=== PATIENT | female | born 2000 | race Hispanic/Latino ===

== ENCOUNTER 2019-03-29 07:35 | Emergency (ER) | payer OTHER, SELFPAY ==
--- OUTSIDE RECORDS SUMMARY | 2019-03-29 07:37 | XMS REPORT ---
:2000 Author Organization eClinicalWorks Care Team Providers Name Role Phone Brenna Daphnie Provider Role Unavailable Allergies, Adverse Reactions, Alerts Substance Reaction Event Type N.K.D.A. Info Not Available Non Drug Allergy Problems Problem Type Condition Code Onset Dates Condition Status Problem Seasonal allergies J30.2 Active Problem Bilateral low back pain without M54.5 Active sciatica, unspecified chronicity Problem Vaginal discharge N89.8 Active Assessment Encounter for gynecological Z01.419 Active examination Assessment Screening for STD (sexually Z11.3 Active transmitted disease) Assessment Vaginal discharge N89.8 Active Medications No Known Medications Results Name Result Date Reference Range Unit Abnormality Flag SURESWAB(R), CT/NG, T VAGINALIS ----CHLAMYDIA TRACHOMATIS NOT DETECTED 20180826 NOT DETECTED N RNA, TMA, UROGENITAL ----NEISSERIA GONORRHOEAE NOT DETECTED 20180826 NOT DETECTED N RNA, TMA, UROGENITAL ----SURESWAB(R) NOT DETECTED 20180826 NOT DETECTED N TRICHOMONAS VAGINALIS RNA, QL, TMA CULTURE, GENITAL ----CULTURE, GENITAL SEE NOTE [id number] Summary Purpose eClinicalWorks Submission
--- NOTE | 2019-03-29 08:46 | EDPHYS ---
Physician Documentation [facility] Name: Emma Bah Age: 18 yrs Sex: Female : 2000 Arrival Date: 03/29/2019 Time: 07:38 Bed 20 Private MD: ED Physician Jay Patrick HPI: 03/29 07:49 This 18 yrs old Female presents to ER via Ambulatory with complaints of Cough. rn 07:49 The patient or guardian reports cough, that is intermittent, described as mild, with no rn sputum. Onset: The symptoms/episode began/occurred 1 week(s) ago. Severity of symptoms: At their worst the symptoms were mild, in the emergency department the symptoms are unchanged. Modifying factors: The symptoms are alleviated by nothing, the symptoms are aggravated by nothing. The patient has not experienced similar symptoms in the past. The patient has not recently seen a physician. Reports sore throat, congestion, runny nose, cough for 1 week, is , just not going away, no sob. No hx of asthma, non-smoker.. 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 - Social history:: Smoking status: Patient/guardian denies using tobacco. - Ebola Screening: : No symptoms or risks identified at this time. - Family history:: not pertinent. - Hospitalizations: : No recent hospitalization is reported. ROS: 07:49 Constitutional: + chills, no fever Eyes: Negative for injury, pain, redness, and corn popper, ENT: + congestion and sore throat Neck: Negative for injury, and swelling, Cardiovascular: Negative for chest pain, palpitations, and edema, Respiratory: Negative for wheezing, and pleuritic chest pain, Abdomen/GI: Negative for abdominal pain, nausea, vomiting, diarrhea, and constipation, MS/Extremity: Negative for injury and deformity, Skin: Negative for injury, rash, and discoloration, Neuro: Negative for headache, weakness, numbness, tingling, and seizure. Exam: 07:49 Constitutional: This is a well developed, well nourished patient who is awake, alert, rn and in no acute distress. Head/Face: Normocephalic, atraumatic. Eyes: Pupils equal round and reactive to light, extra-ocular motions intact. Lids and lashes normal. Conjunctiva and sclera are non-icteric and not injected. Cornea within normal limits. Periorbital areas with no swelling, redness, or edema. ENT: Mild pharyngeal erythema, no exudate, no stridor Neck: Trachea midline, no thyromegaly or masses palpated, and no cervical lymphadenopathy. Supple, full range of motion without nuchal rigidity, or vertebral point tenderness. No Meningismus. Cardiovascular: Regular rate and rhythm. No pulse deficits. Respiratory: Lungs have equal breath sounds bilaterally, clear to auscultation Skin: Warm, dry Vital Signs: 07:41 BP 123 / 68; Pulse 75; Resp 16 S; Temp 98.4(O); Pulse Ox 100% on R/A; Weight 86.18 kg aa5 (R); Height 5 ft. 4 in. (162.56 cm) (R); Pain 6/10; 08:16 BP 113 / 72; Pulse 72; Resp 15; Pulse Ox 99% on R/A; tr5 07:41 Body Mass Index 32.61 (86.18 kg, 162.56 cm) aa5 MDM: 07:43 Patient medically screened. rn 08:44 Differential Diagnosis: Bronchitis Influenza Upper Respiratory Infection Pharyngitis rn Viral Syndrome. Data reviewed: vital signs, nurses notes, lab test result(s), and as a result, I will discharge patient. Counseling: I had a detailed discussion with the patient and/or guardian regarding: the historical points, exam findings, and any diagnostic results supporting the discharge/admit diagnosis, lab results, the need for outpatient follow up, to return to the emergency department if symptoms worsen or persist or if there are any questions or concerns that arise at home. Response to treatment: There is no appreciated change of the patient's symptoms at this time, and as a result, I will discharge patient. Special discussion: I discussed with the patient/guardian in detail that at this point there is no indication for admission to the hospital. It is understood, however, that if the symptoms persist or worsen the patient needs to return immediately for re-evaluation. 03/29 07:49 Order name: Strep; Complete Time: 08:44 rn 03/29 07:49 Order name: Flu; Complete Time: 08:44 rn 03/29 08:37 Order name: Throat Culture EDMS Administered Medications: No medications were administered Disposition: 03/29/19 08:45 Discharged to Home. Impression: Cough, Acute upper respiratory infection, unspecified. - Condition is Stable. - Discharge Instructions: Upper Respiratory Infection, Adult, Viral Respiratory Infection, Cough, Adult. - Medication Reconciliation Form, Thank You Letter, Antibiotic Education, Prescription Opioid Use form. - Follow up: Private Physician; When: As needed; Reason: Recheck today's complaints, Re-evaluation by your physician. - Problem is new. - Symptoms are unchanged. Signatures: Dispatcher [employer] EDMS Jay Patrick MD MD rn Calderon, Audri, RN RN aa5 Corrections: (The following items were deleted from the chart) 09:38 08:45 03/29/2019 08:45 Discharged to Home. Impression: Cough; Acute upper respiratory aa5 infection, unspecified. Condition is Stable. Forms are Medication Reconciliation Form, Thank You Letter, Antibiotic Education, Prescription Opioid Use. Follow up: Private Physician; When: As needed; Reason: Recheck today's complaints, Re-evaluation by your physician. Problem is new. Symptoms are unchanged. rn
--- NOTE | 2019-03-29 08:46 | ER ---
Nurse's Notes [facility] Name: Emma Bah Age: 18 yrs Sex: Female : 2000 Arrival Date: 03/29/2019 Time: 07:38 Bed 20 Private MD: Diagnosis: Cough;Acute upper respiratory infection, unspecified Presentation: 03/29 07:40 Presenting complaint: Patient states: sore throat, cough, runny nose that began 1 week aa5 ago. Pt also reports positive test on March 11. 07:40 Transition of care: patient was not received from another setting of care. Onset of aa5 symptoms was March 2019. Risk Assessment: Do you want to hurt yourself or someone else? Patient reports no desire to harm self or others. Initial Sepsis Screen: Does the patient meet any 2 criteria? No. Patient's initial sepsis screen is negative. Does the patient have a suspected source of infection? No. Patient's initial sepsis screen is negative. Care prior to arrival: None. 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 - Social history:: Smoking status: Patient/guardian denies using tobacco. - Ebola Screening: : No symptoms or risks identified at this time. - Family history:: not pertinent. - Hospitalizations: : No recent hospitalization is reported. Screenin:10 Abuse screen: Denies threats or abuse. Nutritional screening: No deficits noted. tr5 Tuberculosis screening: No symptoms or risk factors identified. Fall Risk No fall in past 12 months (0 pts). No secondary diagnosis (0 pts). No IV (0 pts). Ambulatory Aid- None/Bed Rest/Nurse Assist (0 pts). Gait- Normal/Bed Rest/Wheelchair (0 pts) Mental Status- Oriented to own ability (0 pts). Total Randolph Fall Scale indicates No Risk (0-24 pts). Assessment: 08:07 General: Appears in no apparent distress. Behavior is calm, cooperative, appropriate tr5 for age. Pain: Complains of pain in right mandible and left mandible Pain does not radiate. Pain currently is 4 out of 10 on a pain scale. Quality of pain is described as aching, Pain began 2-3 days ago. Is continuous. Neuro: Level of Consciousness is awake, alert, obeys commands, Oriented to person, place, time, Delicatessen Clerk are equal bilaterally. Cardiovascular: Heart tones present Bruits absent Capillary refill < 3 seconds Pulses are all present. Edema is absent. Respiratory: Reports cough that is non-productive, Airway is patent Trachea midline Breath sounds are clear bilaterally. GI: No signs and/or symptoms were reported involving the gastrointestinal system. : No signs and/or symptoms were reported regarding the genitourinary system. EENT: No signs and/or symptoms were reported regarding the EENT system. Derm: No signs and/or symptoms reported regarding the dermatologic system. Skin is intact, Skin is dry. Musculoskeletal: Capillary refill < 3 seconds. 09:35 Reassessment: Patient is alert, oriented x 3, equal unlabored respirations, skin aa5 warm/dry/pink. Vital Signs: 07:41 BP 123 / 68; Pulse 75; Resp 16 S; Temp 98.4(O); Pulse Ox 100% on R/A; Weight 86.18 kg aa5 (R); Height 5 ft. 4 in. (162.56 cm) (R); Pain 6/10; 08:16 BP 113 / 72; Pulse 72; Resp 15; Pulse Ox 99% on R/A; tr5 07:41 Body Mass Index 32.61 (86.18 kg, 162.56 cm) aa5 ED Course: 07:38 Patient arrived in ED. as 07:40 Arm band placed on Patient placed in an exam room, on a stretcher. aa5 07:43 Jay Patrick MD is Attending Physician. rn 07:49 Triage completed. aa5 07:55 Christos Barfield, SOFIA is Primary Nurse. tr5 08:11 Patient has correct armband on for positive identification. Bed in low position. Call tr5 light in reach. 09:35 No provider procedures requiring assistance completed. Patient did not have IV access aa5 during this emergency room visit. Administered Medications: No medications were administered Outcome: 08:45 Discharge ordered by . rn 09:35 Discharged to home ambulatory, with friend. aa5 09:35 Condition: stable 09:35 Discharge instructions given to patient, Instructed on discharge instructions, follow up and referral plans. Demonstrated understanding of instructions, follow-up care. 09:38 Patient left the ED. aa5 Signatures: Nichole Adrian Roman, MD MD rn Calderon, Audri RN RN aa5 Christos Barfield RN RN tr5
[2019-03-29 09:44] VITALS: TEMP 98.4
[2019-03-29 09:45] VITALS: BP 113/72; O2SAT 99
== END 2019-03-29 09:38 | disposition home or self-care (01) ==
LOC: ER 07:35
DX: O26.891 Other specified pregnancy related conditions, first trimester (principal); J06.9 Acute upper respiratory infection, unspecified; Z3A.00 Weeks of gestation of pregnancy not specified; Z88.0 Allergy status to penicillin
CPT/HCPCS: 87070; 87081; 87804; 99281

== ENCOUNTER 2019-12-09 05:01 | Emergency (ER) | payer OTHER ==
--- OUTSIDE RECORDS SUMMARY | 2019-12-09 05:03 | XMS REPORT ---
:2000 [facility] Address [address] [place] [address] Dr. Osborne. [address] [place] [id number] Care Team Providers Name Role Phone Unavailable Unavailable Unavailable Problems This patient has no known problems. Allergies, Adverse Reactions, Alerts This patient has no known allergies or adverse reactions. Medications This patient has no known medications.
--- OUTSIDE RECORDS SUMMARY | 2019-12-09 05:05 | XMS REPORT | Summary of Care ---
:2000 Author Organization [facility] Address [address] [place] [id number] Care Team Providers Name Role Phone Aliyah Boss MD Primary Care Provider Reason for Visit Reason Comments ROUTINE VISIT Encounter Details Date Type Department Care Team Description 11/07/2019 Routine [facility] Women's Niurka Govea, High-risk in third trimester (Primary Dx); Visit Healthcare- PA-C 37 weeks gestation of [address] [facility] [address] [place] [id number] [phone] Allergies Active Allergy Reactions Severity Noted Date Comments Penicillins Hives 04/23/2019 documented as of this encounter (statuses as of 11/07/2019) Medications Medication Sig Dispensed Refills Start Date End Date Status Take by mouth. 0 Active vits62/FA/om3/dha/epa ( GUMMY ORAL) documented as of this encounter (statuses as of 11/07/2019) Active Problems Problem Noted Date High-risk in third trimester 09/16/2019 Obesity (BMI 30-39.9) 04/23/2019 Estimated Date of Delivery Comments Yes 11/22/2019 Based on Ultrasound documented as of this encounter (statuses as of 11/07/2019) Resolved Problems Problem Noted Date Resolved Date 36 weeks gestation of 09/16/2019 11/07/2019 documented as of this encounter (statuses as of 11/07/2019) Immunizations Name Administration Dates Next Due DTAP 10/12/2003, 05/22/2001, 03/14/2000, 01/11/2000, 2000 H1n1 Vaccine 10/07/2010 HEPATITIS A 10/01/2012, 12/28/2011 HPV 12/28/2011, 03/30/2011, 10/07/2010 Heamophilus Influenza B 05/22/2001, 03/14/2000, 01/11/2000, 2000 Hep B, Adol or Pedi Dosage 03/14/2000, [birth year] IPV 10/12/2003, 05/22/2001, 01/11/2000, 2000 Influenza Virus Vaccine Quad .5 mL IM 07/17/2019 6+ MO MMR 10/12/2003, 10/08/2000 Meningococcal Polysaccharide (groups 10/07/2010 A, C, Y and W-135) conjugate vaccine (MCV4P) TDAP (ADACEL) VACCINE 09/30/2019 Tdap 10/07/2010 Varicella (varivax)(chicken pox) 12/28/2011, 10/08/2000 documented as of this encounter Social History Tobacco Use Types Packs/Day Years Used Date Never Smoker Smokeless Tobacco: Never Used Alcohol Use Drinks/Week oz/Week Comments Never Alcohol Habits Answer Date Recorded How often do you have a drink containing alcohol? Never 04/23/2019 How many drinks containing alcohol do you have on a typical Not asked day when you are drinking? How often do you have six or more drinks on one occasion? Not asked Estimated Date of Delivery Comments Yes 11/22/2019 Based on Ultrasound Sex Assigned at Date Recorded Not on file Job Start Date Occupation Industry Not on file Not on file Not on file Travel History Travel Start Travel End No recent travel history available. documented as of this encounter Last Filed Vital Signs Vital Sign Reading Time Taken Comments Blood Pressure 110/71 11/07/2019 9:12 AM HAND MODEL Pulse 75 11/07/2019 9:12 AM HAND MODEL Temperature 36.9 C (98.4 F) 11/07/2019 9:12 AM HAND MODEL Respiratory Rate 18 11/07/2019 9:12 AM HAND MODEL Oxygen Saturation - - Inhaled Oxygen Concentration - - Weight 88.9 kg (196 lb) 11/07/2019 9:12 AM HAND MODEL Height 160 cm (5' 3") 11/07/2019 9:12 AM HAND MODEL Body Mass Index 34.72 11/07/2019 9:12 AM HAND MODEL documented in this encounter Progress Notes Niurka Govea PA-C - 11/07/2019 8:45 AM CST Chief complaint: Chief Complaint Patient presents with ROUTINE VISIT HPI Emma Bah is a 19 year old female @ 37w6d coming in for PN visit. Denies contractions, vaginal bleeding, LOF, dysuria, or PIH symptoms. + active FM. Histories OB History Para Term AB Living 1 0 SAB TAB Ectopic Multiple Live Births # Outcome Date GA Lbr Marty/2nd Weight Sex Delivery Anes PTL Lv 1 Current No past medical history on file. Family History Problem Relation Age of Onset Thyroid Mother Hyperthyroidism Mother Arthritis NoFHx Asthma NoFHx defects NoFHx Breast Cancer NoFHx Colon Cancer NoFHx Ovarian Cancer NoFHx Uterine Cancer NoFHx Cancer NoFHx Depression NoFHx Diabetes NoFHx Genetic NoFHx Heart NoFHx High cholesterol NoFHx Hypertension NoFHx Mental retardation NoFHx Neurological NoFHx Osteoporosis NoFHx Psychiatry NoFHx Other - see comments NoFHx Family Status Relation Name Status Mo Alive Fa Alive NoFHx (Not Specified) Past Surgical History: Procedure Laterality Date TONSILLECTOMY @ age 6 Social History Socioeconomic History Marital status: Single Spouse name: Not on file Number of children: Not on file Years of education: Not on file Highest education level: Not on file Occupational History Not on file Social Needs Financial resource strain: Not on file Food insecurity: Worry: Not on file Inability: Not on file Transportation needs: Medical: Not on file Non-medical: Not on file Tobacco Use Smoking status: Never Smoker Smokeless tobacco: Never Used Substance and Sexual Activity Alcohol use: Never Frequency: Never Drug use: Never Sexual activity: Yes Partners: Male control/protection: None Lifestyle Physical activity: Days per week: Not on file Minutes per session: Not on file Stress: Not on file Relationships Social connections: Talks on phone: Not on file Gets together: Not on file Attends orthodox service: Not on file Active member of club or organization: Not on file Attends meetings of clubs or organizations: Not on file Relationship status: Not on file Intimate partner violence: Fear of current or ex partner: Not on file Emotionally abused: Not on file Physically abused: Not on file Forced sexual activity: Not on file Other Topics Concern Not on file Social History Narrative Denies domestic or physical violence within the home Yarsanism Preference; Jainism Cat outside / no litter box Social History Substance and Sexual Activity Sexual Activity Yes Partners: Male control/protection: None Labs none Radiology none Allergies Emma is allergic to pcn [penicillins]. Medications Emma has a current medication list which includes the following prescription(s ): vits62/fa/om3/dha/epa. Review of Systems Constitutional: Negative for appetite change, fatigue and fever. HENT: Negative for rhinorrhea and sore throat. Eyes: Negative for pain and itching. Respiratory: Negative for cough, chest tightness and shortness of breath. Breasts: Negative for discharge, mass and pain. Cardiovascular: Negative for chest pain, palpitations and leg swelling. Gastrointestinal: Negative for abdominal pain, constipation, diarrhea and nausea. Genitourinary: Negative for bladder incontinence, dysuria, vaginal discharge, difficulty urinating, vaginal pain and pelvic pain. Musculoskeletal: Negative for gait problem and myalgias. Skin: Negative for rash. Neurological: Negative for dizziness and headaches. Psychiatric/Behavioral: Negative for suicidal ideas. The patient is not nervous/ anxious. Endocrine: Negative for hair loss. BP 110/71 (BP Location: Left arm, Patient Position: Sitting, BP CUFF SIZE: Adult Medium) | Pulse 75 | Temp 36.9 C (98.4 F) (Oral) | Resp 18 | Ht 5' 3" (1.6 m) | Wt 196 lb (88.9 kg) | LMP (LMP Unknown) | BMI 34.72 kg/m Pregravid BMI: 32.4 Physical Exam Vitals reviewed. Constitutional: She is oriented to person, place, and time. She appears well- developed and well-nourished. Neck: No mass. No thyromegaly palpated. No neck adenopathy. Cardiovascular: Regular rate and rhythm. Pulmonary/Chest: Normal inspiratory effort. Abdominal: Abdomen is soft. No tenderness present. No hernia palpated or inspected. Neuro/Psychiatric: She has a normal mood and affect. She is oriented to person, place, and time. Skin: Skin normal. Lymphadenopathy: No neck adenopathy present. No axillary adenopathy present. No inguinal adenopathy present. Assessment/Plan SEE OB SUMMARY Return to clinic in 1 weeks. Discussed treatment options. Reviewed patient instructions and provided printed copy. Activity restrictions: As tolerated This visit did not involve counseling and coordination that comprised more than 50% of the visit time. Niurka Govea PA-C 11/07/2019 9:21 AM documented in this encounter Plan of Treatment Date Type Specialty Care Team Description 11/07/2019 Skiagrapher Visit Phlebotomy Niurka Govea PA-C [address] [place] [phone] 2, Adc Lab 11/13/2019 Routine Visit Obstetrics & Boss, Aliyah Ocampo MD Gynecology [address] [place] [address] DRDenys [facility] [address] [place] [address] [phone] Health Maintenance Due Date Last Done Comments MENINGOCOCCAL B VACCINES (1 2009 of 2 - Risk Bexsero 2-dose series) WELL CARE VISIT: 12-21 YEARS 2011 (yearly) CHLAMYDIA SCREENING 10/29/2020 10/29/2019, 04/23/2019 DTaP,Tdap,and Td Vaccines (8 09/30/2029 09/30/2019, 10/07/2010, - Td) 10/12/2003, Additional history exists MENINGOCOCCAL VACCINE Aged Out 10/07/2010 No longer eligible based on patient's age to complete this topic HPV VACCINES Completed 12/28/2011, 03/30/2011, 10/07/2010 VARICELLA VACCINES Completed 12/28/2011, 10/08/2000 INFLUENZA VACCINE Completed 07/17/2019 PNEUMOCOCCAL 0-64 YEARS Aged Out No longer eligible COMBINED SERIES based on patient's age to complete this topic documented as of this encounter Procedures Procedure Name Priority Date/Time Associated Diagnosis Comments POCT URINALYSIS W/O Routine 11/07/2019 High-risk in Results for this SPECIFIC GRAVITY third trimester procedure are in the 37 weeks gestation of results section. documented in this encounter Results POCT URINALYSIS W/O SPECIFIC GRAVITY (11/07/2019) POCT PH U N/A 5 - 8 mg/dl POCT U LEUK EST N/A Negative - Negative POCT U NIT N/A Negative - Negative POCT U PROT NEG Negative - Negative POCT U GLU NEG Negative - Negative POCT U KETONE N/A Negative - Negative POCT U BLD N/A Negative - Negative Specimen Urine - URINE, CLEAN CATCH documented in this encounter Visit Diagnoses Diagnosis High-risk in third trimester - Primary 37 weeks gestation of state, incidental documented in this encounter Insurance Payer Benefit Plan / Subscriber ID Effective Dates Phone Address Type Group [facility] xxxxxxxxx 2019-Present Medicaid HEALTH PLAN - HEALTH MANAGED MEDICAID documented as of this encounter
--- OUTSIDE RECORDS SUMMARY | 2019-12-09 05:05 | XMS REPORT | Summary of Care ---
:1999 Author Organization [facility] Address [address] [place] [address] Care Team Providers Name Role Phone Aliyah Boss MD Primary Care Provider Reason for Visit Reason Comments ROUTINE VISIT Encounter Details Date Type Department Care Team Description 10/29/2019 Routine [facility] Women's Aliyah Boss MD High-risk in third trimester (Primary Dx); Visit Healthcare- [address] [place] [address] [facility] [address] [place] [address] [address] [place] [address] [phone] Allergies Active Allergy Reactions Severity Noted Date Comments Penicillins Hives 04/23/2019 documented as of this encounter (statuses as of 10/29/2019) Medications Medication Sig Dispensed Refills Start Date End Date Status Take by mouth. 0 Active vits62/FA/om3/dha/epa ( GUMMY ORAL) documented as of this encounter (statuses as of 10/29/2019) Active Problems Problem Noted Date 36 weeks gestation of 09/16/2019 High-risk in third trimester 09/16/2019 Obesity (BMI 30-39.9) 04/23/2019 Estimated Date of Delivery Comments Yes 11/22/2019 Based on Ultrasound documented as of this encounter (statuses as of 10/29/2019) Immunizations Name Administration Dates Next Due Influenza Virus Vaccine Quad .5 mL IM 6+ MO 07/17/2019 TDAP (ADACEL) VACCINE 09/30/2019 documented as of this encounter Social History [...] Sign Reading Time Taken Comments Blood Pressure 117/72 10/29/2019 10:05 AM SERICULTURE TEACHER Pulse 82 10/29/2019 10:05 AM SERICULTURE TEACHER Temperature 36.7 C (98.1 F) 10/29/2019 10:05 AM SERICULTURE TEACHER Respiratory Rate 18 10/29/2019 10:05 AM SERICULTURE TEACHER Oxygen Saturation - - Inhaled Oxygen Concentration - - Weight 87.1 kg (192 lb) 10/29/2019 10:05 AM SERICULTURE TEACHER Height 160 cm (5' 3") 10/29/2019 10:05 AM SERICULTURE TEACHER Body Mass Index 34.01 10/29/2019 10:05 AM SERICULTURE TEACHER documented in this encounter Progress Notes Aliyah Boss MD - 10/29/2019 9:30 AM CST Chief complaint: Chief Complaint Patient presents with ROUTINE VISIT HPI Denies contractions, vaginal bleeding, LOF, dysuria, or PIH symptoms. + active FM. Histories OB History Para Term AB Living 1 0 SAB TAB Ectopic Multiple Live Births # Outcome Date GA Lbr Marty/2nd Weight Sex Delivery Anes PTL Lv 1 Current History reviewed. No pertinent past medical history. Family History Problem Relation Age of Onset [...] file Gets together: Not on file Attends pentecostalism service: Not on file Active member of [...] domestic or physical violence within the home Baptism Preference; Episcopal Cat outside / no litter box Social History Substance and Sexual Activity Sexual Activity Yes Partners: Male control/protection: None Labs No new labs Radiology No new radiology. Allergies Emma is allergic to pcn [penicillins]. Medications Emma has a current medication list which includes the following prescription(s ): vits62/fa/om3/dha/epa. Review of Systems Constitutional: Negative for chills, fatigue and fever. HENT: Negative for congestion, rhinorrhea, sneezing and sore throat. Eyes: Negative for photophobia and visual disturbance. Respiratory: Negative for cough, chest tightness, shortness of breath and wheezing. Cardiovascular: Negative for chest pain and palpitations. Gastrointestinal: Negative for abdominal distention, abdominal pain, constipation, diarrhea, nausea and vomiting. Genitourinary: Negative for dysuria, urgency, frequency, vaginal bleeding and vaginal discharge. Skin: Negative for rash. Neurological: Negative for syncope and headaches. Hematological: Does not bruise/bleed easily. BP 117/72 (BP Location: Left arm, Patient Position: Sitting, BP CUFF SIZE: Adult Medium) | Pulse 82 | Temp 36.7 C (98.1 F) (Oral) | Resp 18 | Ht 5' 3" (1.6 m) | Wt 192 lb (87.1 kg) | LMP (LMP Unknown) | BMI 34.01 kg/m Pregravid BMI: 32.4 Physical Exam Vitals reviewed. Constitutional: She is oriented to person, place, and time. Her body habitus is obese. Cardiovascular: Regular rate and rhythm. Pulmonary/Chest: Normal inspiratory effort. Abdominal: Abdomen is soft. No tenderness present. No hernia palpated or inspected. Neuro/Psychiatric: She has a normal mood and affect. She is oriented to person, place, and time. Skin: Skin normal. No rash present. Assessment/Plan See OB Summary Return to clinic in 1 weeks. Reviewed patient instructions and provided printed copy. Activity restrictions: As tolerated at 36w4d This visit did not involve counseling and coordination that comprised more than 50% of the visit time. Aliyah Boss MD 10/29/2019 2:48 PM documented in this encounter Plan of Treatment Date Type Specialty Care Team Description 11/07/2019 Routine Obstetrics & Niurka Govea, Visit Gynecology DUNCAN [address] [place] [phone] Name Type Priority Associated Diagnoses Order Schedule GC & CHLAMYDIA AMPLIFIED LAB Routine High-risk in Ordered: 2019 ASSAY third trimester 36 weeks gestation of CBC WITH DIFF LAB Routine High-risk in Expected: 10/29/2019, third trimester Expires: 01/27/2020 36 weeks gestation of GROUP B STREPTOCOCCUS BY LAB Routine High-risk in Ordered: 2019 PCR third trimester 36 weeks gestation of Health Maintenance Due Date Last Done Comments VARICELLA VACCINES (1 of 2 - 2000 2-dose childhood series) MENINGOCOCCAL B VACCINES (1 of 2 - 2009 Risk Bexsero 2-dose series) HPV VACCINES (1 - Female 2-dose 2010 series) WELL CARE VISIT: 12-21 YEARS 2011 (yearly) CHLAMYDIA SCREENING 04/23/2020 04/23/2019 DTaP,Tdap,and Td Vaccines (2 - Td) 09/30/2029 09/30/2019 INFLUENZA VACCINE Completed 07/17/2019 MENINGOCOCCAL VACCINE Aged Out No longer eligible based on patient's age to complete this topic PNEUMOCOCCAL 0-64 YEARS COMBINED Aged Out No longer eligible based on SERIES patient's age to complete this topic documented as of this encounter Procedures Procedure Name Priority Date/Time Associated Diagnosis Comments >14 WEEKS US Routine 10/29/2019 2:46 PM High-risk Results for this LIMITED SERICULTURE TEACHER in third trimester procedure are in 36 weeks gestation the results of section. documented in this encounter Results >14 WEEKS US LIMITED (10/29/2019 2:46 PM SERICULTURE TEACHER) Specimen Narrative Performed At Limited USG for presentation: Cephalic PACS Aliyah Boss MD 10/29/2019 2:46 PM Performing Organization Address City/State/[place] Phone Number PACS documented in this encounter Visit Diagnoses Diagnosis High-risk in third trimester - Primary 36 weeks gestation of state, incidental documented in this encounter Insurance Payer Benefit Plan / Subscriber ID Effective Dates Phone Address Type Group [place] [facility] [place] xxxxxxxxx 2019-Present Medicaid HEALTH PLAN - HEALTH MANAGED MEDICAID documented as of this encounter
--- OUTSIDE RECORDS SUMMARY | 2019-12-09 05:05 | XMS REPORT | Summary of Care ---
:1999 Author Organization [facility] - Health Address [address] [place] [address] Care Team Providers Name Role Phone Aliyah Boss MD Primary Care Provider Encounter Details Date Type Department Care Team Description 10/29/2019 Orders Only [facility] Doctor Unassigned, No [address] [facility] [place] [address] [address] [place] [address] Allergies Active Allergy Reactions Severity Noted Date [...] of this encounter Last Filed Vital Signs Not on filedocumented in this encounter Plan of Treatment Date Type Specialty Care Team Description 11/07/2019 Routine Obstetrics & Niurka Govea, Visit Gynecology DUNCAN Clancy [address] [address] Health Maintenance Due Date Last Done Comments [...] Procedure Name Priority Date/Time Associated Diagnosis Comments DSU PRE-OP Routine 10/29/2019 12:01 AM VISUAL AND STOCK ASSOCIATE documented in this encounter Results Not on filedocumented in this encounter Insurance Payer Benefit Plan / Subscriber ID Effective Dates Phone Address Type Group [place] [facility] [place] CHILDRENS xxxxxxxxx 2019-Present Medicaid HEALTH PLAN - HEALTH MANAGED MEDICAID documented as of this encounter
--- OUTSIDE RECORDS SUMMARY | 2019-12-09 05:05 | XMS REPORT | Summary of Care ---
:1999 Author Organization [facility] Address [address] [place] [address] Care Team Providers Name Role Phone Aliyah Boss MD Primary Care Provider Reason for Visit Reason Comments ROUTINE VISIT Encounter Details Date Type Department Care Team Description 11/07/2019 Routine [facility] Women's Niurka Govea, High-risk in third trimester (Primary Dx); Visit Healthcare- PA-C 37 weeks gestation of [address] [facility] [address] [place] [phone] Allergies Active Allergy Reactions Severity Noted Date [...] Comments Blood Pressure 110/71 11/07/2019 9:12 AM MUSIC AGENT Pulse 75 11/07/2019 9:12 AM MUSIC AGENT Temperature 36.9 C (98.4 F) 11/07/2019 9:12 AM MUSIC AGENT Respiratory Rate 18 11/07/2019 9:12 AM MUSIC AGENT Oxygen Saturation - - Inhaled Oxygen Concentration - - Weight 88.9 kg (196 lb) 11/07/2019 9:12 AM MUSIC AGENT Height 160 cm (5' 3") 11/07/2019 9:12 AM MUSIC AGENT Body Mass Index 34.72 11/07/2019 9:12 AM MUSIC AGENT documented in this encounter Progress Notes Niurka [...] file Gets together: Not on file Attends confucianism service: Not on file Active member of [...] domestic or physical violence within the home Yarsani Preference; Hindu Cat outside / no litter box Social [...] Treatment Date Type Specialty Care Team Description 11/13/2019 Routine Obstetrics & Boss, Aliyah Ocampo MD Visit Gynecology [address] [place] [address] [place] [address] [phone] Health Maintenance Due Date Last Done Comments [...] ID Effective Dates Phone Address Type Group [facility] xxxxxxxxx 2019-Present Medicaid HEALTH PLAN - [facility] MANAGED MEDICAID documented as of this encounter
--- OUTSIDE RECORDS SUMMARY | 2019-12-09 05:05 | XMS REPORT | Summary of Care ---
:1999 Author Organization [facility] Address [address] [place] [address] Care Team Providers Name Role Phone Aliyah Boss MD Primary Care Provider Reason for Visit Reason Comments ROUTINE VISIT Encounter Details Date Type Department Care Team Description 09/30/2019 Routine [facility] Women's Niurka Govea, High-risk in third trimester (Primary Dx); Visit Healthcare- PA-C 32 weeks gestation of [address] [facility] [address] [place] [address] [phone] Allergies Active Allergy Reactions Severity Noted Date Comments Penicillins Hives 04/23/2019 documented as of this encounter (statuses as of 09/30/2019) Medications Medication Sig Dispensed Refills Start Date End Date Status Take by mouth. 0 Active vits62/FA/om3/dha/epa ( GUMMY ORAL) documented as of this encounter (statuses as of 09/30/2019) Active Problems Problem Noted Date 30 weeks gestation of 09/16/2019 High-risk in third trimester 09/16/2019 Obesity (BMI 30-39.9) 04/23/2019 Estimated Date of Delivery Comments Yes 11/22/2019 Based on Ultrasound documented as of this encounter (statuses as of 09/30/2019) Immunizations Name Administration Dates Next Due Influenza Virus Vaccine Quad .5 mL IM 6+ MO 07/17/2019 documented as of this encounter Social History [...] Sign Reading Time Taken Comments Blood Pressure 102/64 09/30/2019 4:51 PM ANGLE FURNACEMAN Pulse 77 09/30/2019 4:51 PM ANGLE FURNACEMAN Temperature 36.6 C (97.8 F) 09/30/2019 4:51 PM ANGLE FURNACEMAN Respiratory Rate 18 09/30/2019 4:51 PM ANGLE FURNACEMAN Oxygen Saturation - - Inhaled Oxygen Concentration - - Weight 86.6 kg (191 lb) 09/30/2019 4:51 PM ANGLE FURNACEMAN Height 162.6 cm (5' 4") 09/30/2019 4:51 PM ANGLE FURNACEMAN Body Mass Index 32.79 09/30/2019 4:51 PM ANGLE FURNACEMAN documented in this encounter Progress Notes Niurka Govea PA-C - 09/30/2019 4:30 PM CST Chief complaint: Chief Complaint Patient presents with ROUTINE VISIT HPI Emma Bah is a 19 year old female @ 32w3d coming in for PN visit. Denies contractions, [...] file Gets together: Not on file Attends jain service: Not on file Active member of [...] domestic or physical violence within the home Mu-Ism Preference; Adventism Cat outside / no litter box Social [...] nervous/ anxious. Endocrine: Negative for hair loss. LMP (LMP Unknown) Pregravid BMI: 31.4 Physical Exam Vitals reviewed. Constitutional: She is [...] SEE OB SUMMARY Return to clinic in 2 weeks. Discussed treatment options. Reviewed patient instructions and provided printed copy. Activity restrictions: As tolerated This visit did not involve counseling and coordination that comprised more than 50% of the visit time. Niurka Govea PA-C 09/30/2019 4:47 PM documented in this encounter Plan of Treatment Name Type Priority Associated Diagnoses Order Schedule ADC / LCC - DRUG SCREEN LAB Routine High-risk in Ordered: 2019 TRIAGE third trimester Health Maintenance Due Date Last Done Comments VARICELLA VACCINES (1 of 2 - 2000 2-dose childhood series) MENINGOCOCCAL B VACCINES (1 of 2 - 2009 Risk Bexsero 2-dose series) DTaP,Tdap,and Td Vaccines (1 - 2010 Tdap) HPV VACCINES (1 - Female 2-dose 2010 series) CHLAMYDIA SCREENING 04/23/2020 04/23/2019 INFLUENZA VACCINE Completed 07/17/2019 MENINGOCOCCAL VACCINE Aged Out No longer eligible based on patient's age to complete this topic PNEUMOCOCCAL 0-64 YEARS COMBINED Aged Out No longer eligible based on SERIES patient's age to complete this topic documented as of this encounter Procedures Procedure Name Priority Date/Time Associated Diagnosis Comments POCT URINALYSIS W/O Routine 09/30/2019 32 weeks gestation of Results for this SPECIFIC GRAVITY procedure are in the results section. documented in this encounter Results POCT URINALYSIS W/O SPECIFIC GRAVITY (09/30/2019) POCT PH U N/A 5 - 8 mg/dl POCT U LEUK EST N/A Negative - Negative POCT U NIT N/A Negative - Negative POCT U PROT Negative Negative - Negative POCT U GLU Negative Negative - Negative POCT U KETONE N/A Negative - Negative POCT U BLD N/A Negative - Negative Specimen Urine - URINE, CLEAN CATCH documented in this encounter Visit Diagnoses Diagnosis High-risk in third trimester - Primary 32 weeks gestation of state, incidental documented in this encounter Insurance Payer Benefit Plan / Subscriber ID Effective Dates Phone Address Type Group [place] [facility] [place] xxxxxxxxx 2019-Present Medicaid HEALTH PLAN - HEALTH MANAGED MEDICAID documented as of this encounter
--- OUTSIDE RECORDS SUMMARY | 2019-12-09 05:05 | XMS REPORT | Summary of Care ---
:1999 Author Organization [facility] Address [address] [place] [address] Care Team Providers Name Role Phone Aliyah Boss MD Primary Care Provider Reason for Visit Reason Comments ROUTINE VISIT Encounter Details Date Type Department Care Team Description 10/14/2019 Routine [facility] Women's Niurka Govea, High-risk in third trimester (Primary Dx); Visit Healthcare- PA-C 34 weeks gestation of [address] [facility] [address] [place] [address] [phone] Allergies Active Allergy Reactions Severity Noted Date Comments Penicillins Hives 04/23/2019 documented as of this encounter (statuses as of 10/14/2019) Medications Medication Sig Dispensed Refills Start Date End Date Status Take by mouth. 0 Active vits62/FA/om3/dha/epa ( GUMMY ORAL) documented as of this encounter (statuses as of 10/14/2019) Active Problems Problem Noted Date 30 weeks gestation of 09/16/2019 High-risk in third trimester 09/16/2019 Obesity (BMI 30-39.9) 04/23/2019 Estimated Date of Delivery Comments Yes 11/22/2019 Based on Ultrasound documented as of this encounter (statuses as of 10/14/2019) Immunizations Name Administration Dates Next Due Influenza [...] Sign Reading Time Taken Comments Blood Pressure 106/72 10/14/2019 3:21 PM SHEET TAKER Pulse 85 10/14/2019 3:21 PM SHEET TAKER Temperature 36.8 C (98.2 F) 10/14/2019 3:21 PM SHEET TAKER Respiratory Rate 18 10/14/2019 3:21 PM SHEET TAKER Oxygen Saturation - - Inhaled Oxygen Concentration - - Weight 86.8 kg (191 lb 6.4 oz) 10/14/2019 3:21 PM SHEET TAKER Height 160 cm (5' 3") 10/14/2019 3:21 PM SHEET TAKER Body Mass Index 33.9 10/14/2019 3:21 PM SHEET TAKER documented in this encounter Progress Notes Niurka Govea PA-C - 10/14/2019 4:30 PM CST Chief complaint: Chief Complaint Patient presents with ROUTINE VISIT HPI Emma Bah is a 19 year old female @ 34w3d coming in for PN visit. Denies contractions, [...] file Gets together: Not on file Attends jew service: Not on file Active member of [...] domestic or physical violence within the home Zoroastrian Preference; Gnosticism Cat outside / no litter box Social [...] of the visit time. Niurka Govea PA-C 10/14/2019 3:06 PM documented in this encounter Plan of Treatment Health Maintenance Due Date Last Done Comments [...] Associated Diagnosis Comments POCT URINALYSIS W/O Routine 10/14/2019 34 weeks gestation of Results for this SPECIFIC GRAVITY procedure are in the results section. documented in this encounter Results POCT URINALYSIS W/O SPECIFIC GRAVITY (10/14/2019) POCT PH U n/a 5 - 8 mg/dl POCT U LEUK EST n/a Negative - Negative POCT U NIT n/a Negative - Negative POCT U PROT negative Negative - Negative POCT U GLU negative Negative - Negative POCT U KETONE n/a Negative - Negative POCT U BLD n/a Negative - Negative Specimen Urine - URINE, CLEAN CATCH documented in this encounter Visit Diagnoses Diagnosis High-risk in third trimester - Primary 34 weeks gestation of state, incidental documented in this encounter Insurance Payer Benefit Plan / Subscriber ID Effective Dates Phone Address Type Group [place] [facility] [place] xxxxxxxxx 2019-Present Medicaid HEALTH PLAN - HEALTH MANAGED MEDICAID documented as of this encounter
--- OUTSIDE RECORDS SUMMARY | 2019-12-09 05:05 | XMS REPORT | Summary of Care ---
:1999 Author Organization [facility] Address [address] [place] [address] Care Team Providers Name Role Phone Aliyah Boss MD Primary Care Provider Reason for Visit Reason Comments ROUTINE VISIT Encounter Details Date Type Department Care Team Description 09/30/2019 Routine [facility] Women's VanNiurka marshall, High-risk in third trimester (Primary Dx); Visit Healthcare- PA-C 32 weeks gestation of ; [address] Need for Tdap vaccination [address] [place] [address], [address] [place] [address] [place] [phone] Allergies Active Allergy Reactions Severity Noted Date [...] Comments Blood Pressure 102/64 09/30/2019 4:51 PM SVP DIGITAL AD SALES Pulse 77 09/30/2019 4:51 PM SVP DIGITAL AD SALES Temperature 36.6 C (97.8 F) 09/30/2019 4:51 PM SVP DIGITAL AD SALES Respiratory Rate 18 09/30/2019 4:51 PM SVP DIGITAL AD SALES Oxygen Saturation - - Inhaled Oxygen Concentration - - Weight 86.6 kg (191 lb) 09/30/2019 4:51 PM SVP DIGITAL AD SALES Height 162.6 cm (5' 4") 09/30/2019 4:51 PM SVP DIGITAL AD SALES Body Mass Index 32.79 09/30/2019 4:51 PM SVP DIGITAL AD SALES documented in this encounter Progress Notes Niurka [...] file Gets together: Not on file Attends advent service: Not on file Active member of [...] domestic or physical violence within the home Spiritism Preference; Mandaeism Cat outside / no litter box Social [...] Treatment Date Type Specialty Care Team Description 10/14/2019 Routine Obstetrics & Niurka Govea, Visit Gynecology DUNCAN [address] [place] [phone] Name Type Priority Associated Diagnoses Order Schedule ADC / LCC - DRUG SCREEN LAB Routine High-risk in Ordered: 2019 TRIAGE third trimester Health Maintenance Due Date Last Done Comments VARICELLA VACCINES (1 of 2 - 2000 2-dose childhood series) MENINGOCOCCAL B VACCINES (1 of - 2009 Risk Bexsero 2-dose series) DTaP,Tdap,and [...] Procedure Name Priority Date/Time Associated Diagnosis Comments TDAP (ADACEL) Routine 09/30/2019 5:20 High-risk IMMUNIZATION PM SVP DIGITAL AD SALES in third trimester Need for Tdap vaccination POCT URINALYSIS W/O Routine 09/30/2019 32 weeks gestation Results for this SPECIFIC GRAVITY of procedure are in the results section. documented [...] Primary 32 weeks gestation of state, incidental Need for Tdap vaccination Need for prophylactic vaccination with combined [id number] ( DTP) vaccine documented in this encounter Insurance Payer Benefit Plan / Subscriber ID Effective Dates Phone Address Type Group [place] [facility] xxxxxxxxx 2019-Present Medicaid HEALTH PLAN - HEALTH MANAGED MEDICAID documented as of this encounter
--- OUTSIDE RECORDS SUMMARY | 2019-12-09 05:05 | XMS REPORT | Summary of Care ---
:1999 Author Organization [facility] Address [address] [place] [address] Care Team Providers Name Role Phone Aliyah Boss MD Primary Care Provider Reason for Visit Reason Comments LAB WORK Auth/Cert Status Reason Specialty Diagnoses / Procedures Referred By Contact Referred To Contact Phlebotomy Diagnoses Supervision of high-risk of young primigravida Adc Pob Lab Draw Procedures GLUCOSE, 1 HOUR Professional Office Building [address] [place] [address] , [address] [place] [address] Encounter Details Date Type Department Care Team Description 10/01/2019 Slitter And Cutter Operator Visit [facility] Niurka Govea PA-C [address] [place] [address] [address] [place] [address] Supervision of high-risk of young primigravida; Professional Office Pob, Adc Lab Main 26 weeks gestation of Building Phlebotomy Lab Professional Office Building [address] [place] [address] , [address] [place] [address] Allergies Active Allergy Reactions Severity Noted Date Comments Penicillins Hives 04/23/2019 documented as of this encounter (statuses as of 10/01/2019) Medications Medication Sig Dispensed Refills Start Date End Date Status Take by mouth. 0 Active vits62/FA/om3/dha/epa ( GUMMY ORAL) documented as of this encounter (statuses as of 10/01/2019) Active Problems Problem Noted Date 30 weeks gestation of 09/16/2019 High-risk in third trimester 09/16/2019 Obesity (BMI 30-39.9) 04/23/2019 Estimated Date of Delivery Comments Yes 11/22/2019 Based on Ultrasound documented as of this encounter (statuses as of 10/01/2019) Immunizations Name Administration Dates Next Due Influenza [...] Obstetrics & Niurka Govea, Visit Gynecology DUNCAN [address] [place] [phone] Name Type Priority Associated Diagnoses Date/Time GLUCOSE 1 HOUR POST LAB Routine Supervision of high-risk 10/01/2019 1:23 PM RN SURGERY PRANDIAL of young primigravida 26 weeks gestation of Health Maintenance Due Date Last Done Comments VARICELLA VACCINES (1 of 2 - 2000 2-dose childhood series) MENINGOCOCCAL B VACCINES (1 of 2 - 2009 Risk Bexsero 2-dose series) HPV VACCINES (1 - Female 2-dose 2010 series) CHLAMYDIA SCREENING 04/23/2020 04/23/2019 DTaP,Tdap,and Td Vaccines (2 - Td) 09/30/2029 09/30/2019 INFLUENZA VACCINE Completed 07/17/2019 MENINGOCOCCAL VACCINE Aged Out No longer eligible based on patient's age to complete this topic PNEUMOCOCCAL 0-64 YEARS COMBINED Aged Out No longer eligible based on SERIES patient's age to complete this topic documented as of this encounter Results Not on filedocumented in this encounter Visit Diagnoses Diagnosis Supervision of high-risk of young primigravida 26 weeks gestation of state, incidental documented in this encounter Insurance Payer Benefit Plan / Subscriber ID Effective Dates Phone Address Type Group [place] [facility]DR[facility] [place] CHILDRENS xxxxxxxxx 2019-Present Medicaid HEALTH PLAN - [facility] MANAGED MEDICAID documented as of this encounter
--- OUTSIDE RECORDS SUMMARY | 2019-12-09 05:06 | XMS REPORT | Summary of Care ---
:1999 Author Organization [facility] Address [address] [place] [address] Care Team Providers Name Role Phone Aliyah Boss MD Primary Care Provider Reason for Visit Reason Comments New Medication Encounter Details Date Type Department Care Team Description 11/07/2019 Case Management [facility] Women's Niurka Govea, New Medication [facility] [address] [facility], [address] [place] [address] [place] [address] [place] [phone] Allergies Active Allergy Reactions Severity Noted Date Comments Penicillins Hives 04/23/2019 documented as of this encounter (statuses as of 11/07/2019) Medications Medication Sig Dispensed Refills Start Date End Date Status Take by mouth. 0 Active vits62/FA/om3/dha/epa ( GUMMY ORAL) ferrous sulfate 325 mg Take 1 tablet by 90 tablet 0 11/07/2019 Active (65 mg iron) mouth daily. tabletIndications: Anemia of mother in , antepartum documented as of this encounter (statuses as [...] Team Description 11/13/2019 Routine Obstetrics & Boss, Aliyha Ocampo MD Visit Gynecology [address] [place] [address] [place] [address] [phone] Health Maintenance Due Date Last Done Comments [...] filedocumented in this encounter Visit Diagnoses Diagnosis Anemia of mother in , antepartum - Primary Anemia, antepartum documented in this encounter Insurance Payer Benefit Plan / Subscriber ID Effective Dates Phone Address Type Group [place] [facility] [place] [facility] xxxxxxxxx 2019-Present Medicaid HEALTH PLAN - [facility] MANAGED MEDICAID documented as of this encounter
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
--- OUTSIDE RECORDS SUMMARY | 2019-12-09 05:06 | XMS REPORT | Summary of Care ---
:1999 Author Organization [facility] Address [address] [place] [address] Care Team Providers Name Role Phone Aliyah Boss MD Primary Care Provider Reason for Visit Reason Comments LAB Encounter Details Date Type Department Care Team Description 11/07/2019 Sql Tech Visit [facility] Niurka Govea PA-C [address] [facility] [address] [place] [address] High-risk in third trimester; Professional Office 2, Adc Lab 36 weeks gestation of Building Phlebotomy Lab Professional Office Building [address] [place] [address] , [address] [place] [address] Allergies Active Allergy Reactions Severity [...] & Boss, Aliyah Ocampo MD Visit Gynecology [address] [place] [address] [place] [address] Name Type Priority Associated Diagnoses Order Schedule CBC WITH DIFFERENTIAL LAB Routine High-risk in third Ordered: trimester 36 weeks gestation of Health Maintenance [...] filedocumented in this encounter Visit Diagnoses Diagnosis High-risk in third trimester 36 weeks gestation of state, incidental documented in this encounter Insurance Payer Benefit Plan / Subscriber ID Effective Dates Phone Address Type Group [facility] CHILDRENS xxxxxxxxx 2019-Present Medicaid HEALTH PLAN - HEALTH MANAGED MEDICAID documented as of this encounter
--- OUTSIDE RECORDS SUMMARY | 2019-12-09 05:06 | XMS REPORT | Summary of Care ---
:1999 Author Organization [facility] - Health Address [address] [place] [address] Care Team Providers Name Role Phone Aliyah Boss MD Primary Care Provider Encounter Details Date Type Department Care Team Description 11/07/2019 Orders Only [facility] Doctor Unassigned, No [address] [facility] [place] [address] [address] [place] [address] Allergies Active Allergy Reactions Severity Noted Date [...] & Boss, Aliyah Ocampo MD Visit Gynecology [address] [place] [address] [place] [address] [phone] Health Maintenance Due Date Last Done Comments [...] Procedure Name Priority Date/Time Associated Diagnosis Comments AGREEMENTS AUTHORIZATIONS Routine 11/07/2019 12:01 AM AND IRREVOCABLE ENGINEER/CONDUCTOR ASSIGNMENTS (FORM 2000) documented in this encounter Results Not on filedocumented in this encounter Insurance Payer Benefit Plan / Subscriber ID Effective Dates Phone Address Type Group [place] [facility] [place] xxxxxxxxx 2019-Present Medicaid HEALTH PLAN - [facility] MANAGED MEDICAID documented as of this encounter
--- OUTSIDE RECORDS SUMMARY | 2019-12-09 05:06 | XMS REPORT | Summary of Care ---
:1999 Author Organization [facility] Address [address] [place] [address] Care Team Providers Name Role Phone Aliyah Boss MD Primary Care Provider Reason for Visit Auth/Cert Status Reason Specialty Diagnoses / Procedures Referred By Contact Referred To Contact Obstetrics Diagnoses Contractions Adc Labor And Delivery [address] [place] [address] [place] [address] Encounter Details Date Type Department Care Team Description 11/17/2019 Hospital Encounter [facility] Labor and Delivery Aliyah Boss MD [address] [place] [address] [facility] [address] [place] [address] Allergies Active Allergy Reactions Severity Noted Date Comments Penicillins Hives 04/23/2019 documented as of this encounter (statuses as of 11/17/2019) Medications Medication Sig Dispensed Refills Start Date End Date Status Take by mouth. 0 Active vits62/FA/om3/dha/epa ( GUMMY ORAL) ferrous sulfate 325 mg Take 1 tablet by 90 tablet 0 11/07/2019 Active (65 mg iron) mouth daily. tabletIndications: Anemia of mother in , antepartum documented as of this encounter (statuses as of 11/17/2019) Active Problems Problem Noted Date High-risk in third trimester 09/16/2019 Obesity (BMI 30-39.9) 04/23/2019 Estimated Date of Delivery Comments Yes 11/22/2019 Based on Ultrasound documented as of this encounter (statuses as of 11/17/2019) Resolved Problems Problem Noted Date Resolved Date 36 weeks gestation of 09/16/2019 11/07/2019 documented as of this encounter (statuses as of 11/17/2019) Immunizations Name Administration Dates Next Due DTAP [...] Sign Reading Time Taken Comments Blood Pressure 120/80 11/17/2019 3:28 AM YARD SUPERVISOR Pulse 76 11/17/2019 4:43 AM YARD SUPERVISOR Temperature 36.8 C (98.2 F) 11/17/2019 3:28 AM YARD SUPERVISOR Respiratory Rate 18 11/17/2019 3:28 AM YARD SUPERVISOR Oxygen Saturation 100% 11/17/2019 4:15 AM YARD SUPERVISOR Inhaled Oxygen Concentration - - Weight 89.7 kg (197 lb 12.8 oz) 11/17/2019 3:28 AM YARD SUPERVISOR Height 162.6 cm (5' 4") 11/17/2019 3:28 AM YARD SUPERVISOR Body Mass Index 33.95 11/17/2019 3:28 AM YARD SUPERVISOR documented in this encounter Discharge Instructions Kika Cardoso RN - 11/17/2019 Term Labor (37+ weeks): Return to Labor and Delivery/ Center if: 1. Your contractions become more regular, at least every 5-6 minutes apart for one hour after walking and drinking a large glass of water. 2. Your bag of water starts leaking or you have a gush of water from your vagina. 3. If you are not sure if your water has broken: 1. Go to the bathroom and empty your bladder. 2. Put on a pad. If it is wet within hour, you may be leaking from your bag of water. You should come to the hospital to be checked right away. 3. Note the color and odor of the fluid. 4. Your babys movements have decreased or if your baby is not moving. 5. You have vaginal bleeding as heavy as a period. Decreased Movement: 1. Your baby should move at least 10 times in 2 hrs. 2. Keep a record of your babys movements on the Kick Count sheet provided 3. If you feel your baby is not moving as much as usual, do the followin. Drink a large glass of water. 2. Make sure you have eaten a meal recently. 3. Lie on your left side and count the babys movements. 4. If you do not have at least 10 movements in 2 hours, you should be seen as soon as possible in Labor and Delivery, or call your clinic, whichever is closer. 5. IF YOUR BABYS MOVEMENTS ARE MUCH SLOWER THAN NORMAL, OR ABSENT, AND YOU ARE WORRIED, DO NOT WAIT AN ENTIRE DAY. IT IS BETTER TO BE REASSURED THAN TO FIND A PROBLEM WITH YOUR BABY THAT COULD HAVE BEEN AVOIDED! Urinary Tract Infections: 1. Drink plenty of fluids, at least 10-12 glasses of water daily. 2. Have your prescription filled today. 3. Take all of the medication prescribed, even if you are feeling better. 4. Empty your bladder often at least every 2 hours. 5. Be sure to wipe from front to back after urinating. 6. Call your clinic if: 1. You have a fever of 100.4 F by mouth after taking your temperature twice, 4 hours apart. 2. You see blood in your urine. 3. You are unable to urinate. 4. You have severe pain when you urinate. 7. Avoid alcohol, soft drinks and drinks with caffeine such as teas and coffee during this treatment. Bleedin. It is normal to have some red, pink, or brown spotting after a vaginal exam. 2. [employer], light red and brownish spotting is not unusual, especially later in the . 3. However, if heavy bleeding is present: a. Note the amount with the number of pads saturated. b. Note the color of the bleeding. c. Note any pain associated with the bleeding. d. Call Labor and Delivery or your clinic immediately. Fever: 1. Call your clinic if you have a fever of 100.4 F by mouth after taking your temperature twice, 4 hours apart. 2. Do not take any [id number] medications for an illness unless you have been instructed to doso by your physician or nurse. You should only take medicines on the list of safe medicines given to you at your clinic. Do not take more than the recommended doses. High Blood Pressure: Return to Labor and Delivery if you have: 1. Swelling in your face, puffiness around your eyes, more than slight swelling of your hands, or excessive or sudden swelling of your feet or ankles. 2. Sudden weight gain (more than 4 pounds in a week). 3. Throbbing headaches that wont go away, even after taking [id number] medicines as instructed by your care provider. 4. Changes in vision, including blurry vision, a sensation of flashing lights or spots, or temporaryloss of vision. 5. Severe pain or tenderness in your upper stomach area. This may include nausea and vomiting. 6. documented in this encounter Plan of Treatment Date Type Specialty Care Team Description 11/18/2019 Hospital Encounter Obstetrics Aliyah Boss MD [address] [place] [address] [place] [address] [phone] 12/11/2019 Routine Obstetrics & Niurka Govea, Visit Gynecology [facility] [address] [place] [phone] Health Maintenance Due Date Last Done [...] Procedure Name Priority Date/Time Associated Diagnosis Comments ASSIGNMENT OF BENEFITS Routine 11/17/2019 3:12 AM YARD SUPERVISOR documented in this encounter Results Not on filedocumented in this encounter Insurance Payer Benefit Plan / Subscriber ID Effective Dates Phone Address Type Group [facility] x[facility] 2019-Present Medicaid HEALTH PLAN - HEALTH MANAGED MEDICAID documented as of this encounter
--- OUTSIDE RECORDS SUMMARY | 2019-12-09 05:07 | XMS REPORT | Summary of Care ---
:2000 Author Organization [facility] - [facility] Address [address] [place] [id number] Care Team Providers Name Role Phone Frederick Stephenson MD Primary Care Provider Reason for Referral (Routine) Status Reason Specialty Diagnoses / Referred By Referred To Procedures Contact Contact New Request Diagnoses Obesity (BMI 30-39.9) 39 weeks gestation of High-risk in third trimester Encounter for elective induction of labor Chorioamnionitis in third trimester, single or unspecified fetus Frederick Stephenson MD Lam, Vien Cam, MD Single liveborn, born in hospital, delivered by vaginal delivery [address] [place] [address] Procedures DISCHARGE FOLLOW-UP: PRIVATE PHYSICIAN DR. RODRIGUEZ D[address] Phone: [phone] Phone: Reason for Visit Auth/Cert Status Reason Specialty Diagnoses / Procedures Referred By Contact Referred To Contact Obstetrics Diagnoses induction Adc Labor And Procedures 38 Weeks Preg Delivery [address] [place] [address] [place] [address] Encounter Details Date Type Department Care Team Description 11/18/2019 - Hospital Encounter ADC Labor and Frederick Stephenson, High-risk 11/21/2019 Delivery Unit MD in third trimester [address] [place] [address] [place] [address] [facility] [address] [place] [address] [phone] Allergies Active Allergy Reactions Severity Noted Date Comments Penicillins Hives 04/23/2019 documented as of this encounter (statuses as of 11/22/2019) Medications Medication Sig Dispensed Refills Start Date End Date Status vitamin w/FA Take 1 100 tablet 3 11/20/2019 Active tabletIndications: tablet by Obesity (BMI 30-39.9), mouth daily. 39 weeks gestation of , High-risk in third trimester, Encounter for elective induction of labor, Chorioamnionitis in third trimester, single or unspecified fetus, Single liveborn, born in hospital, delivered by vaginal delivery docusate calcium 240 Take 1 30 capsule 1 11/20/2019 Active mg capsuleIndications: capsule by Obesity (BMI 30-39.9), mouth once 39 weeks gestation of daily as , High-risk needed for in third Constipation trimester, Encounter . for elective induction of labor, Chorioamnionitis in third trimester, single or unspecified fetus, Single liveborn, born in hospital, delivered by vaginal delivery ferrous sulfate 325 mg Take 1 60 tablet 2 11/20/2019 Active (65 mg iron) tablet by tabletIndications: mouth 2 Obesity (BMI 30-39.9), (two) times 39 weeks gestation of daily. , High-risk in third trimester, Encounter for elective induction of labor, Chorioamnionitis in third trimester, single or unspecified fetus, Single liveborn, born in hospital, delivered by vaginal delivery ibuprofen 600 mg Take 1 30 tablet 1 11/20/2019 Active tabletIndications: tablet by Obesity (BMI 30-39.9), mouth every 39 weeks gestation of 6 (six) , High-risk hours as in third needed for trimester, Encounter Pain (scale for elective induction 1-3) or Pain of labor, (scale 4-6) Chorioamnionitis in (Pain). Take third trimester, with food or single or unspecified milk. fetus, Single liveborn, born in hospital, delivered by vaginal delivery Take by 0 Discontinued vits62/FA/om3/dha/epa mouth. 0 ( GUMMY ORAL) ferrous sulfate 325 mg Take 1 90 tablet 0 11/07/2019 Discontinued (65 mg iron) tablet by 0 tabletIndications: mouth daily. Anemia of mother in , antepartum documented as of this encounter (statuses as of 11/22/2019) Active Problems Problem Noted Date Chorioamnionitis in third trimester 11/19/2019 Single liveborn, born in hospital, delivered by vaginal delivery 11/19/2019 Encounter for elective induction of labor 11/18/2019 39 weeks gestation of 11/18/2019 High-risk in third trimester 09/16/2019 Obesity (BMI 30-39.9) 04/23/2019 Comments Yes documented as of this encounter (statuses as of 11/22/2019) Resolved Problems Problem Noted Date Resolved Date 39 weeks gestation of 09/16/2019 11/07/2019 documented as of this encounter (statuses as of 11/22/2019) Immunizations Name Administration Dates Next Due DTAP [...] more drinks on one occasion? Not asked Comments Yes Sex Assigned at Date Recorded Not on file Job Start Date Occupation Industry Not on file Not on file Not on file Travel History Travel Start Travel End No recent travel history available. documented as of this encounter Last Filed Vital Signs Vital Sign Reading Time Taken Comments Blood Pressure 115/66 11/21/2019 8:15 AM [employer] Pulse 89 11/21/2019 8:15 AM [employer] Temperature 36.8 C (98.3 F) 11/21/2019 8:15 AM [employer] Respiratory Rate 18 11/21/2019 8:15 AM [employer] Oxygen Saturation 100% 11/20/2019 4:30 PM [employer] Inhaled Oxygen Concentration - - Weight 88.6 kg (195 lb 6.4 oz) 11/18/2019 4:24 PM [employer] Height 162.6 cm (5' 4") 11/18/2019 4:24 PM [employer] Body Mass Index 33.54 11/18/2019 4:24 PM [employer] documented in this encounter Discharge Summaries Frederick Stephenson MD - 11/21/2019 5:26 AM CST PP D/C SUMMARY ADMIT DATE: 11/18/2019 DISCHARGE DATE: 11/21/2019 ADMIT ATTENDING: Frederick Stephenson MD ATTENDING MD AT DISCHARGE: Frederick Stephenson MD REASON FOR ADMISSION: Elective induction at 39 wks FINAL DIAGNOSIS: S/P Vaginal Delivery SECONDARY DIAGNOSIS: Active Problems: Obesity (BMI 30-39.9) (04/23/2019) POA: Yes High-risk in third trimester (09/16/2019) POA: Yes Encounter for elective induction of labor (11/18/2019) POA: Yes 39 weeks gestation of (11/18/2019) POA: Yes Chorioamnionitis in third trimester (11/19/2019) POA: No Single liveborn, born in hospital, delivered by vaginal delivery (11/19/2019) POA: No PRINCIPAL PROCEDURE: Cephalic vaginal delivery ADDITIONAL PROCEDURES: None SIGNIFICANT LAB/X-RAYS: WBC (10*3/L) Date Value 11/20/2019 21.49 (H) 11/18/2019 9.17 11/07/2019 8.27 HGB (g/dL) Date Value 11/20/2019 9.4 (L) 11/18/2019 10.1 (L) 11/07/2019 10.2 (L) HCT (%) Date Value 11/20/2019 29.4 (L) 11/18/2019 31.7 (L) 11/07/2019 31.9 (L) PLT (10*3/L) Date Value 11/20/2019 235 11/18/2019 262 11/07/2019 246 HOSPITAL COURSE: Briefly, Emma Bah is a 19 year old G1 who was admitted to [facility] on 2019 for an electiveinduction at 39 wks. She underwent a Cephalic vaginal delivery. During this hospital admission she was also treated for chorioamnionitis with gent/clinda. She was ambulating, tolerating a regular dietwith good pain control on day # 1. The patient is medically stable for discharge home to the care of her family with care instructions reviewed and with home meds prescribed. She is to follow-up in clinic as directed. CONDITION: Good DIET: Regular ACTIVITY: Physical activities as tolerated. Pelvic rest x 6-8 weeks . DISCHARGE MEDICATIONS: Emma Bah Home Medication Instructions NEEL:[id number] Printed on:11/21/19 0526 Medication Information docusate calcium 240 mg capsule Take 1 capsule by mouth once daily as needed for Constipation. ferrous sulfate 325 mg (65 mg iron) tablet Take 1 tablet by mouth 2 (two) times daily. ibuprofen 600 mg tablet Take 1 tablet by mouth every 6 (six) hours as needed for Pain (scale 1-3) or Pain (scale 4-6) (Pain). Take with food or milk. vitamin w/FA tablet Take 1 tablet by mouth daily. WOUND CARE: The patient was instructed to keep delivery lacerations (if any) clean and dry with soap and water in shower, dry gently with clean towel. She was instructed to return to ER if Temp > 101F, foul-smelling vaginal discharge, headache unresolved with pain medications, visual disturbances including double or blurry vision, seeing spots, upper abdominal pain, or vaginal bleeding greater than 1 pad perhour. Pelvic rest 4-6 weeks, and no heavy lifting. DISCHARGE: Home FOLLOW-UP APPOINTMENT: With [facility] in 4 weeks for check. Frederick Stephenson MD 11/21/2019 9:42 AM documented in this encounter Discharge Instructions AttachmentsThe following attachments cannot be sent through Care Everywhere., After Giving: How to Feel Healthy (Tajik), Breast Care After (Tajik)Labor and Childbirth: Preparing to Go Home (Tajik)Sitz Bath, Taking a (Tajik)When to Call the Healthcare Provider, After Delivery (Tajik) documented in this encounter Progress Notes Frederick Stephenson MD - 11/20/2019 5:03 AM CST PROGRESS NOTE Subjective: Patient is a 19 year old, S/P , post day 1. She complains of nothing. Objective: Vital Signs: BP: (78-144)/(36-99) Temp: [36.6 C (97.9 F)-38 C (100.4 F)] Temp source: Oral (11/19 0351) Pulse: [67-184] Resp: [18] SpO2: [99 %-100 %] Height: -- Weight: -- BMI (calculated): -- Physical Exam: General: NAD Lungs: clear to auscultation bilaterally Cardiology: regular rate and rhythm Abdomen: Soft, NTTP, non-distended Extremities: no clubbing, cyanosis, or edema Current Medications: Current Facility-Administered Medications Medication Dose Route Frequency Last Rate Last Dose acetaminophen (TYLENOL) tablet 650 mg 650 mg Oral Q6HPRN 650 mg at 0321 benzocaine-menthol (DERMOPLAST) 20-0.5 % topical spray Topical PRN diphenhydrAMINE (BENADRYL) tablet 25 mg 25 mg Oral Q6HPRN diphenhydrAMINE-0.9 % sod.chlr (BENADRYL) 25 mg/50 mL piggyback 25 mg 25 mg IV Piggyback Q6HPRN docusate calcium (SURFAK) capsule 240 mg 240 mg Oral QDAILYPRN HYDROcodone-acetaminophen (NORCO 5) 5-325 mg tablet 1 tablet 1 tablet Oral Q6HPRN ibuprofen (IBU) tablet 600 mg 600 mg Oral Q6HPRN magnesium hydroxide (MILK OF MAGNESIA) 400 mg/5 mL suspension 30 mL 30 mL Oral QDAILYPRN ondansetron (ZOFRAN (PF)) injection 4 mg 4 mg Slow IV Push Q8HPRN vitamin w/FA (PRENATABS RX) tablet 1 tablet 1 tablet Oral DAILY rho(D) immune globulin (RHOGAM) syringe 300 mcg 300 mcg Intramuscular ONCE simethicone (GAS RELIEF (SIMETHICONE)) chewable tablet 160 mg 160 mg Oral PC+HSPRN Labs: CBC BMP MAGNESIUM WBC (10*3/L) Date Value 11/20/2019 21.49 (H) No results found for: NA No results found for: MG PLT (10*3/L) Date Value 11/20/2019 235 No results found for: K HGB (g/dL) Date Value 11/20/2019 9.4 (L) No results found for: CA HCT (%) Date Value 11/20/2019 29.4 (L) No results found for: CL TYPE & RH No results found for: BUN ABO & RH (no units) Date Value 11/18/2019 O Positive No results found for: CREAT Type & Screen Rubella Varicella ABO & RH (no units) Date Value 11/18/2019 O Positive Rubella screen IgG (no units) Date Value 05/05/2019 Equivocal No results found for: VZVG No results found for: TSABINT Hep B HIV Syphilis No results found for: HBS No results found for: HIV No results found for: SYPG Group B Strep Chlamydia No results found for: CGBS C. trachomatis Nucleic Acid (no units) Date Value 10/29/2019 Negative Assessment/Plan: PPD#1 - Doing well. Continue routine care - Chorioamnionitis: Afebrile. S/p gent/clinda - Dispo: Anticipate discharge tomorrow if remains stable as baby will stay tonight Frederick Stephenson MD 11/20/2019 7:23 AM documented in this encounter Plan of Treatment Date Type Specialty Care Team Description 12/11/2019 Routine Obstetrics & Niurka Govea, Visit Gynecology [facility] [address] [phone] Name Type Priority Associated Diagnoses Order Schedule HIV 1/2 AG-AB WITH LAB Routine ONCE for 1 Occurrences REFLEX starting 11/18/2019 until 11/18/2019 Health Maintenance Due Date Last Done Comments [...] encounter Procedures Procedure Name Priority Date/Time Associated Comments Diagnosis CBC WITH DIFFERENTIAL Routine 11/20/2019 3:46 Results for this AM [employer] procedure are in the results section. CBC WITH DIFFERENTIAL Routine 11/20/2019 3:46 Results for this AM [employer] procedure are in the results section. VENOUS CORD GAS Routine 11/19/2019 7:16 Results for this PM [employer] procedure are in the results section. ARTERIAL CORD GAS Routine 11/19/2019 7:16 Results for this PM [employer] procedure are in the results section. RHO (D) IMMUNE Routine 11/18/2019 4:15 Results for this GLOBULIN PM [employer] procedure are in the results section. HB ABO GROUPING AMANDA 11/18/2019 4:15 Results for this PM [employer] procedure are in the results section. CBC WITH DIFFERENTIAL AMANDA 11/18/2019 4:14 Results for this PM [employer] procedure are in the results section. ADC OR LAURENT ONLY - AMANDA 11/18/2019 4:14 Results for this RPR PM [employer] procedure are in the results section. HEPATITIS B SURFACE AMANDA 11/18/2019 4:14 Results for this ANTIGEN PM [employer] procedure are in the results section. CBC WITH DIFFERENTIAL AMANDA 11/18/2019 4:14 Results for this PM [employer] procedure are in the results section. CONSENT/REFUSAL FOR Routine 11/17/2019 3:11 DIAGNOSIS AND AM [employer] TREATMENT documented in this encounter Results CBC WITH DIFFERENTIAL (11/20/2019 3:46 AM [employer]) WBC 21.49 (H) 4.30 - 11.10 [facility] 10*3/L H[facility]PITAL [facility] RBC 3.41 (L) 3.93 - 5.25 [facility] 10*6/L [facility]ITAL [facility] HGB 9.4 (L) 11.6 - 15.0 [facility] g/dL H[facility]ITAL [facility] HCT 29.4 (L) 35.7 - 45.2 % [facility] MCV 86.2 80.6 - 95.5 fL [facility] MCH 27.6 25.9 - 32.8 pg [facility] MCHC 32.0 31.6 - 35.1 [facility] g/dL [facility] RDW-SD 40.4 39.0 - 49.9 fL [facility] RDW-CV 13.0 12.0 - 15.5 % [facility] PLT 235 166 - 358 [facility] 10*3/L [facility]ITAL [facility] MPV 10.0 9.5 - 12.9 fL [facility] NRBC/100 WBC 0.0 0.0 - 10.0 /100 [facility] WBCs [facility] NRBC x10^3 <0.01 10*3/L [facility] GRAN MAT (NEUT) % 88.4 % [facility] IMM GRAN % 1.00 % [facility] LYMPH % 6.0 % [facility] MONO % 4.3 % [facility] EOS % 0.1 % [facility] BASO % 0.2 % [facility] GRAN MAT x10^3(ANC) 19.02 (H) 1.88 - 7.09 [facility] 10*3/uL HOSPITAL LAB[facility] IMM GRAN x10^3 0.21 (H) 0.00 - 0.06 [facility] 10*3/uL [facility]ITAL [facility] LYMPH x10^3 1.28 (L) 1.32 - 3.29 [facility] 10*3/uL [facility]ITAL [facility] MONO x10^3 0.92 0.33 - 0.92 [facility] 10*3/uL H[facility]PITAL [facility] EOS x10^3 <0.03 (L) 0.03 - 0.39 [facility] 10*3/uL [facility] BASO x10^3 0.04 0.01 - 0.07 [facility] 10*3/uL [facility] Specimen Blood - ARM, RIGHT Performing Organization Address [facility] Phone Number [facility] CLIA: [id number], [address] [place] [address] Venous Cord Gas (11/19/2019 7:16 PM [employer]) VENOUS BASE EXCESS, -4.0 mEq/L [facility] VENOUS PH, CORD 7.40 7.25 - 7.45 [facility] VENOUS PC02, CORD 33 27 - 49 mmHg [facility] VENOUS PO2, CORD 28 17 - 41 mmHg [facility] VENOUS BICARBONATE, 20 12 - 29 mEq/L [facility] Specimen Blood - CORD Performing Organization Address [facility] Phone Number [facility] CLIA: [id number], [address] [place] [phone] Arterial Cord Gas (11/19/2019 7:16 PM [employer]) BASE EXCESS, CORD -4.6 mEq/L [facility] AC PH, CORD (BEAKER) 7.28 7.18 - 7.38 [facility] PC02, CORD 49 32 - 66 mmHg [facility] PO2, CORD 20 10 - 30 mmHg [facility] BICARBONATE, CORD 23 17 - 27 mEq/L [facility] Specimen Blood - CORD Performing Organization Address [facility]conc Phone Number [facility] CLIA: [id number], [address] [place] [phone] RHO (D) IMMUNE GLOBULIN (11/18/2019 4:15 PM [employer]) RHIG CANDIDATE? No- see comment LAB Comment: Patient is not a candidate for RhIg- Patient is Rh Positive. Performed at [facility] Laboratory Services - [facility] Blood Bank [address] [place] [phone] Toll Free: [phone] CLIA No. [id number] Specimen Blood - VENOUS Performing Organization Address City/State/Zipcode Phone Number BLD LAB Type and Screen - ONCE AMANDA (11/18/2019 4:15 PM [employer]) ABO & RH O Positive LAB Comment: Performed at [facility] Laboratory [facility] - [facility] Blood Bank [address] [place] [phone] Toll Free: [phone] CLIA No. [id number] IAT Negative LAB Comment: Performed at [facility] Laboratory [facility] Blood Bank [address] [place] [phone] Toll Free: [phone] CLIA No. [id number] Specimen Blood Performing Organization Address City/[facility]/Zipcode Phone Number BLD LAB CBC WITH DIFFERENTIAL (11/18/2019 4:14 PM [employer]) [facility] WBC 9.17 4.30 - 11.10 [facility] 10*3/L [facility] LABORATORY RBC 3.75 (L) 3.93 - 5.25 [facility] 10*6/L [facility] LABORATORY HGB 10.1 (L) 11.6 - 15.0 [facility] g/dL [facility] LABOR[facility] HCT 31.7 (L) 35.7 - 45.2 % [facility] MCV 84.5 80.6 - 95.5 fL [facility] MCH 26.9 25.9 - 32.8 pg [facility] MCHC 31.9 31.6 - 35.1 [facility] g/dL [facility] RDW-SD 39.1 39.0 - 49.9 fL [facility] RDW-CV 12.9 12.0 - 15.5 % [facility] PLT 262 166 - 358 [facility] 10*3/L [facility] MPV 10.0 9.5 - 12.9 fL [facility] NRBC/100 WBC 0.0 0.0 - 10.0 /100 [facility] WBCs [facility] NRBC x10^3 <0.01 10*3/L [facility] GRAN MAT (NEUT) % 77.2 % [facility] IMM GRAN % 0.40 % [facility] LYMPH % 16.2 % [facility] MONO % 5.8 % [facility] EOS % 0.2 % [facility] BASO % 0.2 % [facility] GRAN MAT x10^3(ANC) 7.07 1.88 - 7.09 [facility] 103/uL [facility] LABORATORY IMM GRAN x10^3 0.04 0.00 - 0.06 [facility] 103/uL [facility] LABORATORY LYMPH x10^3 1.49 1.32 - 3.[address]uL [facility] LABORATORY MONO x10^3 0.53 0.33 - 0.[address] LABORATORY EOS x10^3 <0.03 (L) 0.03 - 0.[address] [facility] LABORATORY BASO x10^3 <0.03 0.01 - 0.[address] LABORATORY Specimen Blood - ARM, RIGHT Performing Organization Address City/[facility]/Zipcode Phone Number [facility] CLIA: [id number], [address] [place] [address] ADC OR LAURENT ONLY - RPR (11/18/2019 4:14 PM [employer]) RPR (Qualitative) Nonreactive Nonreactive [facility] Specimen Blood - ARM, RIGHT Performing Organization Address [facility]/Zipcode Phone Number [facility] CLIA: [id number], [address] [place] [address] Hepatitis B Surface Antigen (11/18/2019 4:14 PM [employer]) HBsAg Negative Negative [facility] LABORATORY SERVICES HBsAg 0.05 [facility] LABORATORY Semi-Quantitative SERVICES Specimen Blood - ARM, RIGHT Performing Organization Address City/[facility]/Zipcode Phone Number [facility] LABORATORY SERVICES CLIA: [id number], [address] [place] [address] [phone] documented in this encounter Visit Diagnoses Diagnosis Single liveborn, born in hospital, delivered by vaginal delivery - Primary Obesity (BMI 30-39.9) Obesity, unspecified 39 weeks gestation of state, incidental High-risk in third trimester Encounter for elective induction of labor Chorioamnionitis in third trimester, single or unspecified fetus documented in this encounter Administered Medications Medication Order MAR Action Action Date Dose Rate Site acetaminophen (TYLENOL) tablet Given 11/20/2019 3:21 AM [employer] 650 mg 650 mg 650 mg, Oral, Q6HPRN, Starting Sun11/19/19 at 1931, Until Discontinued, Routine, Temp > 38.5 C, Pain (scale 1-3) Given 11/19/2019 7:34 PM [employer] 650 mg ibuprofen (IBU) tablet 600 mg Given 11/21/2019 8:43 PM [employer] 600 mg 600 mg, Oral, Q6HPRN, Starting Sun11/19/19 at 1936, Until Discontinued, Routine, Pain (scale 4-6) Given 11/21/2019 8:16 AM [employer] 600 mg Given 11/20/2019 9:02 AM [employer] 600 mg magnesium hydroxide (MILK OF MAGNESIA) 400 Given 11/20/2019 9:38 PM [employer] 30 mL mg/5 mL suspension 30 mL 30 mL, Oral, QDAILYPRN, Starting Sun11/19/19 at 1936, Until Discontinued, Routine, Constipation vitamin w/FA (PRENATABS RX) Given 11/21/2019 8:14 AM [employer] 1 tablet tablet 1 tablet 1 tablet, Oral, DAILY, First dose on Sun11/20/19 at 0900, Until Discontinued, Routine Given 11/20/2019 9:02 AM [employer] 1 tablet Medication Order MAR Action Action Date Dose Rate Site clindamycin in 5 % dextrose Given 11/19/2019 6:16 PM [employer] 900 mg (CLEOCIN) 900 mg/50 mL IV piggyback RTU 900 mg 900 mg, IV Piggyback, Q8H ABX, First dose on Sun11/19/19 at 1915, Until Discontinued, 50 mL, Reason for Anti-Infective: Documented Infection, Documented Infection Site: Other, Other site: chorio, Duration of Therapy: Other (see Comments), Restricted use approved by: [employer]CH[employer]ICIAN [employer], mathematics faculty member approving Restricted medication: FREDERICK STEPHENSON [id number] IV infusion 1,000 mL New Bag 11/19/2019 3:01 PM [employer] 1,000 mL 125 mL/hr at 125 mL/hr, IV Infusion, CONTINUOUS, Starting Sun11/18/19 at 1530, Until Sun11/19/19 at 1936, Routine New Bag 11/18/2019 11:29 PM [employer] 1,000 mL 125 mL/hr New Bag 11/18/2019 4:15 PM [employer] 1,000 mL 125 mL/hr FENTanyl PF (SUBLIMAZE (PF)) injection 100 Given 11/19/2019 4:28 AM [employer] 100 mcg mcg 100 mcg, Slow IV Push, Q1HPRN, Starting Sun11/18/19 at 1527, Until Sun11/19/19 at 1936, Routine, contraction pain without an epidural and SVE < 8 cm and Cat I strip Given 11/18/2019 11:30 PM [employer] 100 mcg gentamicin 40 mg/mL 280 mg in NaCl 0.9% (NS) Given 11/19/2019 7:15 PM [employer] 280 mg 250 mL IV infusion 280 mg (rounded from 273.5 mg=5 mg/kg 54.7 kg [place] weight), IV Infusion, Q24H ABX, First dose on Sun11/19/19 at 1915, Until Discontinued, 250 mL, Reason for Anti-Infective: Documented Infection, Documented Infection Site: Other, Other site: chorioamnionitis, Duration of Therapy: 7 days lactated ringers IV infusion 500 New Bag 11/19/2019 3:01 PM [employer] 1,000 mL 999 mL/hr mL at 999 mL/hr, 500 mL, IV Infusion, PRN - SEE INSTRUCTIONS, Starting Sun11/18/19 at 1527, Until Sun11/19/19 at 193, Routine LR 1000 mL + oxytocin 20 Rate Change 11/19/2019 7:00 PM 16 anthony-units/min 48 mL/hr units IV Solution [employer] 4 anthony-units/min (12 mL/hr), at 12 mL/hr, IV Infusion, CONTINUOUS, Starting Sun11/18/19 at 1530, Until Sun11/19/19 at 1936, AMANDA Rate Change 11/19/2019 3:15 PM [employer] 14 anthony-units/min 42 mL/hr Rate Change 11/19/2019 2:30 PM [employer] 12 anthony-units/min 36 mL/hr LR 1000 mL + oxytocin 20 units IV Given 11/19/2019 7:34 PM [employer] 999 mL/hr Solution at 999 mL/hr, IV Infusion, ONCE, 1 dose, Sun11/19/19 at 2029, Routine LR 1000 mL + oxytocin 20 units IV Given 11/19/2019 8:23 PM [employer] 125 mL/hr Solution at 125 mL/hr, IV Infusion, ONCE, 1 dose, Sun11/19/19 at 2029, Routine proMETHazine (PHENERGAN) 25 mg in NaCl 0.9% Given 11/18/2019 11:30 PM SUPERVISOR PROP MAKING 25 mg (NS) 50 mL piggyback 25 mg, IV Piggyback, Q6HPRN, Starting Sun11/18/19 at 1527, Until Sun11/19/19 at 1936, 50 mL documented in this encounter Insurance Payer Benefit Plan / Subscriber ID Effective Dates Phone Address Type Group [facility] xxxxxxxxx 2019-Present Medicaid HEALTH PLAN - HEALTH MANAGED MEDICAID documented as of this encounter
--- OUTSIDE RECORDS SUMMARY | 2019-12-09 05:07 | XMS REPORT | Summary of Care ---
:[address] [facility] Address [address] [place] [id number] Care Team Providers Name Role Phone Aliyah Boss MD Primary Care Provider Encounter Details Date Type Department Care Team Description 11/18/[address] [facility] Doctor Unassigned, No 301 [facility] Name [place] [phone] Allergies Active Allergy Reactions Severity Noted Date Comments Penicillins Hives 04/23/2019 documented as of this encounter (statuses as of 11/24/2019) Medications Medication Sig Dispensed Refills Start Date End Date Status vitamin w/FA Take 1 tablet 100 tablet 3 11/20/2019 Active tabletIndications: by mouth daily. Obesity (BMI 30-39.9), 39 weeks gestation of , High-risk in third trimester, Encounter for elective induction of labor, Chorioamnionitis in third trimester, single or unspecified fetus, Single liveborn, born in hospital, delivered by vaginal delivery docusate calcium 240 mg Take 1 capsule 30 capsule 1 11/20/2019 Active capsuleIndications: by mouth once Obesity (BMI 30-39.9), daily as needed 39 weeks gestation of for , High-risk Constipation. in third trimester, Encounter for elective induction of labor, Chorioamnionitis in third trimester, single or unspecified fetus, Single liveborn, born in hospital, delivered by vaginal delivery ferrous sulfate 325 mg Take 1 tablet 60 tablet 2 11/20/2019 Active (65 mg iron) by mouth 2 tabletIndications: (two) times Obesity (BMI 30-39.9), daily. 39 weeks gestation of , High-risk in third trimester, Encounter for elective induction of labor, Chorioamnionitis in third trimester, single or unspecified fetus, Single liveborn, born in hospital, delivered by vaginal delivery ibuprofen 600 mg Take 1 tablet 30 tablet 1 11/20/2019 Active tabletIndications: by mouth every Obesity (BMI 30-39.9), 6 (six) hours 39 weeks gestation of as needed for , High-risk Pain (scale in third 1-3) or Pain trimester, Encounter for (scale 4-6) elective induction of (Pain). Take labor, Chorioamnionitis with food or in third trimester, milk. single or unspecified fetus, Single liveborn, born in hospital, delivered by vaginal delivery documented as of this encounter (statuses as of 11/24/2019) Active Problems Problem Noted Date Chorioamnionitis in third trimester 11/19/2019 Single liveborn, born in hospital, delivered by vaginal delivery 11/19/2019 Encounter for elective induction of labor 11/18/2019 39 weeks gestation of 11/18/2019 High-risk in third trimester 09/16/2019 Obesity (BMI 30-39.9) 04/23/2019 Comments Yes documented as of this encounter (statuses as of 11/24/2019) Resolved Problems Problem Noted Date Resolved Date 39 weeks gestation of 09/16/2019 11/07/2019 documented as of this encounter (statuses as of 11/24/2019) Immunizations Name Administration Dates Next Due DTAP [...] Obstetrics & Niurka Govea, Visit Gynecology DUNC[facility] [address] [place] [id number] Health Maintenance Due Date Last Done [...] Procedure Name Priority Date/Time Associated Diagnosis Comments HOSPITAL ADMISSION Routine 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
[2019-12-09] MEDS ORDERED: MORPHINE 4 MG/ML SYR ONE (05:28)
[2019-12-09] MEDS ORDERED: ONDANSETRON 4 MG/2 ML VIAL ONE (05:29)
[2019-12-09 06:00] LABS: Absolute Lymphocytes (CBC) 1.7 K/uL (0.7-4.9); Basophils % 0.8 % (0-1.3); Hematocrit 29.8 % (36.0-45.0); Lymphocytes % 24.7 % (15.3-44.8); MPV 7.9 fL (7.6-11.3); RBC Red Blood Cell Count 3.66 M/uL (3.86-4.86)
[2019-12-09 06:02] LABS: Urine Blood TRACE (NEG); Urine Glucose NEGATIVE (NEG); Urine Protein NEGATIVE (NEG); Urine Specific Gravity >1.030 (1.005-1.030)
[2019-12-09] MEDS ORDERED: NA CHLORIDE 0.9% 1,000 ML ONE (06:04)
[2019-12-09 06:50] LABS: ALT/SGPT 26 U/L (12-78); AST/SGOT 40 U/L (15-37); Albumin 3.2 g/dL (3.4-5.0); Alkaline Phosphatase 139 U/L (45-117); BUN Blood Urea Nitrogen 14 mg/dL (7-18); Bicarbonate 27 mmol/L (21-32); Bilirubin Direct 0.2 mg/dL (0-0.2); Bilirubin Total 0.4 mg/dL (0.2-1.0); Glucose Level 89 mg/dL (74-106); Lipase 105 U/L (73-393); Potassium 3.3 mmol/L (3.5-5.1); Protein, Total 6.9 g/dL (6.4-8.2); Sodium Level 144 mmol/L (136-145)
--- NOTE | 2019-12-09 08:40 | EDPHYS ---
Physician Documentation [facility] Name: Emma Bah Age: 19 yrs Sex: Female : 2000 Arrival Date: 12/09/2019 Time: 05:02 Bed 19 Private MD: ED Physician Juan Boss HPI: 12/08 06:28 This 19 yrs old Female presents to ER via Ambulatory with complaints of snw Abdominal Pain, Vomiting, Back Pain. 06:28 The patient presents with abdominal pain in the epigastric area. Onset: The snw symptoms/episode began/occurred suddenly, last night. The symptoms do not radiate. Associated signs and symptoms: Pertinent positives: nausea and vomiting. The symptoms are described as crampy, shooting. Severity of pain: At its worst the pain was moderate severe in the emergency department the pain resolved post morphine. The patient has not experienced similar symptoms in the past. Pt post (3 weeks), no active bleeding. Hx of anemia at end of . 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 - Social history:: Smoking status: Patient denies any tobacco usage or history of. Patient/guardian denies using alcohol, IV drugs. ROS: 06:27 Constitutional: Negative for fever, chills, and weight loss, Eyes: Negative for injury, snw pain, redness, and discharge, ENT: Negative for injury, pain, and discharge, Neck: Negative for injury, pain, and swelling, Cardiovascular: Negative for chest pain, palpitations, and edema, Respiratory: Negative for shortness of breath, cough, wheezing, and pleuritic chest pain, Back: Negative for injury and pain, : Negative for injury, bleeding, discharge, and swelling, MS/Extremity: Negative for injury and deformity, Skin: Negative for injury, rash, and discoloration, Neuro: Negative for headache, weakness, numbness, tingling, and seizure, Psych: Negative for depression, anxiety, suicide ideation, homicidal ideation, and hallucinations. 06:27 Abdomen/GI: Positive for abdominal pain, nausea and vomiting, Negative for diarrhea. Exam: 06:27 Head/Face: Normocephalic, atraumatic. Eyes: Pupils equal round and reactive to light, snw extra-ocular motions intact. Lids and lashes normal. Conjunctiva and sclera are non-icteric and not injected. Cornea within normal limits. Periorbital areas with no swelling, redness, or edema. ENT: Nares patent. No nasal discharge, no septal abnormalities noted. Tympanic membranes are normal and external auditory canals are clear. Oropharynx with no redness, swelling, or masses, exudates, or evidence of obstruction, uvula midline. Mucous membranes moist. Neck: Trachea midline, no thyromegaly or masses palpated, and no cervical lymphadenopathy. Supple, full range of motion without nuchal rigidity, or vertebral point tenderness. No Meningismus. Chest/axilla: Normal chest wall appearance and motion. Nontender with no deformity. No lesions are appreciated. Cardiovascular: Regular rate and rhythm with a normal S1 and S2. No gallops, murmurs, or rubs. Normal PMI, no JVD. No pulse deficits. Respiratory: Lungs have equal breath sounds bilaterally, clear to auscultation and percussion. No rales, rhonchi or wheezes noted. No increased work of breathing, no retractions or nasal flaring. Back: No spinal tenderness. No costovertebral tenderness. Full range of motion. Skin: Warm, dry with normal turgor. Normal color with no rashes, no lesions, and no evidence of cellulitis. MS/ Extremity: Pulses equal, no cyanosis. Neurovascular intact. Full, normal range of motion. Neuro: Awake and alert, GCS 15, oriented to person, place, time, and situation. Cranial nerves II-XII grossly intact. Motor strength 5/5 in all extremities. Sensory grossly intact. Cerebellar exam normal. Normal gait. Psych: Awake, alert, with orientation to person, place and time. Behavior, mood, and affect are within normal limits. 06:27 Constitutional: The patient appears alert, awake, pale. 06:27 Abdomen/GI: Inspection: abdomen appears normal, Bowel sounds: normal, Palpation: mild abdominal tenderness, in the epigastric area, improved dramatically post morphine, moderate abdominal tenderness. Vital Signs: 05:12 BP 125 / 71; Pulse 87; Resp 20; Temp 97.3; Pulse Ox 99% ; Weight 78.47 kg; Height 5 ft. ah 4 in. (162.56 cm); Pain 10/10; 05:15 BP 121 / 75; Pulse 81; Resp 18; Pulse Ox 100% ; ah 06:18 BP 104 / 61; Pulse 72; Resp 15; Pulse Ox 99% ; ah 06:56 BP 104 / 63; Pulse 59; Pulse Ox 100% ; ah 07:33 BP 108 / 69; Pulse 58; Resp 17; Pulse Ox 99% on R/A; tw2 08:30 BP 101 / 66; Pulse 52; Resp 17; Pulse Ox 100% on R/A; tw2 05:12 Body Mass Index 29.70 (78.47 kg, 162.56 cm) MDM: 05:55 Patient medically screened. snw 08:41 Data reviewed: vital signs, nurses notes. Data interpreted: Pulse oximetry: on room air snw is 99 %. Interpretation: normal. Counseling: I had a detailed discussion with the patient and/or guardian regarding: the historical points, exam findings, and any diagnostic results supporting the discharge/admit diagnosis, lab results, radiology results, the need for outpatient follow up, to return to the emergency department if symptoms worsen or persist or if there are any questions or concerns that arise at home. Response to treatment: the patient's symptoms have markedly improved after treatment. Special discussion: Based on the patient's Hx, exam, and Dx evaluation, there is no indication for emergent surgery or inpatient Tx. It is understood by the patient/guardian that if the Sx's persist or worsen they need to return immediately for re-evaluation. Based on the history and exam findings, there is no indication for further emergent testing or inpatient evaluation. I discussed with the patient/guardian the need to see the primary care provider for further evaluation of the symptoms. 12/08 05:20 Order name: Basic Metabolic Panel; Complete Time: 07:12/08 05:20 Order name: CBC with Diff; Complete Time: 06:24 12/08 05:20 Order name: Creatinine for Radiology; Complete Time: 06:12/08 05:20 Order name: Hepatic Function; Complete Time: 07:12/08 05:20 Order name: Lipase; Complete Time: 07:00 24 05:51 Order name: Urine Dipstick--Ancillary (enter results); Complete Time: 06:24 ar5 12/08 05:20 Order name: IV Saline Lock; Complete Time: 05:20 ea 12/08 05:20 Order name: Labs collected and sent; Complete Time: 05:31 ea 12/08 05:20 Order name: Urine Dipstick-Ancillary (obtain specimen); Complete Time: 05:31 ea 12/08 05:51 Order name: Urine --Ancillary (enter results); Complete Time: 06:24 ar5 Administered Medications: 05:30 Drug: Zofran (Ondansetron) 4 mg Route: IVP; Site: right antecubital; ea 06:04 Follow up: Response: No adverse reaction; Nausea is decreased 05:31 Drug: morphine 4 mg {Note: RASS 1.} Route: IVP; Site: right antecubital; ea 06:04 Follow up: Response: No adverse reaction; RASS: Drowsy (-1) 06:03 Drug: NS 0.9% 1000 ml Route: IV; Rate: 1 bolus; Site: right antecubital; 07:05 Follow up: Response: No adverse reaction; IV Status: Completed infusion; IV Intake: tw2 1000ml Disposition: 12/09/19 08:39 Discharged to Home. Impression: Upper abdominal pain, unspecified, Dehydration. - Condition is Stable. - Discharge Instructions: Abdominal Pain, Adult, Iron Deficiency Anemia, Adult, Dehydration, Adult, Rehydration, Adult. - Prescriptions for promethazine 25 mg Oral Tablet - take 1 tablet by ORAL route every 6 hours As needed; 20 tablet. - Medication Reconciliation Form, Thank You Letter, Antibiotic Education, Prescription Opioid Use, Work release form form. - Follow up: Emergency Department; When: As needed; Reason: Worsening of condition. Follow up: Private Physician; When: 2 - 3 days; Reason: Recheck today's complaints, Continuance of care, Re-evaluation by your physician. Addendum: 12/28/2019 19:02 Co-signature as Attending Physician, Juan barfield Signatures: Dispatcher [employer] EDPA Juan Boss MD MD pkl Karine Alves, ELECTRONIC NEWS GATHERING EDITOR-C ELECTRONIC NEWS GATHERING EDITOR-Csnw [place] Portillo RN RN tw2 Tessa Brunson, RN Radha Avelar ea RN SOFIA Corrections: (The following items were deleted from the chart) 12/08 08:54 08:39 12/09/2019 08:39 Discharged to Home. Impression: Upper abdominal pain, tw2 unspecified; Dehydration. Condition is Stable. Forms are Medication Reconciliation Form, Thank You Letter, Antibiotic Education, Prescription Opioid Use. Follow up: Emergency Department; When: As needed; Reason: Worsening of condition. Follow up: Private Physician; When: 2 - 3 days; Reason: Recheck today's complaints, Continuance of care, Re-evaluation by your physician. snw
--- NOTE | 2019-12-09 08:40 | ER ---
Nurse's Notes [facility] Name: Emma Bah Age: 19 yrs Sex: Female : 2000 Arrival Date: 12/09/2019 Time: 05:02 Bed 19 Private MD: Diagnosis: Upper abdominal pain, unspecified;Dehydration Presentation: 12/08 05:12 Chief complaint: Patient states: she started having epigastric pain and vomiting about midnight. she has vomited 3x. Denies fever. Coronavirus screen: Patient denies fever greater than 100.4F, cough, shortness of breath, or difficulty breathing. Proceed with normal triage process. Ebola Screen: No symptoms or risks identified at this time. Initial Sepsis Screen: Does the patient meet any 2 criteria? No. Patient's initial sepsis screen is negative. Does the patient have a suspected source of infection? No. Patient's initial sepsis screen is negative. Risk Assessment: Do you want to hurt yourself or someone else? Patient reports no desire to harm self or others. 05:12 Method Of Arrival: Ambulatory 05:12 Acuity: CHRISTOPHER 3 Triage Assessment: 05:16 General: Appears uncomfortable, Behavior is cooperative, appropriate for age. Pain: Complains of pain in epigastric area and the middle of the back Pain radiates to thoracic area Pain currently is 10 out of 10 on a pain scale. Quality of pain is described as crampy, sharp, shooting, throbbing, Pain began midnight Is continuous. EENT: No signs and/or symptoms were reported regarding the EENT system. Neuro: Level of Consciousness is awake, alert, Oriented to person, place, time, situation. Cardiovascular: Heart tones S1 S2 present Capillary refill < 3 seconds Patient's skin is warm and dry. Respiratory: Airway is patent Respiratory effort is even, unlabored, Respiratory pattern is regular, symmetrical, Breath sounds are clear bilaterally. GI: Stools are reported to be "harder than usual". Last BM was December 08, 2019. Reports upper abdominal pain, vomiting. : No signs and/or symptoms were reported regarding the genitourinary system. Derm: No signs and/or symptoms reported regarding the dermatologic system. Skin is intact, is healthy with good turgor. Musculoskeletal: No signs and/or symptoms reported regarding the musculoskeletal system. 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 - Social history:: Smoking status: Patient denies any tobacco usage or history of. Patient/guardian denies using alcohol, IV drugs. Screenin:33 Abuse screen: Denies threats or abuse. Nutritional screening: No deficits noted. ea Tuberculosis screening: No symptoms or risk factors identified. Fall Risk IV access (20 points). Assessment: 05:21 General: Denies fever, see triage note. 05:33 General: Pt states that she had a vaginal on 11/19/2019. 05:35 GI: Bowel sounds present X 4 quads. Abdomen is tender to palpation in epigastric area. 05:48 Reassessment: Pt states that the pain medication has helped tremendously. 10/27 Patient ah states feeling better. 06:56 Reassessment: Patient appears in no apparent distress at this time. Patient and/or ah family updated on plan of care and expected duration. Pain level reassessed. Patient is alert, oriented x 3, equal unlabored respirations, skin warm/dry/pink. Patient states feeling better. 07:35 Reassessment: Patient appears in no apparent distress at this time. Patient and/or tw2 family updated on plan of care and expected duration. Pain level reassessed. Patient is alert, oriented x 3, equal unlabored respirations, skin warm/dry/pink. 08:30 Reassessment: Patient appears in no apparent distress at this time. Patient and/or tw2 family updated on plan of care and expected duration. Pain level reassessed. Patient is alert, oriented x 3, equal unlabored respirations, skin warm/dry/pink. Patient states feeling better. Patient states symptoms have improved. 08:53 Reassessment: Patient appears in no apparent distress at this time. Patient and/or tw2 family updated on plan of care and expected duration. Pain level reassessed. Patient is alert, oriented x 3, equal unlabored respirations, skin warm/dry/pink. Vital Signs: 05:12 BP 125 / 71; Pulse 87; Resp 20; Temp 97.3; Pulse Ox 99% ; Weight 78.47 kg; Height 5 ft. 4 in. (162.56 cm); Pain 10/10; 05:15 BP 121 / 75; Pulse 81; Resp 18; Pulse Ox 100% ; ah 06:18 BP 104 / 61; Pulse 72; Resp 15; Pulse Ox 99% ; 06:56 BP 104 / 63; Pulse 59; Pulse Ox 100% ; 07:33 BP 108 / 69; Pulse 58; Resp 17; Pulse Ox 99% on R/A; tw2 08:30 BP 101 / 66; Pulse 52; Resp 17; Pulse Ox 100% on R/A; tw2 05:12 Body Mass Index 29.70 (78.47 kg, 162.56 cm) ED Course: 05:02 Patient arrived in ED. cl3 05:11 Radha Venegas, RN is Primary Nurse. 05:15 Triage completed. 05:20 Inserted saline lock: 20 gauge in right antecubital area, using aseptic technique. ea 05:34 Patient has correct armband on for positive identification. Placed in gown. Bed in low ea position. 05:34 Arm band placed on right wrist. Patient placed in an exam room, on a stretcher, on ea pulse oximetry. 05:54 Karine Alves FNP-C is [facility]. snw 05:54 Juan Boss MD is Attending Physician. snw 08:53 No provider procedures requiring assistance completed. IV discontinued, intact, tw2 bleeding controlled, No redness/swelling at site. Pressure dressing applied. Administered Medications: 05:30 Drug: Zofran (Ondansetron) 4 mg Route: IVP; Site: right antecubital; ea 06:04 Follow up: Response: No adverse reaction; Nausea is decreased 05:31 Drug: morphine 4 mg {Note: RASS 1.} Route: IVP; Site: right antecubital; ea 06:04 Follow up: Response: No adverse reaction; RASS: Drowsy (-1) 06:03 Drug: NS 0.9% 1000 ml Route: IV; Rate: 1 bolus; Site: right antecubital; 07:05 Follow up: Response: No adverse reaction; IV Status: Completed infusion; IV Intake: tw2 1000ml Intake: 07:05 IV: 1000ml; Total: 1000ml. Outcome: 08:39 Discharge ordered by MD. deshpande 08:53 Discharged to home ambulatory. 08:53 Condition: stable 08:53 Discharge instructions given to patient, Instructed on discharge instructions, follow up and referral plans. no drinking with medication, no driving heavy equipment, medication usage, Demonstrated understanding of instructions, follow-up care, medications, Prescriptions given X 1. 08:54 Patient left the ED. Signatures: Karine Alves, RADIO PROGRAM DIRECTOR-C RADIO PROGRAM DIRECTOR-Csnw Venice Portillo RN RN 2 Tessa Brunson RN RN ea Lewis, Charde cl3 Radha Venegas RN RN ah Corrections: (The following items were deleted from the chart) 06:04 06:04 Response: No adverse reaction [facility]
[2019-12-09 09:19] VITALS: TEMP 97.3
[2019-12-09 09:27] VITALS: BP 101/66; O2SAT 100
== END 2019-12-09 08:54 | disposition home or self-care (01) ==
LOC: ER 05:01
DX: E86.0 Dehydration (principal); R11.2 Nausea with vomiting, unspecified; Z88.0 Allergy status to penicillin
CPT/HCPCS: 96361; 85025; 80048; 36415; 81025; 80076; 81003; 83690; 96375; 96374; 99284; J7030; J2405

== ENCOUNTER 2021-02-19 13:49 | Emergency (ER) | payer OTHER ==
--- OUTSIDE RECORDS SUMMARY | 2021-02-19 13:51 | XMS REPORT | Continuity of Care Document ---
:2000 Author Organization [facility] t Address [address] [place] [address] Care Team Providers Name Role Phone Jeferson SONG Attending Clinician Problems Condition Condition Condition Status Onset Resolution Last Treating Co mments Source Name Details Category Date Date Treatment Clinician Date Seasonal Seasonal Problem [facility] Bilateral Bilateral Problem Active [facility] back [facility] pain pain [facility] without without l sciatica, sciatica, Outp ati unspecifie unspecifie en t d d Clinics chronicity chronicity Vaginal Vaginal Diagnosis [facility] Encounter Encounter Diagnosis Active [facility] - gynecologi gynecologi Me moria andrea andrea l examinatio examinatio Ou tpati n n ent Clinics Screening Screening Diagnosis Active [facility] STD for STD [facility] - (sexually (sexually Dex yannick transmitte transmitte l d disease) d disease) Ou tpati ent Clinics Allergies, Adverse Reactions, Alerts This patient has no known allergies or adverse reactions. Medications This patient has no known medications. Procedures This patient has no known procedures. Encounters Start End Encounter Admission Attending Care Care Encounter Source Date/Time Date/Time Type Type Clinicians Facility Department ID 2019-12-11 2019-12-11 VLADIMIR Yancey [id number] 08:15:31 10:52:35 ne Visit Niurka Silvestre [id number] [place] [id number] Vincent [id number] [address] 2018-08-26 2018-08-26 Outpatient Jerry Pitts [id number] [facility] [address] 10:30:00 10:30:00 [facility] Family Medicine Medicine Outpati ent Clinics Results This patient has no known results.
[2021-02-19 15:34] LABS: Urine Blood Trace-intact (Negative); Urine Glucose Negative (Negative); Urine Protein Negative (Negative); Urine Specific Gravity 1.025 (1.005-1.030); Urine pH 6.5 (5.0-7.0)
[2021-02-19] MEDS ORDERED: MORPHINE 2 MG/ML SYR ONE (15:39)
[2021-02-19] MEDS ORDERED: DIAZEPAM 10 MG/2 ML INJ SYRINGE ONE (15:40)
[2021-02-19] MEDS ORDERED: ONDANSETRON 4 MG/2 ML VIAL ONE (15:40)
[2021-02-19 15:56] LABS: Urine Specific Gravity/Preg 1.025 (1.005-1.030)
--- NOTE | 2021-02-19 16:15 | RAD REPORT ---
EXAM DESCRIPTION: CT - Chest For Pe Angio - 02/19/2021 4:03 pm CLINICAL HISTORY: Chest pain. upper back pain, left subscapular COMPARISON: <Comparisons> TECHNIQUE: CT angiogram of the pulmonary arteries was performed with MIP. All CT scans are performed using dose optimization technique as appropriate and may include automated exposure control or mA/KV adjustment according to patient size. FINDINGS: No evidence of pulmonary thromboembolism. No acute aortic finding demonstrated. The lungs are clear. No significant pericardial or pleural fluid. No concerning bony finding. IMPRESSION: No evidence of pulmonary thromboembolism. No acute lung findings.
--- NOTE | 2021-02-19 16:24 | ER ---
Nurse's Notes [facility] Name: Emma Bah Age: 20 yrs Sex: Female : 2000 Arrival Date: 02/19/2021 Time: 13:57 Bed 14 Private MD: Diagnosis: Strain of muscle and tendon of back wall of thorax;Urinary tract infection, site not specified Presentation: 02/19 14:10 Chief complaint: Patient states: "I always have back pain but today I had my boyfriend aa5 step on my back and it's hurting worse". pt c/o upper back pain. Coronavirus screen: At this time, the client does not indicate any symptoms associated with coronavirus-19. Ebola Screen: Patient negative for fever greater than or equal to 101.5 degrees Fahrenheit, and additional compatible Ebola Virus Disease symptoms. Initial Sepsis Screen: Does the patient meet any 2 criteria? No. Patient's initial sepsis screen is negative. Does the patient have a suspected source of infection? No. Patient's initial sepsis screen is negative. Risk Assessment: Do you want to hurt yourself or someone else? Patient reports no desire to harm self or others. Onset of symptoms was February 2021. 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 - Social history:: Smoking status: Patient denies any tobacco usage or history of. Screenin:14 Abuse screen: Denies threats or abuse. Nutritional screening: No deficits noted. vg1 Tuberculosis screening: No symptoms or risk factors identified. Fall Risk No fall in past 12 months (0 pts). No secondary diagnosis (0 pts). IV access (20 points). Ambulatory Aid- None/Bed Rest/Nurse Assist (0 pts). Gait- Normal/Bed Rest/Wheelchair (0 pts) Mental Status- Oriented to own ability (0 pts). Total Randolph Fall Scale indicates No Risk (0-24 pts). Assessment: 15:12 General: Appears in no apparent distress. uncomfortable, Behavior is calm, cooperative. vg1 Pain: Complains of pain in left subscapular area Pain currently is 8 out of 10 on a pain scale. Pain began 2 hours ago. Neuro: Level of Consciousness is awake, alert, obeys commands, Oriented to person, place, time, situation. Cardiovascular: Patient's skin is warm and dry. Respiratory: Airway is patent Respiratory effort is even, unlabored. GI: No signs and/or symptoms were reported involving the gastrointestinal system. : No signs and/or symptoms were reported regarding the genitourinary system. EENT: No signs and/or symptoms were reported regarding the EENT system. Derm: Skin is intact, is healthy with good turgor. Musculoskeletal: Circulation, motion, and sensation intact. 16:11 Reassessment: Patient appears in no apparent distress at this time. No changes from vg1 previously documented assessment. Patient and/or family updated on plan of care and expected duration. Pain level reassessed. Patient is alert, oriented x 3, equal unlabored respirations, skin warm/dry/pink. 16:38 Reassessment: Patient appears in no apparent distress at this time. Patient and/or vg1 family updated on plan of care and expected duration. Pain level reassessed. Patient is alert, oriented x 3, equal unlabored respirations, skin warm/dry/pink. Vital Signs: 14:10 BP 122 / 79; Pulse 80; Resp 18 S; Temp 97.0(TE); Pulse Ox 99% on R/A; Weight 99.79 kg aa5 (R); Height 5 ft. 4 in. (162.56 cm) (R); Pain 8/10; 15:14 BP 116 / 86; Pulse 68; Resp 16; Pulse Ox 100% on R/A; vg1 16:12 BP 112 / 72; Pulse 64; Resp 16; Pulse Ox 100% on R/A; vg1 14:10 Body Mass Index 37.76 (99.79 kg, 162.56 cm) aa5 ED Course: 13:57 Patient arrived in ED. mr 14:10 Arm band placed on. 5 14:13 Triage completed. [facility] 14:59 Farooq Souza PA is PHCP. [facility] 14:59 Romain Nunez MD is Attending Physician. [facility] 15:00 Gina Lindsey, RN is Primary Nurse. vg1 15:14 Patient has correct armband on for positive identification. Bed in low position. Call vg1 light in reach. Side rails up X 1. 15:20 Inserted saline lock: 20 gauge in right antecubital area, using aseptic technique. tx Blood collected. 16:03 CT Chest For PE Angio In Process Unspecified. EDMS 16:39 No provider procedures requiring assistance completed. IV discontinued, intact, vg1 bleeding controlled, No redness/swelling at site. Pressure dressing applied. Administered Medications: 15:25 Drug: Zofran (Ondansetron) 4 mg Route: IVP; Site: right antecubital; vg1 16:41 Follow up: Response: No adverse reaction vg1 15:27 Drug: Valium (diazepam) 2 mg Route: IVP; Site: right antecubital; vg1 16:41 Follow up: Response: No adverse reaction vg1 15:29 Drug: morphine 2 mg Route: IVP; Site: right antecubital; vg1 16:41 Follow up: Response: Adverse reaction, Physician notified; Pain is decreased vg1 Outcome: 16:23 Discharge ordered by . [facility] 16:39 Discharged to home ambulatory. vg1 16:39 Condition: stable 16:39 Discharge instructions given to patient, Instructed on discharge instructions, follow up and referral plans. medication usage, Demonstrated understanding of instructions, follow-up care, medications, Prescriptions given X 3. 16:40 Patient left the ED. vg1 Signatures: Dispatcher [employer] EDMS Farooq Souza PA PA jmm Rivera, Mary Marilyn Koehler RN RN Moira Waddell tx Gina Lindsey, SOFIA RN vg1 Corrections: (The following items were deleted from the chart) 14:13 14:10 BP 122 / 79; Pulse 80bpm; Resp 18bpm; Spontaneous; Pulse Ox 99% RA; Temp 97.0F aa5 Temporal; 99.79 kg Reported; Height 5 ft. 4 in. Reported; BMI: 37.7; aa5
--- NOTE | 2021-02-19 16:25 | EDPHYS ---
Physician Documentation [facility] Name: Emma Bah Age: 20 yrs Sex: Female : 2000 Arrival Date: 02/19/2021 Time: 13:57 Bed 14 Private MD: ED Physician Romain Nunez HPI: 02/19 15:11 This 20 yrs old Female presents to ER via Ambulatory with complaints of Back jmm Pain. 15:11 The patient presents with pain that is chronic. Onset: The symptoms/episode jmm began/occurred today. The pain radiates to the left subscapular area. Associated signs and symptoms: Pertinent negatives: chest pain. Modifying factors: The patient symptoms are alleviated by nothing, the patient symptoms are aggravated by any movement. This is a 20 year old female with no chronic medical conditions that presents to the ED with left subscapular pain. Pain worsened with movement. States her stepped on her back this morning which worsened symptoms. . 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 - Social history:: Smoking status: Patient denies any tobacco usage or history of. ROS: 15:11 Constitutional: Negative for fever, chills, and weight loss, Cardiovascular: Negative jmm for chest pain, palpitations, and edema, Respiratory: Negative for shortness of breath, cough, wheezing, and pleuritic chest pain. 15:11 Back: Positive for pain with movement. 15:11 All other systems are negative. Exam: 15:11 Constitutional: This is a well developed, well nourished patient who is awake, alert, jmm and in no acute distress. Head/Face: atraumatic. Eyes: EOMI, no conjunctival erythema appreciated ENT: Moist Mucus Membranes Neck: Trachea midline, Supple Chest/axilla: Normal chest wall appearance and motion. Cardiovascular: Regular rate and rhythm. No edema appreciated Respiratory: Normal respirations, no respiratory distress appreciated 15:11 Skin: General appearance color normal MS/ Extremity: Moves all extremities, no obvious deformities appreciated, no edema noted to the lower extremities Neuro: Awake and alert, normal gait Psych: Behavior is normal, Mood is normal, Patient is cooperative and pleasant 15:11 Back: left subscapular pain on palpation. Vital Signs: 14:10 BP 122 / 79; Pulse 80; Resp 18 S; Temp 97.0(TE); Pulse Ox 99% on R/A; Weight 99.79 kg aa5 (R); Height 5 ft. 4 in. (162.56 cm) (R); Pain 8/10; 15:14 BP 116 / 86; Pulse 68; Resp 16; Pulse Ox 100% on R/A; vg1 16:12 BP 112 / 72; Pulse 64; Resp 16; Pulse Ox 100% on R/A; vg1 14:10 Body Mass Index 37.76 (99.79 kg, 162.56 cm) aa5 MDM: 15:10 Patient medically screened. [facility] 16:21 Data reviewed: vital signs, nurses notes. Counseling: I had a detailed discussion with [facility] the patient and/or guardian regarding: the historical points, exam findings, and any diagnostic results supporting the discharge/admit diagnosis, lab results, radiology results, the need for outpatient follow up, to return to the emergency department if symptoms worsen or persist or if there are any questions or concerns that arise at home. ED course: Patient is alert and non toxic in appearance in the ED. CT is negative. Patient is advised to follow up with pcp and otherwise given strict return precautions. Patient understood and agrees with the plan of care. . 02/19 15:33 Order name: Urine Dipstick-Ancillary; Complete Time: 16:07 [facility] 02/19 15:36 Order name: Urine --Ancillary (enter results); Complete Time: 16:07 02/19 15:11 Order name: CT Chest For PE Angio; Complete Time: 16:21 [facility] 02/19 15:11 Order name: Saline Lock; Complete Time: 15:20 [facility] Administered Medications: 15:25 Drug: Zofran (Ondansetron) 4 mg Route: IVP; Site: right antecubital; vg1 16:41 Follow up: Response: No adverse reaction vg1 15:27 Drug: Valium (diazepam) 2 mg Route: IVP; Site: right antecubital; vg1 16:41 Follow up: Response: No adverse reaction vg1 15:29 Drug: morphine 2 mg Route: IVP; Site: right antecubital; vg1 16:41 Follow up: Response: Adverse reaction, Physician notified; Pain is decreased vg1 Disposition: 02/19/21 16:23 Discharged to Home. Impression: Strain of muscle and tendon of back wall of thorax, Urinary tract infection, site not specified. - Condition is Stable. - Discharge Instructions: Thoracic Strain. - Prescriptions for Ibuprofen 800 mg Oral Tablet - take 1 tablet by ORAL route every 8 hours As needed take with food; 30 tablet. Bactrim DS 800- 160 mg Oral Tablet - take 1 tablet by ORAL route every 12 hours for 7 days; 14 tablet. orphenadrine citrate 100 mg Oral Tablet Sustained Release - take 1 tablet by ORAL route 2 times per day As needed; 20 tablet. - Medication Reconciliation Form, Thank You Letter, Antibiotic Education, Prescription Opioid Use form. - Follow up: Private Physician; When: 2 - 3 days; Reason: Recheck today's complaints, Continuance of care, Re-evaluation by your physician. Addendum: 02/22/2021 07:42 Co-signature as Attending Physician, Romain Nunez MD I agree with the assessment and c gregory plan of care. Signatures: Dispatcher [employer] Romain Valenzuela MD MD cha Mickail, Joel, PA PA jmm Calderon, Audri, RN RN aa5 Gina Lindsey RN RN vg1 Corrections: (The following items were deleted from the chart) 02/19 16:24 16:23 02/19/2021 16:23 Discharged to Home. Impression: Strain of muscle and tendon of jmm back wall of thorax. Condition is Stable. Forms are Medication Reconciliation Form, Thank You Letter, Antibiotic Education, Prescription Opioid Use. Follow up: Private Physician; When: 2 - 3 days; Reason: Recheck today's complaints, Continuance of care, Re-evaluation by your physician. [facility] 16:40 16:24 02/19/2021 16:23 Discharged to Home. Impression: Strain of muscle and tendon of vg1 back wall of thorax; Urinary tract infection, site not specified. Condition is Stable. Discharge Instructions: Thoracic Strain. Prescriptions for Ibuprofen 800 mg Oral Tablet - take 1 tablet by ORAL route every 8 hours As needed take with food; 30 tablet, Bactrim DS 800-160 mg Oral Tablet - take 1 tablet by ORAL route every 12 hours for 7 days; 14 tablet, orphenadrine citrate 100 mg Oral Tablet Sustained Release - take 1 tablet by ORAL route 2 times per day As needed; 20 tablet. and Forms are Medication Reconciliation Form, Thank You Letter, Antibiotic Education, Prescription Opioid Use. Follow up: Private Physician; When: 2 - 3 days; Reason: Recheck today's complaints, Continuance of care, Re-evaluation by your physician. mari
[2021-02-19 16:47] VITALS: TEMP 97
[2021-02-19 16:48] VITALS: O2SAT 100
[2021-02-19 16:50] VITALS: BP 112/72
== END 2021-02-19 16:40 | disposition home or self-care (01) ==
LOC: ER 13:49
DX: S29.012A Strain of muscle and tendon of back wall of thorax, initial encounter (principal); Z88.0 Allergy status to penicillin
CPT/HCPCS: 81025; 81003; 71275; 96375; 96374; 99284; Q9967; J3360; J2270; J2405

== ENCOUNTER 2021-11-16 05:20 | Emergency (ER) | payer OTHER ==
--- OUTSIDE RECORDS SUMMARY | 2021-11-16 05:23 | XMS REPORT | Continuity of Care Document ---
:2000 Author Organization [facility] t Address [address] [place] [address] Care Team Providers Name Role Phone JEFERSON Attending Clinician Unavailable Jeferson SONG Attending Clinician STEPHENSON, NAVEED Attending Clinician Unavailable STEPHENSON, CAM Admitting Clinician Unavailable Payers Payer Name Policy Type Policy Number Effective Date Expiration Date S mandy [facility] [id number] 2019 HEALTH 00:00:00 Problems Condition Condition Condition Status Onset Resolution [...] tpati ent Clinics Allergies, Adverse Reactions, Alerts Allergy Allergy Status Severity Reaction(s) Onset Inactive Treating Comm ents Source Name Type Date Date Clinician PENICILL Drug Active Hives [facility] INS Class 8-07 ity of 00:00: [address] Medications This patient has no known medications. Procedures This patient has no known procedures. Encounters Start End Encounter Admission Attending Care Care Encounter Source Date/Time Date/Time Type Type Clinicians Facility Department ID 2021-07-14 Outpatient [facility] [[email or web address] CHANDAN [id number] [email or web address] CHANDAN [id number] [facility]14 Outpatient P [email or web address] CHANDAN [id number] Univers 11:25:45 [facility] 2020-06-14 2020-06-14 Outpatient R JEFERSON [facility] [id number] Univers 09:00:00 09:00:00 NIURKA [id number] [facility] 2020-06-14 2020-06-14 Outpatient R JEFERSON [facility] [id number] Univers 09:00:00 09:00:00 NIURKA [facility] 2019-12-11 2019-12-11 Outpatient R JEFERSON [facility] [id number] Univers 11:30:00 11:30:00 NIURKA [id number] [facility] 2019-12-11 2019-12-11 Outpatient R JEFERSON [facility] [id number] Univers 11:30:00 11:30:00 NIURKA [facility] 2019-12-11 2019-12-11 [facility] [id number] 08:15:31 10:52:35 ne Visit Niurka Silvestre [id number] [place] [id number] Professio [id number] [address] 2019-11-13 2019-11-13 Outpatient R FREDERICK STEPHENSON [facility] [id number] Univers 09:45:00 09:45:00 [facility] 2018-08-26 2018-08-26 [facility] [id number] 10:30:00 10:30:00 [facility] Medicine Outpati ent Clinics Results This patient has no known results.
[2021-11-16 05:53] LABS: Urine Blood Negative (Negative); Urine Glucose Negative (Negative); Urine Protein Negative (Negative)
[2021-11-16] MEDS ORDERED: ONDANSETRON 4 MG/2 ML VIAL ONE (05:55)
[2021-11-16] MEDS ORDERED: NA CHLORIDE 0.9% 1,000 ML ONE (05:56)
[2021-11-16 06:09] LABS: Urine Bacteria <20 /HPF (<20); Urine RBC <5 /HPF (NONE SEEN)
[2021-11-16 06:12] LABS: Absolute Lymphocytes (CBC) 1.3 K/uL (0.7-4.9); Hematocrit 37.9 % (36.0-45.0); MPV 7.5 fL (7.6-11.3)
[2021-11-16 06:29] LABS: ALT/SGPT 22 U/L (12-78); AST/SGOT 14 U/L (15-37); Albumin 3.7 g/dL (3.4-5.0); Alkaline Phosphatase 88 U/L (45-117); BUN Blood Urea Nitrogen 12 mg/dL (7-18); Bicarbonate 25 mmol/L (21-32); Bilirubin Direct 0.2 mg/dL (0-0.2); Bilirubin Total 0.8 mg/dL (0.2-1.0); Glucose Level 98 mg/dL (74-106); Lipase 99 U/L (73-393); Potassium 3.7 mmol/L (3.5-5.1); Protein, Total 7.5 g/dL (6.4-8.2); Sodium Level 136 mmol/L (136-145)
[2021-11-16 07:09] LABS: SARS-COV-2 RT PCR NEGATIVE (NEGATIVE)
--- NOTE | 2021-11-16 07:35 | ER ---
Nurse's Notes [facility] Name: Emma Bah Age: 21 yrs Sex: Female : 2000 Arrival Date: 11/16/2021 Time: 05:25 Bed 13 Private MD: Diagnosis: Vomiting, unspecified;Viral infection, unspecified Presentation: 11/16 05:44 Chief complaint: Patient states: Last night I vomited about 7 times. I woke up around 4 vc1 to go to work and I'm still vomiting, nauseous, having stomach pain and I have a horrible headache. Coronavirus screen: Vaccine status: Patient reports being unvaccinated. fever, headache, nausea, vomiting. Client presents with at least one sign or symptom that may indicate coronavirus-19. Standard/surgical mask placed on the client. Provider contacted for isolation considerations. Ebola Screen: No symptoms or risks identified at this time. Initial Sepsis Screen: Does the patient meet any 2 criteria? HR > 90 bpm. No. Patient's initial sepsis screen is negative. Does the patient have a suspected source of infection? No. Patient's initial sepsis screen is negative. Risk Assessment: Do you want to hurt yourself or someone else? Patient reports no desire to harm self or others. Onset of symptoms was November 15, 2021. 05:44 Method Of Arrival: Ambulatory vc1 05:44 Acuity: CHRISTOPHER 3 vc1 Triage Assessment: 05:44 General: Appears in no apparent distress. uncomfortable, ill, Behavior is calm, vc1 cooperative, appropriate for age. Pain: Complains of pain in Head Pain does not radiate. Pain currently is 10 out of 10 on a pain scale. Pain: Complains of pain in epigastric area Pain does not radiate. Pain currently is 0 out of 10 on a pain scale. at worst was 8 out of 10 on a pain scale. GI: Abdomen is non-distended, Reports epigastric pain, intolerance of food, nausea, vomiting. 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 - Social history:: Smoking status: Patient denies any tobacco usage or history of. - Family history:: not pertinent. - Hospitalizations: : No recent hospitalization is reported. Screenin:41 Abuse screen: Denies threats or abuse. Denies injuries from another. Nutritional tk1 screening: No deficits noted. Tuberculosis screening: No symptoms or risk factors identified. Fall Risk None identified. Assessment: 05:42 Pain: Complains of pain in abdomen Pain does not radiate. Pain at worst was 8 out of 10 tk1 on a pain scale. Quality of pain is described as sharp, Pain began 1 day ago. Is intermittent. 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 Gait is steady, Speech is normal, Facial symmetry appears normal. Cardiovascular: Capillary refill < 3 seconds is brisk in bilateral fingers Clubbing of nail beds is absent. Respiratory: Airway is patent Trachea midline Respiratory effort is even, unlabored, Respiratory pattern is regular, symmetrical. GI: Abdomen is flat, non-distended, Bowel sounds present X 4 quads. Abd is soft and non tender X 4 quads. 05:48 : Urine is clear. EENT: No deficits noted. No signs and/or symptoms were reported tk1 regarding the EENT system. Derm: No deficits noted. No signs and/or symptoms reported regarding the dermatologic system. Musculoskeletal: No deficits noted. No signs and/or symptoms reported regarding the musculoskeletal system. 07:59 General: Appears in no apparent distress. comfortable, Behavior is calm, cooperative. ww Neuro: Level of Consciousness is awake, alert, obeys commands, Oriented to person, place, time, situation, Moves all extremities. Gait is steady, Speech is normal. Cardiovascular: Capillary refill < 3 seconds Patient's skin is warm and dry. Respiratory: Airway is patent Respiratory effort is even, unlabored, Respiratory pattern is regular, symmetrical. Derm: No signs and/or symptoms reported regarding the dermatologic system. Skin is intact, is healthy with good turgor. Vital Signs: 05:44 BP 123 / 89; Pulse 104; Resp 18; Temp 98.9(O); Pulse Ox 99% on R/A; Weight 90.72 kg; vc1 Height 5 ft. 4 in. (162.56 cm); Pain 10/10; 07:09 BP 148 / 64; Pulse 91; Resp 16; ww 05:44 Body Mass Index 34.33 (90.72 kg, 162.56 cm) vc1 ED Course: 05:25 Patient arrived in ED. wm 05:34 Jay Patrick MD is Attending Physician. rn 05:40 Jessica Bui is Primary Nurse. tk1 05:40 COVID-19/FLU A+B (Document "Date of Onset" if Symptomatic) Sent. tk1 05:40 Strep Sent. tk1 05:41 No provider procedures requiring assistance completed. COVID swab sent to lab. Flu tk1 and/or RSV swab sent to lab. 05:41 Patient has correct armband on for positive identification. Bed in low position. Call tk1 light in reach. Side rails up X 1. Pulse ox on. NIBP on. Warm blanket given. 05:48 Triage completed. vc1 05:49 Arm band placed on right wrist. vc1 05:59 Urine --Ancillary (enter results) Sent. tk1 05:59 Urine --Ancillary Sent. tk1 05:59 Inserted saline lock: 20 gauge in right antecubital area, using aseptic technique. sf1 Blood collected. 05:59 Urine Microscopic Only Sent. tk1 05:59 Strep Sent. tk1 06:00 COVID-19/FLU A+B (Document "Date of Onset" if Symptomatic) Sent. tk1 06:01 LFT's Sent. sf1 06:02 Lipase Sent. sf1 06:02 Procalcitonin Sent. sf1 06:02 Basic Metabolic Panel Sent. sf1 06:02 CBC with Diff Sent. sf1 06:50 Saúl Ramirez NP is PHCP. pm1 07:59 intact, bleeding controlled, No redness/swelling at site. Pressure dressing applied. ww Administered Medications: 05:59 Drug: Zofran (Ondansetron) 4 mg Route: IVP; Site: right antecubital; sf1 06:00 Drug: NS 0.9% 1000 ml Route: IV; Rate: 1000 ml; Site: right antecubital; sf1 07:40 Drug: Tylenol 650 mg Route: PO; ww Outcome: 07:34 Discharge ordered by . pm1 07:59 Discharged to home ambulatory. ww 07:59 Condition: stable 07:59 Discharge instructions given to patient, Instructed on discharge instructions, follow up and referral plans. medication usage, safety practices, Demonstrated understanding of instructions, follow-up care, medications, Prescriptions given X 1. 08:00 Patient left the ED. ww Signatures: Jay Patrick MD MD rn Marinas, Patrick, JANUSZ E BUSINESS MANAGER pm1 Lisbeth Mcwilliams Whitney, RN RN ww Kirby, Tammie tk1 Isela Graham RN RN vc1 Kiah Grant RN RN sf1
--- NOTE | 2021-11-16 07:35 | EDPHYS ---
Physician Documentation [facility] Name: Emma Bah Age: 21 yrs Sex: Female : 2000 Arrival Date: 11/16/2021 Time: 05:25 Bed 13 Private MD: ED Physician Jay Patrick HPI: 11/16 05:40 This 21 yrs old Female presents to ER via Unassigned with complaints of rn Vomiting, Fever, Headache. 05:40 The patient presents to the emergency department with nausea, vomiting. Onset: The rn symptoms/episode began/occurred yesterday. Possible causes: unknown. The symptoms are aggravated by nothing. The symptoms are alleviated by nothing. Associated signs and symptoms: Pertinent positives: fever, nausea, vomiting, Pertinent negatives: diarrhea, GI bleeding. Severity of symptoms: At their worst the symptoms were mild in the emergency department the symptoms are unchanged. The patient has not experienced similar symptoms in the past. The patient has not recently seen a physician. Pt reports fever, chills, nausea/vomiting, headache, malaise. Sent home from work and told to get checked. Reports intermittent left sided abd/flank cramping. Denies neck pain. . 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 - Social history:: Smoking status: Patient denies any tobacco usage or history of. - Family history:: not pertinent. - Hospitalizations: : No recent hospitalization is reported. ROS: 05:40 Constitutional: + fever and chills Eyes: Negative for injury, pain, redness, and automatic pattern edger, ENT: Negative for injury, pain, and discharge, Neck: Negative for injury, pain, and swelling, Cardiovascular: Negative for chest pain, palpitations, and edema, Respiratory: Negative for shortness of breath, cough, wheezing, and pleuritic chest pain, Abdomen/GI: + nausea/vomiting Back: Negative for injury and pain, : Negative for injury, bleeding, discharge, and swelling, MS/Extremity: Negative for injury and deformity, Skin: Negative for injury, rash, and discoloration, Neuro: + headache Exam: 05:40 Constitutional: This is a well developed, well nourished patient who is awake, alert, rn and in no acute distress. Head/Face: Normocephalic, atraumatic. Eyes: Pupils equal round and reactive to light, extra-ocular motions intact. Periorbital areas with no swelling, redness, or edema. Neck: Trachea midline, no thyromegaly or masses palpated, and no cervical lymphadenopathy. Supple, full range of motion without nuchal rigidity, or vertebral point tenderness. No Meningismus. Cardiovascular: Tachycardic, regular. No pulse deficits. Respiratory: No increased work of breathing, no retractions or nasal flaring. Abdomen/GI: Soft, non-tender Skin: Warm, dry MS/ Extremity: Pulses equal, no cyanosis. Neuro: Awake and alert, GCS 15, oriented to person, place, time, and situation. Cranial nerves II-XII grossly intact. Motor strength 5/5 in all extremities. Sensory grossly intact. Cerebellar exam normal. Normal gait. Vital Signs: 05:44 BP 123 / 89; Pulse 104; Resp 18; Temp 98.9(O); Pulse Ox 99% on R/A; Weight 90.72 kg; vc1 Height 5 ft. 4 in. (162.56 cm); Pain 10/10; 07:09 BP 148 / 64; Pulse 91; Resp 16; ww 05:44 Body Mass Index 34.33 (90.72 kg, 162.56 cm) vc1 MDM: 05:34 Patient medically screened. rn 07:22 Data reviewed: vital signs. Data interpreted: Pulse oximetry: on room air is 99 %. pm1 Interpretation: normal. 07:22 Counseling: I had a detailed discussion with the patient and/or guardian regarding: the pm1 historical points, exam findings, and any diagnostic results supporting the discharge/admit diagnosis, lab results, the need for outpatient follow up, to return to the emergency department if symptoms worsen or persist or if there are any questions or concerns that arise at home. 11/16 05:39 Order name: COVID-19/FLU A+B (Document "Date of Onset" if Symptomatic); Complete Time: rn 07:13 11/16 05:39 Order name: Strep; Complete Time: 07:13 rn 11/16 05:39 Order name: Urine Microscopic Only; Complete Time: 06:16 rn 11/16 05:49 Order name: CBC with Diff; Complete Time: 06:16 rn 11/16 05:49 Order name: Basic Metabolic Panel; Complete Time: 06:34 rn 11/16 05:49 Order name: Procalcitonin; Complete Time: 06:51 rn 11/16 05:49 Order name: LFT's; Complete Time: 06:34 rn 11/16 05:49 Order name: Lipase; Complete Time: 06:34 rn 11/16 05:52 Order name: Urine Dipstick-Ancillary; Complete Time: 06:16 EDMS 11/16 05:55 Order name: Urine --Ancillary (enter results) mw2 11/16 05:56 Order name: Urine --Ancillary; Complete Time: 06:16 EDMS 11/16 07:08 Order name: Throat Culture EDMS 11/16 05:39 Order name: Urine Dipstick-Ancillary (obtain specimen); Complete Time: 05:59 rn 11/16 05:39 Order name: Urine Test (obtain specimen); Complete Time: 05:59 rn 11/16 05:49 Order name: IV Start; Complete Time: 06:02 rn Administered Medications: 05:59 Drug: Zofran (Ondansetron) 4 mg Route: IVP; Site: right antecubital; sf1 06:00 Drug: NS 0.9% 1000 ml Route: IV; Rate: 1000 ml; Site: right antecubital; sf1 07:40 Drug: Tylenol 650 mg Route: PO; ww Disposition: 11/17 00:37 Co-signature as Attending Physician, Jay Patrick MD I agree with the assessment and rn plan of care. Attestation: The patient's history, exam findings, diagnostics, and a summary of any interventions or procedures was reviewed in detail with Saúl Ramirez NP. Disposition Summary: 11/16/21 07:34 Discharge Ordered Location: Home pm1 Problem: new pm1 Symptoms: have improved pm1 Condition: Stable pm1 Diagnosis - Vomiting, unspecified pm1 - Viral infection, unspecified pm1 Followup: pm1 - With: Emergency Department - When: As needed - Reason: Worsening of condition Followup: pm1 - With: Private Physician - When: 2 - 3 days - Reason: Recheck today's complaints, Continuance of care, Re-evaluation by your physician Discharge Instructions: - Discharge Summary Sheet pm1 - Nausea and Vomiting, Adult pm1 - Viral Illness, Adult pm1 Forms: - Medication Reconciliation Form pm1 - Work release form pm1 - Thank You Letter pm1 - Antibiotic Education pm1 - Prescription Opioid Use pm1 Prescriptions: - ondansetron 4 mg Oral tablet,disintegrating - place 1 tablet by TRANSLINGUAL route every 8 hours As needed; 12 tablet; pm1 Refills: 0, Product Selection Permitted Signatures: Dispatcher [employer] EDMS Jay Patrick MD MD rn Marinas, Patrick, SURGICAL TERRITORY MANAGER SURGICAL TERRITORY MANAGER pm1 Chiqui Roldan RN RN ww Kirby, Tammie tk1 Kiah Grant RN RN sf1
[2021-11-16] MEDS ORDERED: ACETAMINOPHEN 325 MG TABLET ONE (07:54)
[2021-11-16 08:10] VITALS: TEMP 98.9; O2SAT 99
[2021-11-16 08:11] VITALS: BP 148/64
== END 2021-11-16 08:00 | disposition home or self-care (01) ==
LOC: ER 05:20
DX: B34.9 Viral infection, unspecified (principal); Z88.0 Allergy status to penicillin
CPT/HCPCS: 87070; 85025; 80048; 36415; 81025; 80076; 87081; 83690; 84145; 0240U; 96374; 99284; J7030; J2405; 81003; 81015

== ENCOUNTER 2022-10-17 15:00 | Emergency (ER) | payer OTHER ==
--- OUTSIDE RECORDS SUMMARY | 2022-10-17 15:03 | XMS REPORT | Continuity of Care Document ---
:2000 Author Organization [facility] t Address [address] [place] [address] Care Team Providers Name Role Phone NIURKA GOVEA Attending Clinician Unavailable Niurka Govea PA-C Attending Clinician FREDERICK STEPHENSON Attending Clinician Unavailable FREDERICK STEPHENSON Admitting Clinician Unavailable Payers Payer Name Policy Type Policy Number Effective Date Expiration Date Adrian [employer]ENS [id number] 2019 HEALTH 00:00:00 Problems Condition Condition Condition Status Onset Resolution Last Treating Co mments Source Name Details Category Date Date Treatment Clinician Date Seasonal Seasonal Problem Active Commo n allergies allergies [facility] Bilateral Bilateral Problem Active Com mon low back low back [facility] pain pain - [facility] without without St sciatica, sciatica, Luke s unspecifie unspecifie Me [facility]ical d d Center chronicity chronicity Vaginal Vaginal Diagnosis Active Commo n discharge discharge [facility] Encounter Encounter Diagnosis Active C ommon for for [facility] gynecologi gynecologi - [facility] examinatio examinatio [facility] Screening Screening Diagnosis Active C ommon for STD for STD [facility] (sexually (sexually - [facility] I transmitte transmitte St d disease) d disease) [facility] Allergies, Adverse Reactions, Alerts Allergy Allergy Status Severity Reaction(s) Onset Inactive Treating Comm ents Source Name Type Date Date Clinician PENICILL Drug Active Hives [facility] INS Class 8-07 ity of 00:00: [address] Medications This patient has no known medications. Procedures This patient has no known procedures. Encounters Start End Encounter Admission Attending Care Care Encounter Source Date/Time Date/Time Type Type Clinicians Facility Department ID 2021-07-14 Outpatient [facility] [id number] [facility] [id number] Univers 11:26:27 [facility] 2021-07-14 Outpatient P [facility] [id number] Univers 11:25:45 [facility] 2020-06-14 2020-06-14 Outpatient R JUAN [facility] [id number] Univers 09:00:00 09:00:00 [facility] 2019-12-11 2019-12-11 Outpatient R JUAN [facility] [id number] Univers 11:30:00 11:30:00 [facility] 2019-12-11 2019-12-11 [facility] [id number] 08:15:31 10:52:35 ne Visit Niurka Silvestre [id number] [place] [id number] Professio [id number] [address] 2019-11-13 2019-11-13 Outpatient R FREDERICK STEPHENSON [facility] [id number] Univers 09:45:00 09:45:00 [facility] 2018-08-26 2018-08-26 [id number] Common 10:30:00 10:30:00 [facility] Results Test Description Test Time Test Comments Results Result Comments Source CT/NG, NAAT, URINE 2021-12-30 09:12:04 Test Item Value Reference Range Interpretation Comme nts GONORRHEA, NAAT NEGATIVE NEGATIVE IMPORTA NT NOTICE: SEE ANNOUNCEMENT AT (test code = [email or web address] Note: 12939) Assay methodolo gy is nucleic acid amplification by transcriptio n mediated amplification (TMA) utilizing the A ptima Combo 2 Assay. CHLAMYDIA, NAAT NEGATIVE NEGATIVE IMPORTA NT NOTICE: SEE ANNOUNCEMENT AT (test code = [email or web address].com/RocheCobasUrineKit Note: 16895) Assay methodolo gy is nucleic acid amplification by transcriptio n mediated amplification (TMA) utilizing the A ptima Combo 2 Assay. [id number] 06:13:09 Test Item Value Reference Range Interpretation Comments RPR RESULT (test NON-REACTIVE NON-REACTIVE code = 3501) RPR TITER (test NOT INDIC. NOT INDIC. UNLESS OTHE RWISE code = 3500) TITER INDICATED, ALL TESTING PERFORMED [facility] [employer] [address] [place] [address] 4 LABORATORY DIRE CTOR: SANJUANITA JAY M.D. CLIA NUMBER [id number] [place] [id number] HIV 1/2 4TH GEN, RFLX [id number] 05:33:05 Test Item Value Reference Range Interpretation Comments HIV 1/2 4TH GEN, RFLX CONF (test NON-REACTIVE NON-REACTIVE code = 3514) HEPATITIS PANEL, [id number] 05:33:05 Test Item Value Reference Range Interpretation Comments HEPATITIS A IgM (test NON-REACTIVE NON-REACTIVE code = 02345) HEPATITIS B CORE IgM NON-REACTIVE NON-REACTIVE (test code = 4644) HEPATITIS B SURF AG NON-REACTIVE NON-REACTIVE (test code = 2739) HEPATITIS C ANTIBODY NON-REACTIVE NON-REACTIVE (test code = 4675) INTERPRETATION (NOTE) Hepatitis A HEPATITIS A: (test code sero logy shows no = 2552) evidence of acu te hepatitis A. INTERPRETATION (NOTE) Hepatitis B HEPATITIS B: (test code sero logy shows no = 65081) evidence of acu te hepatitis B and no indication of exposure to hepatitis B vir us in the previous idalia eight months. INTERPRETATION (NOTE) Hepatitis C HEPATITIS C: (test code sero logy shows no = 17383) evidence of exposure to hepatitisC viru s at this time. I t can take up to 12 months after exposure tothe hepatitis C vir us for antibodies to become detectab le in the blood in certain patient s.
[2022-10-17] MEDS ORDERED: NA CHLORIDE 0.9% 1,000 ML ONE ×2 (16:03→16:48)
[2022-10-17] MEDS ORDERED: DICYCLOMINE HCL 10 MG CAP ONE (16:03)
[2022-10-17] MEDS ORDERED: ACETAMINOPHEN 500 MG TAB ONE (16:03)
[2022-10-17 16:09] LABS: Urine Blood Negative (Negative); Urine Glucose Negative (Negative); Urine Protein Negative (Negative); Urine Specific Gravity >=1.030 (1.005-1.030)
[2022-10-17 16:16] LABS: Absolute Lymphocytes (CBC) 2.3 K/uL (0.7-4.9); Hematocrit 39.4 % (36.0-45.0); Lymphocytes % 24.3 % (15.3-44.8); MCV 86.7 fL (80-100); MPV 7.5 fL (7.6-11.3); RBC Red Blood Cell Count 4.54 M/uL (3.86-4.86)
[2022-10-17 16:23] LABS: Urine Bacteria <20 /HPF (<20); Urine Mucus Slight /HPF (None Seen); Urine RBC <5 /HPF (None Seen)
--- NOTE | 2022-10-17 16:34 | RAD REPORT ---
EXAM DESCRIPTION: US - Matter Eval Tm 1 - 10/17/2022 4:16 pm CLINICAL HISTORY: Abd cramping, pregnan Early . COMPARISON: No comparisons FINDINGS: A single gestational sac is seen within the uterus. The shape of the sac is within normal limits for gestational age. Within the sac is a single pole with crown-rump length of 7.5 cm, c orrelating to estimated gestational age of 13 weeks 4 days. Estimated date of delivery is 04/21/2023. Heart rate is 165 BPM. The placenta is not yet developed / visualized due to early gestational age. The maternal adnexa and left ovary are within normal limits. Normal Doppler blood flow was demonstrat ed to left ovary. Right ovary obscured by bowel gas. IMPRESSION: Single live early intrauterine gestation with estimated gestational age of 13 weeks 4 da ys, ERIKA 04/21/2023. Nonvisualized right ovary.
[2022-10-17 16:40] LABS: Potassium 3.3 mmol/L (3.5-5.1)
[2022-10-17] MEDS ORDERED: ONDANSETRON 4 MG/2 ML VIAL ONE (16:48)
[2022-10-17] MEDS ORDERED: MORPHINE 4 MG/ML SYR ONE (16:48)
[2022-10-17 16:57] LABS: Urine Specific Gravity/Preg >1.030 (1.005-1.030)
--- NOTE | 2022-10-17 17:48 | ER ---
Nurse's Notes [facility] Name: Emma Bah Age: 22 yrs Sex: Female : 2000 Arrival Date: 10/17/2022 Time: 15:01 Bed 15 Private MD: Diagnosis: Other specified related conditions, first trimester;Lower abdominal pain, unspecified Presentation: 10/17 15:24 Chief complaint: Patient states: abd cramping since yesterday,reports being 14 weeks aa5 , denies vaginal bleeding. 15:24 Coronavirus screen: At this time, the client does not indicate any symptoms associated aa5 with coronavirus-19. Ebola Screen: Patient denies travel to an Ebola-affected area in the 21 days before illness onset. Initial Sepsis Screen: Does the patient meet any 2 criteria? No. Patient's initial sepsis screen is negative. Does the patient have a suspected source of infection? No. Patient's initial sepsis screen is negative. Risk Assessment: Do you want to hurt yourself or someone else? Patient reports no desire to harm self or others. Onset of symptoms was September 2022. 15:24 Acuity: CHRISTOPHER 3 aa5 15:24 Method Of Arrival: Ambulatory aa5 Triage Assessment: 15:30 General: Appears in no apparent distress. uncomfortable, Behavior is calm, cooperative, bp appropriate for age. Pain: Complains of pain in abdomen. EENT: No deficits noted. Neuro: No deficits noted. Cardiovascular: No deficits noted. Respiratory: No deficits noted. GI: Reports cramping. : No signs and/or symptoms were reported regarding the genitourinary system. Derm: No deficits noted. Musculoskeletal: No deficits noted. ANALYSIS ENGINEER: 15:31 3, Full Term 1, Premature 0, 1, Living 1, LMP 07/12/2022 aa5 15:36 3, Full Term 1, 1, Living 1, LMP 07/13/2022, Verified, EDC cp 04/19/2023, Gestational age from LMP: 13 weeks 5 days Historical: - Allergies: 15:30 PENICILLINS; aa5 - PMHx: 15:30 None; aa5 - PSHx: 15:30 Tonsillectomy; aa5 - Immunization history:: Adult Immunizations unknown. - Social history:: Smoking status: Patient denies any tobacco usage or history of. Screenin:30 [facility] ED Fall Risk Assessment (Adult) History of falling in the last 3 months, bp including since admission No falls in past 3 months (0 pts). Abuse screen: Denies threats or abuse. Denies injuries from another. Nutritional screening: No deficits noted. Tuberculosis screening: No symptoms or risk factors identified. Assessment: 15:30 General: SEE TRIAGE NOTE. bp 17:52 Reassessment: DC ON HOLD FOR IVF COMPLETION. bp 19:01 Reassessment: PT DC HOME. bp Vital Signs: 15:24 BP 104 / 71; Pulse 83; Resp 18 S; Temp 97.8(TE); Pulse Ox 100% on R/A; Weight 95.25 kg aa5 (R); Height 5 ft. 3 in. (160.02 cm) (R); 17:49 BP 99 / 53; Pulse 60; Resp 16; Pulse Ox 100% ; bp 19:01 BP 103 / 63; Pulse 81; Resp 16; Pulse Ox 100% ; bp 15:24 Body Mass Index 37.20 (95.25 kg, 160.02 cm) aa5 ED Course: 15:01 Patient arrived in ED. am2 15:06 Romain Ruvalcaba PA is PHCP. cp 15:06 Jay Patrick MD is Attending Physician. cp 15:24 Arm band placed on. aa5 15:28 Salomón Frey, SOFIA is Primary Nurse. bp 15:30 Triage completed. aa5 15:30 Patient has correct armband on for positive identification. Bed in low position. Call bp light in reach. Side rails up X2. Adult w/ patient. 15:30 Inserted saline lock: 20 gauge in right forearm, using aseptic technique. bp 16:17 Matter Eval Tm 1 In Process Unspecified. EDMS 19:02 No provider procedures requiring assistance completed. IV discontinued, intact, bp bleeding controlled, No redness/swelling at site. Pressure dressing applied. Administered Medications: 16:05 Drug: Dicyclomine 20 mg Route: IM; Site: right deltoid; bp 16:38 Follow up: Response: No adverse reaction bp 16:05 Drug: Tylenol 1000 mg Route: PO; bp 16:38 Follow up: Response: No adverse reaction bp 16:05 Drug: NS 0.9% 500 ml Route: IV; Rate: bolus; Site: right antecubital; bp 19:02 Follow up: IV Status: Completed infusion; IV Intake: 500ml bp 16:05 Drug: NS 0.9% 500 ml Route: IV; Rate: 125 ml/hr; Site: right antecubital; bp 19:03 Follow up: IV Status: Completed infusion; IV Intake: 500ml bp 17:45 Drug: Potassium Effervescent Tablet 50 mEq Route: PO; bp 17:51 Follow up: Response: No adverse reaction bp Intake: 19:02 IV: 500ml; Total: 500ml. bp 19:03 IV: 500ml; Total: 1000ml. bp Outcome: 17:48 Discharge ordered by MD. cp 19:02 Discharged to home ambulatory. bp 19:02 Condition: stable 19:02 Discharge instructions given to patient, Instructed on discharge instructions, follow up and referral plans. medication usage, Demonstrated understanding of instructions, follow-up care, medications, Prescriptions given X 2. 19:03 Patient left the ED. bp Signatures: Dispatcher [employer] EDGA Marilyn Koehler, RN RN aa5 Romain Ruvalcaba PA PA Eli Aguilera am2 Salomón Frey RN RN bp
--- NOTE | 2022-10-17 17:48 | EDPHYS ---
Physician Documentation [facility] Name: Emma Bah Age: 22 yrs Sex: Female : 2000 Arrival Date: 10/17/2022 Time: 15:01 Bed 15 Private MD: ED Physician Jay Patrick HPI: 10/17 15:36 This 22 yrs old Female presents to ER via Ambulatory with complaints of cp Abdominal Cramping - 14 wks preg. 15:36 The patient presents to the emergency department with abdominal pain, of the right cp lower quadrant and left lower quadrant, that started 2 day(s) ago, described as crampy. The estimated gestational age is 14 weeks. 15:36 course: care: at a clinic, Leakage of Fluid: none appreciated, cp Ultrasound: the patient has not had an ultrasound. Associated signs and symptoms: Pertinent negatives: diarrhea, fever, vomiting. 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 - Social history:: Smoking status: Patient denies any tobacco usage or history of. ROS: 15:40 Constitutional: Negative for body aches, chills, fever, poor PO intake. cp 15:40 Eyes: Negative for injury, pain, redness, and discharge. cp 15:40 ENT: Negative for drainage from ear(s), ear pain, sore throat, difficulty swallowing, difficulty handling secretions. 15:40 Cardiovascular: Negative for chest pain, palpitations. 15:40 Respiratory: Negative for cough, shortness of breath, wheezing. 15:40 Abdomen/GI: Positive for vomiting, diarrhea, constipation, abdominal cramps, anorexia. 15:40 Back: Negative for pain at rest, pain with movement. 15:40 Neuro: Negative for dizziness, headache, weakness. 15:40 All other systems are negative. Exam: 15:45 Constitutional: The patient appears in no acute distress, alert, awake. cp 15:45 Head/Face: Normocephalic, atraumatic. cp 15:45 Eyes: Periorbital structures: appear normal, Conjunctiva: normal, no exudate, no injection, Sclera: no appreciated abnormality, Lids and lashes: appear normal, bilaterally. 15:45 ENT: External ear(s): are unremarkable, Nose: is normal, Mouth: Lips: moist, Oral mucosa: pink and intact, moist, Posterior pharynx: Airway: no evidence of obstruction, patent. 15:45 Chest/axilla: Inspection: normal. 15:45 Cardiovascular: Rate: normal, Rhythm: regular. 15:45 Respiratory: the patient does not display signs of respiratory distress, Respirations: normal, no use of accessory muscles, no retractions, labored breathing, is not present, Breath sounds: are clear throughout, no decreased breath sounds, no stridor, no wheezing. 15:45 Abdomen/GI: Inspection: abdomen appears normal, Bowel sounds: active, all quadrants, Palpation: soft, in all quadrants, mild abdominal tenderness, in the right lower quadrant and left lower quadrant, rebound tenderness, is not appreciated, involuntary guarding, is not appreciated. 15:45 Back: CVA tenderness, is absent. Vital Signs: 15:24 BP 104 / 71; Pulse 83; Resp 18 S; Temp 97.8(TE); Pulse Ox 100% on R/A; Weight 95.25 kg aa5 (R); Height 5 ft. 3 in. (160.02 cm) (R); 17:49 BP 99 / 53; Pulse 60; Resp 16; Pulse Ox 100% ; bp 19:01 BP 103 / 63; Pulse 81; Resp 16; Pulse Ox 100% ; bp 15:24 Body Mass Index 37.20 (95.25 kg, 160.02 cm) aa5 MDM: 10/16 16:00 Differential diagnosis: STD, ectopic , electrolyte abnormality, dehydration. cp 10/17 15:30 Patient medically screened. cp 17:42 Data reviewed: vital signs, nurses notes, lab test result(s), radiologic studies, cp ultrasound. Consideration of Admission/Observation Escalation of care including admission/observation considered. I considered the following discharge prescriptions or medication management in the emergency department Medications were administered in the Emergency Department. See MAR. Test considered but Not performed: CT: abdomen. Counseling: I had a detailed discussion with the patient and/or guardian regarding: the historical points, exam findings, and any diagnostic results supporting the discharge/admit diagnosis, lab results, radiology results, the need for outpatient follow up, an OB/Gyne specialist. Response to treatment: the patient's symptoms have markedly improved after treatment, and as a result, I will discharge patient. Special discussion: Based on the patient's Hx, exam, and Dx evaluation, there is no indication for emergent surgery or inpatient Tx. It is understood by the patient/guardian that if the Sx's persist or worsen they need to return immediately for re-evaluation. 10/17 15:33 Order name: Abo/rh Typing; Complete Time: 17:38 10/17 17:38 Interpretation: Reviewed. 10/17 15:33 Order name: Basic Metabolic Panel; Complete Time: 16:50 10/17 16:50 Interpretation: Normal except: K 3.3; GLUC 123; BUN 5; CRE 0.49. 10/17 15:33 Order name: CBC with Diff; Complete Time: 16:37 10/17 16:37 Interpretation: Normal except: MPV 7.5. 10/17 15:33 Order name: Quantitative Hcg; Complete Time: 16:50 10/17 16:50 Interpretation: Reviewed. 10/17 15:34 Order name: Urine Microscopic Only; Complete Time: 16:37 10/17 16:09 Order name: Urine Dipstick-Ancillary; Complete Time: 16:37 EDVA 10/17 16:50 Interpretation: Normal except: UKET 1+; UESTR Trace. 10/17 16:17 Order name: Matter Eval Tm 1; Complete Time: 16:37 EDVA 10/17 17:04 Interpretation: Report reviewed. 10/17 16:32 Order name: Urine --Ancillary (enter results); Complete Time: 17:03 bd 10/17 17:03 Interpretation: Reviewed. 10/17 15:33 Order name: IV Saline Lock; Complete Time: 16:04 10/17 15:33 Order name: Labs collected and sent; Complete Time: 16:04 10/17 15:33 Order name: NPO; Complete Time: 15:41 10/17 15:33 Order name: Urine Dipstick-Ancillary (obtain specimen); Complete Time: 16:38 cp 10/17 15:33 Order name: Urine Test (obtain specimen); Complete Time: 16:38 cp Administered Medications: 16:05 Drug: Dicyclomine 20 mg Route: IM; Site: right deltoid; bp 16:38 Follow up: Response: No adverse reaction bp 16:05 Drug: Tylenol 1000 mg Route: PO; bp 16:38 Follow up: Response: No adverse reaction bp 16:05 Drug: NS 0.9% 500 ml Route: IV; Rate: bolus; Site: right antecubital; bp 19:02 Follow up: IV Status: Completed infusion; IV Intake: 500ml bp 16:05 Drug: NS 0.9% 500 ml Route: IV; Rate: 125 ml/hr; Site: right antecubital; bp 19:03 Follow up: IV Status: Completed infusion; IV Intake: 500ml bp 17:45 Drug: Potassium Effervescent Tablet 50 mEq Route: PO; bp 17:51 Follow up: Response: No adverse reaction bp Disposition Summary: 10/17/22 17:48 Discharge Ordered Location: Home cp Problem: new cp Symptoms: have improved cp Condition: Stable cp Diagnosis - Other specified related conditions, first trimester cp - Lower abdominal pain, unspecified cp Followup: cp - With: Private Physician - When: 1 - 2 days - Reason: Worsening of condition Discharge Instructions: - Discharge Summary Sheet cp - Abdominal Pain During cp - First Trimester of cp - Form - Return To Work cp Forms: - Medication Reconciliation Form cp - Thank You Letter cp - Antibiotic Education cp - Prescription Opioid Use cp - Work release form bd Prescriptions: - Zofran 4 mg Oral Tablet - take 1 tablet by ORAL route every 12 hours As needed; 20 tablet; Refills: 0, cp Product Selection Permitted - dicyclomine 20 mg Oral Tablet - take 1 tablet by ORAL route 4 times per day; 30 tablet; Refills: 0, Product cp Selection Permitted Signatures: Dispatcher [employer] Marilyn Leach RN RN aa5 Romain Ruvalcaba PA PA cp Salomón Frey RN RN bp Corrections: (The following items were deleted from the chart) 16:17 15:52 OB Limited+[id number] ordered. EDMS EDMS
[2022-10-17] MEDS ORDERED: POTASSIUM 25 MEQ EFFERV TAB ONE (17:50)
[2022-10-17 19:08] VITALS: TEMP 97.8; O2SAT 100
[2022-10-17 19:24] VITALS: BP 103/63
== END 2022-10-17 19:03 | disposition home or self-care (01) ==
LOC: ER 15:00
DX: O26.891 Other specified pregnancy related conditions, first trimester (principal); Z3A.14 14 weeks gestation of pregnancy; Z88.0 Allergy status to penicillin
CPT/HCPCS: 85025; 80048; 36415; 86900; 81025; 86901; 84702; 76801; J7030 ×2; J2405; 81003; 81015

== ENCOUNTER 2024-09-08 14:36 | Emergency (ER) | payer OTHER, SELFPAY ==
--- OUTSIDE RECORDS SUMMARY | 2024-09-08 14:45 | XMS REPORT | Continuity of Care Document ---
Author Name Unknown Address [address] [facility] [address] [place] [address] [facility] thconnect Address [address] [facility] [place] [address] Care Team Providers Care Post Closing Specialist Name Role Phone PCP, PATIENT DOES NOT HAVE A Primary Care Physic trip Unavailable FREDERICK STEPHENSON Attending Clinician Unavailable Frederick Stephenson MD Attending Clinician [phone] Doctor Unassigned, [place] Attending Clinician U Timothy Rodriguez MD Attending Clinician [phone] Estela Mixon Attending Clinician [phone] COLTEN SAINI Attending Clinician Unavailable ESTELA SANTIAGO Attending Clinician Unavailable Colten Saini DO Attending Clinician [phone] MILLICENT MAYORGA Attending Clinician Unavailable Chitra Pride NP Attending Clinician [phone] Millicent Mayorga MD Attending Clinician [phone] Tushar Mullen MD Attending Clinician Mey Prater RN Attending Clinician Unavailable 2, [facility] Attending Clinician Unavailable MARILYN ARANA Attending Clinician UnavailMARILYN Blackmon Attending Clinician Unavaila NIURKA Goldsmith Attending Clinician Unavailable Niurka Martinez PA-C Attending Clinician [phone] Pob, [facility] Main Attending Clinician Unavailabl e Ultrasound, [facility] Attending Clinician Unavaila ble Deborah Campos MD Attending Clinician + DEBORAH CAMPOS Attending Clinician Unav ailable MILLICENT MAYORGA Admitting Clinician Unavailable FREDERICK STEPHENSON Admitting Clinician Unavailable Frederick Stephenson MD Admitting Clinician JAVIER FERNANDEZ Admitting Clinician Unavailable Millicent Mayorga MD Admitting Clinician [phone] Payers Payer Name Policy Type Policy Number Effective Date Expirati on Date Source [place] [employer] [place] [id number] 2022 00:00:00 MED[place] OF [place] [id number] 2023 00:00:00 [employer] GENERIC [id number] 2022 00:00:00 Problems Condition Name Condition Details Condition Category Status Onset Date Resolution Date Last Treatment Date Treating Clinician Comments Source Status post bilateral salpingect alejandra Status post bilateral salpingect alejandra Disease Active 9-05 00:00: 00 [facility] depression depression Disease Active 8 00:00: 00 [facility] Encounter for tubal ligation Encounter for tubal ligation Disease Active 8 00:00: 00 [facility] Liveborn , of ryan , born in hospital by vaginal delivery Liveborn , of ryan , born in hospital by vaginal delivery Disease Active 04-08 00:00: 00 [facility] 38 weeks gestation of 38 weeks gestation of Disease Active 04-08 00:00: 00 [facility] Anemia during in third trimester Anemia during in third trimester Disease Active 04-08 00:00: 00 [facility] Full-term premature rupture of membranes Full-term premature rupture of membranes Disease Active 7 00:00: 00 [facility] High-risk in third trimester High-risk in third trimester Disease Active 2018-09 2-31 00:00: 00 [facility] Obesity (BMI 30-39.9) Obesity (BMI 30-39.9) Disease Active 04-23 00:00: 00 [facility] Screening for STD (sexually transmitte d disease) Screening for STD (sexually transmitte d disease) Diagnosis Active [facility] Seasonal allergies Seasonal allergies Problem Active [facility] Bilateral low back pain without sciatica, unspecifie d chronicity Bilateral low back pain without sciatica, unspecifie d chronicity Problem Active [facility] Vaginal discharge Vaginal discharge Diagnosis Active [facility] Encounter for gynecologi andrea examinatio n Encounter for gynecologi andrea examinatio n Diagnosis Active [facility] Allergies, Adverse Reactions, Alerts Allergy Name Allergy Type Status Severity Reaction(s) Onset Date Inactive Date Treating Clinician Comments Source PENICILL INS Drug Class Active Hives 04-23 00:00: 00 [facility] Penicill ins Propensi ty to adverse reaction s Active Hives 04-23 00:00: 00 Per pt, allergy from childhood . Has since been given Zosyn w/o allergic rxns [facility] Social History Social Habit Start Date Stop Date Quantity Comments Source ASSERTION 2022-07-26 00:00:00 [facility] History SDOH [facility] Alcohol Binge [facility] Gender identity [facility] Alcohol intake 2023-05-22 00:00:00 2023-05-22 00:00:00 Ex-drinker (finding) [facility] History of Social function 2023-05-22 00:00:00 2023-05-22 00:00:00 [facility] Exposure to SARS-CoV-2 (event) 2023-02-24 00:00:00 2023-03-06 04:44:00 Not sure [facility] Tobacco use and exposure 2022-10-25 00:00:00 2022-10-25 00:00:00 Smokeless tobacco non-user [facility] History SDOH Alcohol Frequency 2019-04-23 00:00:2019-04-23 00:00:00 1 [facility] Sex Assigned At 2000 00:00:00 2000 00:00:00 [facility] Smoking Status Start Date Stop Date Source Never smoked tobacco [facility] Medications Ordered Medication Name Filled Medication Name Start Date Stop Date Current Medication? Ordering Clinician Indication Dosage Frequency Signature (SIG) Comments Components Source water for irrigation irrigation solution 05-22 15:32: 00 05-22 16:03 :18 No PRN, Starting on Sun05/22/23 at 1032, Until Sun05/22/23 at 1103, Routine, Intra-op [facility] bupivacaine (preserv free) (SENSORCAIN E MPF) 0.25 % (2.5 mg/mL) injection 05-22 15:32: 00 05-22 16:03 :18 No PRN, Starting on Sun05/22/23 at 1032, Until Sun05/22/23 at 1103, Routine, Intra-op [facility] ibuprofen 600 mg tablet 05-22 00:00: 00 06-05 00:00 :00 No [id number] 600mg Take 1 tablet by mouth every 6 (six) hours as needed for Pain (scale 1-3) or Pain (scale 4-6). [facility] simethicone 80 mg chewable tablet 05-22 00:00: 00 06-05 00:00 :00 No [id number] 80mg Take 1 tablet by mouth after meals and at bedtime. [facility] HYDROcodone -acetaminop hen 5-325 mg tablet 05-22 00:00: 00 05-24 04:59 :00 No [id number] 1{tbl} Take 1 tablet by mouth every 6 (six) hours as needed for Pain (scale 7-10) for up to 1 day. Indication s: acute pain [facility] SERTraline (ZOLOFT) 50 mg tablet 8-22 00:00: 00 Yes [id number] 50mg Take 1 tablet by mouth in the morning. [facility] ibuprofen (IBU) tablet 600 mg 04-18 23:45: 00 04-18 23:15 :00 No 600mg 600 mg, Oral, ONCE, 1 dose, On Sun04/18/23 at 1845, [facility] gentamicin 360 mg in NaCl 0.9% (NS) 250 mL IV infusion 04-18 21:45: 00 04-18 23:16 :00 No 5mg/kg 360 mg (rounded from 353 mg = 5 mg/kg ?70.6 kg Adjusted weight), IV Infusion, ONCE, 1 dose, On Sun04/18/23 at 1645, Administer over 60 Minutes, 250 mL
Reas on for Anti-Infec tive: Empiric Therapy for Suspected Infection< br>Empiric Therapy Site: Pelvic
Duration of therapy: 72 hours [facility] acetaminoph en (TYLENOL) tablet 650 mg 04-18 21:00: 00 04-18 20:42 :00 No 650mg 650 mg, Oral, ONCE, 1 dose, On Sun04/18/23 at 1600, [facility] gadoteridol (PROHANCE-2 0 mL) injection 19.6 mL 04-18 15:45: 00 04-18 15:45 :00 No [id number] .2mL/kg 19.6 mL (0.2 mL/kg ?98 kg), Intravenou s, ONCE, 1 dose, On Sun04/18/23 at 1045, Routine [facility] acetaminoph en (TYLENOL) tablet 1,000 mg 04-18 15:00: 00 04-18 14:52 :00 No 1000mg 1,000 mg, Oral, ONCE, 1 dose, On Sun04/18/23 at 1000, [facility] piperacilli n-tazobacta m (ZOSYN) 3.375 g in NaCl 0.9% (NS) 100 mL MINI-BAG 04-18 14:30: 00 04-18 16:13 :00 No 3.375g 3.375 g, IV Piggyback, ONCE, 1 dose, On Sun04/18/23 at 0930, Administer over 30 Minutes, 100 mL
Reas on for Anti-Infec tive: Empiric Therapy for Suspected Infection< br>Empiric Therapy Site: ADULT NURSE PRACTITIONER
Dur ation of therapy: 72 hours [facility] iopamidol (ISOVUE 370-500 mL) injection 70 mL 04-18 12:58: 00 04-18 13:00 :00 No 70mL 70 mL, Intravenou s, ONCE, 1 dose, On Sun04/18/23 at 0815, Routine [facility] clindamycin 300 mg capsule 04-18 00:00: 00 04-29 04:59 :00 No [id number] 300mg Take 1 capsule by mouth 4 (four) times daily for 10 days. [facility] ferrous sulfate 325 mg (65 mg iron) tablet 04-09 00:00: 00 06-05 00:00 :00 No [id number] 102 325mg Take 1 tablet by mouth in the morning and 1 tablet in the evening. [facility] vitamin w/FA tablet 04-09 00:00: 00 05-08 00:00 :00 No [id number] 102 1{tbl} Take 1 tablet by mouth in the morning. [facility] docusate 100 mg capsule 04-09 00:00: 00 05-08 00:00 :00 No [id number] 102 200mg Take 2 capsules by mouth once daily as needed for Constipati on. [facility] ibuprofen 600 mg tablet 04-09 00:00: 00 05-08 00:00 :00 No [id number] 102 600mg Take 1 tablet by mouth every 6 (six) hours as needed (Pain). Take with food or milk. [facility] rho(D) immune globulin (RHOGAM) syringe 300 mcg 04-08 16:23: 30 Yes 300ug 300 mcg, Intramuscu lar, ONCE, For 1 dose, Conditiona l, Routine [facility] HYDROcodone -acetaminop hen (NORCO 5) 5-325 mg tablet 1 tablet 04-08 16:21: 55 Yes 1{tbl} 1 tablet, Oral, Q6HPRN, Starting on Sun04/08/23 at 1121, Until Discontinu ed, Routine, Pain (scale 7-10) [facility] ibuprofen (IBU) tablet 600 mg 04-08 16:21: 55 Yes 600mg 600 mg, Oral, Q6HPRN, Starting on Sun04/08/23 at 1121, Until Discontinu ed, Routine, Pain (scale 4-6) [facility] acetaminoph en (TYLENOL) tablet 650 mg 04-08 16:21: 55 Yes 650mg 650 mg, Oral, Q6HPRN, Starting on Sun04/08/23 at 1121, Until Discontinu ed, Routine, Pain (scale 1-3) [facility] diphenhydrA MINE (BENADRYL) tablet 25 mg 04-08 16:21: 55 Yes 25mg 25 mg, Oral, Q6HPRN, Starting on Sun04/08/23 at 1121, Until Discontinu ed, Routine, Sleep, Itching [facility] ondansetron (ZOFRAN (PF)) injection 4 mg 04-08 16:21: 55 Yes 4mg 4 mg, Slow IV Push, Q8HPRN, Starting on Sun04/08/23 at 1121, Until Discontinu ed, Routine, Nausea and Vomiting (N/V) [facility] simethicone (GAS RELIEF (SIMETHICON E)) chewable tablet 160 mg 04-08 16:21: 55 Yes 160mg 160 mg, Oral, PC+HSPRN, Starting on Sun04/08/23 at 1121, Until Discontinu ed, Routine, Gas [facility] docusate (COLACE) capsule 200 mg 04-08 16:21: 55 Yes 200mg 200 mg, Oral, QDAILYPRN, Starting on Sun04/08/23 at 1121, Until Discontinu ed, Routine, Constipati on [facility] magnesium hydroxide (MILK OF MAGNESIA) 400 mg/5 mL suspension 30 mL 04-08 16:21: 55 Yes 30mL 30 mL, Oral, QDAILYPRN, Starting on Sun04/08/23 at 1121, Until Discontinu ed, Routine, Constipati on [facility] benzocaine- menthol (DERMOPLAST ) 20-0.5 % topical spray 04-08 16:21: 55 Yes Topical, PRN, Starting on Sun04/08/23 at 1121, Until Discontinu ed, Routine, Perineum discomfort [facility] oxytocin (PITOCIN) 30 units in NS 500 mL IV infusion 04-08 14:50: 12 04-08 16:23 :29 No 2mU/min at 2-40 mL/hr, IV Infusion, TITRATE, Starting on Sun04/08/23 at 0950, Until Sun04/08/23 at 1123, AMANDA [facility] PIB FENTanyl 2 mcg/mL + bupivacaine 0.1% in NS 250 mL epidural bag 04-08 11:20: 00 04-08 17:44 :39 No Intra-op [facility] fentaNYL-ro pivacaine 2 mcg/mL-0.1 % (PF) in NS 200 mL epidural infusion RTU 04-08 11:20: 00 04-08 17:44 :39 No Epidural, CONTINUOUS PRN, Starting on Sun04/08/23 at 0620, Until Discontinu ed, Routine, Intra-op [facility] lidocaine-e pinephrine (XYLOCAINE W/EPINEPHRI NE) 1.5 %-1:200,000 injection 04-08 11:12: 00 04-08 17:44 :39 No Epidural, ONCE INTRA PROCEDURE, Starting on Sun04/08/23 at 0612, Until Discontinu ed, Routine, Intra-op [facility] proMETHazin e (PHENERGAN) injection 12.5 mg 04-08 09:48: 48 04-08 16:23 :29 No 12.5mg 12.5 mg, Intramuscu lar, Q4HPRN, Starting on Sun04/08/23 at 0448, Until Sun04/08/23 at 1123, Routine, Nausea and Vomiting (N/V) [facility] terbutaline (BRETHINE) injection 0.25 mg 04-08 07:51: 30 04-08 16:23 :29 No .25mg 0.25 mg, Subcutaneo us, Q15MIN PRN, 3 doses, Starting on Sun04/08/23 at 0251, Until Sun04/08/23 at 1123, Routine, distress, tacghy systole [facility] FENTanyl PF (SUBLIMAZE (PF)) injection 100 mcg 04-08 07:46: 19 04-08 16:23 :29 No 100ug 100 mcg, Slow IV Push, Q1HPRN, Starting on Sun04/08/23 at 0246, Until Sun04/08/23 at 1123, Routine, Pain (scale 7-10), Pain (scale 4-6) [facility] miSOPROStoL (CYTOTEC) tablet 50 mcg 04-08 05:00: 00 04-08 13:44 :24 No 50ug 50 mcg, Oral, Q4H, First dose on Sun04/08/23 at 0000, Until Discontinu ed, Routine [facility] miSOPROStoL (CYTOTEC) tablet 50 mcg 04-08 03:15: 00 04-08 02:58 :00 No 50ug 50 mcg, Oral, ONCE, 1 dose, On 04/07/23 at 2215, Routine [facility] lactated ringers IV infusion 500 mL 04-08 02:08: 14 04-08 16:23 :29 No 500mL at 999 mL/hr, 500 mL, IV Infusion, PRN - SEE INSTRUCTIO NS, Starting on [facility] 04/07/23 at 2108, Until Sun04/08/23 at 1123, Routine [facility] D5W-LR IV infusion 1,000 mL 04-08 02:08: 14 04-08 16:23 :29 No 1000mL at 1-125 mL/hr, IV Infusion, TITRATE, Starting on 04/07/23 at 2108, Until 04/08/23 at 1123, Routine [facility] ondansetron (ZOFRAN (PF)) injection 4 mg 02-16 20:30: 00 02-16 20:10 :00 No 4mg 4 mg, Slow IV Push, ONCE, On Sun02/16/23 at 1530, For 1 dose
Do ses of ondansetro n 16 mg and above need to be administer ed via IV piggyback. For Dose >=24mg ECG monitoring is advisable.
[facility] NaCl 0.9% (NS) IV infusion 1,000 mL 02-16 20:15: 00 02-16 21:00 :00 No 1000mL at 999 mL/hr, IV Infusion, ONCE, 1 dose, On Sun02/16/23 at 1515, Routine [facility] ferrous sulfate (IRON, FERROUS SULFATE,) 325 mg (65 mg iron) tablet 01-18 00:00: 00 04-09 00:00 :00 No [id number] 325mg Take 1 tablet by mouth in the morning and 1 tablet in the evening. [facility] Nitrofurant oin&Nit. Macrocryst (MACROBID) 100 mg capsule 08 00:00: 00 11-02 05:59 :00 No [id number] 100mg Take 1 capsule by mouth in the morning and 1 capsule in the evening. Do all this for 7 days. [facility] norethindro ne 0.35 mg tablet 12-10 00:00: 00 12-20 00:00 :00 No [id number] .35mg Take 1 tablet by mouth daily. [facility] vitamin w/FA tablet 11-19 00:00: 00 Yes [id number] 102 1{tbl} Take 1 tablet by mouth daily. [facility] vitamin w/FA tablet 11-19 00:00: 00 04-09 00:00 :00 No [id number] 102 1{tbl} Take 1 tablet by mouth daily. [facility] docusate calcium 240 mg capsule 11-19 00:00: 12-20 00:00 :00 No [id number] 102 240mg Take 1 capsule by mouth once daily as needed for Constipati on. [facility] ferrous sulfate 325 mg (65 mg iron) tablet 11-19 00:00: 12-20 00:00 :00 No [id number] 102 325mg Take 1 tablet by mouth 2 (two) times daily. [facility] ibuprofen 600 mg tablet 11-19 00:00: 12-20 00:00 :00 No [id number] 102 600mg Take 1 tablet by mouth every 6 (six) hours as needed for Pain (scale 1-3) or Pain (scale 4-6) (Pain). Take with food or milk. [facility] Immunizations Ordered Immunization Name Filled Immunization Name Date Status Comments Source TDAP 2023-02-09 00:00:00 Completed [facility] TDAP 2023-02-09 00:00:00 Completed [facility] TDAP 2023-02-09 00:00:00 Completed [facility] TDAP 2023-02-09 00:00:00 Completed [facility] TDAP 2023-02-09 00:00:00 Completed [facility] TDAP 2023-02-09 00:00:00 Completed [facility] TDAP 2023-02-09 00:00:00 Completed [facility] TDAP 2023-02-09 00:00:00 Completed [facility] TDAP 2023-02-09 00:00:00 Completed [facility] TDAP 2023-02-09 00:00:00 Completed [facility] TDAP 2023-02-09 00:00:00 Completed [facility] TDAP 2023-02-09 00:00:00 Completed [facility] TDAP 2023-02-09 00:00:00 Completed [facility] TDAP 2023-02-09 00:00:00 Completed [facility] TDAP 2023-02-09 00:00:00 Completed [facility] TDAP 2023-02-09 00:00:00 Completed [facility] TDAP 2023-02-09 00:00:00 Completed [facility] TDAP 2023-02-09 00:00:00 Completed [facility] TDAP 2023-02-09 00:00:00 Completed [facility] TDAP 2023-02-09 00:00:00 Completed [facility] TDAP 2023-02-09 00:00:00 Completed [facility] TDAP 2023-02-09 00:00:00 Completed [facility] TDAP 2023-02-09 00:00:00 Completed [facility] TDAP 2023-02-09 00:00:00 Completed [facility] TDAP 2023-02-09 00:00:00 Completed [facility] TDAP 2023-02-09 00:00:00 Completed [facility] TDAP 2023-02-09 00:00:00 Completed [facility] TDAP 2023-02-09 00:00:00 Completed [facility] TDAP 2023-02-09 00:00:00 Completed [facility] TDAP 2023-02-09 00:00:00 Completed [facility] TDAP (ADACEL) VACCINE 2019-09-30 00:00:00 Completed [facility] TDAP (ADACEL) VACCINE 2019-09-30 00:00:00 Completed [facility] TDAP (ADACEL) VACCINE 2019-09-30 00:00:00 Completed [facility] TDAP (ADACEL) VACCINE 2019-09-30 00:00:00 Completed [facility] TDAP (ADACEL) VACCINE 2019-09-30 00:00:00 Completed [facility] TDAP (ADACEL) VACCINE 2019-09-30 00:00:00 Completed [facility] TDAP (ADACEL) VACCINE 2019-09-30 00:00:00 Completed [facility] TDAP (ADACEL) VACCINE 2019-09-30 00:00:00 Completed [facility] TDAP (ADACEL) VACCINE 2019-09-30 00:00:00 Completed [facility] TDAP (ADACEL) VACCINE 2019-09-30 00:00:00 Completed [facility] TDAP (ADACEL) VACCINE 2019-09-30 00:00:00 Completed [facility] TDAP (ADACEL) VACCINE 2019-09-30 00:00:00 Completed [facility] TDAP (ADACEL) VACCINE 2019-09-30 00:00:00 Completed [facility] TDAP (ADACEL) VACCINE 2019-09-30 00:00:00 Completed [facility] TDAP (ADACEL) VACCINE 2019-09-30 00:00:00 Completed [facility] TDAP (ADACEL) VACCINE 2019-09-30 00:00:00 Completed [facility] TDAP (ADACEL) VACCINE 2019-09-30 00:00:00 Completed [facility] TDAP (ADACEL) VACCINE 2019-09-30 00:00:00 Completed [facility] TDAP (ADACEL) VACCINE 2019-09-30 00:00:00 Completed [facility] TDAP (ADACEL) VACCINE 2019-09-30 00:00:00 Completed [facility] TDAP (ADACEL) VACCINE 2019-09-30 00:00:00 Completed [facility] TDAP (ADACEL) VACCINE 2019-09-30 00:00:00 Completed [facility] TDAP (ADACEL) VACCINE 2019-09-30 00:00:00 Completed [facility] TDAP (ADACEL) VACCINE 2019-09-30 00:00:00 Completed [facility] TDAP (ADACEL) VACCINE 2019-09-30 00:00:00 Completed [facility] TDAP (ADACEL) VACCINE 2019-09-30 00:00:00 Completed [facility] TDAP (ADACEL) VACCINE 2019-09-30 00:00:00 Completed [facility] TDAP (ADACEL) VACCINE 2019-09-30 00:00:00 Completed [facility] TDAP (ADACEL) VACCINE 2019-09-30 00:00:00 Completed [facility] TDAP (ADACEL) VACCINE 2019-09-30 00:00:00 Completed [facility] TDAP (ADACEL) VACCINE 2019-09-30 00:00:00 Completed [facility] TDAP (ADACEL) VACCINE 2019-09-30 00:00:00 Completed [facility] TDAP (ADACEL) VACCINE 2019-09-30 00:00:00 Completed [facility] TDAP (ADACEL) VACCINE 2019-09-30 00:00:00 Completed [facility] TDAP (ADACEL) VACCINE 2019-09-30 00:00:00 Completed [facility] TDAP (ADACEL) VACCINE 2019-09-30 00:00:00 Completed [facility] TDAP (ADACEL) VACCINE 2019-09-30 00:00:00 Completed [facility] TDAP (ADACEL) VACCINE 2019-09-30 00:00:00 Completed [facility] TDAP (ADACEL) VACCINE 2019-09-30 00:00:00 Completed [facility] TDAP (ADACEL) VACCINE 2019-09-30 00:00:00 Completed [facility] TDAP (ADACEL) VACCINE 2019-09-30 00:00:00 Completed [facility] Influenza Virus Vaccine Quad .5 mL IM 6+ MO 2019-07-17 00:00:00 Completed [facility] Influenza Virus Vaccine Quad .5 mL IM 6+ MO 2019-07-17 00:00:00 Completed [facility] Influenza Virus Vaccine Quad .5 mL IM 6+ MO 2019-07-17 00:00:00 Completed [facility] Influenza Virus Vaccine Quad .5 mL IM 6+ MO 2019-07-17 00:00:00 Completed [facility] Influenza Virus Vaccine Quad .5 mL IM 6+ MO 2019-07-17 00:00:00 Completed [facility] Influenza Virus Vaccine Quad .5 mL IM 6+ MO 2019-07-17 00:00:00 Completed [facility] Influenza Virus Vaccine Quad .5 mL IM 6+ MO 2019-07-17 00:00:00 Completed [facility] Influenza Virus Vaccine Quad .5 mL IM 6+ MO 2019-07-17 00:00:00 Completed [facility] Influenza Virus Vaccine Quad .5 mL IM 6+ MO 2019-07-17 00:00:00 Completed [facility] Influenza Virus Vaccine Quad .5 mL IM 6+ MO 2019-07-17 00:00:00 Completed [facility] Influenza Virus Vaccine Quad .5 mL IM 6+ MO 2019-07-17 00:00:00 Completed [facility] Influenza Virus Vaccine Quad .5 mL IM 6+ MO 2019-07-17 00:00:00 Completed [facility] Influenza Virus Vaccine Quad .5 mL IM 6+ MO 2019-07-17 00:00:00 Completed [facility] Influenza Virus Vaccine Quad .5 mL IM 6+ MO 2019-07-17 00:00:00 Completed [facility] Influenza Virus Vaccine Quad .5 mL IM 6+ MO 2019-07-17 00:00:00 Completed [facility] Influenza Virus Vaccine Quad .5 mL IM 6+ MO 2019-07-17 00:00:00 Completed [facility] Influenza Virus Vaccine Quad .5 mL IM 6+ MO 2019-07-17 00:00:00 Completed [facility] Influenza Virus Vaccine Quad .5 mL IM 6+ MO 2019-07-17 00:00:00 Completed [facility] Influenza Virus Vaccine Quad .5 mL IM 6+ MO 2019-07-17 00:00:00 Completed [facility] Influenza Virus Vaccine Quad .5 mL IM 6+ MO 2019-07-17 00:00:00 Completed [facility] Influenza Virus Vaccine Quad .5 mL IM 6+ MO 2019-07-17 00:00:00 Completed [facility] Influenza Virus Vaccine Quad .5 mL IM 6+ MO 2019-07-17 00:00:00 Completed [facility] Influenza Virus Vaccine Quad .5 mL IM 6+ MO 2019-07-17 00:00:00 Completed [facility] Influenza Virus Vaccine Quad .5 mL IM 6+ MO 2019-07-17 00:00:00 Completed [facility] Influenza Virus Vaccine Quad .5 mL IM 6+ MO 2019-07-17 00:00:00 Completed [facility] Influenza Virus Vaccine Quad .5 mL IM 6+ MO 2019-07-17 00:00:00 Completed [facility] Influenza Virus Vaccine Quad .5 mL IM 6+ MO 2019-07-17 00:00:00 Completed [facility] [facility] Quad .5 mL IM 6+ MO 2019-07-17 00:00:00 Completed [facility] Influenza Virus Vaccine Quad .5 mL IM 6+ MO (FLUZONE/FLULAVAL/FL UARIX) 2019-07-17 00:00:00 Completed [facility] Influenza Virus Vaccine Quad .5 mL IM 6+ MO (FLUZONE/FLULAVAL/FL UARIX) 2019-07-17 00:00:00 Completed [facility] Influenza Virus Vaccine Quad .5 mL IM 6+ MO (FLUZONE/FLULAVAL/FL UARIX) 2019-07-17 00:00:00 Completed [facility] Influenza Virus Vaccine Quad .5 mL IM 6+ MO (FLUZONE/FLULAVAL/FL UARIX) 2019-07-17 00:00:00 Completed [facility] Influenza Virus Vaccine Quad .5 mL IM 6+ MO (FLUZONE/FLULAVAL/FL UARIX) 2019-07-17 00:00:00 Completed [facility] Influenza Virus Vaccine Quad .5 mL IM 6+ MO (FLUZONE/FLULAVAL/FL UARIX) 2019-07-17 00:00:00 Completed [facility] Influenza Virus Vaccine Quad .5 mL IM 6+ MO (FLUZONE/FLULAVAL/FL UARIX) 2019-07-17 00:00:00 Completed [facility] Influenza Virus Vaccine Quad .5 mL IM 6+ MO (FLUZONE/FLULAVAL/FL UARIX) 2019-07-17 00:00:00 Completed [facility] Influenza Virus Vaccine Quad .5 mL IM 6+ MO 2019-07-17 00:00:00 Completed [facility] Influenza Virus Vaccine Quad .5 mL IM 6+ MO (FLUZONE/FLULAVAL/FL UARIX) 2019-07-17 00:00:00 Completed [facility] Influenza Virus Vaccine Quad .5 mL IM 6+ MO (FLUZONE/FLULAVAL/FL UARIX) 2019-07-17 00:00:00 Completed [facility] Influenza Virus Vaccine Quad .5 mL IM 6+ MO 2019-07-17 00:00:00 Completed [facility] Influenza Virus Vaccine Quad .5 mL IM 6+ MO 2019-07-17 00:00:00 Completed [facility] HEPATITIS A 2012-10-01 00:00:00 Completed [facility] HEPATITIS A 2012-10-01 00:00:00 Completed [facility] HEPATITIS A 2012-10-01 00:00:00 Completed [facility] HEPATITIS A 2012-10-01 00:00:00 Completed [facility] HEPATITIS A 2012-10-01 00:00:00 Completed [facility] HEPATITIS A 2012-10-01 00:00:00 Completed [facility] HEPATITIS A 2012-10-01 00:00:00 Completed [facility] HEPATITIS A 2012-10-01 00:00:00 Completed [facility] HEPATITIS A 2012-10-01 00:00:00 Completed [facility] HEPATITIS A 2012-10-01 00:00:00 Completed [facility] HEPATITIS A 2012-10-01 00:00:00 Completed [facility] HEPATITIS A 2012-10-01 00:00:00 Completed [facility] HEPATITIS A 2012-10-01 00:00:00 Completed [facility] HEPATITIS A 2012-10-01 00:00:00 Completed [facility] HEPATITIS A 2012-10-01 00:00:00 Completed [facility] HEPATITIS A 2012-10-01 00:00:00 Completed [facility] HEPATITIS A 2012-10-01 00:00:00 Completed [facility] HEPATITIS A 2012-10-01 00:00:00 Completed [facility] HEPATITIS A 2012-10-01 00:00:00 Completed [facility] HEPATITIS A 2012-10-01 00:00:00 Completed [facility] HEPATITIS A 2012-10-01 00:00:00 Completed [facility] HEPATITIS A 2012-10-01 00:00:00 Completed [facility] HEPATITIS A 2012-10-01 00:00:00 Completed [facility] HEPATITIS A 2012-10-01 00:00:00 Completed [facility] HEPATITIS A 2012-10-01 00:00:00 Completed [facility] HEPATITIS A 2012-10-01 00:00:00 Completed [facility] HEPATITIS A 2012-10-01 00:00:00 Completed [facility] HEPATITIS A 2012-10-01 00:00:00 Completed [facility] HEPATITIS A 2012-10-01 00:00:00 Completed [facility] HEPATITIS A 2012-10-01 00:00:00 Completed [facility] HEPATITIS A 2012-10-01 00:00:00 Completed [facility] HEPATITIS A 2012-10-01 00:00:00 Completed [facility] HEPATITIS A 2012-10-01 00:00:00 Completed [facility] HEPATITIS A 2012-10-01 00:00:00 Completed [facility] HEPATITIS A 2012-10-01 00:00:00 Completed [facility] HEPATITIS A 2012-10-01 00:00:00 Completed [facility] HEPATITIS A 2012-10-01 00:00:00 Completed [facility] HEPATITIS A 2012-10-01 00:00:00 Completed [facility] HEPATITIS A 2012-10-01 00:00:00 Completed [facility] HEPATITIS A 2012-10-01 00:00:00 Completed [facility] HEPATITIS A 2012-10-01 00:00:00 Completed [facility] HPV 2011-12-28 00:00:00 Completed [facility] Varicella (varivax)(chicken pox) 2011-12-28 00:00:00 Completed [facility] HEPATITIS A 2011-12-28 00:00:00 Completed [facility] HPV 2011-12-28 00:00:00 Completed [facility] Varicella (varivax)(chicken pox) 2011-12-28 00:00:00 Completed [facility] HEPATITIS A 2011-12-28 00:00:00 Completed [facility] HPV 2011-12-28 00:00:00 Completed [facility] Varicella (varivax)(chicken pox) 2011-12-28 00:00:00 Completed [facility] HEPATITIS A 2011-12-28 00:00:00 Completed [facility] HPV 2011-12-28 00:00:00 Completed [facility] Varicella (varivax)(chicken pox) 2011-12-28 00:00:00 Completed [facility] HEPATITIS A 2011-12-28 00:00:00 Completed [facility] HPV 2011-12-28 00:00:00 Completed [facility] Varicella (varivax)(chicken pox) 2011-12-28 00:00:00 Completed [facility] HEPATITIS A 2011-12-28 00:00:00 Completed [facility] HPV 2011-12-28 00:00:00 Completed [facility] Varicella (varivax)(chicken pox) 2011-12-28 00:00:00 Completed [facility] HEPATITIS A 2011-12-28 00:00:00 Completed [facility] HPV 2011-12-28 00:00:00 Completed [facility] Varicella (varivax)(chicken pox) 2011-12-28 00:00:00 Completed [facility] HEPATITIS A 2011-12-28 00:00:00 Completed [facility] HPV 2011-12-28 00:00:00 Completed [facility] Varicella (varivax)(chicken pox) 2011-12-28 00:00:00 Completed [facility] HEPATITIS A 2011-12-28 00:00:00 Completed [facility] HPV 2011-12-28 00:00:00 Completed [facility] Varicella (varivax)(chicken pox) 2011-12-28 00:00:00 Completed [facility] HEPATITIS A 2011-12-28 00:00:00 Completed [facility] HPV 2011-12-28 00:00:00 Completed [facility] HPV 2011-12-28 00:00:00 Completed [facility] Varicella (varivax)(chicken pox) 2011-12-28 00:00:00 Completed [facility] HEPATITIS A 2011-12-28 00:00:00 Completed [facility] Varicella (varivax)(chicken pox) 2011-12-28 00:00:00 Completed [facility] HEPATITIS A 2011-12-28 00:00:00 Completed [facility] HPV 2011-12-28 00:00:00 Completed [facility] Varicella (varivax)(chicken pox) 2011-12-28 00:00:00 Completed [facility] HEPATITIS A 2011-12-28 00:00:00 Completed [facility] HPV 2011-12-28 00:00:00 Completed [facility] Varicella (varivax)(chicken pox) 2011-12-28 00:00:00 Completed [facility] HEPATITIS A 2011-12-28 00:00:00 Completed [facility] HPV 2011-12-28 00:00:00 Completed [facility] Varicella (varivax)(chicken pox) 2011-12-28 00:00:00 Completed [facility] HEPATITIS A 2011-12-28 00:00:00 Completed [facility] HPV 2011-12-28 00:00:00 Completed [facility] Varicella (varivax)(chicken pox) 2011-12-28 00:00:00 Completed [facility] HEPATITIS A 2011-12-28 00:00:00 Completed [facility] HPV 2011-12-28 00:00:00 Completed [facility] Varicella (varivax)(chicken pox) 2011-12-28 00:00:00 Completed [facility] HEPATITIS A 2011-12-28 00:00:00 Completed [facility] HPV 2011-12-28 00:00:00 Completed [facility] Varicella (varivax)(chicken pox) 2011-12-28 00:00:00 Completed [facility] HEPATITIS A 2011-12-28 00:00:00 Completed [facility] HPV 2011-12-28 00:00:00 Completed [facility] HPV 2011-12-28 00:00:00 Completed [facility] Varicella (varivax)(chicken pox) 2011-12-28 00:00:00 Completed [facility] HEPATITIS A 2011-12-28 00:00:00 Completed [facility] HPV 2011-12-28 00:00:00 Completed [facility] Varicella (varivax)(chicken pox) 2011-12-28 00:00:00 Completed [facility] HEPATITIS A 2011-12-28 00:00:00 Completed [facility] Varicella (varivax)(chicken pox) 2011-12-28 00:00:00 Completed [facility] HEPATITIS A 2011-12-28 00:00:00 Completed [facility] HPV 2011-12-28 00:00:00 Completed [facility] Varicella (varivax)(chicken pox) 2011-12-28 00:00:00 Completed [facility] HEPATITIS A 2011-12-28 00:00:00 Completed [facility] HPV 2011-12-28 00:00:00 Completed [facility] Varicella (varivax)(chicken pox) 2011-12-28 00:00:00 Completed [facility] HEPATITIS A 2011-12-28 00:00:00 Completed [facility] HPV 2011-12-28 00:00:00 Completed [facility] Varicella (varivax)(chicken pox) 2011-12-28 00:00:00 Completed [facility] HEPATITIS A 2011-12-28 00:00:00 Completed [facility] HPV 2011-12-28 00:00:00 Completed [facility] Varicella (varivax)(chicken pox) 2011-12-28 00:00:00 Completed [facility] HEPATITIS A 2011-12-28 00:00:00 Completed [facility] HPV 2011-12-28 00:00:00 Completed [facility] Varicella (varivax)(chicken pox) 2011-12-28 00:00:00 Completed [facility] HEPATITIS A 2011-12-28 00:00:00 Completed [facility] HPV 2011-12-28 00:00:00 Completed [facility] HPV 2011-12-28 00:00:00 Completed [facility] Varicella (varivax)(chicken pox) 2011-12-28 00:00:00 Completed [facility] HEPATITIS A 2011-12-28 00:00:00 Completed [facility] Varicella (varivax)(chicken pox) 2011-12-28 00:00:00 Completed [facility] HEPATITIS A 2011-12-28 00:00:00 Completed [facility] HPV 2011-12-28 00:00:00 Completed [facility] Varicella (varivax)(chicken pox) 2011-12-28 00:00:00 Completed [facility] HEPATITIS A 2011-12-28 00:00:00 Completed [facility] HPV 2011-12-28 00:00:00 Completed [facility] Varicella (varivax)(chicken pox) 2011-12-28 00:00:00 Completed [facility] HEPATITIS A 2011-12-28 00:00:00 Completed [facility] HPV 2011-12-28 00:00:00 Completed [facility] Varicella (varivax)(chicken pox) 2011-12-28 00:00:00 Completed [facility] HEPATITIS A 2011-12-28 00:00:00 Completed [facility] HPV 2011-12-28 00:00:00 Completed [facility] Varicella (varivax)(chicken pox) 2011-12-28 00:00:00 Completed [facility] HEPATITIS A 2011-12-28 00:00:00 Completed [facility] HPV 2011-12-28 00:00:00 Completed [facility] Varicella (varivax)(chicken pox) 2011-12-28 00:00:00 Completed [facility] HEPATITIS A 2011-12-28 00:00:00 Completed [facility] HPV 2011-12-28 00:00:00 Completed [facility] Varicella (varivax)(chicken pox) 2011-12-28 00:00:00 Completed [facility] HEPATITIS A 2011-12-28 00:00:00 Completed [facility] HPV 2011-12-28 00:00:00 Completed [facility] Varicella (varivax)(chicken pox) 2011-12-28 00:00:00 Completed [facility] HEPATITIS A 2011-12-28 00:00:00 Completed [facility] HPV 2011-12-28 00:00:00 Completed [facility] Varicella (varivax)(chicken pox) 2011-12-28 00:00:00 Completed [facility] HEPATITIS A 2011-12-28 00:00:00 Completed [facility] HPV 2011-12-28 00:00:00 Completed [facility] Varicella (varivax)(chicken pox) 2011-12-28 00:00:00 Completed [facility] HEPATITIS A 2011-12-28 00:00:00 Completed [facility] HPV 2011-12-28 00:00:00 Completed [facility] Varicella (varivax)(chicken pox) 2011-12-28 00:00:00 Completed [facility] HEPATITIS A 2011-12-28 00:00:00 Completed [facility] HPV 2011-12-28 00:00:00 Completed [facility] HPV 2011-12-28 00:00:00 Completed [facility] Varicella (varivax)(chicken pox) 2011-12-28 00:00:00 Completed [facility] HEPATITIS A 2011-12-28 00:00:00 Completed [facility] HPV 2011-12-28 00:00:00 Completed [facility] Varicella (varivax)(chicken pox) 2011-12-28 00:00:00 Completed [facility] HEPATITIS A 2011-12-28 00:00:00 Completed [facility] Varicella (varivax)(chicken pox) 2011-12-28 00:00:00 Completed [facility] HEPATITIS A 2011-12-28 00:00:00 Completed [facility] HPV 2011-12-28 00:00:00 Completed [facility] Varicella (varivax)(chicken pox) 2011-12-28 00:00:00 Completed [facility] HEPATITIS A 2011-12-28 00:00:00 Completed [facility] HPV 2011-03-30 00:00:00 Completed [facility] HPV 2011-03-30 00:00:00 Completed [facility] HPV 2011-03-30 00:00:00 Completed [facility] HPV 2011-03-30 00:00:00 Completed [facility] HPV 2011-03-30 00:00:00 Completed [facility] HPV 2011-03-30 00:00:00 Completed [facility] HPV 2011-03-30 00:00:00 Completed [facility] HPV 2011-03-30 00:00:00 Completed [facility] HPV 2011-03-30 00:00:00 Completed [facility] HPV 2011-03-30 00:00:00 Completed [facility] HPV 2011-03-30 00:00:00 Completed [facility] HPV 2011-03-30 00:00:00 Completed [facility] HPV 2011-03-30 00:00:00 Completed [facility] HPV 2011-03-30 00:00:00 Completed [facility] HPV 2011-03-30 00:00:00 Completed [facility] HPV 2011-03-30 00:00:00 Completed [facility] HPV 2011-03-30 00:00:00 Completed [facility] HPV 2011-03-30 00:00:00 Completed [facility] HPV 2011-03-30 00:00:00 Completed [facility] HPV 2011-03-30 00:00:00 Completed [facility] HPV 2011-03-30 00:00:00 Completed [facility] HPV 2011-03-30 00:00:00 Completed [facility] HPV 2011-03-30 00:00:00 Completed [facility] HPV 2011-03-30 00:00:00 Completed [facility] HPV 2011-03-30 00:00:00 Completed [facility] HPV 2011-03-30 00:00:00 Completed [facility] HPV 2011-03-30 00:00:00 Completed [facility] HPV 2011-03-30 00:00:00 Completed [facility] HPV 2011-03-30 00:00:00 Completed [facility] HPV 2011-03-30 00:00:00 Completed [facility] HPV 2011-03-30 00:00:00 Completed [facility] HPV 2011-03-30 00:00:00 Completed [facility] HPV 2011-03-30 00:00:00 Completed [facility] HPV 2011-03-30 00:00:00 Completed [facility] HPV 2011-03-30 00:00:00 Completed [facility] HPV 2011-03-30 00:00:00 Completed [facility] HPV 2011-03-30 00:00:00 Completed [facility] HPV 2011-03-30 00:00:00 Completed [facility] HPV 2011-03-30 00:00:00 Completed [facility] HPV 2011-03-30 00:00:00 Completed [facility] HPV 2011-03-30 00:00:00 Completed [facility] HPV 2010-10-07 00:00:00 Completed [facility] H1n1 Vaccine 2010-10-07 00:00:00 Completed [facility] Meningococcal Polysaccharide (groups A, C, Y and W-135) conjugate vaccine (MCV4P) 2010-10-07 00:00:00 Completed [facility] TDAP 2010-10-07 00:00:00 Completed [facility] HPV 2010-10-07 00:00:00 Completed [facility] H1n1 Vaccine 2010-10-07 00:00:00 Completed [facility] Meningococcal Polysaccharide (groups A, C, Y and W-135) conjugate vaccine (MCV4P) 2010-10-07 00:00:00 Completed [facility] TDAP 2010-10-07 00:00:00 Completed [facility] HPV 2010-10-07 00:00:00 Completed [facility] H1n1 Vaccine 2010-10-07 00:00:00 Completed [facility] Meningococcal Polysaccharide (groups A, C, Y and W-135) conjugate vaccine (MCV4P) 2010-10-07 00:00:00 Completed [facility] TDAP 2010-10-07 00:00:00 Completed [facility] HPV 2010-10-07 00:00:00 Completed [facility] H1n1 Vaccine 2010-10-07 00:00:00 Completed [facility] Meningococcal Polysaccharide (groups A, C, Y and W-135) conjugate vaccine (MCV4P) 2010-10-07 00:00:00 Completed [facility] TDAP 2010-10-07 00:00:00 Completed [facility] HPV 2010-10-07 00:00:00 Completed [facility] H1n1 Vaccine 2010-10-07 00:00:00 Completed [facility] Meningococcal Polysaccharide (groups A, C, Y and W-135) conjugate vaccine (MCV4P) 2010-10-07 00:00:00 Completed [facility] TDAP 2010-10-07 00:00:00 Completed [facility] HPV 2010-10-07 00:00:00 Completed [facility] H1n1 Vaccine 2010-10-07 00:00:00 Completed [facility] Meningococcal Polysaccharide (groups A, C, Y and W-135) conjugate vaccine (MCV4P) 2010-10-07 00:00:00 Completed [facility] TDAP 2010-10-07 00:00:00 Completed [facility] HPV 2010-10-07 00:00:00 Completed [facility] H1n1 Vaccine 2010-10-07 00:00:00 Completed [facility] Meningococcal Polysaccharide (groups A, C, Y and W-135) conjugate vaccine (MCV4P) 2010-10-07 00:00:00 Completed [facility] TDAP 2010-10-07 00:00:00 Completed [facility] HPV 2010-10-07 00:00:00 Completed [facility] H1n1 Vaccine 2010-10-07 00:00:00 Completed [facility] Meningococcal Polysaccharide (groups A, C, Y and W-135) conjugate vaccine (MCV4P) 2010-10-07 00:00:00 Completed [facility] TDAP 2010-10-07 00:00:00 Completed [facility] HPV 2010-10-07 00:00:00 Completed [facility] H1n1 Vaccine 2010-10-07 00:00:00 Completed [facility] Meningococcal Polysaccharide (groups A, C, Y and W-135) conjugate vaccine (MCV4P) 2010-10-07 00:00:00 Completed [facility] TDAP 2010-10-07 00:00:00 Completed [facility] HPV 2010-10-07 00:00:00 Completed [facility] H1n1 Vaccine 2010-10-07 00:00:00 Completed [facility] HPV 2010-10-07 00:00:00 Completed [facility] H1n1 Vaccine 2010-10-07 00:00:00 Completed [facility] Meningococcal Polysaccharide (groups A, C, Y and W-135) conjugate vaccine (MCV4P) 2010-10-07 00:00:00 Completed [facility] TDAP 2010-10-07 00:00:00 Completed [facility] Meningococcal Polysaccharide (groups A, C, Y and W-135) conjugate vaccine (MCV4P) 2010-10-07 00:00:00 Completed [facility] TDAP 2010-10-07 00:00:00 Completed [facility] HPV 2010-10-07 00:00:00 Completed [facility] H1n1 Vaccine 2010-10-07 00:00:00 Completed [facility] Meningococcal Polysaccharide (groups A, C, Y and W-135) conjugate vaccine (MCV4P) 2010-10-07 00:00:00 Completed [facility] TDAP 2010-10-07 00:00:00 Completed [facility] HPV 2010-10-07 00:00:00 Completed [facility] H1n1 Vaccine 2010-10-07 00:00:00 Completed [facility] Meningococcal Polysaccharide (groups A, C, Y and W-135) conjugate vaccine (MCV4P) 2010-10-07 00:00:00 Completed [facility] TDAP 2010-10-07 00:00:00 Completed [facility] HPV 2010-10-07 00:00:00 Completed [facility] H1n1 Vaccine 2010-10-07 00:00:00 Completed [facility] Meningococcal Polysaccharide (groups A, C, Y and W-135) conjugate vaccine (MCV4P) 2010-10-07 00:00:00 Completed [facility] TDAP 2010-10-07 00:00:00 Completed [facility] HPV 2010-10-07 00:00:00 Completed [facility] H1n1 Vaccine 2010-10-07 00:00:00 Completed [facility] Meningococcal Polysaccharide (groups A, C, Y and W-135) conjugate vaccine (MCV4P) 2010-10-07 00:00:00 Completed [facility] TDAP 2010-10-07 00:00:00 Completed [facility] HPV 2010-10-07 00:00:00 Completed [facility] H1n1 Vaccine 2010-10-07 00:00:00 Completed [facility] Meningococcal Polysaccharide (groups A, C, Y and W-135) conjugate vaccine (MCV4P) 2010-10-07 00:00:00 Completed [facility] TDAP 2010-10-07 00:00:00 Completed [facility] HPV 2010-10-07 00:00:00 Completed [facility] H1n1 Vaccine 2010-10-07 00:00:00 Completed [facility] Meningococcal Polysaccharide (groups A, C, Y and W-135) conjugate vaccine (MCV4P) 2010-10-07 00:00:00 Completed [facility] TDAP 2010-10-07 00:00:00 Completed [facility] HPV 2010-10-07 00:00:00 Completed [facility] H1n1 Vaccine 2010-10-07 00:00:00 Completed [facility] HPV 2010-10-07 00:00:00 Completed [facility] H1n1 Vaccine 2010-10-07 00:00:00 Completed [facility] Meningococcal Polysaccharide (groups A, C, Y and W-135) conjugate vaccine (MCV4P) 2010-10-07 00:00:00 Completed [facility] TDAP 2010-10-07 00:00:00 Completed [facility] Meningococcal Polysaccharide (groups A, C, Y and W-135) conjugate vaccine (MCV4P) 2010-10-07 00:00:00 Completed [facility] TDAP 2010-10-07 00:00:00 Completed [facility] HPV 2010-10-07 00:00:00 Completed [facility] H1n1 Vaccine 2010-10-07 00:00:00 Completed [facility] Meningococcal Polysaccharide (groups A, C, Y and W-135) conjugate vaccine (MCV4P) 2010-10-07 00:00:00 Completed [facility] TDAP 2010-10-07 00:00:00 Completed [facility] HPV 2010-10-07 00:00:00 Completed [facility] H1n1 Vaccine 2010-10-07 00:00:00 Completed [facility] Meningococcal Polysaccharide (groups A, C, Y and W-135) conjugate vaccine (MCV4P) 2010-10-07 00:00:00 Completed [facility] TDAP 2010-10-07 00:00:00 Completed [facility] HPV 2010-10-07 00:00:00 Completed [facility] H1n1 Vaccine 2010-10-07 00:00:00 Completed [facility] Meningococcal Polysaccharide (groups A, C, Y and W-135) conjugate vaccine (MCV4P) 2010-10-07 00:00:00 Completed [facility] TDAP 2010-10-07 00:00:00 Completed [facility] HPV 2010-10-07 00:00:00 Completed [facility] H1n1 Vaccine 2010-10-07 00:00:00 Completed [facility] Meningococcal Polysaccharide (groups A, C, Y and W-135) conjugate vaccine (MCV4P) 2010-10-07 00:00:00 Completed [facility] TDAP 2010-10-07 00:00:00 Completed [facility] [facility]:00 Completed [facility] H1n1 Vaccine 2010-10-07 00:00:00 Completed [facility] Meningococcal Polysaccharide (groups A, C, Y and W-135) conjugate vaccine (MCV4P) 2010-10-07 00:00:00 Completed [facility] TDAP 2010-10-07 00:00:00 Completed [facility] HPV 2010-10-07 00:00:00 Completed [facility] H1n1 Vaccine 2010-10-07 00:00:00 Completed [facility] Meningococcal Polysaccharide (groups A, C, Y and W-135) conjugate vaccine (MCV4P) 2010-10-07 00:00:00 Completed [facility] TDAP 2010-10-07 00:00:00 Completed [facility] HPV 2010-10-07 00:00:00 Completed [facility] H1n1 Vaccine 2010-10-07 00:00:00 Completed [facility] HPV 2010-10-07 00:00:00 Completed [facility] H1n1 Vaccine 2010-10-07 00:00:00 Completed [facility] Meningococcal Polysaccharide (groups A, C, Y and W-135) conjugate vaccine (MCV4P) 2010-10-07 00:00:00 Completed [facility] TDAP 2010-10-07 00:00:00 Completed [facility] Meningococcal Polysaccharide (groups A, C, Y and W-135) conjugate vaccine (MCV4P) 2010-10-07 00:00:00 Completed [facility] TDAP 2010-10-07 00:00:00 Completed [facility] HPV 2010-10-07 00:00:00 Completed [facility] H1n1 Vaccine 2010-10-07 00:00:00 Completed [facility] Meningococcal Polysaccharide (groups A, C, Y and W-135) conjugate vaccine (MCV4P) 2010-10-07 00:00:00 Completed [facility] TDAP 2010-10-07 00:00:00 Completed [facility] HPV 2010-10-07 00:00:00 Completed [facility] H1n1 Vaccine 2010-10-07 00:00:00 Completed [facility] Meningococcal Polysaccharide (groups A, C, Y and W-135) conjugate vaccine (MCV4P) 2010-10-07 00:00:00 Completed [facility] TDAP 2010-10-07 00:00:00 Completed [facility] HPV 2010-10-07 00:00:00 Completed [facility] H1n1 Vaccine 2010-10-07 00:00:00 Completed [facility] Meningococcal Polysaccharide (groups A, C, Y and W-135) conjugate vaccine (MCV4P) 2010-10-07 00:00:00 Completed [facility] TDAP 2010-10-07 00:00:00 Completed [facility] HPV 2010-10-07 00:00:00 Completed [facility] H1n1 Vaccine 2010-10-07 00:00:00 Completed [facility] Meningococcal Polysaccharide (groups A, C, Y and W-135) conjugate vaccine (MCV4P) 2010-10-07 00:00:00 Completed [facility] TDAP 2010-10-07 00:00:00 Completed [facility] HPV 2010-10-07 00:00:00 Completed [facility] H1n1 Vaccine 2010-10-07 00:00:00 Completed [facility] Meningococcal Polysaccharide (groups A, C, Y and W-135) conjugate vaccine (MCV4P) 2010-10-07 00:00:00 Completed [facility] TDAP 2010-10-07 00:00:00 Completed [facility] HPV 2010-10-07 00:00:00 Completed [facility] H1n1 Vaccine 2010-10-07 00:00:00 Completed [facility] Meningococcal Polysaccharide (groups A, C, Y and W-135) conjugate vaccine (MCV4P) 2010-10-07 00:00:00 Completed [facility] TDAP 2010-10-07 00:00:00 Completed [facility] HPV 2010-10-07 00:00:00 Completed [facility] H1n1 Vaccine 2010-10-07 00:00:00 Completed [facility] Meningococcal Polysaccharide (groups A, C, Y and W-135) conjugate vaccine (MCV4P) 2010-10-07 00:00:00 Completed [facility] TDAP 2010-10-07 00:00:00 Completed [facility] HPV 2010-10-07 00:00:00 Completed [facility] H1n1 Vaccine 2010-10-07 00:00:00 Completed [facility] Meningococcal Polysaccharide (groups A, C, Y and W-135) conjugate vaccine (MCV4P) 2010-10-07 00:00:00 Completed [facility] TDAP 2010-10-07 00:00:00 Completed [facility] HPV 2010-10-07 00:00:00 Completed [facility] H1n1 Vaccine 2010-10-07 00:00:00 Completed [facility] Meningococcal Polysaccharide (groups A, C, Y and W-135) conjugate vaccine (MCV4P) 2010-10-07 00:00:00 Completed [facility] TDAP 2010-10-07 00:00:00 Completed [facility] HPV 2010-10-07 00:00:00 Completed [facility] H1n1 Vaccine 2010-10-07 00:00:00 Completed [facility] Meningococcal Polysaccharide (groups A, C, Y and W-135) conjugate vaccine (MCV4P) 2010-10-07 00:00:00 Completed [facility] HPV 2010-10-07 00:00:00 Completed [facility] TDAP 2010-10-07 00:00:00 Completed [facility] H1n1 Vaccine 2010-10-07 00:00:00 Completed [facility] HPV 2010-10-07 00:00:00 Completed [facility] H1n1 Vaccine 2010-10-07 00:00:00 Completed [facility] Meningococcal Polysaccharide (groups A, C, Y and W-135) conjugate vaccine (MCV4P) 2010-10-07 00:00:00 Completed [facility] TDAP 2010-10-07 00:00:00 Completed [facility] Meningococcal Polysaccharide (groups A, C, Y and W-135) conjugate vaccine (MCV4P) 2010-10-07 00:00:00 Completed [facility] HPV 2010-10-07 00:00:00 Completed [facility] H1n1 Vaccine 2010-10-07 00:00:00 Completed [facility] TDAP 2010-10-07 00:00:00 Completed [facility] Meningococcal Polysaccharide (groups A, C, Y and W-135) conjugate vaccine (MCV4P) 2010-10-07 00:00:00 Completed [facility] TDAP 2010-10-07 00:00:00 Completed [facility] HPV 2010-10-07 00:00:00 Completed [facility] H1n1 Vaccine 2010-10-07 00:00:00 Completed [facility] Meningococcal Polysaccharide (groups A, C, Y and W-135) conjugate vaccine (MCV4P) 2010-10-07 00:00:00 Completed [facility] TDAP 2010-10-07 00:00:00 Completed [facility] IPV 2003-10-12 00:00:00 Completed [facility] MMR 2003-10-12 00:00:00 Completed [facility] DTAP 2003-10-12 00:00:00 Completed [facility] IPV 2003-10-12 00:00:00 Completed [facility] MMR 2003-10-12 00:00:00 Completed [facility] DTAP 2003-10-12 00:00:00 Completed [facility] IPV 2003-10-12 00:00:00 Completed [facility] MMR 2003-10-12 00:00:00 Completed [facility] DTAP 2003-10-12 00:00:00 Completed [facility] IPV 2003-10-12 00:00:00 Completed [facility] MMR 2003-10-12 00:00:00 Completed [facility] DTAP 2003-10-12 00:00:00 Completed [facility] IPV 2003-10-12 00:00:00 Completed [facility] MMR 2003-10-12 00:00:00 Completed [facility] DTAP 2003-10-12 00:00:00 Completed [facility] IPV 2003-10-12 00:00:00 Completed [facility] MMR 2003-10-12 00:00:00 Completed [facility] DTAP 2003-10-12 00:00:00 Completed [facility] IPV 2003-10-12 00:00:00 Completed [facility] MMR 2003-10-12 00:00:00 Completed [facility] DTAP 2003-10-12 00:00:00 Completed [facility] IPV 2003-10-12 00:00:00 Completed [facility] DTAP 2003-10-12 00:00:00 Completed [facility] MMR 2003-10-12 00:00:00 Completed [facility] DTAP 2003-10-12 00:00:00 Completed [facility] IPV 2003-10-12 00:00:00 Completed [facility] MMR 2003-10-12 00:00:00 Completed [facility] DTAP 2003-10-12 00:00:00 Completed [facility] IPV 2003-10-12 00:00:00 Completed [facility] IPV 2003-10-12 00:00:00 Completed [facility] MMR 2003-10-12 00:00:00 Completed [facility] MMR 2003-10-12 00:00:00 Completed [facility] DTAP 2003-10-12 00:00:00 Completed [facility] IPV 2003-10-12 00:00:00 Completed [facility] MMR 2003-10-12 00:00:00 Completed [facility] DTAP 2003-10-12 00:00:00 Completed [facility] IPV 2003-10-12 00:00:00 Completed [facility] MMR 2003-10-12 00:00:00 Completed [facility] DTAP 2003-10-12 00:00:00 Completed [facility] IPV 2003-10-12 00:00:00 Completed [facility] MMR 2003-10-12 00:00:00 Completed [facility] DTAP 2003-10-12 00:00:00 Completed [facility] IPV 2003-10-12 00:00:00 Completed [facility] MMR 2003-10-12 00:00:00 Completed [facility] DTAP 2003-10-12 00:00:00 Completed [facility] IPV 2003-10-12 00:00:00 Completed [facility] MMR 2003-10-12 00:00:00 Completed [facility] DTAP 2003-10-12 00:00:00 Completed [facility] DTAP 2003-10-12 00:00:00 Completed [facility] IPV 2003-10-12 00:00:00 Completed [facility] MMR 2003-10-12 00:00:00 Completed [facility] DTAP 2003-10-12 00:00:00 Completed [facility] IPV 2003-10-12 00:00:00 Completed [facility] MMR 2003-10-12 00:00:00 Completed [facility] IPV 2003-10-12 00:00:00 Completed [facility] MMR 2003-10-12 00:00:00 Completed [facility] DTAP 2003-10-12 00:00:00 Completed [facility] IPV 2003-10-12 00:00:00 Completed [facility] MMR 2003-10-12 00:00:00 Completed [facility] DTAP 2003-10-12 00:00:00 Completed [facility] IPV 2003-10-12 00:00:00 Completed [facility] MMR 2003-10-12 00:00:00 Completed [facility] DTAP 2003-10-12 00:00:00 Completed [facility] IPV 2003-10-12 00:00:00 Completed [facility] MMR 2003-10-12 00:00:00 Completed [facility] DTAP 2003-10-12 00:00:00 Completed [facility] IPV 2003-10-12 00:00:00 Completed [facility] MMR 2003-10-12 00:00:00 Completed [facility] DTAP 2003-10-12 00:00:00 Completed [facility] IPV 2003-10-12 00:00:00 Completed [facility] MMR 2003-10-12 00:00:00 Completed [facility] DTAP 2003-10-12 00:00:00 Completed [facility] IPV 2003-10-12 00:00:00 Completed [facility] MMR 2003-10-12 00:00:00 Completed [facility] DTAP 2003-10-12 00:00:00 Completed [facility] DTAP 2003-10-12 00:00:00 Completed [facility] IPV 2003-10-12 00:00:00 Completed [facility] MMR 2003-10-12 00:00:00 Completed [facility] IPV 2003-10-12 00:00:00 Completed [facility] MMR 2003-10-12 00:00:00 Completed [facility] DTAP 2003-10-12 00:00:00 Completed [facility] IPV 2003-10-12 00:00:00 Completed [facility] MMR 2003-10-12 00:00:00 Completed [facility] DTAP 2003-10-12 00:00:00 Completed [facility] IPV 2003-10-12 00:00:00 Completed [facility] MMR 2003-10-12 00:00:00 Completed [facility] DTAP 2003-10-12 00:00:00 Completed [facility] IPV 2003-10-12 00:00:00 Completed [facility] MMR 2003-10-12 00:00:00 Completed [facility] DTAP 2003-10-12 00:00:00 Completed [facility] IPV 2003-10-12 00:00:00 Completed [facility] MMR 2003-10-12 00:00:00 Completed [facility] DTAP 2003-10-12 00:00:00 Completed [facility] IPV 2003-10-12 00:00:00 Completed [facility] MMR 2003-10-12 00:00:00 Completed [facility] DTAP 2003-10-12 00:00:00 Completed [facility] IPV 2003-10-12 00:00:00 Completed [facility] MMR 2003-10-12 00:00:00 Completed [facility] DTAP 2003-10-12 00:00:00 Completed [facility] IPV 2003-10-12 00:00:00 Completed [facility] MMR 2003-10-12 00:00:00 Completed [facility] DTAP 2003-10-12 00:00:00 Completed [facility] IPV 2003-10-12 00:00:00 Completed [facility] MMR 2003-10-12 00:00:00 Completed [facility] DTAP 2003-10-12 00:00:00 Completed [facility] DTAP 2003-10-12 00:00:00 Completed [facility] IPV 2003-10-12 00:00:00 Completed [facility] MMR 2003-10-12 00:00:00 Completed [facility] DTAP 2003-10-12 00:00:00 Completed [facility] IPV 2003-10-12 00:00:00 Completed [facility] MMR 2003-10-12 00:00:00 Completed [facility] DTAP 2003-10-12 00:00:00 Completed [facility] IPV 2003-10-12 00:00:00 Completed [facility] MMR 2003-10-12 00:00:00 Completed [facility] IPV 2003-10-12 00:00:00 Completed [facility] MMR 2003-10-12 00:00:00 Completed [facility] DTAP 2003-10-12 00:00:00 Completed [facility] IPV 2003-10-12 00:00:00 Completed [facility] MMR 2003-10-12 00:00:00 Completed [facility] DTAP 2003-10-12 00:00:00 Completed [facility] IPV 2003-10-12 00:00:00 Completed [facility] MMR 2003-10-12 00:00:00 Completed [facility] DTAP 2003-10-12 00:00:00 Completed [facility] IPV 2001-05-22 00:00:00 Completed [facility] Heamophilus Influenza B 2001-05-22 00:00:00 Completed [facility] DTAP 2001-05-22 00:00:00 Completed [facility] IPV 2001-05-22 00:00:00 Completed [facility] Heamophilus Influenza B 2001-05-22 00:00:00 Completed [facility] DTAP 2001-05-22 00:00:00 Completed [facility] IPV 2001-05-22 00:00:00 Completed [facility] Heamophilus Influenza B 2001-05-22 00:00:00 Completed [facility] DTAP 2001-05-22 00:00:00 Completed [facility] IPV 2001-05-22 00:00:00 Completed [facility] Heamophilus Influenza B 2001-05-22 00:00:00 Completed [facility] DTAP 2001-05-22 00:00:00 Completed [facility] IPV 2001-05-22 00:00:00 Completed [facility] Heamophilus Influenza B 2001-05-22 00:00:00 Completed [facility] DTAP 2001-05-22 00:00:00 Completed [facility] IPV 2001-05-22 00:00:00 Completed [facility] Heamophilus Influenza B 2001-05-22 00:00:00 Completed [facility] DTAP 2001-05-22 00:00:00 Completed [facility] IPV 2001-05-22 00:00:00 Completed [facility] Heamophilus Influenza B 2001-05-22 00:00:00 Completed [facility] DTAP 2001-05-22 00:00:00 Completed [facility] DTAP 2001-05-22 00:00:00 Completed [facility] IPV 2001-05-22 00:00:00 Completed [facility] Heamophilus Influenza B 2001-05-22 00:00:00 Completed [facility] DTAP 2001-05-22 00:00:00 Completed [facility] IPV 2001-05-22 00:00:00 Completed [facility] Heamophilus Influenza B 2001-05-22 00:00:00 Completed [facility] DTAP 2001-05-22 00:00:00 Completed [facility] IPV 2001-05-22 00:00:00 Completed [facility] IPV 2001-05-22 00:00:00 Completed [facility] Heamophilus Influenza B 2001-05-22 00:00:00 Completed [facility] DTAP 2001-05-22 00:00:00 Completed [facility] IPV 2001-05-22 00:00:00 Completed [facility] Heamophilus Influenza B 2001-05-22 00:00:00 Completed [facility] Heamophilus Influenza B 2001-05-22 00:00:00 Completed [facility] DTAP 2001-05-22 00:00:00 Completed [facility] IPV 2001-05-22 00:00:00 Completed [facility] Heamophilus Influenza B 2001-05-22 00:00:00 Completed [facility] DTAP 2001-05-22 00:00:00 Completed [facility] IPV 2001-05-22 00:00:00 Completed [facility] Heamophilus Influenza B 2001-05-22 00:00:00 Completed [facility] DTAP 2001-05-22 00:00:00 Completed [facility] IPV 2001-05-22 00:00:00 Completed [facility] Heamophilus Influenza B 2001-05-22 00:00:00 Completed [facility] DTAP 2001-05-22 00:00:00 Completed [facility] IPV 2001-05-22 00:00:00 Completed [facility] Heamophilus Influenza B 2001-05-22 00:00:00 Completed [facility] DTAP 2001-05-22 00:00:00 Completed [facility] DTAP 2001-05-22 00:00:00 Completed [facility] IPV 2001-05-22 00:00:00 Completed [facility] Heamophilus Influenza B 2001-05-22 00:00:00 Completed [facility] DTAP 2001-05-22 00:00:00 Completed [facility] IPV 2001-05-22 00:00:00 Completed [facility] IPV 2001-05-22 00:00:00 Completed [facility] Heamophilus Influenza B 2001-05-22 00:00:00 Completed [facility] DTAP 2001-05-22 00:00:00 Completed [facility] IPV 2001-05-22 00:00:00 Completed [facility] Heamophilus Influenza B 2001-05-22 00:00:00 Completed [facility] DTAP 2001-05-22 00:00:00 Completed [facility] IPV 2001-05-22 00:00:00 Completed [facility] Heamophilus Influenza B 2001-05-22 00:00:00 Completed [facility] Heamophilus Influenza B 2001-05-22 00:00:00 Completed [facility] DTAP 2001-05-22 00:00:00 Completed [facility] IPV 2001-05-22 00:00:00 Completed [facility] Heamophilus Influenza B 2001-05-22 00:00:00 Completed [facility] DTAP 2001-05-22 00:00:00 Completed [facility] IPV 2001-05-22 00:00:00 Completed [facility] Heamophilus Influenza B 2001-05-22 00:00:00 Completed [facility] DTAP 2001-05-22 00:00:00 Completed [facility] IPV 2001-05-22 00:00:00 Completed [facility] Heamophilus Influenza B 2001-05-22 00:00:00 Completed [facility] DTAP 2001-05-22 00:00:00 Completed [facility] DTAP 2001-05-22 00:00:00 Completed [facility] IPV 2001-05-22 00:00:00 Completed [facility] Heamophilus Influenza B 2001-05-22 00:00:00 Completed [facility] DTAP 2001-05-22 00:00:00 Completed [facility] IPV 2001-05-22 00:00:00 Completed [facility] Heamophilus Influenza B 2001-05-22 00:00:00 Completed [facility] IPV 2001-05-22 00:00:00 Completed [facility] Heamophilus Influenza B 2001-05-22 00:00:00 Completed [facility] DTAP 2001-05-22 00:00:00 Completed [facility] IPV 2001-05-22 00:00:00 Completed [facility] Heamophilus Influenza B 2001-05-22 00:00:00 Completed [facility] DTAP 2001-05-22 00:00:00 Completed [facility] IPV 2001-05-22 00:00:00 Completed [facility] Heamophilus Influenza B 2001-05-22 00:00:00 Completed [facility] DTAP 2001-05-22 00:00:00 Completed [facility] IPV 2001-05-22 00:00:00 Completed [facility] Heamophilus Influenza B 2001-05-22 00:00:00 Completed [facility] DTAP 2001-05-22 00:00:00 Completed [facility] IPV 2001-05-22 00:00:00 Completed [facility] Heamophilus Influenza B 2001-05-22 00:00:00 Completed [facility] DTAP 2001-05-22 00:00:00 Completed [facility] IPV 2001-05-22 00:00:00 Completed [facility] Heamophilus Influenza B 2001-05-22 00:00:00 Completed [facility] DTAP 2001-05-22 00:00:00 Completed [facility] IPV 2001-05-22 00:00:00 Completed [facility] Heamophilus Influenza B 2001-05-22 00:00:00 Completed [facility] DTAP 2001-05-22 00:00:00 Completed [facility] IPV 2001-05-22 00:00:00 Completed [facility] Heamophilus Influenza B 2001-05-22 00:00:00 Completed [facility] DTAP 2001-05-22 00:00:00 Completed [facility] IPV 2001-05-22 00:00:00 Completed [facility] Heamophilus Influenza B 2001-05-22 00:00:00 Completed [facility] DTAP 2001-05-22 00:00:00 Completed [facility] DTAP 2001-05-22 00:00:00 Completed [facility] IPV 2001-05-22 00:00:00 Completed [facility] Heamophilus Influenza B 2001-05-22 00:00:00 Completed [facility] DTAP 2001-05-22 00:00:00 Completed [facility] IPV 2001-05-22 00:00:00 Completed [facility] Heamophilus Influenza B 2001-05-22 00:00:00 Completed [facility] DTAP 2001-05-22 00:00:00 Completed [facility] IPV 2001-05-22 00:00:00 Completed [facility] IPV 2001-05-22 00:00:00 Completed [facility] Heamophilus Influenza B 2001-05-22 00:00:00 Completed [facility] DTAP 2001-05-22 00:00:00 Completed [facility] IPV 2001-05-22 00:00:00 Completed [facility] Heamophilus Influenza B 2001-05-22 00:00:00 Completed [facility] DTAP 2001-05-22 00:00:00 Completed [facility] IPV 2001-05-22 00:00:00 Completed [facility] Heamophilus Influenza B 2001-05-22 00:00:00 Completed [facility] Heamophilus Influenza B 2001-05-22 00:00:00 Completed [facility] DTAP 2001-05-22 00:00:00 Completed [facility] MMR 2000-10-08 00:00:00 Completed [facility] Varicella (varivax)(chicken pox) 2000-10-08 00:00:00 Completed [facility] MMR 2000-10-08 00:00:00 Completed [facility] Varicella (varivax)(chicken pox) 2000-10-08 00:00:00 Completed [facility] MMR 2000-10-08 00:00:00 Completed [facility] Varicella (varivax)(chicken pox) 2000-10-08 00:00:00 Completed [facility] 2000-10-08 00:00:00 Completed [facility] Varicella (varivax)(chicken pox) 2000-10-08 00:00:00 Completed [facility] 2000-10-08 00:00:00 Completed [facility] Varicella (varivax)(chicken pox) 2000-10-08 00:00:00 Completed [facility] 2000-10-08 00:00:00 Completed [facility] Varicella (varivax)(chicken pox) 2000-10-08 00:00:00 Completed [facility] MMR 2000-10-08 00:00:00 Completed [facility] Varicella (varivax)(chicken pox) 2000-10-08 00:00:00 Completed [facility] 2000-10-08 00:00:00 Completed [facility] Varicella (varivax)(chicken pox) 2000-10-08 00:00:00 Completed [facility] 2000-10-08 00:00:00 Completed [facility] Varicella (varivax)(chicken pox) 2000-10-08 00:00:00 Completed [facility] 2000-10-08 00:00:00 Completed [facility] Varicella (varivax)(chicken pox) 2000-10-08 00:00:00 Completed [facility] 2000-10-08 00:00:00 Completed [facility] Varicella (varivax)(chicken pox) 2000-10-08 00:00:00 Completed [facility] 2000-10-08 00:00:00 Completed [facility] Varicella (varivax)(chicken pox) 2000-10-08 00:00:00 Completed [facility] 2000-10-08 00:00:00 Completed [facility] Varicella (varivax)(chicken pox) 2000-10-08 00:00:00 Completed [facility] 2000-10-08 00:00:00 Completed [facility] Varicella (varivax)(chicken pox) 2000-10-08 00:00:00 Completed [facility] 2000-10-08 00:00:00 Completed [facility] Varicella (varivax)(chicken pox) 2000-10-08 00:00:00 Completed [facility] 2000-10-08 00:00:00 Completed [facility] Varicella (varivax)(chicken pox) 2000-10-08 00:00:00 Completed [facility] 2000-10-08 00:00:00 Completed [facility] Varicella (varivax)(chicken pox) 2000-10-08 00:00:00 Completed [facility] 2000-10-08 00:00:00 Completed [facility] Varicella (varivax)(chicken pox) 2000-10-08 00:00:00 Completed [facility] 2000-10-08 00:00:00 Completed [facility] Varicella (varivax)(chicken pox) 2000-10-08 00:00:00 Completed [facility] 2000-10-08 00:00:00 Completed [facility] Varicella (varivax)(chicken pox) 2000-10-08 00:00:00 Completed [facility] 2000-10-08 00:00:00 Completed [facility] Varicella (varivax)(chicken pox) 2000-10-08 00:00:00 Completed [facility] 2000-10-08 00:00:00 Completed [facility] Varicella (varivax)(chicken pox) 2000-10-08 00:00:00 Completed [facility] 2000-10-08 00:00:00 Completed [facility] Varicella (varivax)(chicken pox) 2000-10-08 00:00:00 Completed [facility] 2000-10-08 00:00:00 Completed [facility] Varicella (varivax)(chicken pox) 2000-10-08 00:00:00 Completed [facility] 2000-10-08 00:00:00 Completed [facility] Varicella (varivax)(chicken pox) 2000-10-08 00:00:00 Completed [facility] 2000-10-08 00:00:00 Completed [facility] Varicella (varivax)(chicken pox) 2000-10-08 00:00:00 Completed [facility] 2000-10-08 00:00:00 Completed [facility] Varicella (varivax)(chicken pox) 2000-10-08 00:00:00 Completed [facility] 2000-10-08 00:00:00 Completed [facility] Varicella (varivax)(chicken pox) 2000-10-08 00:00:00 Completed [facility] 2000-10-08 00:00:00 Completed [facility] Varicella (varivax)(chicken pox) 2000-10-08 00:00:00 Completed [facility] 2000-10-08 00:00:00 Completed [facility] Varicella (varivax)(chicken pox) 2000-10-08 00:00:00 Completed [facility] 2000-10-08 00:00:00 Completed [facility] Varicella (varivax)(chicken pox) 2000-10-08 00:00:00 Completed [facility] 2000-10-08 00:00:00 Completed [facility] Varicella (varivax)(chicken pox) 2000-10-08 00:00:00 Completed [facility] 2000-10-08 00:00:00 Completed [facility] Varicella (varivax)(chicken pox) 2000-10-08 00:00:00 Completed [facility] 2000-10-08 00:00:00 Completed [facility] Varicella (varivax)(chicken pox) 2000-10-08 00:00:00 Completed [facility] MMR 2000-10-08 00:00:00 Completed [facility] Varicella (varivax)(chicken pox) 2000-10-08 00:00:00 Completed [facility] MMR 2000-10-08 00:00:00 Completed [facility] Varicella (varivax)(chicken pox) 2000-10-08 00:00:00 Completed [facility] MMR 2000-10-08 00:00:00 Completed [facility] Varicella (varivax)(chicken pox) 2000-10-08 00:00:00 Completed [facility] MMR 2000-10-08 00:00:00 Completed [facility] Varicella (varivax)(chicken pox) 2000-10-08 00:00:00 Completed [facility] MMR 2000-10-08 00:00:00 Completed [facility] MMR 2000-10-08 00:00:00 Completed [facility] Varicella (varivax)(chicken pox) 2000-10-08 00:00:00 Completed [facility] Varicella (varivax)(chicken pox) 2000-10-08 00:00:00 Completed [facility] MMR 2000-10-08 00:00:00 Completed [facility] Varicella (varivax)(chicken pox) 2000-10-08 00:00:00 Completed [facility] Heamophilus Influenza B 2000-03-14 00:00:00 Completed [facility] DTAP 2000-03-14 00:00:00 Completed [facility] Hep B, Adol or Pedi Dosage 2000-03-14 00:00:00 Completed [facility] Heamophilus Influenza B 2000-03-14 00:00:00 Completed [facility] DTAP 2000-03-14 00:00:00 Completed [facility] Hep B, Adol or Pedi Dosage 2000-03-14 00:00:00 Completed [facility] Heamophilus Influenza B 2000-03-14 00:00:00 Completed [facility] DTAP 2000-03-14 00:00:00 Completed [facility] Hep B, Adol or Pedi Dosage 2000-03-14 00:00:00 Completed [facility] Heamophilus Influenza B 2000-03-14 00:00:00 Completed [facility] DTAP 2000-03-14 00:00:00 Completed [facility] Hep B, Adol or Pedi Dosage 2000-03-14 00:00:00 Completed [facility] Heamophilus Influenza B 2000-03-14 00:00:00 Completed [facility] DTAP 2000-03-14 00:00:00 Completed [facility] Hep B, Adol or Pedi Dosage 2000-03-14 00:00:00 Completed [facility] Heamophilus Influenza B 2000-03-14 00:00:00 Completed [facility] DTAP 2000-03-14 00:00:00 Completed [facility] Hep B, Adol or Pedi Dosage 2000-03-14 00:00:00 Completed [facility] Heamophilus Influenza B 2000-03-14 00:00:00 Completed [facility] DTAP 2000-03-14 00:00:00 Completed [facility] DTAP 2000-03-14 00:00:00 Completed [facility] Hep B, Adol or Pedi Dosage 2000-03-14 00:00:00 Completed [facility] Heamophilus Influenza B 2000-03-14 00:00:00 Completed [facility] DTAP 2000-03-14 00:00:00 Completed [facility] Hep B, Adol or Pedi Dosage 2000-03-14 00:00:00 Completed [facility] Hep B, Adol or Pedi Dosage 2000-03-14 00:00:00 Completed [facility] Heamophilus Influenza B 2000-03-14 00:00:00 Completed [facility] DTAP 2000-03-14 00:00:00 Completed [facility] Hep B, Adol or Pedi Dosage 2000-03-14 00:00:00 Completed [facility] Heamophilus Influenza B 2000-03-14 00:00:00 Completed [facility] DTAP 2000-03-14 00:00:00 Completed [facility] Hep B, Adol or Pedi Dosage 2000-03-14 00:00:00 Completed [facility] Heamophilus Influenza B 2000-03-14 00:00:00 Completed [facility] Heamophilus Influenza B 2000-03-14 00:00:00 Completed [facility] DTAP 2000-03-14 00:00:00 Completed [facility] Hep B, Adol or Pedi Dosage 2000-03-14 00:00:00 Completed [facility] Heamophilus Influenza B 2000-03-14 00:00:00 Completed [facility] DTAP 2000-03-14 00:00:00 Completed [facility] Hep B, Adol or Pedi Dosage 2000-03-14 00:00:00 Completed [facility] Heamophilus Influenza B 2000-03-14 00:00:00 Completed [facility] DTAP 2000-03-14 00:00:00 Completed [facility] Hep B, Adol or Pedi Dosage 2000-03-14 00:00:00 Completed [facility] Heamophilus Influenza B 2000-03-14 00:00:00 Completed [facility] DTAP 2000-03-14 00:00:00 Completed [facility] Hep B, Adol or Pedi Dosage 2000-03-14 00:00:00 Completed [facility] DTAP 2000-03-14 00:00:00 Completed [facility] Heamophilus Influenza B 2000-03-14 00:00:00 Completed [facility] DTAP 2000-03-14 00:00:00 Completed [facility] Hep B, Adol or Pedi Dosage 2000-03-14 00:00:00 Completed [facility] Heamophilus Influenza B 2000-03-14 00:00:00 Completed [facility] Hep B, Adol or Pedi Dosage 2000-03-14 00:00:00 Completed [facility] DTAP 2000-03-14 00:00:00 Completed [facility] Hep B, Adol or Pedi Dosage 2000-03-14 00:00:00 Completed [facility] Heamophilus Influenza B 2000-03-14 00:00:00 Completed [facility] DTAP 2000-03-14 00:00:00 Completed [facility] Hep B, Adol or Pedi Dosage 2000-03-14 00:00:00 Completed [facility] Heamophilus Influenza B 2000-03-14 00:00:00 Completed [facility] DTAP 2000-03-14 00:00:00 Completed [facility] Hep B, Adol or Pedi Dosage 2000-03-14 00:00:00 Completed [facility] Heamophilus Influenza B 2000-03-14 00:00:00 Completed [facility] Heamophilus Influenza B 2000-03-14 00:00:00 Completed [facility] DTAP 2000-03-14 00:00:00 Completed [facility] Hep B, Adol or Pedi Dosage 2000-03-14 00:00:00 Completed [facility] Heamophilus Influenza B 2000-03-14 00:00:00 Completed [facility] DTAP 2000-03-14 00:00:00 Completed [facility] Hep B, Adol or Pedi Dosage 2000-03-14 00:00:00 Completed [facility] Heamophilus Influenza B 2000-03-14 00:00:00 Completed [facility] DTAP 2000-03-14 00:00:00 Completed [facility] Hep B, Adol or Pedi Dosage 2000-03-14 00:00:00 Completed [facility] Heamophilus Influenza B 2000-03-14 00:00:00 Completed [facility] DTAP 2000-03-14 00:00:00 Completed [facility] DTAP 2000-03-14 00:00:00 Completed [facility] Hep B, Adol or Pedi Dosage 2000-03-14 00:00:00 Completed [facility] Heamophilus Influenza B 2000-03-14 00:00:00 Completed [facility] Hep B, Adol or Pedi Dosage 2000-03-14 00:00:00 Completed [facility] DTAP 2000-03-14 00:00:00 Completed [facility] Hep B, Adol or Pedi Dosage 2000-03-14 00:00:00 Completed [facility] Heamophilus Influenza B 2000-03-14 00:00:00 Completed [facility] Heamophilus Influenza B 2000-03-14 00:00:00 Completed [facility] DTAP 2000-03-14 00:00:00 Completed [facility] Hep B, Adol or Pedi Dosage 2000-03-14 00:00:00 Completed [facility] Heamophilus Influenza B 2000-03-14 00:00:00 Completed [facility] DTAP 2000-03-14 00:00:00 Completed [facility] Hep B, Adol or Pedi Dosage 2000-03-14 00:00:00 Completed [facility] Heamophilus Influenza B 2000-03-14 00:00:00 Completed [facility] DTAP 2000-03-14 00:00:00 Completed [facility] Hep B, Adol or Pedi Dosage 2000-03-14 00:00:00 Completed [facility] Heamophilus Influenza B 2000-03-14 00:00:00 Completed [facility] DTAP 2000-03-14 00:00:00 Completed [facility] Hep B, Adol or Pedi Dosage 2000-03-14 00:00:00 Completed [facility] Heamophilus Influenza B 2000-03-14 00:00:00 Completed [facility] DTAP 2000-03-14 00:00:00 Completed [facility] Hep B, Adol or Pedi Dosage 2000-03-14 00:00:00 Completed [facility] Heamophilus Influenza B 2000-03-14 00:00:00 Completed [facility] DTAP 2000-03-14 00:00:00 Completed [facility] Hep B, Adol or Pedi Dosage 2000-03-14 00:00:00 Completed [facility] Heamophilus Influenza B 2000-03-14 00:00:00 Completed [facility] DTAP 2000-03-14 00:00:00 Completed [facility] Hep B, Adol or Pedi Dosage 2000-03-14 00:00:00 Completed [facility] Heamophilus Influenza B 2000-03-14 00:00:00 Completed [facility] DTAP 2000-03-14 00:00:00 Completed [facility] Hep B, Adol or Pedi Dosage 2000-03-14 00:00:00 Completed [facility] Heamophilus Influenza B 2000-03-14 00:00:00 Completed [facility] DTAP 2000-03-14 00:00:00 Completed [facility] DTAP 2000-03-14 00:00:00 Completed [facility] Hep B, Adol or Pedi Dosage 2000-03-14 00:00:00 Completed [facility] Heamophilus Influenza B 2000-03-14 00:00:00 Completed [facility] Hep B, Adol or Pedi Dosage 2000-03-14 00:00:00 Completed [facility] DTAP 2000-03-14 00:00:00 Completed [facility] Hep B, Adol or Pedi Dosage 2000-03-14 00:00:00 Completed [facility] Heamophilus Influenza B 2000-03-14 00:00:00 Completed [facility] DTAP 2000-03-14 00:00:00 Completed [facility] Hep B, Adol or Pedi Dosage 2000-03-14 00:00:00 Completed [facility] Heamophilus Influenza B 2000-03-14 00:00:00 Completed [facility] DTAP 2000-03-14 00:00:00 Completed [facility] Hep B, Adol or Pedi Dosage 2000-03-14 00:00:00 Completed [facility] Heamophilus Influenza B 2000-03-14 00:00:00 Completed [facility] DTAP 2000-03-14 00:00:00 Completed [facility] Hep B, Adol or Pedi Dosage 2000-03-14 00:00:00 Completed [facility] Heamophilus Influenza B 2000-03-14 00:00:00 Completed [facility] Heamophilus Influenza B 2000-03-14 00:00:00 Completed [facility] DTAP 2000-03-14 00:00:00 Completed [facility] Hep B, Adol or Pedi Dosage 2000-03-14 00:00:00 Completed [facility] IPV 2000-01-11 00:00:00 Completed [facility] Heamophilus Influenza B 2000-01-11 00:00:00 Completed [facility] DTAP 2000-01-11 00:00:00 Completed [facility] IPV 2000-01-11 00:00:00 Completed [facility] Heamophilus Influenza B 2000-01-11 00:00:00 Completed [facility] DTAP 2000-01-11 00:00:00 Completed [facility] IPV 2000-01-11 00:00:00 Completed [facility] Heamophilus Influenza B 2000-01-11 00:00:00 Completed [facility] DTAP 2000-01-11 00:00:00 Completed [facility] IPV 2000-01-11 00:00:00 Completed [facility] Heamophilus Influenza B 2000-01-11 00:00:00 Completed [facility] DTAP 2000-01-11 00:00:00 Completed [facility] IPV 2000-01-11 00:00:00 Completed [facility] Heamophilus Influenza B 2000-01-11 00:00:00 Completed [facility] DTAP 2000-01-11 00:00:00 Completed [facility] IPV 2000-01-11 00:00:00 Completed [facility] Heamophilus Influenza B 2000-01-11 00:00:00 Completed [facility] DTAP 2000-01-11 00:00:00 Completed [facility] IPV 2000-01-11 00:00:00 Completed [facility] Heamophilus Influenza B 2000-01-11 00:00:00 Completed [facility] DTAP 2000-01-11 00:00:00 Completed [facility] DTAP 2000-01-11 00:00:00 Completed [facility] IPV 2000-01-11 00:00:00 Completed [facility] Heamophilus Influenza B 2000-01-11 00:00:00 Completed [facility] DTAP 2000-01-11 00:00:00 Completed [facility] IPV 2000-01-11 00:00:00 Completed [facility] Heamophilus Influenza B 2000-01-11 00:00:00 Completed [facility] IPV 2000-01-11 00:00:00 Completed [facility] DTAP 2000-01-11 00:00:00 Completed [facility] IPV 2000-01-11 00:00:00 Completed [facility] Heamophilus Influenza B 2000-01-11 00:00:00 Completed [facility] DTAP 2000-01-11 00:00:00 Completed [facility] Heamophilus Influenza B 2000-01-11 00:00:00 Completed [facility] IPV 2000-01-11 00:00:00 Completed [facility] Heamophilus Influenza B 2000-01-11 00:00:00 Completed [facility] DTAP 2000-01-11 00:00:00 Completed [facility] IPV 2000-01-11 00:00:00 Completed [facility] Heamophilus Influenza B 2000-01-11 00:00:00 Completed [facility] DTAP 2000-01-11 00:00:00 Completed [facility] IPV 2000-01-11 00:00:00 Completed [facility] Heamophilus Influenza B 2000-01-11 00:00:00 Completed [facility] DTAP 2000-01-11 00:00:00 Completed [facility] IPV 2000-01-11 00:00:00 Completed [facility] Heamophilus Influenza B 2000-01-11 00:00:00 Completed [facility] DTAP 2000-01-11 00:00:00 Completed [facility] IPV 2000-01-11 00:00:00 Completed [facility] DTAP 2000-01-11 00:00:00 Completed [facility] Heamophilus Influenza B 2000-01-11 00:00:00 Completed [facility] DTAP 2000-01-11 00:00:00 Completed [facility] IPV 2000-01-11 00:00:00 Completed [facility] Heamophilus Influenza B 2000-01-11 00:00:00 Completed [facility] DTAP 2000-01-11 00:00:00 Completed [facility] IPV 2000-01-11 00:00:00 Completed [facility] IPV 2000-01-11 00:00:00 Completed [facility] Heamophilus Influenza B 2000-01-11 00:00:00 Completed [facility] DTAP 2000-01-11 00:00:00 Completed [facility] IPV 2000-01-11 00:00:00 Completed [facility] Heamophilus Influenza B 2000-01-11 00:00:00 Completed [facility] DTAP 2000-01-11 00:00:00 Completed [facility] IPV 2000-01-11 00:00:00 Completed [facility] Heamophilus Influenza B 2000-01-11 00:00:00 Completed [facility] Heamophilus Influenza B 2000-01-11 00:00:00 Completed [facility] DTAP 2000-01-11 00:00:00 Completed [facility] IPV 2000-01-11 00:00:00 Completed [facility] Heamophilus Influenza B 2000-01-11 00:00:00 Completed [facility] DTAP 2000-01-11 00:00:00 Completed [facility] IPV 2000-01-11 00:00:00 Completed [facility] Heamophilus Influenza B 2000-01-11 00:00:00 Completed [facility] DTAP 2000-01-11 00:00:00 Completed [facility] IPV 2000-01-11 00:00:00 Completed [facility] Heamophilus Influenza B 2000-01-11 00:00:00 Completed [facility] DTAP 2000-01-11 00:00:00 Completed [facility] DTAP 2000-01-11 00:00:00 Completed [facility] IPV 2000-01-11 00:00:00 Completed [facility] Heamophilus Influenza B 2000-01-11 00:00:00 Completed [facility] DTAP 2000-01-11 00:00:00 Completed [facility] IPV 2000-01-11 00:00:00 Completed [facility] Heamophilus Influenza B 2000-01-11 00:00:00 Completed [facility] IPV 2000-01-11 00:00:00 Completed [facility] Heamophilus Influenza B 2000-01-11 00:00:00 Completed [facility] DTAP 2000-01-11 00:00:00 Completed [facility] IPV 2000-01-11 00:00:00 Completed [facility] Heamophilus Influenza B 2000-01-11 00:00:00 Completed [facility] DTAP 2000-01-11 00:00:00 Completed [facility] IPV 2000-01-11 00:00:00 Completed [facility] Heamophilus Influenza B 2000-01-11 00:00:00 Completed [facility] DTAP 2000-01-11 00:00:00 Completed [facility] IPV 2000-01-11 00:00:00 Completed [facility] Heamophilus Influenza B 2000-01-11 00:00:00 Completed [facility] DTAP 2000-01-11 00:00:00 Completed [facility] IPV 2000-01-11 00:00:00 Completed [facility] Heamophilus Influenza B 2000-01-11 00:00:00 Completed [facility] DTAP 2000-01-11 00:00:00 Completed [facility] IPV 2000-01-11 00:00:00 Completed [facility] Heamophilus Influenza B 2000-01-11 00:00:00 Completed [facility] DTAP 2000-01-11 00:00:00 Completed [facility] IPV 2000-01-11 00:00:00 Completed [facility] Heamophilus Influenza B 2000-01-11 00:00:00 Completed [facility] DTAP 2000-01-11 00:00:00 Completed [facility] IPV 2000-01-11 00:00:00 Completed [facility] Heamophilus Influenza B 2000-01-11 00:00:00 Completed [facility] DTAP 2000-01-11 00:00:00 Completed [facility] IPV 2000-01-11 00:00:00 Completed [facility] Heamophilus Influenza B 2000-01-11 00:00:00 Completed [facility] DTAP 2000-01-11 00:00:00 Completed [facility] DTAP 2000-01-11 00:00:00 Completed [facility] IPV 2000-01-11 00:00:00 Completed [facility] Heamophilus Influenza B 2000-01-11 00:00:00 Completed [facility] DTAP 2000-01-11 00:00:00 Completed [facility] IPV 2000-01-11 00:00:00 Completed [facility] Heamophilus Influenza B 2000-01-11 00:00:00 Completed [facility] DTAP 2000-01-11 00:00:00 Completed [facility] IPV 2000-01-11 00:00:00 Completed [facility] IPV 2000-01-11 00:00:00 Completed [facility] Heamophilus Influenza B 2000-01-11 00:00:00 Completed [facility] DTAP 2000-01-11 00:00:00 Completed [facility] IPV 2000-01-11 00:00:00 Completed [facility] Heamophilus Influenza B 2000-01-11 00:00:00 Completed [facility] DTAP 2000-01-11 00:00:00 Completed [facility] IPV 2000-01-11 00:00:00 Completed [facility] Heamophilus Influenza B 2000-01-11 00:00:00 Completed [facility] Heamophilus Influenza B 2000-01-11 00:00:00 Completed [facility] DTAP 2000-01-11 00:00:00 Completed [facility] IPV 1999 00:00:00 Completed [facility] Heamophilus Influenza B 1999 00:00:00 Completed [facility] DTAP 1999 00:00:00 Completed [facility] Hep B, Adol or Pedi Dosage 1999 00:00:00 Completed [facility] IPV 1999 00:00:00 Completed [facility] Heamophilus Influenza B 1999 00:00:00 Completed [facility] DTAP 1999 00:00:00 Completed [facility] Hep B, Adol or Pedi Dosage 1999 00:00:00 Completed [facility] IPV 1999 00:00:00 Completed [facility] Heamophilus Influenza B 1999 00:00:00 Completed [facility] DTAP 1999 00:00:00 Completed [facility] Hep B, Adol or Pedi Dosage 1999 00:00:00 Completed [facility] IPV 1999 00:00:00 Completed [facility] Heamophilus Influenza B 1999 00:00:00 Completed [facility] DTAP 1999 00:00:00 Completed [facility] Hep B, Adol or Pedi Dosage 1999 00:00:00 Completed [facility] IPV 1999 00:00:00 Completed [facility] Heamophilus Influenza B 1999 00:00:00 Completed [facility] DTAP 1999 00:00:00 Completed [facility] Hep B, Adol or Pedi Dosage 1999 00:00:00 Completed [facility] IPV 1999 00:00:00 Completed [facility] Heamophilus Influenza B 1999 00:00:00 Completed [facility] DTAP 1999 00:00:00 Completed [facility] Hep B, Adol or Pedi Dosage 1999 00:00:00 Completed [facility] IPV 1999 00:00:00 Completed [facility] DTAP 1999 00:00:00 Completed [facility] Heamophilus Influenza B 1999 00:00:00 Completed [facility] DTAP 1999 00:00:00 Completed [facility] Hep B, Adol or Pedi Dosage 1999 00:00:00 Completed [facility] IPV 1999 00:00:00 Completed [facility] Heamophilus Influenza B 1999 00:00:00 Completed [facility] Hep B, Adol or Pedi Dosage 1999 00:00:00 Completed [facility] DTAP 1999 00:00:00 Completed [facility] Hep B, Adol or Pedi Dosage 1999 00:00:00 Completed [facility] IPV 1999 00:00:00 Completed [facility] Heamophilus Influenza B 1999 00:00:00 Completed [facility] IPV 1999 00:00:00 Completed [facility] DTAP 1999 00:00:00 Completed [facility] Hep B, Adol or Pedi Dosage 1999 00:00:00 Completed [facility] IPV 1999 00:00:00 Completed [facility] Heamophilus Influenza B 1999 00:00:00 Completed [facility] DTAP 1999 00:00:00 Completed [facility] Heamophilus Influenza B 1999 00:00:00 Completed [facility] Hep B, Adol or Pedi Dosage 1999 00:00:00 Completed [facility] IPV 1999 00:00:00 Completed [facility] Heamophilus Influenza B 1999 00:00:00 Completed [facility] DTAP 1999 00:00:00 Completed [facility] Hep B, Adol or Pedi Dosage 1999 00:00:00 Completed [facility] IPV 1999 00:00:00 Completed [facility] Heamophilus Influenza B 1999 00:00:00 Completed [facility] DTAP 1999 00:00:00 Completed [facility] Hep B, Adol or Pedi Dosage 1999 00:00:00 Completed [facility] IPV 1999 00:00:00 Completed [facility] Heamophilus Influenza B 1999 00:00:00 Completed [facility] DTAP 1999 00:00:00 Completed [facility] Hep B, Adol or Pedi Dosage 1999 00:00:00 Completed [facility] IPV 1999 00:00:00 Completed [facility] Heamophilus Influenza B 1999 00:00:00 Completed [facility] DTAP 1999 00:00:00 Completed [facility] DTAP 1999 00:00:00 Completed [facility] Hep B, Adol or Pedi Dosage 1999 00:00:00 Completed [facility] IPV 1999 00:00:00 Completed [facility] Heamophilus Influenza B 1999 00:00:00 Completed [facility] DTAP 1999 00:00:00 Completed [facility] Hep B, Adol or Pedi Dosage 1999 00:00:00 Completed [facility] IPV 1999 00:00:00 Completed [facility] Heamophilus Influenza B 1999 00:00:00 Completed [facility] Hep B, Adol or Pedi Dosage 1999 00:00:00 Completed [facility] IPV 1999 00:00:00 Completed [facility] DTAP 1999 00:00:00 Completed [facility] Hep B, Adol or Pedi Dosage 1999 00:00:00 Completed [facility] IPV 1999 00:00:00 Completed [facility] Heamophilus Influenza B 1999 00:00:00 Completed [facility] DTAP 1999 00:00:00 Completed [facility] Hep B, Adol or Pedi Dosage 1999 00:00:00 Completed [facility] IPV 1999 00:00:00 Completed [facility] Heamophilus Influenza B 1999 00:00:00 Completed [facility] DTAP 1999 00:00:00 Completed [facility] Hep B, Adol or Pedi Dosage 1999 00:00:00 Completed [facility] IPV 1999 00:00:00 Completed [facility] Heamophilus Influenza B 1999 00:00:00 Completed [facility] Heamophilus Influenza B 1999 00:00:00 Completed [facility] DTAP 1999 00:00:00 Completed [facility] Hep B, Adol or Pedi Dosage 1999 00:00:00 Completed [facility] IPV 1999 00:00:00 Completed [facility] Heamophilus Influenza B 1999 00:00:00 Completed [facility] DTAP 1999 00:00:00 Completed [facility] Hep B, Adol or Pedi Dosage 1999 00:00:00 Completed [facility] IPV 1999 00:00:00 Completed [facility] Heamophilus Influenza B 1999 00:00:00 Completed [facility] DTAP 1999 00:00:00 Completed [facility] Hep B, Adol or Pedi Dosage 1999 00:00:00 Completed [facility] IPV 1999 00:00:00 Completed [facility] DTAP 1999 00:00:00 Completed [facility] Heamophilus Influenza B 1999 00:00:00 Completed [facility] DTAP 1999 00:00:00 Completed [facility] Hep B, Adol or Pedi Dosage 1999 00:00:00 Completed [facility] IPV 1999 00:00:00 Completed [facility] Heamophilus Influenza B 1999 00:00:00 Completed [facility] Hep B, Adol or Pedi Dosage 1999 00:00:00 Completed [facility] DTAP 1999 00:00:00 Completed [facility] Hep B, Adol or Pedi Dosage 1999 00:00:00 Completed [facility] IPV 1999 00:00:00 Completed [facility] IPV 1999 00:00:00 Completed [facility] Heamophilus Influenza B 1999 00:00:00 Completed [facility] Heamophilus Influenza B 1999 00:00:00 Completed [facility] DTAP 1999 00:00:00 Completed [facility] Hep B, Adol or Pedi Dosage 1999 00:00:00 Completed [facility] IPV 1999 00:00:00 Completed [facility] Heamophilus Influenza B 1999 00:00:00 Completed [facility] DTAP 1999 00:00:00 Completed [facility] Hep B, Adol or Pedi Dosage 1999 00:00:00 Completed [facility] IPV 1999 00:00:00 Completed [facility] Heamophilus Influenza B 1999 00:00:00 Completed [facility] DTAP 1999 00:00:00 Completed [facility] Hep B, Adol or Pedi Dosage 1999 00:00:00 Completed [facility] IPV 1999 00:00:00 Completed [facility] Heamophilus Influenza B 1999 00:00:00 Completed [facility] DTAP 1999 00:00:00 Completed [facility] Hep B, Adol or Pedi Dosage 1999 00:00:00 Completed [facility] IPV 1999 00:00:00 Completed [facility] Heamophilus Influenza B 1999 00:00:00 Completed [facility] DTAP 1999 00:00:00 Completed [facility] Hep B, Adol or Pedi Dosage 1999 00:00:00 Completed [facility] IPV 1999 00:00:00 Completed [facility] Heamophilus Influenza B 1999 00:00:00 Completed [facility] DTAP 1999 00:00:00 Completed [facility] Hep B, Adol or Pedi Dosage 1999 00:00:00 Completed [facility] IPV 1999 00:00:00 Completed [facility] Heamophilus Influenza B 1999 00:00:00 Completed [facility] DTAP 1999 00:00:00 Completed [facility] Hep B, Adol or Pedi Dosage 1999 00:00:00 Completed [facility] IPV 1999 00:00:00 Completed [facility] Heamophilus Influenza B 1999 00:00:00 Completed [facility] DTAP 1999 00:00:00 Completed [facility] Hep B, Adol or Pedi Dosage 1999 00:00:00 Completed [facility] IPV 1999 00:00:00 Completed [facility] Heamophilus Influenza B 1999 00:00:00 Completed [facility] DTAP 1999 00:00:00 Completed [facility] DTAP 1999 00:00:00 Completed [facility] Hep B, Adol or Pedi Dosage 1999 00:00:00 Completed [facility] IPV 1999 00:00:00 Completed [facility] Heamophilus Influenza B 1999 00:00:00 Completed [facility] Hep B, Adol or Pedi Dosage 1999 00:00:00 Completed [facility] DTAP 1999 00:00:00 Completed [facility] Hep B, Adol or Pedi Dosage 1999 00:00:00 Completed [facility] IPV 1999 00:00:00 Completed [facility] Heamophilus Influenza B 1999 00:00:00 Completed [facility] DTAP 1999 00:00:00 Completed [facility] IPV 1999 00:00:00 Completed [facility] Hep B, Adol or Pedi Dosage 1999 00:00:00 Completed [facility] IPV 1999 00:00:00 Completed [facility] Heamophilus Influenza B 1999 00:00:00 Completed [facility] DTAP 1999 00:00:00 Completed [facility] Hep B, Adol or Pedi Dosage 1999 00:00:00 Completed [facility] IPV 1999 00:00:00 Completed [facility] Heamophilus Influenza B 1999 00:00:00 Completed [facility] DTAP 1999 00:00:00 Completed [facility] Hep B, Adol or Pedi Dosage 1999 00:00:00 Completed [facility] IPV 1999 00:00:00 Completed [facility] Heamophilus Influenza B 1999 00:00:00 Completed [facility] Heamophilus Influenza B 1999 00:00:00 Completed [facility] DTAP 1999 00:00:00 Completed [facility] Hep B, Adol or Pedi Dosage 1999 00:00:00 Completed [facility] Hep B, Adol or Pedi Dosage 1999 00:00:00 Completed [facility] Hep B, Adol or Pedi Dosage 1999 00:00:00 Completed [facility] Hep B, Adol or Pedi Dosage 1999 00:00:00 Completed [facility] Hep B, Adol or Pedi Dosage 1999 00:00:00 Completed [facility] Hep B, Adol or Pedi Dosage 1999 00:00:00 Completed [facility] Hep B, Adol or Pedi Dosage 1999 00:00:00 Completed [facility] Hep B, Adol or Pedi Dosage 1999 00:00:00 Completed [facility] Hep B, Adol or Pedi Dosage 1999 00:00:00 Completed [facility] Hep B, Adol or Pedi Dosage 1999 00:00:00 Completed [facility] Hep B, Adol or Pedi Dosage 1999 00:00:00 Completed [facility] Hep B, Adol or Pedi Dosage 1999 00:00:00 Completed [facility] Hep B, Adol or Pedi Dosage 1999 00:00:00 Completed [facility] Hep B, Adol or Pedi Dosage 1999 00:00:00 Completed [facility] Hep B, Adol or Pedi Dosage 1999 00:00:00 Completed [facility] Hep B, Adol or Pedi Dosage 1999 00:00:00 Completed [facility] Hep B, Adol or Pedi Dosage 1999 00:00:00 Completed [facility] Hep B, Adol or Pedi Dosage 1999 00:00:00 Completed [facility] Hep B, Adol or Pedi Dosage 1999 00:00:00 Completed [facility] Hep B, Adol or Pedi Dosage 1999 00:00:00 Completed [facility] Hep B, Adol or Pedi Dosage 1999 00:00:00 Completed [facility] Hep B, Adol or Pedi Dosage 1999 00:00:00 Completed [facility] Hep B, Adol or Pedi Dosage 1999 00:00:00 Completed [facility] Hep B, Adol or Pedi Dosage 1999 00:00:00 Completed [facility] Hep B, Adol or Pedi Dosage 1999 00:00:00 Completed [facility] Hep B, Adol or Pedi Dosage 1999 00:00:00 Completed [facility] Hep B, Adol or Pedi Dosage 1999 00:00:00 Completed [facility] Hep B, Adol or Pedi Dosage 1999 00:00:00 Completed [facility] Hep B, Adol or Pedi Dosage 1999 00:00:00 Completed [facility] Hep B, Adol or Pedi Dosage 1999 00:00:00 Completed [facility] Hep B, Adol or Pedi Dosage 1999 00:00:00 Completed [facility] Hep B, Adol or Pedi Dosage 1999 00:00:00 Completed [facility] Hep B, Adol or Pedi Dosage 1999 00:00:00 Completed [facility] Hep B, Adol or Pedi Dosage 1999 00:00:00 Completed [facility] Hep B, Adol or Pedi Dosage 1999 00:00:00 Completed [facility] Hep B, Adol or Pedi Dosage 1999 00:00:00 Completed [facility] Hep B, Adol or Pedi Dosage 1999 00:00:00 Completed [facility] Hep B, Adol or Pedi Dosage 1999 00:00:00 Completed [facility] Hep B, Adol or Pedi Dosage 1999 00:00:00 Completed [facility] Hep B, Adol or Pedi Dosage 1999 00:00:00 Completed [facility] Hep B, Adol or Pedi Dosage 1999 00:00:00 Completed [facility] Hep B, Adol or Pedi Dosage 1999 00:00:00 Completed [facility] Influenza Virus Vaccine Quad .5 mL IM 6+ MO (FLUZONE/FLULAVAL/FL UARIX) Unknown Completed [facility] TDAP (ADACEL) VACCINE Unknown Completed [facility] DTAP Unknown Completed [facility] Hep B, Adol or Pedi Dosage Unknown Completed [facility] HPV Unknown Completed [facility] H1n1 Vaccine Unknown Completed [facility] IPV Unknown Completed [facility] Meningococcal Polysaccharide (groups A, C, Y and W-135) conjugate vaccine (MCV4P) Unknown Completed [facility] MMR Unknown Completed [facility] Varicella (varivax)(chicken pox) Unknown Completed [facility] HEPATITIS A Unknown Completed [facility] Heamophilus Influenza B Unknown Completed [facility] Influenza Virus Vaccine Quad .5 mL IM 6+ MO (FLUZONE/FLULAVAL/FL UARIX) Unknown Completed [facility] TDAP (ADACEL) VACCINE Unknown Completed [facility] DTAP Unknown Completed [facility] Hep B, Adol or Pedi Dosage Unknown Completed [facility] HPV Unknown Completed [facility] H1n1 Vaccine Unknown Completed [facility] IPV Unknown Completed [facility] Meningococcal Polysaccharide (groups A, C, Y and W-135) conjugate vaccine (MCV4P) Unknown Completed [facility] MMR Unknown Completed [facility] Varicella (varivax)(chicken pox) Unknown Completed [facility] HEPATITIS A Unknown Completed [facility] Heamophilus Influenza B Unknown Completed [facility] Influenza Virus Vaccine Quad .5 mL IM 6+ MO (FLUZONE/FLULAVAL/FL UARIX) Unknown Completed [facility] TDAP (ADACEL) VACCINE Unknown Completed [facility] DTAP Unknown Completed [facility] Hep B, Adol or Pedi Dosage Unknown Completed [facility] HPV Unknown Completed [facility] H1n1 Vaccine Unknown Completed [facility] IPV Unknown Completed [facility] Meningococcal Polysaccharide (groups A, C, Y and W-135) conjugate vaccine (MCV4P) Unknown Completed [facility] MMR Unknown Completed [facility] Varicella (varivax)(chicken pox) Unknown Completed [facility] HEPATITIS A Unknown Completed [facility] Heamophilus Influenza B Unknown Completed [facility] Vital Signs Vital Name Observation Time Observation Value Comments S ource Systolic blood pressure 2023-06-05 20:41:00 108 mm[Hg] [facility] Diastolic blood pressure 2023-06-05 20:41:00 75 mm[Hg] [facility] Heart rate 2023-06-05 20:41:00 84 /min [facility] Body temperature 2023-06-05 20:41:00 36.83 Charito [facility] Body weight 2023-06-05 20:41:00 96.798 kg [facility] BMI 2023-06-05 20:41:00 37.80 kg/m2 [facility] Systolic blood pressure 2023-05-22 19:45:00 118 mm[Hg] [facility] Diastolic blood pressure 2023-05-22 19:45:00 82 mm[Hg] [facility] Heart rate 2023-05-22 19:45:00 73 /min [facility] Respiratory rate 2023-05-22 19:45:00 18 /min [facility] Body height 2023-05-22 19:45:00 160 cm [facility] Body weight 2023-05-22 19:45:00 93.441 kg [facility] BMI 2023-05-22 19:45:00 36.49 kg/m2 [facility] Systolic blood pressure 2023-05-22 16:48:00 117 mm[Hg] [facility] Diastolic blood pressure 2023-05-22 16:48:00 69 mm[Hg] [facility] Respiratory rate 2023-05-22 16:48:00 15 /min [facility] Oxygen saturation in Arterial blood by Pulse oximetry 2023-05-22 16:48:00 100 /min [facility] Heart rate 2023-05-22 16:01:00 86 /min [facility] Body temperature 2023-05-22 16:01:00 36.33 Charito [facility] Systolic blood pressure 2023-05-22 16:48:00 117 mm[Hg] [facility] Diastolic blood pressure 2023-05-22 16:48:00 69 mm[Hg] [facility] Respiratory rate 2023-05-22 16:48:00 15 /min [facility] Oxygen saturation in Arterial blood by Pulse oximetry 2023-05-22 16:48:00 100 /min [facility] Heart rate 2023-05-22 16:01:00 86 /min [facility] Body temperature 2023-05-22 16:01:00 36.33 Charito [facility] Systolic blood pressure 2023-05-17 19:37:00 109 mm[Hg] [facility] Diastolic blood pressure 2023-05-17 19:37:00 76 mm[Hg] [facility] Heart rate 2023-05-17 19:37:00 85 /min [facility] Body temperature 2023-05-17 19:37:00 36.72 Charito [facility] Body height 2023-05-17 19:37:00 160 cm [facility] Body weight 2023-05-17 19:37:00 93.713 kg [facility] BMI 2023-05-17 19:37:00 36.60 kg/m2 [facility] Systolic blood pressure 2023-05-08 21:12:00 108 mm[Hg] [facility] Diastolic blood pressure 2023-05-08 21:12:00 76 mm[Hg] [facility] Heart rate 2023-05-08 21:12:00 76 /min [facility] Body temperature 2023-05-08 21:12:00 36.83 Charito [facility] Body height 2023-05-08 21:12:00 160 cm [facility] Body weight 2023-05-08 21:12:00 91.173 kg [facility] BMI 2023-05-08 21:12:00 35.61 kg/m2 [facility] Systolic blood pressure 2023-04-18 22:00:00 118 mm[Hg] [facility] Diastolic blood pressure 2023-04-18 22:00:00 71 mm[Hg] [facility] Heart rate 2023-04-18 22:00:00 91 /min [facility] Respiratory rate 2023-04-18 22:00:00 18 /min [facility] Oxygen saturation in Arterial blood by Pulse oximetry 2023-04-18 22:00:00 96 /min [facility] Body temperature 2023-04-18 20:00:00 37.78 Charito [facility] Body height 2023-04-18 19:18:00 160 cm [facility] Body weight 2023-04-18 19:18:00 97.977 kg [facility] BMI 2023-04-18 19:18:00 38.26 kg/m2 [facility] Body temperature 2023-04-18 17:22:21 37.39 Charito [facility] Systolic blood pressure 2023-04-18 17:00:00 114 mm[Hg] [facility] Diastolic blood pressure 2023-04-18 17:00:00 75 mm[Hg] [facility] Heart rate 2023-04-18 17:00:00 77 /min [facility] Respiratory rate 2023-04-18 17:00:00 16 /min [facility] Oxygen saturation in Arterial blood by Pulse oximetry 2023-04-18 17:00:00 95 /min [facility] Body weight 2023-04-18 12:15:00 97.977 kg [facility] BMI 2023-04-18 12:15:00 38.26 kg/m2 [facility] Systolic blood pressure 2023-04-09 17:45:00 111 mm[Hg] [facility] Diastolic blood pressure 2023-04-09 17:45:00 76 mm[Hg] [facility] Heart rate 2023-04-09 17:45:00 65 /min [facility] Body temperature 2023-04-09 17:45:00 36.5 Charito [facility] Respiratory rate 2023-04-09 17:45:00 18 /min [facility] Oxygen saturation in Arterial blood by Pulse oximetry 2023-04-09 17:45:00 100 /min [facility] Body height 2023-04-08 03:51:00 160 cm [facility] Body weight 2023-04-08 03:51:00 99.791 kg [facility] BMI 2023-04-08 03:51:00 38.97 kg/m2 [facility] Systolic blood pressure 2023-04-04 21:03:00 114 mm[Hg] [facility] Diastolic blood pressure 2023-04-04 21:03:00 74 mm[Hg] [facility] Heart rate 2023-04-04 21:03:00 86 /min [facility] Body temperature 2023-04-04 21:03:00 36.67 Charito [facility] Body height 2023-04-04 21:03:00 162.6 cm [facility] Body weight 2023-04-04 21:03:00 100.154 kg [facility] BMI 2023-04-04 21:03:00 37.90 kg/m2 [facility] Systolic blood pressure 2023-03-26 15:13:00 111 mm[Hg] [facility] Diastolic blood pressure 2023-03-26 15:13:00 79 mm[Hg] [facility] Heart rate 2023-03-26 15:13:00 76 /min [facility] Body temperature 2023-03-26 15:13:00 36.67 Charito [facility] Respiratory rate 2023-03-26 15:13:00 18 /min [facility] Body height 2023-03-26 15:13:00 162.6 cm [facility] Body weight 2023-03-26 15:13:00 100.064 kg [facility] BMI 2023-03-26 15:13:00 37.87 kg/m2 [facility] Oxygen saturation in Arterial blood by Pulse oximetry 2023-03-26 15:13:00 98 /min [facility] Systolic blood pressure 2023-03-08 15:23:00 98 mm[Hg] [facility] Diastolic blood pressure 2023-03-08 15:23:00 68 mm[Hg] [facility] Heart rate 2023-03-08 15:23:00 78 /min [facility] Body temperature 2023-03-08 15:23:00 36.72 Charito [facility] Respiratory rate 2023-03-08 15:23:00 18 /min [facility] Body height 2023-03-08 15:23:00 162.6 cm [facility] Body weight 2023-03-08 15:23:00 99.882 kg [facility] BMI 2023-03-08 15:23:00 37.80 kg/m2 [facility] Oxygen saturation in Arterial blood by Pulse oximetry 2023-03-08 15:23:00 99 /min [facility] Systolic blood pressure 2023-02-22 16:13:00 106 mm[Hg] [facility] Diastolic blood pressure 2023-02-22 16:13:00 72 mm[Hg] [facility] Heart rate 2023-02-22 16:13:00 85 /min [facility] Respiratory rate 2023-02-22 16:13:00 18 /min [facility] Body height 2023-02-22 16:13:00 162.6 cm [facility] Body weight 2023-02-22 16:13:00 100.699 kg [facility] BMI 2023-02-22 16:13:00 38.11 kg/m2 [facility] Heart rate 2023-02-16 21:30:00 79 /min [facility] Oxygen saturation in Arterial blood by Pulse oximetry 2023-02-16 21:30:00 100 /min [facility] Systolic blood pressure 2023-02-16 19:00:00 95 mm[Hg] lying left lateral [facility] Diastolic blood pressure 2023-02-16 19:00:00 53 mm[Hg] lying left lateral [facility] Body temperature 2023-02-16 19:00:00 36.72 Charito [facility] Respiratory rate 2023-02-16 19:00:00 18 /min [facility] Body height 2023-02-16 19:00:00 162.6 cm [facility] Body weight 2023-02-16 18:13:00 98.93 kg [facility] BMI 2023-02-16 18:13:00 37.44 kg/m2 [facility] Systolic blood pressure 2023-02-09 16:32:00 103 mm[Hg] [facility] Diastolic blood pressure 2023-02-09 16:32:00 67 mm[Hg] [facility] Heart rate 2023-02-09 16:32:00 87 /min [facility] Body temperature 2023-02-09 16:32:00 36.72 Charito [facility] Respiratory rate 2023-02-09 16:32:00 18 /min [facility] Body height 2023-02-09 16:32:00 162.6 cm [facility] Body weight 2023-02-09 16:32:00 99.066 kg [facility] BMI 2023-02-09 16:32:00 37.49 kg/m2 [facility] Oxygen saturation in Arterial blood by Pulse oximetry 2023-02-09 16:32:00 99 /min [facility] Systolic blood pressure 2023-01-18 19:52:00 106 mm[Hg] [facility] Diastolic blood pressure 2023-01-18 19:52:00 70 mm[Hg] [facility] Heart rate 2023-01-18 19:52:00 84 /min [facility] Body temperature 2023-01-18 19:52:00 37.06 Charito [facility] Body height 2023-01-18 19:52:00 160 cm [facility] Body weight 2023-01-18 19:52:00 99.066 kg [facility] BMI 2023-01-18 19:52:00 38.69 kg/m2 [facility] Systolic blood pressure 2022-12-20 21:11:00 108 mm[Hg] [facility] Diastolic blood pressure 2022-12-20 21:11:00 72 mm[Hg] [facility] Heart rate 2022-12-20 21:11:00 80 /min [facility] Body temperature 2022-12-20 21:11:00 37 Charito [facility] Body height 2022-12-20 21:11:00 160 cm [facility] Body weight 2022-12-20 21:11:00 98.158 kg [facility] BMI 2022-12-20 21:11:00 38.33 kg/m2 [facility] Systolic blood pressure 2022-11-22 22:20:00 112 mm[Hg] [facility] Diastolic blood pressure 2022-11-22 22:20:00 72 mm[Hg] [facility] Heart rate 2022-11-22 22:20:00 88 /min [facility] Body temperature 2022-11-22 22:20:00 36.67 Charito [facility] Respiratory rate 2022-11-22 22:20:00 18 /min [facility] Body height 2022-11-22 22:20:00 160 cm [facility] Body weight 2022-11-22 22:20:00 94.983 kg [facility] BMI 2022-11-22 22:20:00 37.09 kg/m2 [facility] Systolic blood pressure 2022-10-25 20:22:00 106 mm[Hg] [facility] Diastolic blood pressure 2022-10-25 20:22:00 74 mm[Hg] [facility] Heart rate 2022-10-25 20:22:00 114 /min [facility] Body temperature 2022-10-25 20:22:00 36.94 Charito [facility] Body height 2022-10-25 20:22:00 160 cm [facility] Body weight 2022-10-25 20:22:00 93.804 kg [facility] BMI 2022-10-25 20:22:00 36.63 kg/m2 [facility] Procedures Procedure Date / Time Performed Performing Clinician Source MEDICAL RELEASE/CLEARANCE FORMS 2023-06-05 05:01:00 Doctor Unassigned, [place] [facility] MEDICAL RELEASE/CLEARANCE FORMS 2023-05-25 05:01:00 Doctor Unassigned, [place] [facility] LAPAROSCOPIC SALPINGECTOMY 2023-05-22 14:57:00 Frederick Stephenson [facility] POCT TEST 2023-05-22 14:42:[address] [facility] POCT TEST 2023-05-22 14:42:[address] [facility] BASIC METABOLIC PANEL (NA, K, CL, CO2, GLUCOSE, BUN, CREATININE, CA) 2023-05-22 14:28:00 Stephenson [facility] TOTAL BETA HCG ASSAY 2023-05-22 14:28:00 Stephenson [facility] CBC WITH DIFF 2023-05-22 14:28:00 [facility] GLYCOSYLATED HEMOGLOBIN (A1C) 2023-05-22 14:28:00 Stephenson [facility] HB ABO GROUPING 2023-05-22 14:28:00 [facility] BASIC METABOLIC PANEL (NA, K, CL, CO2, GLUCOSE, BUN, CREATININE, CA) 2023-05-22 14:28:00 [facility] TOTAL BETA HCG ASSAY 2023-05-22 14:28:00 Stephenson [facility] CBC WITH DIFF 2023-05-22 14:28:00 [facility] GLYCOSYLATED HEMOGLOBIN (A1C) 2023-05-22 14:28:00 [facility] HB ABO GROUPING 2023-05-22 14:28:00 [facility] STERILIZATION CONSENT FORM 2023-05-22 05:01:00 Doctor Unassigned, [place] [facility] DSU PRE-OP 2023-05-17 05:01:00 Doctor Unass igned, [place] [facility] XR CHEST 1 VW 2023-04-18 22:14:58 Estela Santiago [facility] C-REACTIVE PROTEIN 2023-04-18 20:54:00 Carolina Santiago [facility] SEDIMENTATION RATE 2023-04-18 20:54:00 Carolina Santiago [facility] RAPID STREP SCREEN FOR GROUP A 2023-04-18 20:54:00 Estela Santiago [facility] RAPID INFLUENZA A/B 2023-04-18 20:54:00 Mina Santiago [facility] MR LUMBAR SPINE W WO CONTRAST 2023-04-18 15:53:25 [facility] COMPLETE WITH TRANSVAGINAL 2023-04-18 14:21:26 Singer [facility] COVID-19 (ID NOW RAPID TESTING) 2023-04-18 13:24:00 Singer [facility] BLOOD CULTURE SCREEN 2023-04-18 13:11:[address] [facility] [address] ABDOMEN PELVIS W CONTRAST 2023-04-18 13:09:00 Singer [facility] LIPASE 2023-04-18 12:52:00 [facility] COMP. METABOLIC PANEL (17447) 2023-04-18 12:52:00 Singer [facility] CBC WITH DIFF 2023-04-18 12:52:00 Singer [facility] URINALYSIS 2023-04-18 12:52:00 Singer [facility] CONSENT/REFUSAL FOR DIAGNOSIS AND TREATMENT 2023-04-18 12:00:00 Doctor Unassigned, [place] [facility] CBC WITH DIFF 2023-04-09 09:19:00 Adum, Millicent Oh [facility] CENTRAL NEURAXIAL BLOCK 2023-04-08 11:05:00 Tushar Mullen [facility] CBC WITH DIFF 2023-04-08 02:35:00 Adum, Millicent Oh [facility] HEPATITIS B SURFACE ANTIGEN 2023-04-08 02:35:00 Adum, Millicent Bush [facility] HB ABO GROUPING 2023-04-08 02:35:00 Adum, Millicent Hoover [facility] RHO (D) IMMUNE GLOBULIN 2023-04-08 02:35:00 Adum, Camryn Bush [facility] ADC OR LAURENT ONLY - RPR 2023-04-08 02:35:00 Adum, Millicent Bush [facility] HIV 1/2 AG-AB WITH REFLEX 2023-04-08 02:35:00 Adum, Millicent Bush [facility] ADC ONLY - FERN TEST 2023-04-08 00:28:00 Adum, Millicent Bush [facility] ASSIGNMENT OF BENEFITS 2023-04-07 23:11:49 Docto r Unassigned, [place] [facility] CONSENT/REFUSAL FOR DIAGNOSIS AND TREATMENT 2023-04-07 23:11:22 Doctor Unassigned, [place] [facility] DISABILITY/FMLA 2023-04-06 05:01:00 Doctor Unass igned, [place] [facility] POCT URINALYSIS W/O SPECIFIC GRAVITY 2023-04-04 00:00:00 Frederick Stephenson [facility] >14 WEEKS US LIMITED 2023-03-26 16:24:58 Frederick Stephenson [facility] DSU PRE-OP 2023-03-26 05:01:00 Doctor Unass igned, [place] [facility] POCT URINALYSIS W/O SPECIFIC GRAVITY 2023-03-26 00:00:00 Frederick Stephenson [facility] POCT URINALYSIS W/O SPECIFIC GRAVITY 2023-03-08 00:00:00 Frederick Stephenson [facility] POCT URINALYSIS W/O SPECIFIC GRAVITY 2023-02-22 00:00:00 Marilyn Arana [facility] AMYLASE 2023-02-16 20:03:00 Adum, Millicent Bush [facility] LIPASE 2023-02-16 20:03:00 Adum, Millicent Bush [facility] COMP. METABOLIC PANEL (71154) 2023-02-16 20:03:00 Adum, Millicent Bush [facility] CBC WITH DIFF 2023-02-16 20:03:00 Adum, [facility] CONSENT/REFUSAL FOR DIAGNOSIS AND TREATMENT 2023-02-16 18:08:35 Doctor Unassigned, [place] [facility] TDAP VACCINE, >11 YRS, IM 2023-02-09 16:39:30 Niurka Martinez [facility] STERILIZATION CONSENT FORM 2023-02-09 05:01:00 Doctor Unassigned, [place] [facility] POCT URINALYSIS W/O SPECIFIC GRAVITY 2023-02-09 00:00:00 Niurka Martinez [facility] CBC WITH DIFF 2023-01-18 19:31:[address] [facility] POCT URINALYSIS W/O SPECIFIC GRAVITY 2023-01-18 00:00:00 Frederick Stephenson [facility] POCT URINALYSIS W/O SPECIFIC GRAVITY 2022-12-20 00:00:00 Frederick Stephenson [facility] PATIENT FINANCIAL POLICY 2022-11-22 22:13:04 Doctor Unassigned, [place] [facility] POCT URINALYSIS W/O SPECIFIC GRAVITY 2022-11-22 00:00:00 Niurka Martinez [facility] ASSIGNMENT OF BENEFITS 2022-11-03 17:24:49 Docto r Unassigned, [place] [facility] ASSIGNMENT OF BENEFITS 2022-10-25 20:03:41 Docto r Unassigned, [place] [facility] POCT TEST 2022-10-25 00:00:00 Frederick Stephenson [facility] POCT URINALYSIS W/O SPECIFIC GRAVITY 2022-10-25 00:00:00 Frederick Stephenson [facility] Encounters Start Date/Time End Date/Time Encounter Type Admission Type Attending [facility] Care Department Encounter ID Source 2023-04-18 12:44:15 Emergency X [facility] SNS [id number] [facility] 2023-02-16 18:20:20 Outpatient P [facility] CHANDAN [id number] [facility] 2021-07-14 11:52:51 Outpatient [facility] CH[facility]AN [id number] [facility] 2021-07-14 11:26:27 Outpatient [facility] CH[facility]AN [id number] [facility] 2021-07-14 11:25:45 Outpatient P [facility] CH[facility]AN [id number] [facility] 2023-12-06 08:00:00 2023-12-06 08:00:00 Outpatient R FREDERICK STEPHENSON [facility] [id number] [facility] 2023-07-04 09:30:00 2023-07-04 09:30:00 Outpatient R FREDERICK STEPHENSON [facility] [id number] [facility] 2023-06-05 15:30:00 2023-06-05 16:11:30 Outpatient R FREDERICK STEPHENSON [facility] [id number] [facility] 2023-06-05 15:30:00 2023-06-05 16:11:30 Office Visit Frederick Stephenson [facility] 1.2.840.114 350.1.13.10 4.2.7.2.686 [id number] 134 [id number] [facility] 2023-06-05 00:00:00 2023-06-05 00:00:00 Orders Only Doctor Unassigned, [place] [facility] 1.2840.114 350.1.13.10 4.2.7.2.686 [id number] [facility] 2023-05-28 00:00:00 2023-05-28 00:00:00 Telephone Frederick Stephenson [facility] 1.2.840.114 350.1.13.10 4.2.7.2.686 [id number] 134 [id number] [facility] 2023-05-25 00:00:00 2023-05-25 00:00:00 Telephone Frederick Stephenson [facility] 1.2840.114 350.1.13.10 4.2.7.2.686 [id number] 134 [id number] [facility] 2023-05-25 00:00:00 2023-05-25 00:00:00 Patient Secure Msg Frederick Stephenson [facility] BUILDING 1.2.840.114 350.1.13.10 4.2.7.2.686 [id number] 134 [id number] [facility] 2023-05-25 00:00:00 2023-05-25 00:00:00 Orders Only Doctor Unassigned, [place] [facility] 1.2.840.114 350.1.13.10 4.2.7.2.686 [id number] [id number] [facility] 2023-05-22 14:30:00 2023-05-22 14:54:08 Outpatient R FREDERICK STEPHENSON [facility] [id number] [facility] 2023-05-22 14:30:00 2023-05-22 14:54:08 [facility] 1.2.840.114 350.1.13.10 4.2.7.2.686 [id number] 134 [id number] [facility] 2023-05-22 11:15:00 2023-05-22 13:46:00 Surgery Sachin Frederick [facility]GICAL [facility] 1.2.840.114 350.1.13.10 4.2.7.2.686 [id number] [facility] 2023-05-22 09:26:00 2023-05-22 11:58:00 Outpatient R FREDERICK STEPHENSON [facility] TRANSITIONS RN CARE COORDINATOR [id number] [facility] 2023-05-22 09:26:00 2023-05-22 11:58:00 [facility] 1.2.840.114 350.1.13.10 4.2.7.2.686 [id number] [facility] 2023-05-22 00:00:00 2023-05-22 00:00:00 Telephone Frederick Stephenson [facility] BUILDING 1.2.840.114 350.1.13.10 4.2.7.2.686 [id number] 134 [id number] [facility] 2023-05-22 00:00:00 2023-05-22 00:00:00 Orders Only Doctor Unassigned, [place] [facility] 1.2840.114 350.1.13.10 4.2.7.2.686 [id number] [id number] [facility] 2023-05-17 15:45:00 2023-05-17 15:45:00 Outpatient R SACHIN [facility] [id number] [facility] 2023-05-17 14:30:00 2023-05-17 14:47:35 Office Visit Sachin [facility] 1..840.114 350.1.13.10 4.2.7.2.686 [id number] 134 [id number] [facility] 2023-05-17 00:00:00 2023-05-17 00:00:00 Orders Only Doctor Unassigned, [place] [facility] 1.2840.114 350.1.13.10 4.2.7.2.686 [id number] [facility] 2023-05-08 16:00:00 2023-05-08 16:40:51 Outpatient R FREDERICK STEPHENSON [facility] [id number] [facility] 2023-05-08 16:00:00 2023-05-08 16:40:51 Routine Visit Sachin [facility] 1..840.114 350.1.13.10 4.2.7.2.686 [id number] 134 [id number] [facility] 2023-05-08 00:00:00 2023-05-08 00:00:00 Prep For Surgery Frederick Stephenson [facility] 1.2.840.114 350.1.13.10 4.2.7.2.686 [id number] 134 [id number] [facility] 2023-04-18 14:33:00 2023-04-18 17:27:00 Emergency Timothy Jimenez Melanie [facility] 1.2840.114 350.1.13.10 4.2.7.2.686 [id number] [facility] 2023-04-18 07:17:00 2023-04-18 13:17:00 Emergency X COLTEN SAINI [facility] ERT [id number] [facility] 2023-04-18 07:17:00 2023-04-18 13:17:00 Emergency X ESTELA SANTIAGO ESTELA [facility] ERT [id number] [facility] 2023-04-18 07:17:00 2023-04-18 13:17:00 Emergency Colten Saini [facility] 1.2840.114 350.1.13.10 4.2.7.2.686 [id number] [facility] 2023-04-11 13:15:00 2023-04-11 13:15:00 Outpatient R MILLICENT MAYORGA [facility] [id number] [facility] 2023-04-07 18:23:00 2023-04-09 16:15:00 Inpatient X MILLICENT MAYORGA [facility] CHANDAN [id number] [facility] 2023-04-07 18:23:00 2023-04-09 16:15:00 Hospital Encounter Chitra Pride Vivian L Lam, Vien Cam [facility] 1.2840.114 350.1.13.10 4.2.7.2.686 [id number] [facility] 2023-04-08 06:05:00 2023-04-08 12:37:00 Anesthesia Event Tushar Mullen S [facility] 1.2.840.114 350.1.13.10 4.2.7.2.686 [id number] [id number] [facility] 2023-04-07 22:25:09 2023-04-07 22:25:09 Anesthesia Event Tushar Mullen [facility] 1.2.840.114 350.1.13.10 4.2.7.2.686 [id number] [facility] 2023-04-07 00:00:00 2023-04-07 00:00:00 Nurse Triage Mey Prater [facility] 1.2.840.114 350.1.13.10 4.2.7.2.686 [id number] [facility] 2023-04-06 00:00:00 2023-04-06 00:00:00 Orders Only Doctor Unassigned, [place] [facility] 1.2.840.114 350.1.13.10 4.2.7.2.686 [id number] [facility] 2023-04-04 15:45:00 2023-04-04 16:38:53 Outpatient [facility] [id number] [facility] 2023-04-04 15:45:00 2023-04-04 16:00:00 Routine Visit Frederick Stephenson [facility] 1.2.840.114 350.1.13.10 4.2.7.2.686 [id number] 134 [id number] [facility] 2023-04-04 00:00:00 2023-04-04 00:00:00 Telephone Frederick Stephenson [facility] 1.2.840.114 350.1.13.10 4.2.7.2.686 [id number] 134 [id number] [facility] 2023-03-30 09:45:00 2023-03-30 11:24:45 Outpatient R FREDERICK STEPHENSON [facility] [id number] [facility] 2023-03-30 09:45:00 2023-03-30 10:00:00 Program Schedule Clerk Visit 2, Adc Lab Frederick Stephenson [facility] 1.2.840.114 350.1.13.10 4.2.7.2.686 [id number] [facility] 2023-03-27 10:00:00 2023-03-27 10:00:00 Outpatient R [facility] [id number] [facility] 2023-03-26 09:45:00 2023-03-26 11:09:31 Outpatient R FREDERICK STEPHENSON [facility] [id number] [facility] 2023-03-26 09:45:00 2023-03-26 11:09:31 Routine Visit Frederick Stephenson [facility] 1.2.840.114 350.1.13.10 4.2.7.2.686 [id number] 134 [id number] [facility] 2023-03-26 00:00:00 2023-03-26 00:00:00 Orders Only Doctor Unassigned, [place] [facility] 1.2.840.114 350.1.13.10 4.2.7.2.686 [id number] [facility] 2023-03-08 10:30:00 2023-03-08 10:43:35 Outpatient R FREDERICK STEPHENSON [facility] [id number] [facility] 2023-03-08 10:30:00 2023-03-08 10:43:35 Routine Visit Frederick Stephenson [facility] BUILDING 1.2.840.114 350.1.13.10 4.2.7.2.686 [id number] 134 [id number] [facility] 2023-02-22 11:15:00 2023-02-22 11:27:45 Outpatient R MARILYN ARANA CHERYAL [facility] [id number] [facility] 2023-02-22 11:15:00 2023-02-22 11:27:45 Routine Visit Melanizoey Marilyn [facility] 1.2840.114 350.1.13.10 4.2.7.2.686 [id number] 134 [id number] [facility] 2023-02-16 13:19:00 2023-02-16 17:47:00 Outpatient P MILLICENT MAYORGA [facility] CH[facility]AN [id number] [facility] 2023-02-16 13:19:00 2023-02-16 17:47:00 Hospital Encounter Millicent Mayorga [facility] 1.2840.114 350.1.13.10 4.2.7.2.686 [id number] [facility] 2023-02-16 00:00:00 2023-02-16 00:00:00 Telephone Frederick Stephenson [facility] 1.2840.114 350.1.13.10 4.2.7.2.686 [id number] 134 [id number] [facility] 2023-02-09 11:30:00 2023-02-09 11:48:24 Outpatient R NIURKA MARTINEZ [facility] [id number] [facility] 2023-02-09 11:30:00 2023-02-09 11:48:24 Routine Visit Niurka Martinez [facility] 1.2840.114 350.1.13.10 4.2.7.2.686 [id number] 134 [id number] [facility] 2023-02-09 00:00:00 2023-02-09 00:00:00 Orders Only Doctor Unassigned, [place] [facility] 1.2840.114 350.1.13.10 4.2.7.2.686 [id number] [id number] [facility] 2023-01-18 15:15:00 2023-01-18 15:15:00 Routine Visit Frederick Stephenson [facility] 1.2.840.114 350.1.13.10 4.2.7.2.686 [id number] 134 [id number] [facility] 2023-01-18 15:15:00 2023-01-18 15:07:06 Outpatient R FREDERICK STEPHENSON [facility] [id number] [facility] 2023-01-18 14:00:00 2023-01-18 14:15:00 Program Schedule Clerk Visit Pob, [facility] 1.2.840.114 350.1.13.10 4.2.7.2.686 [id number] 353 [id number] [facility] 2023-01-18 00:00:00 2023-01-18 00:00:00 Case [facility] 1.2.840.114 350.1.13.10 4.2.7.2.686 [id number] 134 [id number] [facility] 2022-12-20 16:00:00 2022-12-20 16:22:08 [facility] [id number] [facility] 2022-12-20 16:00:00 2022-12-20 16:22:08 Routine Visit Frederick Stephenson [facility] BU[facility]ING 1.2.840.114 350.1.13.10 4.2.7.2.686 [id number] 134 [id number] [facility] 2022-12-12 09:00:00 2022-12-12 10:00:00 Program Schedule Clerk Visit Ultrasound, Adc Deborah Pop [facility] 1.2.840.114 350.1.13.10 4.2.7.2.686 [id number] 134 [id number] [facility] 2022-12-12 09:00:00 2022-12-12 09:00:00 Outpatient P DEBORAH CAMPOS [facility] [id number] [facility] 2022-11-22 16:30:00 2022-11-22 16:34:26 Outpatient R NIURKA MARTINEZ [facility] [id number] [facility] 2022-11-22 16:30:00 2022-11-22 16:34:26 Routine Visit Jeferson Niurka [facility] 1.840.114 350.1.13.10 4.2.7.2.686 [id number] 134 [id number] [facility] 2022-11-22 00:00:00 2022-11-22 00:00:00 Orders Only Doctor Unassigned, [place] [facility] 1.2840.114 350.1.13.10 4.2.7.2.686 [id number] [facility] 2022-11-06 14:00:00 2022-11-06 14:00:00 Outpatient R SACHIN FREDERICK [facility] [id number] [facility] 2022-11-03 10:00:00 2022-11-03 13:12:26 Outpatient R FREDERICK STEPHENSON [facility] [id number] [facility] 2022-11-03 10:00:00 2022-11-03 10:15:00 Program Schedule Clerk Visit 2, Adc Lab Frederick Stephenson [facility] BUILDING 1.840.114 350.1.13.10 4.2.7.2.686 [id number] [facility] 2022-11-03 00:00:00 2022-11-03 00:00:00 Orders Only Doctor Unassigned, [place] [facility] 1.2840.114 350.1.13.10 4.2.7.2.686 [id number] [facility] 2022-10-25 14:00:00 2022-10-25 15:52:28 Initial Visit Sachin Frederick Ocampo [facility] 1.2.840.114 350.1.13.10 4.2.7.2.686 [id number] 134 [id number] [facility] 2022-10-25 14:00:00 2022-10-25 15:52:28 Outpatient Uma FREDERICK STEPHENSON [facility] [id number] [facility] 2022-10-25 00:00:00 2022-10-25 00:00:00 Orders Only Doctor Unassigned, [place] [facility] 1.2.840.114 350.1.13.10 [id number] [facility] 2020-06-14 09:00:00 2020-06-14 09:00:00 [facility] [id number] [facility] 2019-12-11 11:30:00 2019-12-11 11:30:00 [facility] [id number] [facility] 2019-12-11 08:15:31 2019-12-11 10:52:35 Telemedici ne Visit Jeferson Niur[facility] [id number] 2019-11-13 09:45:00 2019-11-13 09:45:00 [facility] [id number] [facility] 2018-08-26 10:30:00 2018-08-26 10:30:00 [facility] [place] [facility] [id number] [facility] Results Test Description Test Time Test Comments Results Resul t Comments Source TOTAL BETA HCG ASSAY 2023-05-22 16:24:57 BETA HCG<2.39Non-preg nant female and male patients: <5 mIU/mL05/22/2023 11:24 AM [facility] Gestational Age ?Range (mIU/mL) 1-10 ?Weeks ?[phone] Weeks ?12579-01381566- 22 Weeks ?1207-99012378-7 0 Weeks ?[phone] Biotin has been reported to cause a negative bias, interpret results relative to patient's use of biotin. [facility] TOTAL BETA HCG ASSAY 2023-05-22 16:24:57 BETA HCG<2.39Non-preg nant female and male patients: <5 mIU/mL05/22/2023 11:24 AM [facility] Gestational Age ?Range (mIU/mL) 1-10 ?Weeks ?[phone] Weeks ?53131-96188530- 22 Weeks ?9454-84362937-8 0 Weeks ?1531-589387 Biotin has been reported to cause a negative bias, interpret results relative to patient's use of biotin. [facility] (NA, K, CL, CO2, GLUCOSE, BUN, CREATININE, CA)2023-05-22 16:06:31* Test Item Value Reference Range Interpretation Comme nts NA (test code = 3482623677) 140 mmol/L 135-145 K (test code = 0133382012) 4.0 mmol/L 3.5-5.0 CL (test code = 3515480374) 103 mmol/L 98-108 CO2 TOTAL (test code = 6753347875) 29 mmol/L 23-31 AGAP (test code = 2088958829) 8 2-16 BUN (test code = 7037436462) 16 mg/dL 7-23 GLUCOSE (test code = 7384064730) 83 mg/dL 70-110 CREATININE (test code = 6991211818) 0.62 mg/dL 0.50-1.04 CALCIUM (test code = 3105170870) 9.5 mg/dL 8.6-10.6 eGFR (test code = 6663236920) 119.3 mL/min/1.73m2 ALANNAH (test code = ALANNAH) Association of Glomerular Filtration Rate (GFR) and Staging of Kidney Disease* + + +- +| GFR (mL/min/1.73 m2) ?| With Kidney Damage ?| ?Without Kidney Damage+ ------+ ----+ ------+| ?>90 ?| ?Stage one ?| ? Normal ?+ -+ + -+| ?60-89 ?| ?Stage two ?| ? Decreased GFR ? + + +- +| ?30-59 ?| ?Stage three ?| ? Stage three ? + + +- +| ?15-29 ?| ?Stage four ? | ? Stage four ?+ -+ + -+| ?<15 (or dialysis) ? ?| ?Stage five ? | ? Stage five ?+ -+ + -+ *Each stage assumes the associated GFR level has been in effect for at least three months. ?Stages 1 to 5, with or without kidney disease, indicate chronic kidney disease. Notes: Determination of stages one and two (with eGFR >59mL/min/1.73 m2) requires estimation of kidney damage for at least three months as defined by structural or functional abnormalities of the kidney, manifested by either:Pathological abnormalities or Markers of kidney damage (including abnormalities in the composition of the blood or urine or abnormalities in imaging tests). [facility]2023-[facility]-22 15:34:43* Test Item Value Reference Range Interpretation Comme [facility] HGB A1C (test code = 4548-4) 5.1 % 4.0-5.7 ALANNAH (test code = ALANNAH) Reference RangesNormal: <5.7%Prediabetes: 5.7 - 6.4%Diabetes: > 6.5% Lab Interpretation (test code = 38477-2) Normal [facility]2023-05-22 15:34:43* Test Item Value Reference Range Interpretation Comme nts HGB A1C (test code = 4548-4) 5.1 % 4.0-5.7 ALANNAH (test code = ALANNAH) Reference RangesNormal: <5.7%Prediabetes: 5.7 - 6.4%Diabetes: > 6.5% Lab Interpretation (test code = 77133-0) Normal [facility] WITH [id number] 14:50:42* Test Item Value Reference Range Interpretation Comme nts WBC (test code = 6690-2) 7.45 See_Comment [Automated messa ge] The system which generated this result transmitted reference range: 4.30 - 11.10 10*3/?L. The reference range was not used to interpret this result as normal/abnormal. RBC (test code = 789-8) 5.01 See_Comment [Automated messa ge] The system which generated this result transmitted reference range: 3.93 - 5.25 10*6/?L. The reference range was not used to interpret this result as normal/abnormal. HGB (test code = 718-7) 12.1 g/dL 11.6-15.0 HCT (test code = 4544-3) 38.4 % 35.7-45.2 MCV (test code = 787-2) 76.6 fL 80.6-95.5 L MCH (test code = 785-6) 24.2 pg 25.9-32.8 L MCHC (test code = 786-4) 31.5 g/dL 31.6-35.1 L RDW-SD (test code = 36964-1) 49.1 fL 39.0-49.9 RDW-CV (test code = 788-0) 18.0 % 12.0-15.5 H PLT (test code = 777-3) 290 See_Comment [Automated messa ge] The system which generated this result transmitted reference range: 166 - 358 10*3/?L. The reference range was not used to interpret this result as normal/abnormal. MPV (test code = 74026-9) 9.0 fL 9.5-12.9 L NRBC/100 WBC (test code = 5824231991) 0.0 See_Comment [Automated me ssage] The system which generated this result transmitted reference range: 0.0 - 10.0 /100 WBCs. The reference range was not used to interpret this result as normal/abnormal. NRBC x10^3 (test code = 3456347453) See_Comment [Automated messa ge] The system which generated this result transmitted reference range: 10*3/?L. The reference range was not used to interpret this result as normal/abnormal. GRAN MAT (NEUT) % (test code = 770-8) 42.6 % IMM GRAN % (test code = 7315338163) 0.40 % LYMPH % (test code = 736-9) 48.7 % MONO % (test code = 5905-5) 6.2 % EOS % (test code = 713-8) 1.6 % BASO % (test code = 706-2) 0.5 % GRAN MAT x10^3(ANC) (test code = 5162061400) 3.17 10*3/uL 1.88-7.09 IMM GRAN x10^3 (test code = 1934971483) 0.03 10*3/uL 0.00-0.06 LYMPH x10^3 (test code = 731-0) 3.63 10*3/uL 1.32-3.29 H MONO x10^3 (test code = 742-7) 0.46 10*3/uL 0.33-0.92 EOS x10^3 (test code = 711-2) 0.12 10*3/uL 0.03-0.39 BASO x10^3 (test code = 704-7) 0.04 10*3/uL 0.01-0.07 Lab Interpretation (test code = 75344-5) Abnormal [facility] WITH [id number] 14:50:42* Test Item Value Reference Range Interpretation Comme nts WBC (test code = 6690-2) 7.45 See_Comment [Automated messa ge] The system which generated this result transmitted reference range: 4.30 - 11.10 10*3/?L. The reference range was not used to interpret this result as normal/abnormal. RBC (test code = 789-8) 5.01 See_Comment [Automated messa ge] The system which generated this result transmitted reference range: 3.93 - 5.25 10*6/?L. The reference range was not used to interpret this result as normal/abnormal. HGB (test code = 718-7) 12.1 g/dL 11.6-15.0 HCT (test code = 4544-3) 38.4 % 35.7-45.2 MCV (test code = 787-2) 76.6 fL 80.6-95.5 L MCH (test code = 785-6) 24.2 pg 25.9-32.8 L MCHC (test code = 786-4) 31.5 g/dL 31.6-35.1 L RDW-SD (test code = 92741-9) 49.1 fL 39.0-49.9 RDW-CV (test code = 788-0) 18.0 % 12.0-15.5 H PLT (test code = 777-3) 290 See_Comment [Automated messa ge] The system which generated this result transmitted reference range: 166 - 358 10*3/?L. The reference range was not used to interpret this result as normal/abnormal. MPV (test code = 03918-9) 9.0 fL 9.5-12.9 L NRBC/100 WBC (test code = 5925572606) 0.0 See_Comment [Automated KIXEYE ssage] The system which generated this result transmitted reference range: 0.0 - 10.0 /100 WBCs. The reference range was not used to interpret this result as normal/abnormal. NRBC x10^3 (test code = 3871373021) See_Comment [Automated LawBitea ge] The system which generated this result transmitted reference range: 10*3/?L. The reference range was not used to interpret this result as normal/abnormal. GRAN MAT (NEUT) % (test code = 770-8) 42.6 % IMM GRAN % (test code = 3139193499) 0.40 % LYMPH % (test code = 736-9) 48.7 % MONO % (test code = 5905-5) 6.2 % EOS % (test code = 713-8) 1.6 % BASO % (test code = 706-2) 0.5 % GRAN MAT x10^3(ANC) (test code = 8857920877) 3.17 10*3/uL 1.88-7.09 IMM GRAN x10^3 (test code = 8198599748) 0.03 10*3/uL 0.00-0.06 LYMPH x10^3 (test code = 731-0) 3.63 10*3/uL 1.32-3.29 H MONO x10^3 (test code = 742-7) 0.46 10*3/uL 0.33-0.92 EOS x10^3 (test code = 711-2) 0.12 10*3/uL 0.03-0.39 BASO x10^3 (test code = 704-7) 0.04 10*3/uL 0.01-0.07 Lab Interpretation (test code = 63144-6) Abnormal [facility] and Screen -2023-05-22 14:45:00* Test Item Value Reference Range Interpretation Comme nts ABO & RH (test code = 20) O Positive IAT (test code = 1185) Negative [facility] and Screen -2023-05-22 14:45:00* Test Item Value Reference Range Interpretation Comme nts ABO & RH (test code = 20) O Positive IAT (test code = 1185) Negative [facility] [id number] 14:43:00* Test Item Value Reference Range Interpretation Comme nts POCT PREG (test code = 1605) Negative On board controls acceptable with C Line (test code = 3574) Yes POCT PREG LOT # (test code = 3575) [id number] POCT PREG TEST DATE ( test code = 3576) 2024 [facility] [id number] 14:43:00* Test Item Value Reference Range Interpretation Comme nts POCT PREG (test code = 1605) Negative On board controls acceptable with C Line (test code = 3574) Yes POCT PREG LOT # (test code = 3575) [id number] POCT PREG TEST DATE ( test code = 3576) 2024 [facility] HospitalSEDIMENTATION [id number] 21:33:02* Test Item Value Reference Range Interpretation Comme nts ESR (test code = 41549-1) 22 See_Comment H [Automated messa ge] The system which generated this result transmitted reference range: 0 - 20 mm/HR. The reference range was not used to interpret this result as normal/abnormal. Lab Interpretation (test code = 25414-0) Abnormal [facility]-REACTIVE [id number] 21:24:14* Test Item Value Reference Range Interpretation Comme nts CRP (test code = 3933695008) 6.1 mg/dL <=1.0 H Lab Interpretation (test cod e = 44303-2) Abnormal [facility] (09884)2023-04-18 13:27:41* Test Item Value Reference Range Interpretation Comme nts NA (test code = 5162665027) 140 mmol/L 135-145 K (test code = 9842834391) 3.8 mmol/L 3.5-5.0 CL (test code = 5768694117) 103 mmol/L 98-108 CO2 TOTAL (test code = 1314068848) 30 mmol/L 23-31 AGAP (test code = 8861152120) 7 2-16 BUN (test code = 4881774481) 11 mg/dL 7-23 GLUCOSE (test code = 8707802121) 97 mg/dL 70-110 CREATININE (test code = 8841283887) 0.63 mg/dL 0.50-1.04 TOTAL BILI (test code = 0354946146) 0.4 mg/dL 0.1-1.1 CALCIUM (test code = 3251108419) 8.9 mg/dL 8.6-10.6 T PROTEIN (test code = 1881179955) 7.1 g/dL 6.3-8.2 ALBUMIN (test code = 1969278293) 3.8 g/dL 3.5-5.0 ALK PHOS (test code = 8157047148) 109 U/L 34-122 ALTv (test code = 1742-6) 18 U/L 5-35 AST(SGOT) (test code = 1575334086) 18 U/L 13-40 eGFR (test code = 5929502695) 117.1 mL/min/1.73m2 ALANNAH (test code = ALANNAH) Association of Glomerular Filtration Rate (GFR) and Staging of Kidney Disease* + + +- +| GFR (mL/min/1.73 m2) ?| With Kidney Damage ?| ?Without Kidney Damage+ ------+ ----+ ------+| ?>90 ?| ?Stage one ?| ? Normal ?+ -+ + -+| ?60-89 ?| ?Stage two ?| ? Decreased GFR ? + + +- +| ?30-59 ?| ?Stage three ?| ? Stage three ? + + +- +| ?15-29 ?| ?Stage four ? | ? Stage four ?+ -+ + -+| ?<15 (or dialysis) ? ?| ?Stage five ? | ? Stage five ?+ -+ + -+ *Each stage assumes the associated GFR level has been in effect for at least three months. ?Stages 1 to 5, with or without kidney disease, indicate chronic kidney disease. Notes: Determination of stages one and two (with eGFR >59mL/min/1.73 m2) requires estimation of kidney damage for at least three months as defined by structural or functional abnormalities of the kidney, manifested by either:Pathological abnormalities or Markers of kidney damage (including abnormalities in the composition of the blood or urine or abnormalities in imaging tests). [facility] 13:26:56* Test Item Value Reference Range Interpretation Comme nts LIPASE (test code = 8270530668) 50 U/L 0-220 Lab Interpretation (test cod e = 99036-6) Normal [facility] WITH [id number] 13:15:39* Test Item Value Reference Range Interpretation Comme nts WBC (test code = 6690-2) 11.17 See_Comment H [Automated MaXware] The system which generated this result transmitted reference range: 4.30 - 11.10 10*3/?L. The reference range was not used to interpret this result as normal/abnormal. RBC (test code = 789-8) 4.49 See_Comment [Automated LawBitea Marfeel] The system which generated this result transmitted reference range: 3.93 - 5.25 10*6/?L. The reference range was not used to interpret this result as normal/abnormal. HGB (test code = 718-7) 11.0 g/dL 11.6-15.0 L HCT (test code = 4544-3) 34.8 % 35.7-45.2 L MCV (test code = 787-2) 77.5 fL 80.6-95.5 L MCH (test code = 785-6) 24.5 pg 25.9-32.8 L MCHC (test code = 786-4) 31.6 g/dL 31.6-35.1 RDW-SD (test code = 05298-3) 41.2 fL 39.0-49.9 RDW-CV (test code = 788-0) 14.8 % 12.0-15.5 PLT (test code = 777-3) 344 See_Comment [Automated [employer]ite[employer] Marfeel] The system which generated this result transmitted reference range: 166 - 358 10*3/?L. The reference range was not used to interpret this result as normal/abnormal. MPV (test code = 98467-5) 8.9 fL 9.5-12.9 L NRBC/100 WBC (test code = 4088156159) 0.0 See_Comment [Automated KIXEYE ssage] The system which generated this result transmitted reference range: 0.0 - 10.0 /100 WBCs. The reference range was not used to interpret this result as normal/abnormal. NRBC x10^3 (test code = 3804689699) See_Comment [Automated [employer]ite[employer] Marfeel] The system which generated this result transmitted reference range: 10*3/?L. The reference range was not used to interpret this result as normal/abnormal. GRAN MAT (NEUT) % (test code = 770-8) 77.3 % IMM GRAN % (test code = 8095221687) 0.40 % LYMPH % (test code = 736-9) 18.1 % MONO % (test code = 5905-5) 3.8 % EOS % (test code = 713-8) 0.1 % BASO % (test code = 706-2) 0.3 % GRAN MAT x10^3(ANC) (test code = 3728473165) 8.64 10*3/uL 1.88-7.09 H IMM GRAN x10^3 (test code = 1578843064) 0.05 10*3/uL 0.00-0.06 LYMPH x10^3 (test code = 731-0) 2.02 10*3/uL 1.32-3.29 MONO x10^3 (test code = 742-7) 0.42 10*3/uL 0.33-0.92 EOS x10^3 (test code = 711-2) 0.03-0.39 L BASO x10^3 (test code = 704-7) 0.03 10*3/uL 0.01-0.07 Lab Interpretation (test code = 45088-8) Abnormal [facility] with [id number] 09:44:42* Test Item Value Reference Range Interpretation Comme nts WBC (test code = 6690-2) 11.41 See_Comment H [Automated messa ge] The system which generated this result transmitted reference range: 4.30 - 11.10 10*3/?L. The reference range was not used to interpret this result as normal/abnormal. RBC (test code = 789-8) 3.63 See_Comment L [Automated messa ge] The system which generated this result transmitted reference range: 3.93 - 5.25 10*6/?L. The reference range was not used to interpret this result as normal/abnormal. HGB (test code = 718-7) 8.9 g/dL 11.6-15.0 L HCT (test code = 4544-3) 28.3 % 35.7-45.2 L MCV (test code = 787-2) 78.0 fL 80.6-95.5 L MCH (test code = 785-6) 24.5 pg 25.9-32.8 L MCHC (test code = 786-4) 31.4 g/dL 31.6-35.1 L RDW-SD (test code = 45461-7) 41.4 fL 39.0-49.9 RDW-CV (test code = 788-0) 14.7 % 12.0-15.5 PLT (test code = 777-3) 202 See_Comment [Automated messa ge] The system which generated this result transmitted reference range: 166 - 358 10*3/?L. The reference range was not used to interpret this result as normal/abnormal. MPV (test code = 13715-0) 9.4 fL 9.5-12.9 L NRBC/100 WBC (test code = 8710452479) 0.0 See_Comment [Automated me ssage] The system which generated this result transmitted reference range: 0.0 - 10.0 /100 WBCs. The reference range was not used to interpret this result as normal/abnormal. NRBC x10^3 (test code = 0812016546) See_Comment [Automated messa ge] The system which generated this result transmitted reference range: 10*3/?L. The reference range was not used to interpret this result as normal/abnormal. GRAN MAT (NEUT) % (test code = 770-8) 63.6 % IMM GRAN % (test code = 5418321991) 0.40 % LYMPH % (test code = 736-9) 29.4 % MONO % (test code = 5905-5) 5.8 % EOS % (test code = 713-8) 0.6 % BASO % (test code = 706-2) 0.2 % GRAN MAT x10^3(ANC) (test code = 7444098430) 7.26 10*3/uL 1.88-7.09 H IMM GRAN x10^3 (test code = 1454355650) 0.05 10*3/uL 0.00-0.06 LYMPH x10^3 (test code = 731-0) 3.35 10*3/uL 1.32-3.29 H MONO x10^3 (test code = 742-7) 0.66 10*3/uL 0.33-0.92 EOS x10^3 (test code = 711-2) 0.07 10*3/uL 0.03-0.39 BASO x10^3 (test code = 704-7) 0.01-0.07 Lab Interpretation (test code = 20534-9) Abnormal [facility] OR LAURENT ONLY - [id number] 05:58:44* Test Item Value Reference Range Interpretation Comme nts RPR (Qualitative) (test code = 38197-0) Nonreactive Nonreactive Lab Interpretation (test cod e = 43050-8) Normal [facility] IMMUNE [id number] 16:59:59* Test Item Value Reference Range Interpretation Comme nts RHIG CANDIDATE? (test code = 5188) No- see comment Patient is not a candidate for RhIg- Patient is Rh Positive.Performed at [facility] Laboratory Services - [facility] Blood [address] [place] [id number] Free: [phone] No. [id number] [facility] HospitalHepatitis B Surface [id number] 06:23:10 * Test Item Value Reference Range Interpretation Comme nts HBsAg Semi-Quantitative (manolo t code = 5195-3) 0.09 Negative [facility]HIV [facility]2 AG-AB WITH [id number] 04:55:26* Test Item Value Reference Range Interpretation Comme nts HIV Semi-quantitative (test code = 31983-7) 0.27 Negative ALANNAH (test code = ALANNAH) Non-reactive for HIV-1 antigen and HIV-1/HIV-2 antibodies. ?No laboratory evidence of HIV infection. ?Repeat in 2-4 weeks if acute HIV infection is suspected. [facility] with [id number] 03:00:42* Test Item Value Reference Range Interpretation Comme nts WBC (test code = 6690-2) 10.65 See_Comment [Automated LawBitea ge] The system which generated this result transmitted reference range: 4.30 - 11.10 10*3/?L. The reference range was not used to interpret this result as normal/abnormal. RBC (test code = 789-8) 3.92 See_Comment L [Automated LawBitea ge] The system which generated this result transmitted reference range: 3.93 - 5.25 10*6/?L. The reference range was not used to interpret this result as normal/abnormal. HGB (test code = 718-7) 9.6 g/dL 11.6-15.0 L HCT (test code = 4544-3) 30.5 % 35.7-45.2 L MCV (test code = 787-2) 77.8 fL 80.6-95.5 L MCH (test code = 785-6) 24.5 pg 25.9-32.8 L MCHC (test code = 786-4) 31.5 g/dL 31.6-35.1 L RDW-SD (test code = 74649-9) 41.0 fL 39.0-49.9 RDW-CV (test code = 788-0) 14.6 % 12.0-15.5 PLT (test code = 777-3) 234 See_Comment [Automated messa ge] The system which generated this result transmitted reference range: 166 - 358 10*3/?L. The reference range was not used to interpret this result as normal/abnormal. MPV (test code = 46675-2) 9.4 fL 9.5-12.9 L NRBC/100 WBC (test code = 1290146963) 0.0 See_Comment [Automated KIXEYE ssage] The system which generated this result transmitted reference range: 0.0 - 10.0 /100 WBCs. The reference range was not used to interpret this result as normal/abnormal. NRBC x10^3 (test code = 7717569044) See_Comment [Automated messa ge] The system which generated this result transmitted reference range: 10*3/?L. The reference range was not used to interpret this result as normal/abnormal. GRAN MAT (NEUT) % (test code = 770-8) 59.1 % IMM GRAN % (test code = 5092804126) 0.60 % LYMPH % (test code = 736-9) 34.1 % MONO % (test code = 5905-5) 5.2 % EOS % (test code = 713-8) 0.7 % BASO % (test code = 706-2) 0.3 % GRAN MAT x10^3(ANC) (test code = 8790099706) 6.31 10*3/uL 1.88-7.09 IMM GRAN x10^3 (test code = 4888255616) 0.06 10*3/uL 0.00-0.06 LYMPH x10^3 (test code = 731-0) 3.63 10*3/uL 1.32-3.29 H MONO x10^3 (test code = 742-7) 0.55 10*3/uL 0.33-0.92 EOS x10^3 (test code = 711-2) 0.07 10*3/uL 0.03-0.39 BASO x10^3 (test code = 704-7) 0.03 10*3/uL 0.01-0.07 Lab Interpretation (test code = 58990-9) Abnormal [facility] - ONCE [id number] 02:54:00* Test Item Value Reference Range Interpretation Comme nts ABO & RH (test code = 20) O Positive IAT (test code = 1185) Negative [facility] W/O SPECIFIC [id number] 21:01:00* Test Item Value Reference Range Interpretation Comme nts POCT PH U (test code = 3254) n/a 5-8 POCT U LEUK EST (test code = 3263) n/ Negative - Negative POCT U NIT (test code = 3262) n/a Negative - Negati ve POCT U PROT (test code = 3259) Negative Negative - Negat isaura POCT U GLU (test code = 3256) Normal Negative - Negati ve POCT U KETONE (test code = 3258) n/a Negative - Neg ative POCT U BLD (test code = 3257) n/a Negative - Negati ve [facility] W/O SPECIFIC [id number] 15:13:00* Test Item Value Reference Range Interpretation Comme nts POCT PH U (test code = 3254) n/a 5-8 POCT U LEUK EST (test code = 3263) n/a Negative - Negative POCT U NIT (test code = 3262) n/a Negative - Negati ve POCT U PROT (test code = 3259) negative Negative - Negat isaura POCT U GLU (test code = 3256) negative Negative - Negati ve POCT U KETONE (test code = 3258) n/a Negative - Neg ative POCT U BLD (test code = 3257) n/a Negative - Negati ve [facility] W/O SPECIFIC [id number] 15:13:00* Test Item Value Reference Range Interpretation Comme nts POCT PH U (test code = 3254) n/a 5-8 POCT U LEUK EST (test code = 3263) n/a Negative - Negative POCT U NIT (test code = 3262) n/a Negative - Negati ve POCT U PROT (test code = 3259) negative Negative - Negat isaura POCT U GLU (test code = 3256) negative Negative - Negati ve POCT U KETONE (test code = 3258) n/a Negative - Neg ative POCT U BLD (test code = 3257) n/a Negative - Negati ve [facility] URINALYSIS W/O SPECIFIC [id number] 15:21:00* Test Item Value Reference Range Interpretation Comme nts POCT PH U (test code = 3254) n/a 5-8 POCT U LEUK EST (test code = 3263) n/a Negative - Negative POCT U NIT (test code = 3262) n/a Negative - Negati ve POCT U PROT (test code = 3259) negative Negative - Negat isaura POCT U GLU (test code = 3256) negative Negative - Negati ve POCT U KETONE (test code = 3258) n/a Negative - Neg ative POCT U BLD (test code = 3257) n/a Negative - Negati ve [facility] URINALYSIS W/O SPECIFIC [id number] 16:14:00* Test Item Value Reference Range Interpretation Comme nts POCT PH U (test code = 3254) N/A 5-8 POCT U LEUK EST (test code = 3263) N/A Negative - Negative POCT U NIT (test code = 3262) N/A Negative - Negati ve POCT U PROT (test code = 3259) Negative Negative - Negat isaura POCT U GLU (test code = 3256) Negative Negative - Negati ve POCT U KETONE (test code = 3258) N/A Negative - Neg ative POCT U BLD (test code = 3257) N/A Negative - Negati ve [facility] URINALYSIS W/O SPECIFIC [id number] 16:28:00* Test Item Value Reference Range Interpretation Comme nts POCT PH U (test code = 3254) n/a 5-8 POCT U LEUK EST (test code = 3263) n/a Negative - Negative POCT U NIT (test code = 3262) n/a Negative - Negati ve POCT U PROT (test code = 3259) negative Negative - Negat isaura POCT U GLU (test code = 3256) negatie Negative - Negati ve POCT U KETONE (test code = 3258) n/a Negative - Neg ative POCT U BLD (test code = 3257) n/a [facility] [id number] 16:28:00* Test Item Value Reference Range Interpretation Comme nts POCT PH U (test code = 3254) n/a 5-8 POCT U LEUK EST (test code = 3263) n/a Negative - Negative POCT U NIT (test code = 3262) n/a Negative - Negati ve POCT U PROT (test code = 3259) negative Negative - Negat isaura POCT U GLU (test code = 3256) negatie Negative - Negati ve POCT U KETONE (test code = 3258) n/a Negative - Neg ative POCT U BLD (test code = 3257) n/a Negative - Negati ve [facility] [id number] 20:18:13* Test Item Value Reference Range Interpretation Comme nts WBC (test code = 6690-2) 9.37 See_Comment [Automated messa ge] The system which generated this result transmitted reference range: 4.30 - 11.10 10*3/?L. The reference range was not used to interpret this result as normal/abnormal. RBC (test code = 789-8) 3.70 See_Comment L [Automated messa ge] The system which generated this result transmitted reference range: 3.93 - 5.25 10*6/?L. The reference range was not used to interpret this result as normal/abnormal. HGB (test code = 718-7) 10.4 g/dL 11.6-15.0 L HCT (test code = 4544-3) 32.8 % 35.7-45.2 L MCV (test code = 787-2) 88.6 fL 80.6-95.5 MCH (test code = 785-6) 28.1 pg 25.9-32.8 MCHC (test code = 786-4) 31.7 g/dL 31.6-35.1 RDW-SD (test code = 66901-4) 41.3 fL 39.0-49.9 RDW-CV (test code = 788-0) 12.9 % 12.0-15.5 PLT (test code = 777-3) 235 See_Comment [Automated messa ge] The system which generated this result transmitted reference range: 166 - 358 10*3/?L. The reference range was not used to interpret this result as normal/abnormal. MPV (test code = 81311-6) 9.6 fL 9.5-12.9 NRBC/100 WBC (test code = 2299345429) 0.0 See_Comment [Automated me ssage] The system which generated this result transmitted reference range: 0.0 - 10.0 /100 WBCs. The reference range was not used to interpret this result as normal/abnormal. NRBC x10^3 (test code = 4980716092) See_Comment [Automated messa ge] The system which generated this result transmitted reference range: 10*3/?L. The reference range was not used to interpret this result as normal/abnormal. GRAN MAT (NEUT) % (test code = 770-8) 72.6 % IMM GRAN % (test code = 2354914281) 0.70 % LYMPH % (test code = 736-9) 21.2 % MONO % (test code = 5905-5) 4.7 % EOS % (test code = 713-8) 0.4 % BASO % (test code = 706-2) 0.4 % GRAN MAT x10^3(ANC) (test code = 2140311524) 6.79 10*3/uL 1.88-7.09 IMM GRAN x10^3 (test code = 7031966898) 0.07 10*3/uL 0.00-0.06 H LYMPH x10^3 (test code = 731-0) 1.99 10*3/uL 1.32-3.29 MONO x10^3 (test code = 742-7) 0.44 10*3/uL 0.33-0.92 EOS x10^3 (test code = 711-2) 0.04 10*3/uL 0.03-0.39 BASO x10^3 (test code = 704-7) 0.04 10*3/uL 0.01-0.07 Lab Interpretation (test code = 14104-3) Abnormal [facility] URINALYSIS W/O SPECIFIC [id number] 19:51:00* Test Item Value Reference Range Interpretation Comme nts POCT PH U (test code = 3254) n/a 5-8 POCT U LEUK EST (test code = 3263) n/a Negative - Negative POCT U NIT (test code = 3262) n/a Negative - Negati ve POCT U PROT (test code = 3259) Negative Negative - Negat isaura POCT U GLU (test code = 3256) Normal Negative - Negati ve POCT U KETONE (test code = 3258) n/a Negative - Neg ative POCT U BLD (test code = 3257) n/a Negative - Negati ve [facility] URINALYSIS W/O SPECIFIC [id number] 21:09:00* Test Item Value Reference Range Interpretation Comme nts POCT PH U (test code = 3254) n/a 5-8 POCT U LEUK EST (test code = 3263) n/a Negative - Negative POCT U NIT (test code = 3262) n/a Negative - Negati ve POCT U PROT (test code = 3259) Negative Negative - Negat isaura POCT U GLU (test code = 3256) Normal Negative - Negati ve POCT U KETONE (test code = 3258) n/a Negative - Neg ative POCT U BLD (test code = 3257) n/a Negative - Negati ve [facility] URINALYSIS W/O SPECIFIC [id number] 22:34:00* Test Item Value Reference Range Interpretation Comme nts POCT PH U (test code = 3254) n/a 5-8 POCT U LEUK EST (test code = 3263) n/a Negative - Negative POCT U NIT (test code = 3262) n/a Negative - Negati ve POCT U PROT (test code = 3259) Negative Negative - Negat isaura POCT U GLU (test code = 3256) Negative Negative - Negati ve POCT U KETONE (test code = 3258) n/a Negative - Neg ative POCT U BLD (test code = 3257) n/a Negative - Negati ve [facility] [id number] 20:36:00* Test Item Value Reference Range Interpretation Comme nts POCT PREG (test code = 1605) Positive On board controls acceptable with C Line (test code = 3574) Yes POCT PREG LOT # (test code = 3575) POCT PREG TEST DATE ( test code = 3576) [facility] URINALYSIS W/O SPECIFIC [id number] 20:35:00* Test Item Value Reference Range Interpretation Comme nts POCT PH U (test code = 3254) 5 mg/dl 5-8 POCT U LEUK EST (test code = 3263) ++ Negative - Negative POCT U NIT (test code = 3262) NEGATIVE Negative - Negati ve POCT U PROT (test code = 3259) NEGATIVE Negative - Negat isaura POCT U GLU (test code = 3256) NORMAL Negative - Negati ve POCT U KETONE (test code = 3258) NEGATIVE Negative - Neg ative POCT U BLD (test code = 3257) 250 Negative - Negati ve [facility], NAAT, [id number] 09:12:04* Test Item Value Reference Range Interpretation Comme nts GONORRHEA, NAAT (test code = 01340) NEGATIVE NEGATIVE IMPORTANT NO EDER: SEE ANNOUNCEMENT AT [email or web address] Note: Assay methodology is nucleic acid amplification by yard cleaner mediated amplification (TMA) utilizing the Aptima Combo 2 Assay. CHLAMYDIA, NAAT (test code = 42877) NEGATIVE NEGATIVE IMPORTANT NO EDER: SEE ANNOUNCEMENT AT [email or web address] Note: Assay methodology is nucleic acid amplification by yard cleaner mediated amplification (TMA) utilizing the Aptima Combo 2 Assay. [id number] 06:13:09* Test Item Value Reference Range Interpretation Comme nts RPR RESULT (test code = 3501) NON-REACTIVE NON-REACTIVE RPR TITER (test code = 3500) NOT INDIC. TITER NOT INDIC. UNLESS OTHERWISE INDICATED, ALL TESTING PERFORMED [facility] [address] [place] [id number] BINDING MACHINE OPERATOR: SANJUANITA PRICE M.D. [place] NUMBER [id number] [facility] [place]. [id number] HEPATITIS PANEL, [id number] 05:33:05* Test Item Value Reference Range Interpretation Comme nts HEPATITIS A IgM (test code = 14166) NON-REACTIVE NON-REACTIVE HEPATITIS B CORE IgM (test code = 4644) NON-REACTIVE NON-REACTIVE HEPATITIS B SURF AG (test code = 2739) NON-REACTIVE NON-REACTIVE HEPATITIS C ANTIBODY (test code = 4675) NON-REACTIVE NON-REACTIVE INTERPRETATION HEPATITIS A: (test code = 2552) (NOTE) Hepatitis A serology shows no evidence of acute hepatitis A. INTERPRETATION HEPATITIS B: (test code = 57886) (NOTE) Hepatitis B serology shows no evidence of acute hepatitis B andno indication of exposure to hepatitis B virus in the previous idalia eight months. INTERPRETATION HEPATITIS C: (test code = 22794) (NOTE) Hepatitis C serology shows no evidence of exposure to hepatitisC virus at this time. It can take up to 12 months after exposure tothe hepatitis C virus for antibodies to become detectable in the blood in certain patients. HIV 1/2 4TH GEN, RFLX [id number] 05:33:05* Test Item Value Reference Range Interpretation Comme nts HIV 1/2 4TH GEN, RFLX CONF ( test code = 3514) NON-REACTIVE NON-REACTIVE Consult Notes Date/Time Note Provider Source 2023-04-18 16:29:34 Associated Order(s): CONSULT GREETER TRANSITIONS RN CARE COORDINATOR CONSULT REPORT Date of Service: 04/18/2023 Name: Kathie Bah #: [id number] Requesting Physician: JANUSZ Santiago PCP: PATIENT DOES NOT HAVE A PCP CHIEF COMPLAINT: We were asked to see this patient to give opinion regarding Kathie Bah, 22 year old, with chief complaints of Headache and Back Pain . HISTORY OF PRESENT ILLNESS: Kathie Bah is a 22 year old with recent uncomplicated vaginal delivery on 04/08/23 who presents to ED with c/o fever and back pain and headache. She initially presented to [facility] ED where there were concerns for epidural abscess. Says she had epidural and delivered relatively quickly afterwards. Says delivery was uncomplicated and was doing well and discharged home. She then reports worsening GARCIA and back pain, only mildly improved with OTC meds. Then started to develop fever this morning 101F, took some OTC meds and repeated temp and it was 102F. She presented to [facility] and had concern for possible epidural abscess and was transferred to [facility]. Says GARCIA better but still having some upper back pain. Denies heavy vaginal bleeding. Denies pelvic pain. Denies foul smelling discharge. Is , notices fullness but hasn't noticed any difficulty . Hasn't noticed redness on breasts. Denies urinary symptoms. OB History Para Term AB Living 2 2 2 0 0 2 SAB IAB Ectopic Multiple Live Births 0 0 0 0 2 Last menstrual period: Patient's last menstrual period was 07/12/2022. ALLERGIES: Pcn [penicillins] MEDICATIONS: Current Facility-Administered Medications Medication Dose Route Frequency Last Rate Last Admin gentamicin 360 mg in NaCl 0.9% (NS) 250 mL IV infusion 5 mg/kg (Adjusted) IV Infusion ONCE piperacillin-tazobactam (ZOSYN) 3.375 g in NaCl 0.9% (NS) 100 mL MINI-BAG 3.375 g IV Piggyback ONCE Current Outpatient Medications Medication Sig Dispense Refill docusate 100 mg capsule Take 2 capsules by mouth once daily as needed for Constipation. 60 capsule 1 ferrous sulfate 325 mg (65 mg iron) tablet Take 1 tablet by mouth in the morning and 1 tablet in the evening. 60 tablet 2 ibuprofen 600 mg tablet Take 1 tablet by mouth every 6 (six) hours as needed (Pain). Take with food or milk. 60 tablet 1 vitamin w/FA tablet Take 1 tablet by mouth in the morning. 100 tablet 3 HISTORY: Past Medical History: Diagnosis Date Anemia Family History Problem Relation Age of Onset [...] Specified) Past Surgical History: Procedure Laterality Date INSERT CERVICAL DILATOR 11/18/2019 TONSILLECTOMY @ age 6 Social History Socioeconomic History Marital status: Single Tobacco Use Smoking status: Never Passive exposure: Never Smokeless tobacco: Never Vaping Use Vaping Use: Never used Substance and Sexual Activity Alcohol use: Not Currently Drug use: Never Sexual activity: Yes Partners: Male control/protection: None Social History Narrative Denies domestic or physical violence within the home Pentecostalism Preference; Temple Cat outside / no litter box Social History Substance and Sexual Activity Sexual Activity Yes Partners: Male control/protection: None Patient Active Problem List Diagnosis Obesity (BMI 30-39.9) High-risk in third trimester Liveborn , of ryan , born in hospital by vaginal delivery Full-term premature rupture of membranes 38 weeks gestation of Anemia during in third trimester ROS: Constitutional: fever Eyes: negative ENT/Mouth: headaches Cardiovascular: negative Respiratory: negative Gastrointestinal: negative Genitourinary: negative Musculoskeletal: negative Skin/breast: negative Neurological: negative Psychiatric: negative Endocrine: negative Hemat/Lymph: negative Allergic/Immuno: none PHYSICAL EXAM: Vitals: Vitals: 04/18/23 1418 04/18/23 1500 BP: 110/68 123/71 Pulse: 85 88 Resp: 18 19 Temp: 37.2 ?C (99 ?F) 37.8 ?C (100 ?F) TempSrc: Oral Oral SpO2: 98% 98% Weight: 98 kg (216 lb) Height: 1.6 m (5' 3") Constitutional: alert, no apparent distress, appearing age appropriate Respiratory: CTAB Cardiovascular: RRR Gastrointestinal: soft, NT, ND, +BS, fundus firm and NT Skin: Skin color, texture and turgor are normal without lesions Neurological/Psychiatric: Alert and oriented times three, normal mood and affect Gynecologic: Breasts: erythema over upper left breast from 10-1:00 about 1cm above areola with fullness noticed but no definitive abscess External Genitalia: normal external genitalia without lesion, mass, discharge, or tenderness Vagina/pelvic support: normal mucosa, no foul smelling discharge Cervix: multiparous without lesions or discharge, no CMT Uterus: soft, non-tender, no fundal tenderness Back: No CVAT, no focal tenderness or erythema Imaging: CTAP: FINDINGS: LOWER THORAX: The lungs bases are clear. No cardiomegaly. LIVER: The liver is normal and measures 18.9 cm in craniocaudal dimension. No focal hepatic lesions. Normal contour. GALLBLADDER AND BILIARY TREE: No biliary ductal dilation. No gallbladder wall thickening. SPLEEN: Mild splenomegaly compatible with gestational changes. PANCREAS: No ductal dilation or masses. ADRENAL GLANDS: No adrenal nodules. KIDNEYS: Bilateral symmetrical enhancement. No hydronephrosis, stones, or masses. GI TRACT: No dilation or wall thickening. PELVIS/BLADDER: Enlarged uterus, compatible with recent gravid state. Normal ovaries. There is collapsed and normal. PERITONEUM AND RETROPERITONEUM: No free air or fluid. LYMPH NODES: No lymphadenopathy. VESSELS: Unremarkable. BONES AND SOFT TISSUES: No suspicious lytic or sclerotic bony lesions. The lumbar spine is unremarkable. Focal edematous changes are seen in the soft tissues posterior to the paraspinal muscles measuring at least 7.2 cm in greatest craniocaudal dimensions and 2.3 cm in AP diameter spanning the L1-L3 levels compatible with area of epidural access. No abscess is evident. IMPRESSION 1. No acute abnormality. Expected changes. 2. Expected soft tissue edema at the site of spinal epidural access with no abscess. TVUS: FINDINGS: Uterus: The uterus is slightly enlarged at 14.6 cm in length compatible with recent . The myometrium is heterogenous with diffuse Doppler vascular flow. There is a thin anechoic layer within the uterine cavity which may represent fluid or blood clot. There is small 3 x 2.5 mm echogenic irregularity in the mid to lower uterine segment. The endometrium is otherwise normal in appearance measuring 1.9 mm. A few small nabothian cysts are present. The cervix is otherwise unremarkable. Right Adnexa: Ovary is not well visualized. No adnexal masses or lesions are seen. Left Adnexa: Ovaries not well visualized. No adnexal masses or lesions are seen. Cul-de-sac: No free fluid. IMPRESSION 1. The endometrium is unremarkable. A sliver of fluid and minimal nonspecific echogenic material is seen in the endometrial cavity which may represent retained products of conception. 2. Tiny nabothian cysts are seen in the cervix. No focal lesions are seen in the uterus. No evidence of adnexal masses. ASSESSMENT/PLAN: Kathie is a 22yo s/p uncomplicated on 04/08/23 with GARCIA and back pain. Fevers --Afebrile thus far in ED here however reports temp up to 102F at home- exam suspicious for mastitis given erythema over left breast with +fullness --Low suspicion for retained POCs given thin EMS and no fundal tenderness or heavy bleeding. Affirm and genital culture collected --MRI and CTAP overall unremarkable --Pt has received IV Zosyn in ED --Given high suspicion for mastitis, recommend starting PO Clindamycin 450mg TID (given PCN allergy) Further workup per ED, awaiting neurosurg eval. Vitals stable. Dispo per ED and medicine team. Tiffanie Lamb MD OG-OBSTETRICS & GYNECOLOGY STAFF [facility] - Health History and Physical Notes Date/Time Note Provider Source 2023-05-22 09:57:26 Formatting of this n ote is different from the original. I have seen and examined patient. Denies interval changes. Patient Vitals for the past 24 hrs: BP Temp Temp src Pulse Resp SpO2 05/22/23 0933 113/72 36.4 ?C (97.5 ?F) TEMPORAL ART 73 14 99 % NAD RRR Breathing unlabored Soft, NTTP, no rash No edema A/P: Will proceed with laparoscopic bilateral salpingectomy as planned. All questions answered. Frederick Stephenson MD 05/22/2023 9:58 AM Source Note - Frederick Stephenson MD - 05/17/2023 2:30 PM CDT Chief Complaint Patient presents with Pre-Op Exam HPI: Kathie Bah is a 22 year old female here for pre-op BTL. No intercourse since delivery. Past Medical History: Diagnosis Date Anemia depression 05/08/2023 Past Surgical History: Procedure Laterality Date INSERT CERVICAL DILATOR 11/18/2019 TONSILLECTOMY @ age 6 OB History Para Term AB Living 2 2 2 2 SAB IAB Ectopic Multiple Live Births 0 2 # Outcome Date GA Lbr Marty/2nd Weight Sex Delivery Anes PTL Lv 2 Term 04/08/23 38w4d 6 lb 15.1 oz (3.15 kg) F NORMAL SPONT EPI SUZETTE Comments: 1 Term 11/19/19 39w4d 8 lb 13.6 oz (4.01 kg) M NORMAL SPONT EPI N SUZETTE Complications: Chorioamnionitis Allergies Allergen Reactions Pcn [Penicillins] Hives Per pt, allergy from childhood. Has since been given Zosyn w/o allergic rxns Patient's Medications START taking these medications No medications on file CONTINUE taking these medications which have NOT CHANGED FERROUS SULFATE 325 MG (65 MG IRON) TABLET Take 1 tablet by mouth in the morning and 1 tablet in the evening. SERTRALINE (ZOLOFT) 50 MG TABLET Take 1 tablet by mouth in the morning. START taking Modified Medications as Prescribed No medications on file STOP taking these medications No medications on file Family History Problem Relation Age of Onset Thyroid Mother Hyperthyroidism Mother Arthritis NoFHx Asthma NoFHx defects NoFHx Breast Cancer NoFHx Colon Cancer NoFHx Ovarian Cancer NoFHx Uterine Cancer NoFHx Cancer NoFHx Depression NoFHx Diabetes NoFHx Genetic NoFHx Heart NoFHx High cholesterol NoFHx Hypertension NoFHx Mental retardation NoFHx Neurological NoFHx Osteoporosis NoFHx Psychiatry NoFHx Other - see comments NoFHx Social History Socioeconomic History Marital status: Single Tobacco Use Smoking status: Never Passive exposure: Never Smokeless tobacco: Never Vaping Use Vaping Use: Never used Substance and Sexual Activity Alcohol use: Not Currently Drug use: Never Sexual activity: Yes Partners: Male control/protection: None Social History Narrative Denies domestic or physical violence within the home Pentecostalism Preference; Temple Cat outside / no litter box Review of Systems Constitutional: Negative for chills, fatigue and fever. HENT: Negative for congestion, rhinorrhea, sneezing and sore throat. Respiratory: Negative for cough, chest tightness, shortness of breath and wheezing. Cardiovascular: Negative for chest pain and palpitations. Gastrointestinal: Negative for abdominal distention, abdominal pain, anal bleeding, blood in stool, constipation, diarrhea, nausea and vomiting. Genitourinary: Negative for dysuria, urgency, frequency, vaginal bleeding and vaginal discharge. Musculoskeletal: Negative for gait problem. Skin: Negative for rash. Neurological: Negative for syncope, light-headedness and headaches. Psychiatric/Behavioral: Negative for dysphoric mood, self-injury and suicidal ideas. Hematological: Does not bruise/bleed easily. VSS Physical Exam Vitals reviewed. Constitutional: She is oriented to person, place, and time. Her body habitus is obese. Cardiovascular: Regular rate and rhythm. Pulmonary/Chest: Breath sounds clear to auscultation. Normal inspiratory effort. Abdominal: Abdomen is soft. No tenderness present. No hernia palpated or inspected. Neuro/Psychiatric: She has a normal mood and affect. She is oriented to person, place, and time. A/P: Pre-operative evaluation for tubal ligation (primary encounter diagnosis) - Tubal consent signed on 02/09/23 "I counseled the patient regarding risks, benefits and alternatives of laparoscopic Bilateral Tubal Ligation including: risk of infection, bleeding, need for transfusion of blood/blood products, injury to ureter, bladder, bowel with possible further surgery, stint, catheterization or colostomy to repair, conversion to open. The permanence of this procedure and risk of regret in 1 in 3 women were discussed. tubal ligation failure rate is 0.75% and higher in women younger than 30 years old. There is an increased risk for ectopic and the need to seek medical attention should failure of tubal ligation occur. Alternatives discussed include: Oral Contraceptive Agents, Intrauterine Device, Nexplanon, Depo Provera, Ring, Patch, Condoms/foam, vasectomy of partner, or bilateral salpingectomy. Salpingectomy has been shown to decrease risk of ovarian cancer, similar to tubal ligation; however, no tubal reversal will be able to be done in the future and might be able to achieve with in vitro fertilization only. All questions answered, and patient expressed her desire to proceed with bilateral salpingectomy." Plan for laparoscopic bilateral salpingectomy on 05/22/23 unless clinically indicated otherwise - RTC in 2 wks for post-op visit Frederick Stephenson MD [facility] 2023-04-08 10:49:28 Formatting of this n ote is different from the original. TRIAGE HISTORY & PHYSICAL IDENTIFYING DATA Kathie Bah is 22 year old, /White, 38w4d, female with ERIKA 04/18/2023, by Last Menstrual Period. : 2000 Primary Care Physician: PATIENT DOES NOT HAVE A PCP CHIEF COMPLAINT Leakage of fluid HISTORY OF PRESENT ILLNESS Kathie Bah is a 22 year old female, at 38w4d presented with leakage of fluid, clear since 11am on 04/07. ROM confirmed on admission with positive fern, IOL commenced. Patient currently 9cm +FM. No VB, LOF, or CTX. No pre-eclampsia sx or other complaints. CARE: OB: Dr Stephenson See OB summary for details PAST OBSTETRIC HISTORY OB History Para Term AB Living 2 1 1 1 SAB IAB Ectopic Multiple Live Births 0 1 # Outcome Date GA Lbr Marty/2nd Weight Sex Delivery Anes PTL Lv 2 Current 1 Term 11/19/19 39w4d 4015 g M NORMAL SPONT EPI N SUZETTE Complications: Chorioamnionitis PAST MEDICAL HISTORY Problem list: Patient Active Problem List Diagnosis Date Noted 38 weeks gestation of 04/08/2023 Full-term premature rupture of membranes 04/07/2023 High-risk in third trimester 09/16/2019 Obesity (BMI 30-39.9) 04/23/2019 Operations: Past Surgical History: Procedure Laterality Date INSERT CERVICAL DILATOR 11/18/2019 TONSILLECTOMY @ age 6 Past Medical History: Diagnosis Date Anemia CURRENT HEALTH STATUS Medications: Current Facility-Administered Medications Medication Dose Route Frequency Last Rate Last Admin FENTanyl PF (SUBLIMAZE (PF)) injection 100 mcg 100 mcg Slow IV Push Q1HPRN 100 mcg at 04/08/23 0456 oxytocin (PITOCIN) 30 units in NS 500 mL IV infusion 2-40 anthony-units/min IV Infusion TITRATE 2 mL/hr at 04/08/23 0913 2 anthony-units/min at 04/08/23 0913 proMETHazine (PHENERGAN) injection 12.5 mg 12.5 mg Intramuscular Q4HPRN 12.5 mg at 04/08/23 0456 terbutaline (BRETHINE) injection 0.25 mg 0.25 mg Subcutaneous Q15MIN PRN 0.25 mg at 04/08/23 0403 carboprost (HEMABATE) injection 250 mcg 250 mcg Intramuscular Q2HPRN D5W-LR IV infusion 1,000 mL 1,000 mL IV Infusion TITRATE 125 mL/hr at 04/08/23 0612 1,000 mL at 04/08/23 06 lactated ringers IV infusion 500 mL 500 mL IV Infusion PRN - SEE INSTRUCTIONS 999 mL/hr at 04/08/23 0953 500 mL at 04/08/23 0953 lidocaine 1% (PF) (XYLOCAINE) injection 0.3 mL 0.3 mL Infiltration PRN - SEE INSTRUCTIONS lidocaine 1% (XYLOCAINE) 10 mg/mL (1 %) injection 50 mL 50 mL Infiltration PRN - SEE INSTRUCTIONS methylergonovine (METHERGINE) injection 0.2 mg 0.2 mg Intramuscular Q4HPRN miSOPROStoL (CYTOTEC) tablet 200 mcg 200 mcg Rectal PRN oxytocin (PITOCIN) 30 units in NS 500 mL IV infusion 600 mL/hr IV Infusion PRN sodium citrate-citric acid (BICITRA) 500-334 mg/5 mL solution 30 mL 30 mL Oral PRE-PROCEDURE ONCE tranexamic acid (CYKLOKAPRON) 1,000 mg in NaCl 0.9% (NS) 250 mL piggyback 1,000 mg IV Piggyback PRN Facility-Administered Medications Ordered in Other Encounters Medication Dose Route Frequency Last Rate Last Admin fentaNYL-ropivacaine 2 mcg/mL-0.1 % (PF) in NS 200 mL epidural infusion RTU Epidural CONTINUOUS PRN 10 mL/hr at 04/08/23 06 10 mL/hr at 04/08/23 06 lidocaine-epinephrine (XYLOCAINE W/EPINEPHRINE) 1.5 %-1:200,000 injection Epidural ONCE INTRA PROCEDURE 4 mL at 04/08/23611 PIB FENTanyl 2 mcg/mL + bupivacaine 0.1% in NS 250 mL epidural bag Epidural ONCE INTRA PROCEDURE 4 mL at 04/08/23619 Allergies and drug reactions: Pcn [penicillins] HOME MEDICATIONS Medications Prior to Admission Medication Sig Dispense Refill Last Dose ferrous sulfate (IRON, FERROUS SULFATE,) 325 mg (65 mg iron) tablet Take 1 tablet by mouth in the morning and 1 tablet in the evening. 60 tablet 3 vitamin w/FA tablet Take 1 tablet by mouth daily. 100 tablet 3 SOCIAL HISTORY Tobacco History: Social History Tobacco Use Smoking Status Never Passive exposure: Never Smokeless Tobacco Never Drug History: Social History Substance and Sexual Activity Drug Use Never Alcohol History: Social History Substance and Sexual Activity Alcohol Use Not Currently FAMILY HISTORY Family History Problem Relation Age of Onset Thyroid Mother Hyperthyroidism Mother Arthritis NoFHx Asthma NoFHx defects NoFHx Breast Cancer NoFHx Colon Cancer NoFHx Ovarian Cancer NoFHx Uterine Cancer NoFHx Cancer NoFHx Depression NoFHx Diabetes NoFHx Genetic NoFHx Heart NoFHx High cholesterol NoFHx Hypertension NoFHx Mental retardation NoFHx Neurological NoFHx Osteoporosis NoFHx Psychiatry NoFHx Other - see comments NoFHx REVIEW OF SYSTEMS General: negative Constitutional: negative Eyes: negative ENT/Mouth: negative Cardiovascular: negative Respiratory: negative Gastrointestinal:negative Genitourinary: As above Musculoskeletal: negative Skin/breast: negative Neurological: negative Psychiatric: negative Endocrine: negative Hemat/Lymph: negative Allergic/Immuno:none VITAL SIGNS BP: (100-132)/(65-90) Temp: [36.4 ?C (97.5 ?F)-37.3 ?C (99.1 ?F)] Temp source: Temporal Artery (04/08 1045) Pulse: [67-113] Resp: [16-18] SpO2: [96 %-100 %] Height: [160 cm (5' 3")-162.6 cm (5' 4.02")] Weight: [99.8 kg (220 lb)-100.6 kg (221 lb 11.2 oz)] BMI (calculated): [0-38.97] PHYSICAL EXAMINATIONS Gen: alert and oriented, well appearing, no distress CV: RRR, Resp: normal work of breathing, Abd: gravid, soft, NTTP Ext: no calf tenderness or edema VE: 10/100/+2, Vertex, ROT REVIEW OF LABORATORY, PATHOLOGY, AND RADIOLOGY DATA Lab results: Type & Screen HIV Hep B Syphilis Chlamydia ABO & RH Date Value Ref Range Status 04/07/2023 O Positive Final No results found for: "HIVMULTIPLEX" No components found for: "HBSHBSAG" No results found for: "SYPIGG" C. trachomatis Nucleic Acid Date Value Ref Range Status 03/26/2023 Negative Negative Final IAT Date Value Ref Range Status 04/07/2023 Negative Final Varicella Rubella Glucose Group B Strep CBC VZV IgG antibody Date Value Ref Range Status 11/03/2022 Negative Negative Final Rubella screen IgG Date Value Ref Range Status 11/03/2022 Equivocal Negative Final GLUC 1 HR Date Value Ref Range Status 01/18/2023 120 120 - 170 mg/dL Final No results found for: "CGBS" HGB Date Value Ref Range Status 04/07/2023 9.6 (L) 11.6 - 15.0 g/dL Final HCT Date Value Ref Range Status 04/07/2023 30.5 (L) 35.7 - 45.2 % Final PLT Date Value Ref Range Status 04/07/2023 234 166 - 358 10*3/?L Final Placenta Accreta Screening Screening outcome: A positive screening outcome indicates a history of prior delivery or prior uterine surgery, AND the presence of either a placenta low lying/previa or ultrasound suspicion of PASD in the current . Negative screening. Active Hospital Problems Diagnosis Date Noted 38 weeks gestation of 04/08/2023 Full-term premature rupture of membranes 04/07/2023 Resolved Hospital Problems No resolved problems to display. Present on Admission: Full-term premature rupture of membranes 38 weeks gestation of ASSESSMENT AND PLAN Kathie Bah is a 22 year old at 38w4d who undergoing IOL for RPM at term GBS neg CAT 1 Fully dilated- start pushing and anticipate vaginal delivery Millicent Mayorga MD T [facility] Procedure Notes Date/Time Note Provider Source 2023-05-22 10:58:28 Procedure(s): LAPARO SCOPIC SALPINGECTOMY Pre-Procedure Diagnose(s): Encounter for tubal ligation Post-Procedure Diagnose(s): Encounter for tubal ligation; Status post bilateral salpingectomy LAPAROSCOPIC TUBAL SALPINGECTOMY Date of Service: 05/22/2023 Faculty Surgeon: Frederick Stephenson Anesthesia Type: General IV Fluids: 700 cc Lactated Ringers Colloid Fluids: None Specimens Sent to Pathology: bilateral fallopian tubes Urine Output: 100 cc of clear urine Complications: none Estimated Blood Loss: < 10 mL Patient Status: Patient in stable condition and taken to recovery room Narrative: Kathie Bah is a 22 year old female desires permanent sterilization with laparoscopic bilateral salpingectomy. Description of Findings: Normal liver edge, normal uterus, fallopian tubes and ovaries. The trocar sites were inspected and no injury or bleeding identified. Summary of Procedure: After informed written consent was given by patient to proceed with above procedure for above indications, the patient was taken to the operating room and general endotracheal anesthesia induced. Patient was placed in dorsal lithotomy position, and prepped and draped. Truong catheter placed. Sponge stick placed in the vagina. A half inch incision was made in the umbilicus . The 5 mm laparoscopic trocar and laparoscopic camera were then introduced under direct visualization confirming placement in the peritoneal cavity and CO2 was then allowed to insufflate the peritoneal cavity with attention to adequate pressures. Under direct laparoscopic guidance, 2 skin incisions were made in the left quadrant and 8 mm and 5 mm laparoscopic trocars introduced. The inspection of the pelvis then ensued with findings as above. Each fallopian tube was grasped and removed with ligasure. Hemostasis noted. CO2 was allowed to egress through the trocars until abdominal pressure at 5 mmHg and hemostasis noted. 30 cc of 0.25% Marcaine placed intraperitoneally. Trocars were then removed under laparoscopic guidance. The skin incision sites were closed with 4-0 monycryl suture and dermabond and covered with dressing. All instruments removed. Patient's sponge and needle counts were correct times 2. Patient tolerated the procedure well and was awakened and taken to the PAC-U in stable condition. Frederick Stephenson MD 05/22/2023 10:59 AM [facility] 2023-04-08 06:31:51 Associated Order(s): Central Neuraxial Block Central Neuraxial Block Date/Time: 04/08/2023 6:05 AM Performed by: Tushar Mullen MD Authorized by: Tushar Mullen MD Patient Location: OB ([facility] Labor Room 2309) End Time: 04/08/2023 6:32 AM Reason for Block: Patient request and Labor analgesia Staff: Anesthesiologist: Tushar Mullen MD Performed by: anesthesiologist Preanesthetic Checklist: patient identified, IV checked, risks and benefits explained, monitors and equipment checked, timeout performed, pre-op evaluation, site marked and anesthesia consent Procedure: Type of Neuraxial: Epidural and Continuous Sterility Prep cap, drape, gloves, hand hygiene and mask Sedation Level no sedation Patient Position: sitting Prep: Betadine and patient draped Monitoring: heart rate, continuous pulse ox, heart rate / toco and NIBP Location: lumbar (1-5) Lumbar: L4-L5 Approach: midline Technique: catheter and FELICITA saline Guidance with: landmark technique} Epidural/Spinal Wales and/or Catheter: Epidural/Spinal Kit: BBraun Needle Type: Tuohy Needle Gauge: 17 G Needle Length: 3.5 in (8.89 cm) Needle Insertion Depth: 7 Catheter Type: multiport Catheter Size: 19 G Catheter at Skin Depth: 12 Number of Attempts: 1 Test Dose: lidocaine 1.5% with epinephrine 1-to-200,000 and negative Test dose amount: 4 cc. Catheter Securement Method: surgical tape, Tegaderm and liquid medical adhesive Assessment: Sensory Level: below T10 Block Outcome: pain improved and successful block Procedure Assessment: patient tolerated procedure well with no complications Notes: SP&D, lido to skin and SQ tissues at L4-5. Tuohy in, FELICITA to NS @ 7 cm after a few redirects. Catheter in and withdrawn to 12 cm. Neg. aspiration, neg test dose. Secured, boluses as noted and infusing at 10 ml/hr. [facility] Progress Notes Date/Time Note Provider Source 2023-04-04 15:45:00 Formatting of this n ote might be different from the original. Age: [age] year old GA: 38w0d - GBS neg on 03/26/23 - Irregular contractions: SVE 1/50/high. Labor precautions given. -Tentatively plan for induction at 39 weeks on 04/13/2023 unless clinically indicated otherwise -Daily kick counts -Follow-up in 1 week for visit [facility]
[2024-09-08] MEDS ORDERED: NA CHLORIDE 0.9% 1,000 ML ONE (15:35)
[2024-09-08] MEDS ORDERED: ONDANSETRON 4 MG/2 ML VIAL ONE ×2 (15:35→17:20)
[2024-09-08] MEDS ORDERED: KETOROLAC 30 MG/ML INJ ONE (15:35)
[2024-09-08 15:38] LABS: Absolute Lymphocytes (CBC) 1.9 K/uL (0.7-4.9); Absolute Monocytes 0.4 K/uL (0.1-1.3); Absolute Neutrophil 6.7 K/uL (1.8-8.0); Basophils % 0.4 % (0-1.3); Eosinophils % 0.1 % (0-4.4); Hematocrit 41.8 % (36.0-45.0); Hemoglobin 13.5 g/dL (12.0-15.0); Lymphocytes % 21.5 % (15.3-44.8); MCH 27.2 pg (27.0-35.0); MCHC 32.4 g/dL (32.0-36.0); MPV 7.6 fL (7.6-11.3); Monocytes % 4.4 % (3.3-12.3); Neutrophils % 73.6 % (41.7-73.7); Platelets 308 thou/uL (152-406); RBC Red Blood Cell Count 4.98 M/uL (3.86-4.86); Red Cell Distribution Width 14.8 % (12.1-15.2)
[2024-09-08 15:39] LABS: Specific Gravity > 1.030 (1.005-1.030)
[2024-09-08 15:43] LABS: Specific Gravity > 1.030 (1.005-1.030); Urine Bacteria None Seen /HPF (<20); Urine Bilirubin NEGATIVE (Negative); Urine Blood Negative (Negative); Urine Clarity Extremely Turbid (Clear); Urine Color Yellow (Yellow); Urine Culture Reflex Order NOT NEEDED; Urine Glucose NEGATIVE (Negative); Urine Ketones NEGATIVE (Negative); Urine Microscopic Reflex YN ORDER UMIC; Urine Mucus 4+ /HPF (None Seen); Urine Nitrite NEGATIVE (Negative); Urine Protein 1+ (Negative); Urine RBC <5 /HPF (None Seen); Urine Urobilinogen Normal (Normal); Urine Yeast (Budding) Trace /HPF (None Seen)
[2024-09-08 15:53] LABS: SARS-CoV-2 Antigen CONTROL BLUE LINE VIS/BG OK; SARS-CoV-2 Antigen Rapid Res Negative (Negative)
[2024-09-08 15:58] LABS: Albumin 3.5 g/dL (3.4-5.0); Albumin/Globulin Ratio 0.9 (1.1-1.8); Anion Gap 7.2 mEq/L (5.0-15.0); Bilirubin Total 0.5 mg/dL (0.2-1.0); Globulin 3.7 g/dL (2.3-3.5); Potassium 3.2 mEq/L (3.5-5.1); Protein, Total 7.2 g/dL (6.4-8.2)
--- NOTE | 2024-09-08 16:46 | EDPHYS ---
Physician Documentation [facility] Name: Emma Bah Age: 24 yrs Sex: Female : 2000 Arrival Date: 09/08/2024 Time: 14:36 Bed DX1 Private MD: ED Physician Murali Saldaña HPI: 09/08 15:18 This 24 yrs old Female presents to ER via Ambulatory with complaints of sb4 Vomiting, Nausea. 15:18 patient reports nausea, vomiting, and diarrhea that began yesterday. states that her sb4 kids have had similar symptoms. denies any abdominal pain, does report back pain. denies chance of . denies any URI symptoms. no reported fever. 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 Last tetanus immunization: < 5 years ago Flu vaccine is up to date. - Infectious Disease History:: Denies. - Social history:: Smoking status: Reported history of juuling and/or vaping. ROS: 15:18 Constitutional: Negative for fever, chills, and weight loss, sb4 15:18 Abdomen/GI: Positive for nausea, vomiting, and diarrhea, 15:18 All other systems are negative, Exam: 15:18 Constitutional: This is a well developed, well nourished patient who is awake, alert, sb4 and in no acute distress. Head/Face: Normocephalic, atraumatic. Eyes: Extra-ocular motions intact. Periorbital areas with no swelling, redness, or edema. ENT: Mucous membranes moist. Cardiovascular: Regular rate and rhythm with a normal S1 and S2. Respiratory: No increased work of breathing, no retractions or nasal flaring. Abdomen/GI: Soft, non-tender, no distension. Skin: Warm, dry with normal turgor. Normal color with no rashes, no lesions, and no evidence of cellulitis. Vital Signs: 15:12 Weight 99.79 kg; Height 5 ft. 3 in. ; Pain 0/10; kb3 15:46 BP 98 / 67; Pulse 88; Resp 18; Temp 99.4; Pulse Ox 99% ; kb3 16:07 BP 96 / 57; kb3 17:00 BP 105 / 57; Pulse 63; Resp 18; Temp 97.9; Pulse Ox 99% ; Pain 0/10; kb3 15:12 Body Mass Index 38.97 (99.79 kg, 160.02 cm) kb3 15:12 Pain Scale: Adult kb3 17:00 Pain Scale: Adult kb3 MDM: 15:07 Medical Screening Exam initiated sb4 16:13 Data reviewed: vital signs, nurses notes, lab test result(s), and as a result, I will sb4 discharge patient. Counseling: I had a detailed discussion with the patient and/or guardian regarding the historical points, exam findings, and any diagnostic results supporting the discharge/admit diagnosis, lab results, to return to the emergency department if symptoms worsen or persist or if there are any questions or concerns that arise at home. 09/08 15:08 Order name: CBC with Diff; Complete Time: 15:44 sb4 09/08 15:08 Order name: CMP; Complete Time: 16:09 sb4 09/08 15:08 Order name: Lipase; Complete Time: 16:09 sb4 09/08 15:08 Order name: Test, Urine; Complete Time: 15:44 sb4 09/08 15:08 Order name: Urinalysis w/ reflexes; Complete Time: 15:44 sb4 09/08 15:08 Order name: SARS RAPID; Complete Time: 15:57 sb4 09/08 15:08 Order name: Flu; Complete Time: 16:13 sb4 09/08 15:08 Order name: IV Saline Lock; Complete Time: 15:33 sb4 09/08 15:08 Order name: Labs collected and sent; Complete Time: 15:33 sb4 09/08 16:09 Order name: PO challenge; Complete Time: 16:23 sb4 Administered Medications: 15:45 Drug: TORadol - Ketorolac IVP 15 mg IVP once Route: IVP; Site: right antecubital; kb3 16:25 Follow up: Response: No adverse reaction; Pain is decreased kb3 15:45 Drug: Ondansetron IVP 4 mg IVP once; over 2 minutes Route: IVP; Site: right antecubital;kb3 16:25 Follow up: Response: No adverse reaction; Nausea is decreased kb3 15:45 Drug: NS 0.9% IV 1000 ml IV at 1 bolus Per protocol; to be given as a bolus over 60 kb3 minutes Route: IV; Rate: 1 bolus; Site: right antecubital; 17:23 Follow up: Response: No adverse reaction; IV Status: Completed infusion; IV Intake: bp 1000ml 17:01 Drug: Potassium PO Effervescent Tablet 50 mEq PO once; dissolve in 4 ounces of water or kb3 juice Route: PO; 17:27 Follow up: Response: No adverse reaction kb3 17:27 Drug: Ondansetron IVP 4 mg IVP once; over 2 minutes Route: IVP; Site: right antecubital;kb3 17:27 Follow up: Response: No adverse reaction; Medication Administered at Departure kb3 Disposition Summary: 09/08/24 16:45 Discharge Ordered Notes: Location: Home sb4 Problem: new sb4 Symptoms: have improved sb4 Condition: Stable sb4 Diagnosis - Viral gastroenteritis sb4 Followup: sb4 - With: Emergency Department - When: As needed - Reason: Trouble breathing, Worsening of condition Discharge Instructions: - Discharge Summary Sheet sb4 - Viral Gastroenteritis, Adult, [id number] sb4 Forms: - Work release form sb4 - Patient Portal Instructions sb4 - Leadership Thank You Letter sb4 Prescriptions: - Zofran 4 mg Oral Tablet - take 1 tablet ORAL route every 12 hours As needed; 20 tablet; Refills: 0, sb4 Product Selection Permitted Signatures: Dispatcher [employer] EDMS Marilyn Phipps, RN RN kb3 Karo Eaton PA-C PALeeanna sb4 Salomón Frey RN bp Corrections: (The following items were deleted from the chart) 15:08 15:08 CBC+H.LAB.BRZ ordered. EDMS EDMS 15:08 15:08 COMPREHENSIVE METABOLIC PANEL+C.LAB.BRZ ordered. EDMS EDMS 15:08 15:08 LIPASE+C.LAB.BRZ ordered. EDMS EDMS 15:08 15:08 Test, Urine+UC.LAB.BRZ ordered. EDMS EDMS 15:08 15:08 Urinalysis+U.LAB.BRZ ordered. EDMS EDMS 15: 15:08 SARS-COV-2 Antigen Rapid+I.LAB.BRZ ordered. EDMS EDMS 15: 15:08 Influenza Screen (A \T\ B)+BA.LAB.BRZ ordered. EDMS EDMS
--- NOTE | 2024-09-08 16:46 | ER ---
Nurse's Notes [facility] Name: Emma Bah Age: 24 yrs Sex: Female : 2000 Arrival Date: 09/08/2024 Time: 14:36 Bed DX1 Private MD: Diagnosis: Viral gastroenteritis Presentation: 09/08 15:12 Chief complaint: Patient states: Pt reports vomiting a diarrhea since yesterday with kb3 associated generalized weakness. Last episode of both this morning around 0900 this morning. Coronavirus screen: Vaccine status: Patient reports being unvaccinated. Client denies travel out of the [place] in the last 14 days. Ebola Screen: Patient negative for fever greater than or equal to 101.5 degrees Fahrenheit, and additional compatible Ebola Virus Disease symptoms Patient denies exposure to infectious person. Patient denies travel to an Ebola-affected area in the 21 days before illness onset. Initial Sepsis Screen: Does the patient meet any 2 criteria? No. Patient's initial sepsis screen is negative. Does the patient have a suspected source of infection? No. Patient's initial sepsis screen is negative. Risk Assessment: Do you want to hurt yourself or someone else? Patient reports no desire to harm self or others. Onset of symptoms was September 07, 2024. 15:12 Method Of Arrival: Ambulatory kb3 15:12 Acuity: CHRISTOPHER 3 kb3 Triage Assessment: 15:14 General: Appears in no apparent distress. Behavior is calm, cooperative. Pain: Denies kb3 pain. GI: Reports diarrhea, nausea, vomiting. 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 Last tetanus immunization: < 5 years ago Flu vaccine is up to date. - Infectious Disease History:: Denies. - Social history:: Smoking status: Reported history of juuling and/or vaping. Screenin:12 [facility] ED Fall Risk Assessment (Adult) History of falling in the last 3 months, kb3 including since admission No falls in past 3 months (0 pts) Confusion or Disorientation No (0 pts) Intoxicated or Sedated No (0 pts) Impaired Gait No (0 pts) Mobility Assist Device Used No (0 pt) Altered Elimination No (0 pt) Score/Fall Risk Level 0 - 2 = Low Risk Oriented to surroundings. Abuse screen: Denies threats or abuse. Denies injuries from another. Nutritional screening: No deficits noted. Tuberculosis screening: No symptoms or risk factors identified. Assessment: 15:12 General: Appears in no apparent distress. comfortable, Behavior is calm, cooperative, kb3 See triage note. 16:26 GI: Abdomen is round non-distended, Reports Pt reports improved nausea and abdominal kb3 cramping. 17:00 Reassessment: Patient and/or family updated on plan of care and expected duration. Pain kb3 level reassessed. Patient is alert, oriented x 3, equal unlabored respirations, skin warm/dry/pink. GI: Pt reports nausea has improved. Vital Signs: 15:12 Weight 99.79 kg; Height 5 ft. 3 in. ; Pain 0/10; kb3 15:46 BP 98 / 67; Pulse 88; Resp 18; Temp 99.4; Pulse Ox 99% ; kb3 16:07 BP 96 / 57; kb3 17:00 BP 105 / 57; Pulse 63; Resp 18; Temp 97.9; Pulse Ox 99% ; Pain 0/10; kb3 15:12 Body Mass Index 38.97 (99.79 kg, 160.02 cm) kb3 15:12 Pain Scale: Adult kb3 17:00 Pain Scale: Adult kb3 ED Course: 14:39 Patient arrived in ED. mr 14:43 Karo Eaton PA-C is PHCP. sb4 14:43 Murali Saldaña MD is Attending Physician. sb4 15:08 Salomón Frey, SOFIA is Primary Nurse. bp 15:12 Patient has correct armband on for positive identification. Provided Education on: Plan kb3 of care. Warm blanket given. 15:14 Triage completed. kb3 15:14 Arm band placed on right wrist. Patient placed in a hallway bed. kb3 15:28 Flu Sent. kb3 15:28 SARS RAPID Sent. kb3 15:28 Test, Urine Sent. kb3 15:28 Urinalysis w/ reflexes Sent. kb3 15:29 Inserted saline lock: 20 gauge in right antecubital area, using aseptic technique. ty Blood collected. Flushed with 10 mL NS. 15:33 CBC with Diff Sent. ty 15:33 CMP Sent. ty 15:33 Lipase Sent. ty 17:00 No provider procedures requiring assistance completed. kb3 17:25 IV discontinued, intact, bleeding controlled, No redness/swelling at site. kb3 Administered Medications: 15:45 Drug: TORadol - Ketorolac IVP 15 mg IVP once Route: IVP; Site: right antecubital; kb3 16:25 Follow up: Response: No adverse reaction; Pain is decreased kb3 15:45 Drug: Ondansetron IVP 4 mg IVP once; over 2 minutes Route: IVP; Site: right antecubital;kb3 16:25 Follow up: Response: No adverse reaction; Nausea is decreased kb3 15:45 Drug: NS 0.9% IV 1000 ml IV at 1 bolus Per protocol; to be given as a bolus over 60 kb3 minutes Route: IV; Rate: 1 bolus; Site: right antecubital; 17:23 Follow up: Response: No adverse reaction; IV Status: Completed infusion; IV Intake: bp 1000ml 17:01 Drug: Potassium PO Effervescent Tablet 50 mEq PO once; dissolve in 4 ounces of water or kb3 juice Route: PO; 17:27 Follow up: Response: No adverse reaction kb3 17:27 Drug: Ondansetron IVP 4 mg IVP once; over 2 minutes Route: IVP; Site: right antecubital;kb3 17:27 Follow up: Response: No adverse reaction; Medication Administered at Departure kb3 Medication: 15:12 VIS not applicable for this client. kb3 Intake: 17:23 IV: 1000ml; Total: 1000ml. bp Outcome: 16:45 Discharge ordered by . sb4 17:25 Discharged to home ambulatory, kb3 17:25 Condition: improved 17:25 Discharge instructions given to patient, Instructed on discharge instructions, follow up and referral plans. medication usage, BRAT diet Demonstrated understanding of instructions, follow-up care, medications, Prescriptions given X 1, 17:30 Patient left the ED. kb3 Signatures: Barbara Sifuentes, Yosef Reg Salomón Cadena, RN RN bp Marilyn Phipps RN RN kb3 Karo Eaton PA-C PALeeanna sb4 Patrice Espinal Corrections: (The following items were deleted from the chart) 17:23 16:24 Response: No adverse reaction; IV Status: Completed infusion; IV Intake: 1000ml bp kb3 17:29 17:00 IV discontinued, intact, bleeding controlled, No redness/swelling at site. kb3 kb3
[2024-09-08] MEDS ORDERED: POTASSIUM 25 MEQ EFFERV TAB ONE (16:52)
[2024-09-08 17:36] VITALS: O2SAT 99
[2024-09-08 17:38] VITALS: BP 105/57; TEMP 97.9
== END 2024-09-08 17:30 | disposition home or self-care (01) ==
LOC: ER 14:36
DX: A08.4 Viral intestinal infection, unspecified (principal); Z11.52 Encounter for screening for COVID-19
CPT/HCPCS: 96361; 85025; 81001; 36415; 81025; 83690; 80053; 87804 ×2; 96375; 96374; 99284; 87811; J2405 ×2; J7030

== ENCOUNTER 2025-06-29 07:17 | Emergency (ER) | payer OTHER ==
--- OUTSIDE RECORDS SUMMARY | 2025-06-29 07:32 | XMS REPORT | Continuity of Care Document ---
Author Name Unknown Address [address] [facility] [place] [address] [facility] [place] Address [address] [facility] [address] [place] [address] Care Team Providers Care Production Aide Name Role Phone PCP, PATIENT DOES NOT HAVE A Primary Care Physic trip Unavailable FREDERICK STEPHENSON Attending Clinician Unavailable Sachin ZEPEDA, Frederick Ocampo Attending Clinician [phone] Doctor Unassigned, [place] Attending Clinician U Timothy Rodriguez MD Attending Clinician [phone] Estela Mixon Attending Clinician [phone] TURNER SAINI Attending Clinician Unavailable ESTELA SANTIAGO Attending Clinician Unavailable Turner Saini DO Attending Clinician [phone] MILLICENT MAYORGA Attending Clinician Unavailable Chitra Pride NP Attending Clinician [phone] Millicent Mayorga MD Attending Clinician [phone] Tushar Mullen MD Attending Clinician Mey Prater RN Attending Clinician Unavailable 2, [facility] Attending Clinician Unavailable PAT ARANA Attending Clinician UnavailPAT Blackmon Attending Clinician UnavailKRZYSZTOF Shine Attending Clinician Unavailable Krzysztof Martinez PA-C Attending Clinician [phone] Pob, [facility] Main Attending Clinician Unavailabl e Ultrasound, [facility] Attending Clinician Unavaila Ovi Agosto MD Attending Clinician + OVI CAMPOS Attending Clinician Unav ailable MILLICENT MAYORGA Admitting Clinician Unavailable FREDERICK STEPHENSON Admitting Clinician Unavailable Frederick Stephenson MD Admitting Clinician [phone] JAVIER FERNANDEZ Admitting Clinician Unavailable Millicent Mayorga MD Admitting Clinician Payers Payer Name Policy Type Policy Number Effective Date Expirati on Date Source [place] [employer] [id number] 2022 00:00:00 MED[place] OF [place] [id number] 2023 00:00:00 [employer] GENERIC [id number] 2022 00:00:00 Problems Condition Name Condition Details Condition Category Status Onset Date Resolution Date Last Treatment Date Treating Clinician Comments Source Status post bilateral salpingect alejandra Status post bilateral salpingect alejandra Disease Active 9-05 00:00: 00 [facility] depression depression Disease Active 0 8- 00:00: 00 [facility] Encounter for tubal ligation Encounter for tubal ligation Disease Active 0 8 00:00: 00 [facility] Liveborn infant, of ryan , born in hospital by vaginal delivery Liveborn , of ryan , born in hospital by vaginal delivery Disease Active 0 04-08 00:00: 00 [facility] 38 weeks gestation of 38 weeks gestation of Disease Active 0 - 00:00: 00 [facility] Anemia during in third trimester Anemia during in third trimester Disease Active 0 04-08 00:00: 00 [facility] Full-term premature rupture of membranes Full-term premature rupture of membranes Disease Active 0 7- 00:00: 00 [facility] High-risk in third trimester High-risk in third trimester Disease Active 2018-09 2-31 00:00: 00 [facility] Obesity (BMI 30-39.9) Obesity (BMI 30-39.9) Disease Active 04-23 00:00: 00 [facility] Seasonal allergies Seasonal allergies Problem Active [facility] Bilateral low back pain without sciatica, unspecifie d chronicity Bilateral low back pain without sciatica, unspecifie d chronicity Problem Active [facility] Vaginal discharge Vaginal discharge Diagnosis Active [facility] Encounter for gynecologi andrea examinatio n Encounter for gynecologi andrea examinatio n Diagnosis Active [facility] Screening for STD (sexually transmitte d disease) Screening for STD (sexually transmitte d disease) Diagnosis Active [facility] Allergies, Adverse Reactions, Alerts Allergy Name Allergy Type Status Severity Reaction(s) Onset Date Inactive Date Treating Clinician Comments Source PENICILL INS Drug Class Active Hives 04-23 00:00: 00 [facility] Penicill ins Propensi ty to adverse reaction s Active Hives 04-23 00:00: 00 Per pt, allergy from childhood . Has since been given Zosyn w/o allergic rxns [facility] Social History Social Habit Start Date Stop Date Quantity Comments Source ASSERTION 2022-07-26 00:00:00 [facility] History SDOH [facility]d [facility] History SDOH Alcohol Binge [facility] identity [facility] 2023-05-22 00:00:00 2023-05-22 00:00:00 Ex-drinker (finding) [facility] History of Social function 2023-05-22 00:00:00 2023-05-22 00:00:00 [facility] Exposure to SARS-CoV-2 (event) 2023-02-24 00:00:00 2023-03-06 04:44:00 Not sure [facility] Tobacco use and exposure 2022-10-25 00:00:00 2022-10-25 00:00:00 Smokeless tobacco non-user [facility] History SDOH Alcohol Frequency 2019-04-23 00:00:00 2019-04-23 00:00:00 1 [facility] Sex Assigned At 2000 00:00:00 2000 00:00:00 [facility] Smoking Status Start Date Stop Date Source Never smoked tobacco [facility] Medications Ordered Medication Name Filled Medication Name Start Date Stop Date Current Medication? Ordering Clinician Indication Dosage Frequency Signature (SIG) Comments Components Source water for irrigation irrigation solution 05-22 15:32: 00 05-22 16:03 :18 No PRN, Starting on Sun05/22/23 at 1032, Until Sun05/22/23 at 1103, Routine, Intra-op [facility] bupivacaine (preserv free) (SENSORCAIN E MPF) 0.25 % (2.5 mg/mL) injection 05-22 15:32: 00 05-22 16:03 :18 No PRN, Starting on Sun05/22/23 at 1032, Until Sun05/22/23 at 1103, Routine, Intra-op [facility] ibuprofen 600 mg tablet 05-22 00:00: 00 06-05 00:00 :00 No [id number] 600mg Take 1 tablet by mouth every 6 (six) hours as needed for Pain (scale 1-3) or Pain (scale 4-6). [facility] simethicone 80 mg chewable tablet 05-22 00:00: 00 06-05 00:00 :00 No [id number] 80mg Take 1 tablet by mouth after meals and at bedtime. [facility] HYDROcodone -acetaminop hen 5-325 mg tablet 05-22 00:00: 00 05-24 04:59 :00 No [id number] 1{tbl} Take 1 tablet by mouth every 6 (six) hours as needed for Pain (scale 7-10) for up to 1 day. Indication s: acute pain [facility] SERTraline (ZOLOFT) 50 mg tablet 8-22 00:00: 00 Yes [id number] 50mg Take 1 tablet by mouth in the morning. [facility] ibuprofen (IBU) tablet 600 mg 04-18 23:45: 00 04-18 23:15 :00 No 600mg 600 mg, Oral, ONCE, 1 dose, On Sun04/18/23 at 1845, [facility] gentamicin 360 mg in NaCl 0.9% (NS) [...] Site: Pelvic
Duration of therapy: 72 hours [facility] acetaminoph en (TYLENOL) tablet 650 mg 04-18 21:00: 00 04-18 20:42 :00 No 650mg 650 mg, Oral, ONCE, 1 dose, On Sun04/18/23 at 1600, [facility] gadoteridol (PROHANCE-2 0 mL) injection 19.6 mL 04-18 15:45: 00 04-18 15:45 :00 No [id number] .2mL/kg 19.6 mL (0.2 mL/kg ?98 kg), Intravenou s, ONCE, 1 dose, On Sun04/18/23 at 1045, Routine [facility] acetaminoph en (TYLENOL) tablet 1,000 mg 04-18 15:00: 00 04-18 14:52 :00 No 1000mg 1,000 mg, Oral, ONCE, 1 dose, On Sun04/18/23 at 1000, [facility] piperacilli n-tazobacta m (ZOSYN) 3.375 g in NaCl 0.9% (NS) 100 mL MINI-BAG 04-18 14:30: 00 04-18 16:13 :00 No 3.375g 3.375 g, IV Piggyback, ONCE, 1 dose, On Sun04/18/23 at 0930, Administer over 30 Minutes, 100 mL
Reas on for Anti-Infec tive: Empiric Therapy for Suspected Infection< br>Empiric Therapy Site: ACCOUNTING METHODS ANALYST
Dur ation of therapy: 72 hours [facility] iopamidol (ISOVUE 370-500 mL) injection 70 mL 04-18 12:58: 00 04-18 13:00 :00 No 70mL 70 mL, Intravenou s, ONCE, 1 dose, On Sun04/18/23 at 0815, Routine [facility] clindamycin 300 mg capsule 04-18 00:00: 00 04-29 04:59 :00 No [id number] 300mg Take 1 capsule by mouth 4 (four) times daily for 10 days. [facility] ferrous sulfate 325 mg (65 mg iron) tablet 04-09 00:00: 00 06-05 00:00 :00 No [id number] 102 325mg Take 1 tablet by mouth in the morning and 1 tablet in the evening. [facility] vitamin w/FA tablet 04-09 00:00: 00 05-08 00:00 :00 No [id number] 102 1{tbl} Take 1 tablet by mouth in the morning. [facility] docusate 100 mg capsule 04-09 00:00: 00 05-08 00:00 :00 No [id number] 102 200mg Take 2 capsules by mouth once daily as needed for Constipati on. [facility] ibuprofen 600 mg tablet 04-09 00:00: 00 05-08 00:00 :00 No [id number] 102 600mg Take 1 tablet by mouth every 6 (six) hours as needed (Pain). Take with food or milk. [facility] rho(D) immune globulin (RHOGAM) syringe 300 mcg 04-08 16:23: 30 Yes 300ug 300 mcg, Intramuscu lar, ONCE, For 1 dose, Conditiona l, Routine [facility] HYDROcodone -acetaminop hen (NORCO 5) 5-325 mg tablet 1 tablet 04-08 16:21: 55 Yes 1{tbl} 1 tablet, Oral, Q6HPRN, Starting on 04/08/23 at 1121, Until Discontinu ed, Routine, Pain (scale 7-10) [facility] ibuprofen (IBU) tablet 600 mg 04-08 16:21: 55 Yes 600mg 600 mg, Oral, Q6HPRN, Starting on Sun04/08/23 at 1121, Until Discontinu ed, Routine, Pain (scale 4-6) [facility] acetaminoph en (TYLENOL) tablet 650 mg 04-08 16:21: 55 Yes 650mg 650 mg, Oral, Q6HPRN, Starting on Sun04/08/23 at 1121, Until Discontinu ed, Routine, Pain (scale 1-3) [facility] diphenhydrA MINE (BENADRYL) tablet 25 mg 04-08 16:21: 55 Yes 25mg 25 mg, Oral, Q6HPRN, Starting on Sun04/08/23 at 1121, Until Discontinu ed, Routine, Sleep, Itching [facility] ondansetron (ZOFRAN (PF)) injection 4 mg 04-08 16:21: 55 Yes 4mg 4 mg, Slow IV Push, Q8HPRN, Starting on Sun04/08/23 at 1121, Until Discontinu ed, Routine, Nausea and Vomiting (N/V) [facility] simethicone (GAS RELIEF (SIMETHICON E)) chewable tablet 160 mg 04-08 16:21: 55 Yes 160mg 160 mg, Oral, PC+HSPRN, Starting on Sun04/08/23 at 1121, Until Discontinu ed, Routine, Gas [facility] docusate (COLACE) capsule 200 mg 04-08 16:21: 55 Yes 200mg 200 mg, Oral, QDAILYPRN, Starting on Sun04/08/23 at 1121, Until Discontinu ed, Routine, Constipati on [facility] magnesium hydroxide (MILK OF MAGNESIA) 400 mg/5 mL suspension 30 mL 04-08 16:21: 55 Yes 30mL 30 mL, Oral, QDAILYPRN, Starting on Sun04/08/23 at 1121, Until Discontinu ed, Routine, Constipati on [facility] benzocaine- menthol (DERMOPLAST ) 20-0.5 % topical spray 04-08 16:21: 55 Yes Topical, PRN, Starting on Sun04/08/23 at 1121, Until Discontinu ed, Routine, Perineum discomfort [facility] oxytocin (PITOCIN) 30 units in NS 500 mL IV infusion 04-08 14:50: 12 04-08 16:23 :29 No 2mU/min at 2-40 mL/hr, IV Infusion, TITRATE, Starting on Sun04/08/23 at 0950, Until Sun04/08/23 at 1123, AMANDA [facility] PIB FENTanyl 2 mcg/mL + bupivacaine 0.1% in NS 250 mL epidural bag 04-08 11:20: 00 04-08 17:44 :39 No Intra-op [facility] fentaNYL-ro pivacaine 2 mcg/mL-0.1 % (PF) in NS 200 mL epidural infusion RTU 04-08 11:20: 00 04-08 17:44 :39 No Epidural, CONTINUOUS PRN, Starting on Sun04/08/23 at 0620, Until Discontinu ed, Routine, Intra-op [facility] lidocaine-e pinephrine (XYLOCAINE W/EPINEPHRI NE) 1.5 %-1:200,000 injection 04-08 11:12: 00 04-08 17:44 :39 No Epidural, ONCE INTRA PROCEDURE, Starting on Sun04/08/23 at 0612, Until Discontinu ed, Routine, Intra-op [facility] proMETHazin e (PHENERGAN) injection 12.5 mg 04-08 09:48: 48 04-08 16:23 :29 No 12.5mg 12.5 mg, Intramuscu lar, Q4HPRN, Starting on Sun04/08/23 at 0448, Until Sun04/08/23 at 1123, Routine, Nausea and Vomiting (N/V) [facility] terbutaline (BRETHINE) injection 0.25 mg 04-08 07:51: 30 04-08 16:23 :29 No .25mg 0.25 mg, Subcutaneo us, Q15MIN PRN, 3 doses, Starting on Sun04/08/23 at 0251, Until Sun04/08/23 at 1123, Routine, distress, tacghy systole [facility] FENTanyl PF (SUBLIMAZE (PF)) injection 100 mcg 04-08 07:46: 19 04-08 16:23 :29 No 100ug 100 mcg, Slow IV Push, Q1HPRN, Starting on Sun04/08/23 at 0246, Until Sun04/08/23 at 1123, Routine, Pain (scale 7-10), Pain (scale 4-6) [facility] miSOPROStoL (CYTOTEC) tablet 50 mcg 04-08 05:00: 00 04-08 13:44 :24 No 50ug 50 mcg, Oral, Q4H, First dose on Sun04/08/23 at 0000, Until Discontinu ed, Routine [facility] miSOPROStoL (CYTOTEC) tablet 50 mcg 04-08 03:15: 00 04-08 02:58 :00 No 50ug 50 mcg, Oral, ONCE, 1 dose, On [facility] 04/07/23 at 2215, Routine [facility] lactated ringers IV infusion 500 mL 04-08 02:08: 14 04-08 16:23 :29 No 500mL at 999 mL/hr, 500 mL, IV Infusion, PRN - SEE INSTRUCTIO NS, Starting on [facility] 04/07/23 at 2108, Until Sun04/08/23 at 1123, Routine [facility] D5W-LR IV infusion 1,000 mL 04-08 02:08: 14 04-08 16:23 :29 No 1000mL at 1-125 mL/hr, IV Infusion, TITRATE, Starting on 04/07/23 at 2108, Until 04/08/23 at 1123, Routine [facility] ondansetron (ZOFRAN (PF)) injection 4 mg 02-16 20:30: 00 02-16 20:10 :00 No 4mg 4 mg, Slow IV Push, ONCE, On Sun02/16/23 at 1530, For 1 dose
Do ses of ondansetro n 16 mg and above need to be administer ed via IV piggyback. For Dose >=24mg ECG monitoring is advisable.
[facility] NaCl 0.9% (NS) IV infusion 1,000 mL 02-16 20:15: 00 02-16 21:00 :00 No 1000mL at 999 mL/hr, IV Infusion, ONCE, 1 dose, On Sun02/16/23 at 1515, Routine [facility] ferrous sulfate (IRON, FERROUS SULFATE,) 325 mg (65 mg iron) tablet 01-18 00:00: 00 04-09 00:00 :00 No [id number] 325mg Take 1 tablet by mouth in the morning and 1 tablet in the evening. [facility] Nitrofurant oin&Nit. Macrocryst (MACROBID) 100 mg capsule 2-08 00:00: 00 11-02 05:59 :00 No [id number] 100mg Take 1 capsule by mouth in the morning and 1 capsule in the evening. Do all this for 7 days. [facility] norethindro ne 0.35 mg tablet 12-10 00:00: 00 12-20 00:00 :00 No [id number] .35mg Take 1 tablet by mouth daily. [facility] vitamin w/FA tablet 11-19 00:00: 00 Yes [id number] 102 1{tbl} Take 1 tablet by mouth daily. [facility] vitamin w/FA tablet 05 00:00: 00 04-09 00:00 :00 No [id number] 102 1{tbl} Take 1 tablet by mouth daily. [facility] docusate calcium 240 mg capsule 11-19 00:00: 00 12-20 00:00 :00 No [id number] 102 240mg Take 1 capsule by mouth once daily as needed for Constipati on. [facility] ferrous sulfate 325 mg (65 mg iron) tablet 11-19 00:00: 00 12-20 00:00 :00 No [id number] 102 325mg Take 1 tablet by mouth 2 (two) times daily. [facility] ibuprofen 600 mg tablet 11-19 00:00: 12-20 00:00 :00 No [id number] 102 600mg Take 1 tablet by mouth every 6 (six) hours as needed for Pain (scale 1-3) or Pain (scale 4-6) (Pain). Take with food or milk. [facility] Immunizations Ordered Immunization Name Filled Immunization Name Date Status Comments Source Influenza Virus Vaccine Quad .5 mL IM 6+ MO (FLUZONE/FLULAVAL/FLU ARIX) 2023-06-05 00:00:00 Completed [facility] TDAP (ADACEL) VACCINE 2023-06-05 00:00:00 Completed [facility] DTAP 2023-06-05 00:00:00 Completed [facility] Hep B, Adol or Pedi Dosage 2023-06-05 00:00:00 Completed [facility] HPV 2023-06-05 00:00:00 Completed [facility] H1n1 Vaccine 2023-06-05 00:00:00 Completed [facility] IPV 2023-06-05 00:00:00 Completed [facility] Meningococcal Polysaccharide (groups A, C, Y and W-135) conjugate vaccine (MCV4P) 2023-06-05 00:00:00 Completed [facility] MMR 2023-06-05 00:00:00 Completed [facility] Varicella (varivax)(chicken pox) 2023-06-05 00:00:00 Completed [facility] HEPATITIS A 2023-06-05 00:00:00 Completed [facility] Heamophilus Influenza B 2023-06-05 00:00:00 Completed [facility] Influenza Virus Vaccine Quad .5 mL IM 6+ MO (FLUZONE/FLULAVAL/FLU ARIX) 2023-05-25 00:00:00 Completed [facility] TDAP (ADACEL) VACCINE 2023-05-25 00:00:00 Completed [facility] DTAP 2023-05-25 00:00:00 Completed [facility] Hep B, Adol or Pedi Dosage 2023-05-25 00:00:00 Completed [facility] HPV 2023-05-25 00:00:00 Completed [facility] H1n1 Vaccine 2023-05-25 00:00:00 Completed [facility] IPV 2023-05-25 00:00:00 Completed [facility] Meningococcal Polysaccharide (groups A, C, Y and W-135) conjugate vaccine (MCV4P) 2023-05-25 00:00:00 Completed [facility] MMR 2023-05-25 00:00:00 Completed [facility] Varicella (varivax)(chicken pox) 2023-05-25 00:00:00 Completed [facility] HEPATITIS A 2023-05-25 00:00:00 Completed [facility] Heamophilus Influenza B 2023-05-25 00:00:00 Completed [facility] Influenza Virus Vaccine Quad .5 mL IM 6+ MO (FLUZONE/FLULAVAL/FLU ARIX) 2023-05-22 00:00:00 Completed [facility] TDAP (ADACEL) VACCINE 2023-05-22 00:00:00 Completed [facility] DTAP 2023-05-22 00:00:00 Completed [facility] Hep B, Adol or Pedi Dosage 2023-05-22 00:00:00 Completed [facility] HPV 2023-05-22 00:00:00 Completed [facility] H1n1 Vaccine 2023-05-22 00:00:00 Completed [facility] IPV 2023-05-22 00:00:00 Completed [facility] Meningococcal Polysaccharide (groups A, C, Y and W-135) conjugate vaccine (MCV4P) 2023-05-22 00:00:00 Completed [facility] MMR 2023-05-22 00:00:00 Completed [facility] Varicella (varivax)(chicken pox) 2023-05-22 00:00:00 Completed [facility] HEPATITIS A 2023-05-22 00:00:00 Completed [facility] Heamophilus Influenza B 2023-05-22 00:00:00 Completed [facility] TDAP 2023-02-09 00:00:00 Completed [facility] TDAP 2023-02-09 00:00:00 Completed [facility] TDAP 2023-02-09 00:00:00 Completed [facility] TDAP 2023-02-09 00:00:00 Completed [facility] TDAP 2023-02-09 00:00:00 Completed [facility] TDAP 2023-02-09 00:00:00 Completed [facility] TDAP 2023-02-09 00:00:00 Completed [facility] TDAP 2023-02-09 00:00:00 Completed [facility] TDAP 2023-02-09 00:00:00 Completed [facility] TDAP 2023-02-09 00:00:00 Completed [facility] TDAP 2023-02-09 00:00:00 Completed [facility] TDAP 2023-02-09 00:00:00 Completed [facility] TDAP 2023-02-09 00:00:00 Completed [facility] TDAP 2023-02-09 00:00:00 Completed [facility] TDAP 2023-02-09 00:00:00 Completed [facility] TDAP 2023-02-09 00:00:00 Completed [facility] TDAP 2023-02-09 00:00:00 Completed [facility] TDAP 2023-02-09 00:00:00 Completed [facility] TDAP 2023-02-09 00:00:00 Completed [facility] TDAP 2023-02-09 00:00:00 Completed [facility] TDAP 2023-02-09 00:00:00 Completed [facility] TDAP 2023-02-09 00:00:00 Completed [facility] TDAP 2023-02-09 00:00:00 Completed [facility] TDAP 2023-02-09 00:00:00 Completed [facility] TDAP 2023-02-09 00:00:00 Completed [facility] TDAP 2023-02-09 00:00:00 Completed [facility] TDAP 2023-02-09 00:00:00 Completed [facility] TDAP 2023-02-09 00:00:00 Completed [facility] TDAP 2023-02-09 00:00:00 Completed [facility] TDAP 2023-02-09 00:00:00 Completed [facility] TDAP (ADACEL) VACCINE 2019-09-30 00:00:00 Completed [facility] TDAP (ADACEL) VACCINE 2019-09-30 00:00:00 Completed [facility] TDAP (ADACEL) VACCINE 2019-09-30 00:00:00 Completed [facility] TDAP (ADACEL) VACCINE 2019-09-30 00:00:00 Completed [facility] TDAP (ADACEL) VACCINE 2019-09-30 00:00:00 Completed [facility] TDAP (ADACEL) VACCINE 2019-09-30 00:00:00 Completed [facility] TDAP (ADACEL) VACCINE 2019-09-30 00:00:00 Completed [facility] TDAP (ADACEL) VACCINE 2019-09-30 00:00:00 Completed [facility] TDAP (ADACEL) VACCINE 2019-09-30 00:00:00 Completed [facility] TDAP (ADACEL) VACCINE 2019-09-30 00:00:00 Completed [facility] TDAP (ADACEL) VACCINE 2019-09-30 00:00:00 Completed [facility] TDAP (ADACEL) VACCINE 2019-09-30 00:00:00 Completed [facility] TDAP (ADACEL) VACCINE 2019-09-30 00:00:00 Completed [facility] TDAP (ADACEL) VACCINE 2019-09-30 00:00:00 Completed [facility] TDAP (ADACEL) VACCINE 2019-09-30 00:00:00 Completed [facility] TDAP (ADACEL) VACCINE 2019-09-30 00:00:00 Completed [facility] TDAP (ADACEL) VACCINE 2019-09-30 00:00:00 Completed [facility] TDAP (ADACEL) VACCINE 2019-09-30 00:00:00 Completed [facility] TDAP (ADACEL) VACCINE 2019-09-30 00:00:00 Completed [facility] TDAP (ADACEL) VACCINE 2019-09-30 00:00:00 Completed [facility] TDAP (ADACEL) VACCINE 2019-09-30 00:00:00 Completed [facility] TDAP (ADACEL) VACCINE 2019-09-30 00:00:00 Completed [facility] TDAP (ADACEL) VACCINE 2019-09-30 00:00:00 Completed [facility] TDAP (ADACEL) VACCINE 2019-09-30 00:00:00 Completed [facility] TDAP (ADACEL) VACCINE 2019-09-30 00:00:00 Completed [facility] TDAP (ADACEL) VACCINE 2019-09-30 00:00:00 Completed [facility] TDAP (ADACEL) VACCINE 2019-09-30 00:00:00 Completed [facility] TDAP (ADACEL) VACCINE 2019-09-30 00:00:00 Completed [facility] TDAP (ADACEL) VACCINE 2019-09-30 00:00:00 Completed [facility] TDAP (ADACEL) VACCINE 2019-09-30 00:00:00 Completed [facility] TDAP (ADACEL) VACCINE 2019-09-30 00:00:00 Completed [facility] TDAP (ADACEL) VACCINE 2019-09-30 00:00:00 Completed [facility] TDAP (ADACEL) VACCINE 2019-09-30 00:00:00 Completed [facility] TDAP (ADACEL) VACCINE 2019-09-30 00:00:00 Completed [facility] TDAP (ADACEL) VACCINE 2019-09-30 00:00:00 Completed [facility] TDAP (ADACEL) VACCINE 2019-09-30 00:00:00 Completed [facility] TDAP (ADACEL) VACCINE 2019-09-30 00:00:00 Completed [facility] TDAP (ADACEL) VACCINE 2019-09-30 00:00:00 Completed [facility] TDAP (ADACEL) VACCINE 2019-09-30 00:00:00 Completed [facility] TDAP (ADACEL) VACCINE 2019-09-30 00:00:00 Completed [facility] TDAP (ADACEL) VACCINE 2019-09-30 00:00:00 Completed [facility] Influenza Virus Vaccine Quad .5 mL IM 6+ MO 2019-07-17 00:00:00 Completed [facility] Influenza Virus Vaccine Quad .5 mL IM 6+ MO 2019-07-17 00:00:00 Completed [facility] Influenza Virus Vaccine Quad .5 mL IM 6+ MO 2019-07-17 00:00:00 Completed [facility] Influenza Virus Vaccine Quad .5 mL IM 6+ MO 2019-07-17 00:00:00 Completed [facility] Influenza Virus Vaccine Quad .5 mL IM 6+ MO 2019-07-17 00:00:00 Completed [facility] Influenza Virus Vaccine Quad .5 mL IM 6+ MO 2019-07-17 00:00:00 Completed [facility] Influenza Virus Vaccine Quad .5 mL IM 6+ MO 2019-07-17 00:00:00 Completed [facility] Influenza Virus Vaccine Quad .5 mL IM 6+ MO 2019-07-17 00:00:00 Completed [facility] Influenza Virus Vaccine Quad .5 mL IM 6+ MO 2019-07-17 00:00:00 Completed [facility] Influenza Virus Vaccine Quad .5 mL IM 6+ MO 2019-07-17 00:00:00 Completed [facility] Influenza Virus Vaccine Quad .5 mL IM 6+ MO 2019-07-17 00:00:00 Completed [facility] Influenza Virus Vaccine Quad .5 mL IM 6+ MO 2019-07-17 00:00:00 Completed [facility] Influenza Virus Vaccine Quad .5 mL IM 6+ MO 2019-07-17 00:00:00 Completed [facility] Influenza Virus Vaccine Quad .5 mL IM 6+ MO 2019-07-17 00:00:00 Completed [facility] Influenza Virus Vaccine Quad .5 mL IM 6+ MO 2019-07-17 00:00:00 Completed [facility] Influenza Virus Vaccine Quad .5 mL IM 6+ MO (FLUZONE/FLULAVAL/FLU ARIX) 2019-07-17 00:00:00 Completed [facility] Influenza Virus Vaccine Quad .5 mL IM 6+ MO (FLUZONE/FLULAVAL/FLU ARIX) 2019-07-17 00:00:00 Completed [facility] Influenza Virus Vaccine Quad .5 mL IM 6+ MO (FLUZONE/FLULAVAL/FLU ARIX) 2019-07-17 00:00:00 Completed [facility] Influenza Virus Vaccine Quad .5 mL IM 6+ MO (FLUZONE/FLULAVAL/FLU ARIX) 2019-07-17 00:00:00 Completed [facility] Influenza Virus Vaccine Quad .5 mL IM 6+ MO (FLUZONE/FLULAVAL/FLU ARIX) 2019-07-17 00:00:00 Completed [facility] Influenza Virus Vaccine Quad .5 mL IM 6+ MO (FLUZONE/FLULAVAL/FLU ARIX) 2019-07-17 00:00:00 Completed [facility] Influenza Virus Vaccine Quad .5 mL IM 6+ MO (FLUZONE/FLULAVAL/FLU ARIX) 2019-07-17 00:00:00 Completed [facility] Influenza Virus Vaccine Quad .5 mL IM 6+ MO (FLUZONE/FLULAVAL/FLU ARIX) 2019-07-17 00:00:00 Completed [facility] Influenza Virus Vaccine Quad .5 mL IM 6+ MO 2019-07-17 00:00:00 Completed [facility] Influenza Virus Vaccine Quad .5 mL IM 6+ MO (FLUZONE/FLULAVAL/FLU ARIX) 2019-07-17 00:00:00 Completed [facility] Influenza Virus Vaccine Quad .5 mL IM 6+ MO (FLUZONE/FLULAVAL/FLU ARIX) 2019-07-17 00:00:00 Completed [facility] Influenza Virus Vaccine Quad .5 mL IM 6+ MO 2019-07-17 00:00:00 Completed [facility] Influenza Virus Vaccine Quad .5 mL IM 6+ MO 2019-07-17 00:00:00 Completed [facility] Influenza Virus Vaccine Quad .5 mL IM 6+ MO 2019-07-17 00:00:00 Completed [facility] Influenza Virus Vaccine Quad .5 mL IM 6+ MO 2019-07-17 00:00:00 Completed [facility] Influenza Virus Vaccine Quad .5 mL IM 6+ MO 2019-07-17 00:00:00 Completed [facility] Influenza Virus Vaccine Quad .5 mL IM 6+ MO 2019-07-17 00:00:00 Completed [facility] Influenza Virus Vaccine Quad .5 mL IM 6+ MO 2019-07-17 00:00:00 Completed [facility] Influenza Virus Vaccine Quad .5 mL IM 6+ MO 2019-07-17 00:00:00 Completed [facility] Influenza Virus Vaccine Quad .5 mL IM 6+ MO 2019-07-17 00:00:00 Completed [facility] Influenza Virus Vaccine Quad .5 mL IM 6+ MO 2019-07-17 00:00:00 Completed [facility] Influenza Virus Vaccine Quad .5 mL IM 6+ MO 2019-07-17 00:00:00 Completed [facility] Influenza Virus Vaccine Quad .5 mL IM 6+ MO 2019-07-17 00:00:00 Completed [facility] Influenza Virus Vaccine Quad .5 mL IM 6+ MO 2019-07-17 00:00:00 Completed [facility] Influenza Virus Vaccine Quad .5 mL IM 6+ MO 2019-07-17 00:00:00 Completed [facility] Influenza Virus Vaccine Quad .5 mL IM 6+ MO 2019-07-17 00:00:00 Completed [facility] HEPATITIS A 2012-10-01 00:00:00 Completed [facility] HEPATITIS A 2012-10-01 00:00:00 Completed [facility] HEPATITIS A 2012-10-01 00:00:00 Completed [facility] HEPATITIS A 2012-10-01 00:00:00 Completed [facility] HEPATITIS A 2012-10-01 00:00:00 Completed [facility] HEPATITIS A 2012-10-01 00:00:00 Completed [facility] HEPATITIS A 2012-10-01 00:00:00 Completed [facility] HEPATITIS A 2012-10-01 00:00:00 Completed [facility] HEPATITIS A 2012-10-01 00:00:00 Completed [facility] HEPATITIS A 2012-10-01 00:00:00 Completed [facility] HEPATITIS A 2012-10-01 00:00:00 Completed [facility] HEPATITIS A 2012-10-01 00:00:00 Completed [facility] HEPATITIS A 2012-10-01 00:00:00 Completed [facility] HEPATITIS A 2012-10-01 00:00:00 Completed [facility] HEPATITIS A 2012-10-01 00:00:00 Completed [facility] HEPATITIS A 2012-10-01 00:00:00 Completed [facility] HEPATITIS A 2012-10-01 00:00:00 Completed [facility] HEPATITIS A 2012-10-01 00:00:00 Completed [facility] HEPATITIS A 2012-10-01 00:00:00 Completed [facility] HEPATITIS A 2012-10-01 00:00:00 Completed [facility] HEPATITIS A 2012-10-01 00:00:00 Completed [facility] HEPATITIS A 2012-10-01 00:00:00 Completed [facility] HEPATITIS A 2012-10-01 00:00:00 Completed [facility] HEPATITIS A 2012-10-01 00:00:00 Completed [facility] HEPATITIS A 2012-10-01 00:00:00 Completed [facility] HEPATITIS A 2012-10-01 00:00:00 Completed [facility] HEPATITIS A 2012-10-01 00:00:00 Completed [facility] HEPATITIS A 2012-10-01 00:00:00 Completed [facility] HEPATITIS A 2012-10-01 00:00:00 Completed [facility] HEPATITIS A 2012-10-01 00:00:00 Completed [facility] HEPATITIS A 2012-10-01 00:00:00 Completed [facility] HEPATITIS A 2012-10-01 00:00:00 Completed [facility] HEPATITIS A 2012-10-01 00:00:00 Completed [facility] HEPATITIS A 2012-10-01 00:00:00 Completed [facility] HEPATITIS A 2012-10-01 00:00:00 Completed [facility] HEPATITIS A 2012-10-01 00:00:00 Completed [facility] HEPATITIS A 2012-10-01 00:00:00 Completed [facility] HEPATITIS A 2012-10-01 00:00:00 Completed [facility] HEPATITIS A 2012-10-01 00:00:00 Completed [facility] HEPATITIS A 2012-10-01 00:00:00 Completed [facility] HEPATITIS A 2012-10-01 00:00:00 Completed [facility] HPV 2011-12-28 00:00:00 Completed [facility] Varicella (varivax)(chicken pox) 2011-12-28 00:00:00 Completed [facility] HEPATITIS A 2011-12-28 00:00:00 Completed [facility] HPV 2011-12-28 00:00:00 Completed [facility] Varicella (varivax)(chicken pox) 2011-12-28 00:00:00 Completed [facility] HEPATITIS A 2011-12-28 00:00:00 Completed [facility] HPV 2011-12-28 00:00:00 Completed [facility] Varicella (varivax)(chicken pox) 2011-12-28 00:00:00 Completed [facility] HEPATITIS A 2011-12-28 00:00:00 Completed [facility] HPV 2011-12-28 00:00:00 Completed [facility] Varicella (varivax)(chicken pox) 2011-12-28 00:00:00 Completed [facility] HEPATITIS A 2011-12-28 00:00:00 Completed [facility] HPV 2011-12-28 00:00:00 Completed [facility] Varicella (varivax)(chicken pox) 2011-12-28 00:00:00 Completed [facility] HEPATITIS A 2011-12-28 00:00:00 Completed [facility] HPV 2011-12-28 00:00:00 Completed [facility] Varicella (varivax)(chicken pox) 2011-12-28 00:00:00 Completed [facility] HEPATITIS A 2011-12-28 00:00:00 Completed [facility] HPV 2011-12-28 00:00:00 Completed [facility] Varicella (varivax)(chicken pox) 2011-12-28 00:00:00 Completed [facility] HEPATITIS A 2011-12-28 00:00:00 Completed [facility] HPV 2011-12-28 00:00:00 Completed [facility] Varicella (varivax)(chicken pox) 2011-12-28 00:00:00 Completed [facility] HEPATITIS A 2011-12-28 00:00:00 Completed [facility] HPV 2011-12-28 00:00:00 Completed [facility] Varicella (varivax)(chicken pox) 2011-12-28 00:00:00 Completed [facility] HEPATITIS A 2011-12-28 00:00:00 Completed [facility] HPV 2011-12-28 00:00:00 Completed [facility] HPV 2011-12-28 00:00:00 Completed [facility] Varicella (varivax)(chicken pox) 2011-12-28 00:00:00 Completed [facility] HEPATITIS A 2011-12-28 00:00:00 Completed [facility] Varicella (varivax)(chicken pox) 2011-12-28 00:00:00 Completed [facility] HEPATITIS A 2011-12-28 00:00:00 Completed [facility] HPV 2011-12-28 00:00:00 Completed [facility] Varicella (varivax)(chicken pox) 2011-12-28 00:00:00 Completed [facility] HEPATITIS A 2011-12-28 00:00:00 Completed [facility] HPV 2011-12-28 00:00:00 Completed [facility] Varicella (varivax)(chicken pox) 2011-12-28 00:00:00 Completed [facility] HEPATITIS A 2011-12-28 00:00:00 Completed [facility] HPV 2011-12-28 00:00:00 Completed [facility] Varicella (varivax)(chicken pox) 2011-12-28 00:00:00 Completed [facility] HEPATITIS A 2011-12-28 00:00:00 Completed [facility] HPV 2011-12-28 00:00:00 Completed [facility] Varicella (varivax)(chicken pox) 2011-12-28 00:00:00 Completed [facility] HEPATITIS A 2011-12-28 00:00:00 Completed [facility] HPV 2011-12-28 00:00:00 Completed [facility] Varicella (varivax)(chicken pox) 2011-12-28 00:00:00 Completed [facility] HEPATITIS A 2011-12-28 00:00:00 Completed [facility] HPV 2011-12-28 00:00:00 Completed [facility] Varicella (varivax)(chicken pox) 2011-12-28 00:00:00 Completed [facility] HEPATITIS A 2011-12-28 00:00:00 Completed [facility] HPV 2011-12-28 00:00:00 Completed [facility] HPV 2011-12-28 00:00:00 Completed [facility] Varicella (varivax)(chicken pox) 2011-12-28 00:00:00 Completed [facility] HEPATITIS A 2011-12-28 00:00:00 Completed [facility] HPV 2011-12-28 00:00:00 Completed [facility] Varicella (varivax)(chicken pox) 2011-12-28 00:00:00 Completed [facility] HEPATITIS A 2011-12-28 00:00:00 Completed [facility] Varicella (varivax)(chicken pox) 2011-12-28 00:00:00 Completed [facility] HEPATITIS A 2011-12-28 00:00:00 Completed [facility] HPV 2011-12-28 00:00:00 Completed [facility] Varicella (varivax)(chicken pox) 2011-12-28 00:00:00 Completed [facility] HEPATITIS A 2011-12-28 00:00:00 Completed [facility] HPV 2011-12-28 00:00:00 Completed [facility] Varicella (varivax)(chicken pox) 2011-12-28 00:00:00 Completed [facility] HEPATITIS A 2011-12-28 00:00:00 Completed [facility] HPV 2011-12-28 00:00:00 Completed [facility] Varicella (varivax)(chicken pox) 2011-12-28 00:00:00 Completed [facility] HEPATITIS A 2011-12-28 00:00:00 Completed [facility] HPV 2011-12-28 00:00:00 Completed [facility] Varicella (varivax)(chicken pox) 2011-12-28 00:00:00 Completed [facility] HEPATITIS A 2011-12-28 00:00:00 Completed [facility] HPV 2011-12-28 00:00:00 Completed [facility] Varicella (varivax)(chicken pox) 2011-12-28 00:00:00 Completed [facility] HEPATITIS A 2011-12-28 00:00:00 Completed [facility] HPV 2011-12-28 00:00:00 Completed [facility] HPV 2011-12-28 00:00:00 Completed [facility] Varicella (varivax)(chicken pox) 2011-12-28 00:00:00 Completed [facility] HEPATITIS A 2011-12-28 00:00:00 Completed [facility] Varicella (varivax)(chicken pox) 2011-12-28 00:00:00 Completed [facility] HEPATITIS A 2011-12-28 00:00:00 Completed [facility] HPV 2011-12-28 00:00:00 Completed [facility] Varicella (varivax)(chicken pox) 2011-12-28 00:00:00 Completed [facility] HEPATITIS A 2011-12-28 00:00:00 Completed [facility] HPV 2011-12-28 00:00:00 Completed [facility] Varicella (varivax)(chicken pox) 2011-12-28 00:00:00 Completed [facility] HEPATITIS A 2011-12-28 00:00:00 Completed [facility] HPV 2011-12-28 00:00:00 Completed [facility] Varicella (varivax)(chicken pox) 2011-12-28 00:00:00 Completed [facility] HEPATITIS A 2011-12-28 00:00:00 Completed [facility] HPV 2011-12-28 00:00:00 Completed [facility] Varicella (varivax)(chicken pox) 2011-12-28 00:00:00 Completed [facility] HEPATITIS A 2011-12-28 00:00:00 Completed [facility] HPV 2011-12-28 00:00:00 Completed [facility] Varicella (varivax)(chicken pox) 2011-12-28 00:00:00 Completed [facility] HEPATITIS A 2011-12-28 00:00:00 Completed [facility] HPV 2011-12-28 00:00:00 Completed [facility] Varicella (varivax)(chicken pox) 2011-12-28 00:00:00 Completed [facility] HEPATITIS A 2011-12-28 00:00:00 Completed [facility] HPV 2011-12-28 00:00:00 Completed [facility] Varicella (varivax)(chicken pox) 2011-12-28 00:00:00 Completed [facility] HEPATITIS A 2011-12-28 00:00:00 Completed [facility] HPV 2011-12-28 00:00:00 Completed [facility] Varicella (varivax)(chicken pox) 2011-12-28 00:00:00 Completed [facility] HEPATITIS A 2011-12-28 00:00:00 Completed [facility] HPV 2011-12-28 00:00:00 Completed [facility] Varicella (varivax)(chicken pox) 2011-12-28 00:00:00 Completed [facility] HEPATITIS A 2011-12-28 00:00:00 Completed [facility] HPV 2011-12-28 00:00:00 Completed [facility] Varicella (varivax)(chicken pox) 2011-12-28 00:00:00 Completed [facility] HEPATITIS A 2011-12-28 00:00:00 Completed [facility] HPV 2011-12-28 00:00:00 Completed [facility] HPV 2011-12-28 00:00:00 Completed [facility] Varicella (varivax)(chicken pox) 2011-12-28 00:00:00 Completed [facility] HEPATITIS A 2011-12-28 00:00:00 Completed [facility] HPV 2011-12-28 00:00:00 Completed [facility] Varicella (varivax)(chicken pox) 2011-12-28 00:00:00 Completed [facility] HEPATITIS A 2011-12-28 00:00:00 Completed [facility] Varicella (varivax)(chicken pox) 2011-12-28 00:00:00 Completed [facility] HEPATITIS A 2011-12-28 00:00:00 Completed [facility] HPV 2011-12-28 00:00:00 Completed [facility] Varicella (varivax)(chicken pox) 2011-12-28 00:00:00 Completed [facility] HEPATITIS A 2011-12-28 00:00:00 Completed [facility] HPV 2011-03-30 00:00:00 Completed [facility] HPV 2011-03-30 00:00:00 Completed [facility] HPV 2011-03-30 00:00:00 Completed [facility] HPV 2011-03-30 00:00:00 Completed [facility] HPV 2011-03-30 00:00:00 Completed [facility] HPV 2011-03-30 00:00:00 Completed [facility] HPV 2011-03-30 00:00:00 Completed [facility] HPV 2011-03-30 00:00:00 Completed [facility] HPV 2011-03-30 00:00:00 Completed [facility] HPV 2011-03-30 00:00:00 Completed [facility] HPV 2011-03-30 00:00:00 Completed [facility] HPV 2011-03-30 00:00:00 Completed [facility] HPV 2011-03-30 00:00:00 Completed [facility] HPV 2011-03-30 00:00:00 Completed [facility] HPV 2011-03-30 00:00:00 Completed [facility] HPV 2011-03-30 00:00:00 Completed [facility] HPV 2011-03-30 00:00:00 Completed [facility] HPV 2011-03-30 00:00:00 Completed [facility] HPV 2011-03-30 00:00:00 Completed [facility] HPV 2011-03-30 00:00:00 Completed [facility] HPV 2011-03-30 00:00:00 Completed [facility] HPV 2011-03-30 00:00:00 Completed [facility] HPV 2011-03-30 00:00:00 Completed [facility] HPV 2011-03-30 00:00:00 Completed [facility] HPV 2011-03-30 00:00:00 Completed [facility] HPV 2011-03-30 00:00:00 Completed [facility] HPV 2011-03-30 00:00:00 Completed [facility] HPV 2011-03-30 00:00:00 Completed [facility] HPV 2011-03-30 00:00:00 Completed [facility] HPV 2011-03-30 00:00:00 Completed [facility] HPV 2011-03-30 00:00:00 Completed [facility] HPV 2011-03-30 00:00:00 Completed [facility] HPV 2011-03-30 00:00:00 Completed [facility] HPV 2011-03-30 00:00:00 Completed [facility] HPV 2011-03-30 00:00:00 Completed [facility] HPV 2011-03-30 00:00:00 Completed [facility] HPV 2011-03-30 00:00:00 Completed [facility] HPV 2011-03-30 00:00:00 Completed [facility] HPV 2011-03-30 00:00:00 Completed [facility] HPV 2011-03-30 00:00:00 Completed [facility] HPV 2011-03-30 00:00:00 Completed [facility] HPV 2010-10-07 00:00:00 Completed [facility] H1n1 Vaccine 2010-10-07 00:00:00 Completed [facility] Meningococcal Polysaccharide (groups A, C, Y and W-135) conjugate vaccine (MCV4P) 2010-10-07 00:00:00 Completed [facility] TDAP 2010-10-07 00:00:00 Completed [facility] HPV 2010-10-07 00:00:00 Completed [facility] H1n1 Vaccine 2010-10-07 00:00:00 Completed [facility] Meningococcal Polysaccharide (groups A, C, Y and W-135) conjugate vaccine (MCV4P) 2010-10-07 00:00:00 Completed [facility] TDAP 2010-10-07 00:00:00 Completed [facility] HPV 2010-10-07 00:00:00 Completed [facility] H1n1 Vaccine 2010-10-07 00:00:00 Completed [facility] Meningococcal Polysaccharide (groups A, C, Y and W-135) conjugate vaccine (MCV4P) 2010-10-07 00:00:00 Completed [facility] TDAP 2010-10-07 00:00:00 Completed [facility] HPV 2010-10-07 00:00:00 Completed [facility] H1n1 Vaccine 2010-10-07 00:00:00 Completed [facility] Meningococcal Polysaccharide (groups A, C, Y and W-135) conjugate vaccine (MCV4P) 2010-10-07 00:00:00 Completed [facility] TDAP 2010-10-07 00:00:00 Completed [facility] HPV 2010-10-07 00:00:00 Completed [facility] H1n1 Vaccine 2010-10-07 00:00:00 Completed [facility] Meningococcal Polysaccharide (groups A, C, Y and W-135) conjugate vaccine (MCV4P) 2010-10-07 00:00:00 Completed [facility] TDAP 2010-10-07 00:00:00 Completed [facility] HPV 2010-10-07 00:00:00 Completed [facility] H1n1 Vaccine 2010-10-07 00:00:00 Completed [facility] Meningococcal Polysaccharide (groups A, C, Y and W-135) conjugate vaccine (MCV4P) 2010-10-07 00:00:00 Completed [facility] TDAP 2010-10-07 00:00:00 Completed [facility] HPV 2010-10-07 00:00:00 Completed [facility] H1n1 Vaccine 2010-10-07 00:00:00 Completed [facility] Meningococcal Polysaccharide (groups A, C, Y and W-135) conjugate vaccine (MCV4P) 2010-10-07 00:00:00 Completed [facility] TDAP 2010-10-07 00:00:00 Completed [facility] HPV 2010-10-07 00:00:00 Completed [facility] H1n1 Vaccine 2010-10-07 00:00:00 Completed [facility] Meningococcal Polysaccharide (groups A, C, Y and W-135) conjugate vaccine (MCV4P) 2010-10-07 00:00:00 Completed [facility] TDAP 2010-10-07 00:00:00 Completed [facility] HPV 2010-10-07 00:00:00 Completed [facility] H1n1 Vaccine 2010-10-07 00:00:00 Completed [facility] Meningococcal Polysaccharide (groups A, C, Y and W-135) conjugate vaccine (MCV4P) 2010-10-07 00:00:00 Completed [facility] TDAP 2010-10-07 00:00:00 Completed [facility] HPV 2010-10-07 00:00:00 Completed [facility] H1n1 Vaccine 2010-10-07 00:00:00 Completed [facility] HPV 2010-10-07 00:00:00 Completed [facility] H1n1 Vaccine 2010-10-07 00:00:00 Completed [facility] Meningococcal Polysaccharide (groups A, C, Y and W-135) conjugate vaccine (MCV4P) 2010-10-07 00:00:00 Completed [facility] TDAP 2010-10-07 00:00:00 Completed [facility] Meningococcal Polysaccharide (groups A, C, Y and W-135) conjugate vaccine (MCV4P) 2010-10-07 00:00:00 Completed [facility] TDAP 2010-10-07 00:00:00 Completed [facility] HPV 2010-10-07 00:00:00 Completed [facility] H1n1 Vaccine 2010-10-07 00:00:00 Completed [facility] Meningococcal Polysaccharide (groups A, C, Y and W-135) conjugate vaccine (MCV4P) 2010-10-07 00:00:00 Completed [facility] TDAP 2010-10-07 00:00:00 Completed [facility] HPV 2010-10-07 00:00:00 Completed [facility] H1n1 Vaccine 2010-10-07 00:00:00 Completed [facility] Meningococcal Polysaccharide (groups A, C, Y and W-135) conjugate vaccine (MCV4P) 2010-10-07 00:00:00 Completed [facility] TDAP 2010-10-07 00:00:00 Completed [facility] HPV 2010-10-07 00:00:00 Completed [facility] H1n1 Vaccine 2010-10-07 00:00:00 Completed [facility] Meningococcal Polysaccharide (groups A, C, Y and W-135) conjugate vaccine (MCV4P) 2010-10-07 00:00:00 Completed [facility] TDAP 2010-10-07 00:00:00 Completed [facility] HPV 2010-10-07 00:00:00 Completed [facility] H1n1 Vaccine 2010-10-07 00:00:00 Completed [facility] Meningococcal Polysaccharide (groups A, C, Y and W-135) conjugate vaccine (MCV4P) 2010-10-07 00:00:00 Completed [facility] TDAP 2010-10-07 00:00:00 Completed [facility] HPV 2010-10-07 00:00:00 Completed [facility] H1n1 Vaccine 2010-10-07 00:00:00 Completed [facility] Meningococcal Polysaccharide (groups A, C, Y and W-135) conjugate vaccine (MCV4P) 2010-10-07 00:00:00 Completed [facility] TDAP 2010-10-07 00:00:00 Completed [facility] HPV 2010-10-07 00:00:00 Completed [facility] H1n1 Vaccine 2010-10-07 00:00:00 Completed [facility] Meningococcal Polysaccharide (groups A, C, Y and W-135) conjugate vaccine (MCV4P) 2010-10-07 00:00:00 Completed [facility] TDAP 2010-10-07 00:00:00 Completed [facility] HPV 2010-10-07 00:00:00 Completed [facility] H1n1 Vaccine 2010-10-07 00:00:00 Completed [facility] HPV 2010-10-07 00:00:00 Completed [facility] H1n1 Vaccine 2010-10-07 00:00:00 Completed [facility] Meningococcal Polysaccharide (groups A, C, Y and W-135) conjugate vaccine (MCV4P) 2010-10-07 00:00:00 Completed [facility] TDAP 2010-10-07 00:00:00 Completed [facility] Meningococcal Polysaccharide (groups A, C, Y and W-135) conjugate vaccine (MCV4P) 2010-10-07 00:00:00 Completed [facility] TDAP 2010-10-07 00:00:00 Completed [facility] HPV 2010-10-07 00:00:00 Completed [facility] H1n1 Vaccine 2010-10-07 00:00:00 Completed [facility] Meningococcal Polysaccharide (groups A, C, Y and W-135) conjugate vaccine (MCV4P) 2010-10-07 00:00:00 Completed [facility] TDAP 2010-10-07 00:00:00 Completed [facility] HPV 2010-10-07 00:00:00 Completed [facility] H1n1 Vaccine 2010-10-07 00:00:00 Completed [facility] Meningococcal Polysaccharide (groups A, C, Y and W-135) conjugate vaccine (MCV4P) 2010-10-07 00:00:00 Completed [facility] TDAP 2010-10-07 00:00:00 Completed [facility] HPV 2010-10-07 00:00:00 Completed [facility] H1n1 Vaccine 2010-10-07 00:00:00 Completed [facility] Meningococcal Polysaccharide (groups A, C, Y and W-135) conjugate vaccine (MCV4P) 2010-10-07 00:00:00 Completed [facility] TDAP 2010-10-07 00:00:00 Completed [facility] HPV 2010-10-07 00:00:00 Completed [facility] H1n1 Vaccine 2010-10-07 00:00:00 Completed [facility] Meningococcal Polysaccharide (groups A, C, Y and W-135) conjugate vaccine (MCV4P) 2010-10-07 00:00:00 Completed [facility] TDAP 2010-10-07 00:00:00 Completed [facility] HPV 2010-10-07 00:00:00 Completed [facility] H1n1 Vaccine 2010-10-07 00:00:00 Completed [facility] Meningococcal Polysaccharide (groups A, C, Y and W-135) conjugate vaccine (MCV4P) 2010-10-07 00:00:00 Completed [facility] TDAP 2010-10-07 00:00:00 Completed [facility] HPV 2010-10-07 00:00:00 Completed [facility] H1n1 Vaccine 2010-10-07 00:00:00 Completed [facility] Meningococcal Polysaccharide (groups A, C, Y and W-135) conjugate vaccine (MCV4P) 2010-10-07 00:00:00 Completed [facility] TDAP 2010-10-07 00:00:00 Completed [facility] HPV 2010-10-07 00:00:00 Completed [facility] H1n1 Vaccine 2010-10-07 00:00:00 Completed [facility] HPV 2010-10-07 00:00:00 Completed [facility] H1n1 Vaccine 2010-10-07 00:00:00 Completed [facility] Meningococcal Polysaccharide (groups A, C, Y and W-135) conjugate vaccine (MCV4P) 2010-10-07 00:00:00 Completed [facility] TDAP 2010-10-07 00:00:00 Completed [facility] Meningococcal Polysaccharide (groups A, C, Y and W-135) conjugate vaccine (MCV4P) 2010-10-07 00:00:00 Completed [facility] TDAP 2010-10-07 00:00:00 Completed [facility] HPV 2010-10-07 00:00:00 Completed [facility] H1n1 Vaccine 2010-10-07 00:00:00 Completed [facility] Meningococcal Polysaccharide (groups A, C, Y and W-135) conjugate vaccine (MCV4P) 2010-10-07 00:00:00 Completed [facility] TDAP 2010-10-07 00:00:00 Completed [facility] HPV 2010-10-07 00:00:00 Completed [facility] H1n1 Vaccine 2010-10-07 00:00:00 Completed [facility] Meningococcal Polysaccharide (groups A, C, Y and W-135) conjugate vaccine (MCV4P) 2010-10-07 00:00:00 Completed [facility] TDAP 2010-10-07 00:00:00 Completed [facility] HPV 2010-10-07 00:00:00 Completed [facility] H1n1 Vaccine 2010-10-07 00:00:00 Completed [facility] Meningococcal Polysaccharide (groups A, C, Y and W-135) conjugate vaccine (MCV4P) 2010-10-07 00:00:00 Completed [facility] TDAP 2010-10-07 00:00:00 Completed [facility] HPV 2010-10-07 00:00:00 Completed [facility] H1n1 Vaccine 2010-10-07 00:00:00 Completed [facility] Meningococcal Polysaccharide (groups A, C, Y and W-135) conjugate vaccine (MCV4P) 2010-10-07 00:00:00 Completed [facility] TDAP 2010-10-07 00:00:00 Completed [facility] HPV 2010-10-07 00:00:00 Completed [facility] H1n1 Vaccine 2010-10-07 00:00:00 Completed [facility] Meningococcal Polysaccharide (groups A, C, Y and W-135) conjugate vaccine (MCV4P) 2010-10-07 00:00:00 Completed [facility] TDAP 2010-10-07 00:00:00 Completed [facility] HPV 2010-10-07 00:00:00 Completed [facility] H1n1 Vaccine 2010-10-07 00:00:00 Completed [facility] Meningococcal Polysaccharide (groups A, C, Y and W-135) conjugate vaccine (MCV4P) 2010-10-07 00:00:00 Completed [facility] TDAP 2010-10-07 00:00:00 Completed [facility] HPV 2010-10-07 00:00:00 Completed [facility] H1n1 Vaccine 2010-10-07 00:00:00 Completed [facility] Meningococcal Polysaccharide (groups A, C, Y and W-135) conjugate vaccine (MCV4P) 2010-10-07 00:00:00 Completed [facility] TDAP 2010-10-07 00:00:00 Completed [facility] HPV 2010-10-07 00:00:00 Completed [facility] H1n1 Vaccine 2010-10-07 00:00:00 Completed [facility] Meningococcal Polysaccharide (groups A, C, Y and W-135) conjugate vaccine (MCV4P) 2010-10-07 00:00:00 Completed [facility] TDAP 2010-10-07 00:00:00 Completed [facility] HPV 2010-10-07 00:00:00 Completed [facility] H1n1 Vaccine 2010-10-07 00:00:00 Completed [facility] Meningococcal Polysaccharide (groups A, C, Y and W-135) conjugate vaccine (MCV4P) 2010-10-07 00:00:00 Completed [facility] TDAP 2010-10-07 00:00:00 Completed [facility] HPV 2010-10-07 00:00:00 Completed [facility] H1n1 Vaccine 2010-10-07 00:00:00 Completed [facility] Meningococcal Polysaccharide (groups A, C, Y and W-135) conjugate vaccine (MCV4P) 2010-10-07 00:00:00 Completed [facility] HPV 2010-10-07 00:00:00 Completed [facility] TDAP 2010-10-07 00:00:00 Completed [facility] H1n1 Vaccine 2010-10-07 00:00:00 Completed [facility] HPV 2010-10-07 00:00:00 Completed [facility] H1n1 Vaccine 2010-10-07 00:00:00 Completed [facility] Meningococcal Polysaccharide (groups A, C, Y and W-135) conjugate vaccine (MCV4P) 2010-10-07 00:00:00 Completed [facility] TDAP 2010-10-07 00:00:00 Completed [facility] Meningococcal Polysaccharide (groups A, C, Y and W-135) conjugate vaccine (MCV4P) 2010-10-07 00:00:00 Completed [facility] HPV 2010-10-07 00:00:00 Completed [facility] H1n1 Vaccine 2010-10-07 00:00:00 Completed [facility] TDAP 2010-10-07 00:00:00 Completed [facility] Meningococcal Polysaccharide (groups A, C, Y and W-135) conjugate vaccine (MCV4P) 2010-10-07 00:00:00 Completed [facility] TDAP 2010-10-07 00:00:00 Completed [facility] HPV 2010-10-07 00:00:00 Completed [facility] H1n1 Vaccine 2010-10-07 00:00:00 Completed [facility] Meningococcal Polysaccharide (groups A, C, Y and W-135) conjugate vaccine (MCV4P) 2010-10-07 00:00:00 Completed [facility] TDAP 2010-10-07 00:00:00 Completed [facility] IPV 2003-10-12 00:00:00 Completed [facility] MMR 2003-10-12 00:00:00 Completed [facility] DTAP 2003-10-12 00:00:00 Completed [facility] IPV 2003-10-12 00:00:00 Completed [facility] MMR 2003-10-12 00:00:00 Completed [facility] DTAP 2003-10-12 00:00:00 Completed [facility] IPV 2003-10-12 00:00:00 Completed [facility] MMR 2003-10-12 00:00:00 Completed [facility] DTAP 2003-10-12 00:00:00 Completed [facility] IPV 2003-10-12 00:00:00 Completed [facility] MMR 2003-10-12 00:00:00 Completed [facility] DTAP 2003-10-12 00:00:00 Completed [facility] IPV 2003-10-12 00:00:00 Completed [facility] MMR 2003-10-12 00:00:00 Completed [facility] DTAP 2003-10-12 00:00:00 Completed [facility] IPV 2003-10-12 00:00:00 Completed [facility] MMR 2003-10-12 00:00:00 Completed [facility] DTAP 2003-10-12 00:00:00 Completed [facility] IPV 2003-10-12 00:00:00 Completed [facility] MMR 2003-10-12 00:00:00 Completed [facility] DTAP 2003-10-12 00:00:00 Completed [facility] IPV 2003-10-12 00:00:00 Completed [facility] DTAP 2003-10-12 00:00:00 Completed [facility] MMR 2003-10-12 00:00:00 Completed [facility] DTAP 2003-10-12 00:00:00 Completed [facility] IPV 2003-10-12 00:00:00 Completed [facility] MMR 2003-10-12 00:00:00 Completed [facility] DTAP 2003-10-12 00:00:00 Completed [facility] IPV 2003-10-12 00:00:00 Completed [facility] IPV 2003-10-12 00:00:00 Completed [facility] MMR 2003-10-12 00:00:00 Completed [facility] MMR 2003-10-12 00:00:00 Completed [facility] DTAP 2003-10-12 00:00:00 Completed [facility] IPV 2003-10-12 00:00:00 Completed [facility] MMR 2003-10-12 00:00:00 Completed [facility] DTAP 2003-10-12 00:00:00 Completed [facility] IPV 2003-10-12 00:00:00 Completed [facility] MMR 2003-10-12 00:00:00 Completed [facility] DTAP 2003-10-12 00:00:00 Completed [facility] IPV 2003-10-12 00:00:00 Completed [facility] MMR 2003-10-12 00:00:00 Completed [facility] DTAP 2003-10-12 00:00:00 Completed [facility] IPV 2003-10-12 00:00:00 Completed [facility] MMR 2003-10-12 00:00:00 Completed [facility] DTAP 2003-10-12 00:00:00 Completed [facility] IPV 2003-10-12 00:00:00 Completed [facility] MMR 2003-10-12 00:00:00 Completed [facility] DTAP 2003-10-12 00:00:00 Completed [facility] DTAP 2003-10-12 00:00:00 Completed [facility] IPV 2003-10-12 00:00:00 Completed [facility] MMR 2003-10-12 00:00:00 Completed [facility] DTAP 2003-10-12 00:00:00 Completed [facility] IPV 2003-10-12 00:00:00 Completed [facility] MMR 2003-10-12 00:00:00 Completed [facility] IPV 2003-10-12 00:00:00 Completed [facility] MMR 2003-10-12 00:00:00 Completed [facility] DTAP 2003-10-12 00:00:00 Completed [facility] IPV 2003-10-12 00:00:00 Completed [facility] MMR 2003-10-12 00:00:00 Completed [facility] DTAP 2003-10-12 00:00:00 Completed [facility] IPV 2003-10-12 00:00:00 Completed [facility] MMR 2003-10-12 00:00:00 Completed [facility] DTAP 2003-10-12 00:00:00 Completed [facility] IPV 2003-10-12 00:00:00 Completed [facility] MMR 2003-10-12 00:00:00 Completed [facility] DTAP 2003-10-12 00:00:00 Completed [facility] IPV 2003-10-12 00:00:00 Completed [facility] MMR 2003-10-12 00:00:00 Completed [facility] DTAP 2003-10-12 00:00:00 Completed [facility] IPV 2003-10-12 00:00:00 Completed [facility] MMR 2003-10-12 00:00:00 Completed [facility] DTAP 2003-10-12 00:00:00 Completed [facility] IPV 2003-10-12 00:00:00 Completed [facility] MMR 2003-10-12 00:00:00 Completed [facility] DTAP 2003-10-12 00:00:00 Completed [facility] DTAP 2003-10-12 00:00:00 Completed [facility] IPV 2003-10-12 00:00:00 Completed [facility] MMR 2003-10-12 00:00:00 Completed [facility] IPV 2003-10-12 00:00:00 Completed [facility] MMR 2003-10-12 00:00:00 Completed [facility] DTAP 2003-10-12 00:00:00 Completed [facility] IPV 2003-10-12 00:00:00 Completed [facility] MMR 2003-10-12 00:00:00 Completed [facility] DTAP 2003-10-12 00:00:00 Completed [facility] IPV 2003-10-12 00:00:00 Completed [facility] MMR 2003-10-12 00:00:00 Completed [facility] DTAP 2003-10-12 00:00:00 Completed [facility] IPV 2003-10-12 00:00:00 Completed [facility] MMR 2003-10-12 00:00:00 Completed [facility] DTAP 2003-10-12 00:00:00 Completed [facility] IPV 2003-10-12 00:00:00 Completed [facility] MMR 2003-10-12 00:00:00 Completed [facility] DTAP 2003-10-12 00:00:00 Completed [facility] IPV 2003-10-12 00:00:00 Completed [facility] MMR 2003-10-12 00:00:00 Completed [facility] DTAP 2003-10-12 00:00:00 Completed [facility] IPV 2003-10-12 00:00:00 Completed [facility] MMR 2003-10-12 00:00:00 Completed [facility] DTAP 2003-10-12 00:00:00 Completed [facility] IPV 2003-10-12 00:00:00 Completed [facility] MMR 2003-10-12 00:00:00 Completed [facility] DTAP 2003-10-12 00:00:00 Completed [facility] IPV 2003-10-12 00:00:00 Completed [facility] MMR 2003-10-12 00:00:00 Completed [facility] DTAP 2003-10-12 00:00:00 Completed [facility] DTAP 2003-10-12 00:00:00 Completed [facility] IPV 2003-10-12 00:00:00 Completed [facility] MMR 2003-10-12 00:00:00 Completed [facility] DTAP 2003-10-12 00:00:00 Completed [facility] IPV 2003-10-12 00:00:00 Completed [facility] MMR 2003-10-12 00:00:00 Completed [facility] DTAP 2003-10-12 00:00:00 Completed [facility] IPV 2003-10-12 00:00:00 Completed [facility] MMR 2003-10-12 00:00:00 Completed [facility] IPV 2003-10-12 00:00:00 Completed [facility] MMR 2003-10-12 00:00:00 Completed [facility] DTAP 2003-10-12 00:00:00 Completed [facility] IPV 2003-10-12 00:00:00 Completed [facility] MMR 2003-10-12 00:00:00 Completed [facility] DTAP 2003-10-12 00:00:00 Completed [facility] IPV 2003-10-12 00:00:00 Completed [facility] MMR 2003-10-12 00:00:00 Completed [facility] DTAP 2003-10-12 00:00:00 Completed [facility] IPV 2001-05-22 00:00:00 Completed [facility] Heamophilus Influenza B 2001-05-22 00:00:00 Completed [facility] DTAP 2001-05-22 00:00:00 Completed [facility] IPV 2001-05-22 00:00:00 Completed [facility] Heamophilus Influenza B 2001-05-22 00:00:00 Completed [facility] DTAP 2001-05-22 00:00:00 Completed [facility] IPV 2001-05-22 00:00:00 Completed [facility] Heamophilus Influenza B 2001-05-22 00:00:00 Completed [facility] DTAP 2001-05-22 00:00:00 Completed [facility] IPV 2001-05-22 00:00:00 Completed [facility] Heamophilus Influenza B 2001-05-22 00:00:00 Completed [facility] DTAP 2001-05-22 00:00:00 Completed [facility] IPV 2001-05-22 00:00:00 Completed [facility] Heamophilus Influenza B 2001-05-22 00:00:00 Completed [facility] DTAP 2001-05-22 00:00:00 Completed [facility] IPV 2001-05-22 00:00:00 Completed [facility] Heamophilus Influenza B 2001-05-22 00:00:00 Completed [facility] DTAP 2001-05-22 00:00:00 Completed [facility] IPV 2001-05-22 00:00:00 Completed [facility] Heamophilus Influenza B 2001-05-22 00:00:00 Completed [facility] DTAP 2001-05-22 00:00:00 Completed [facility] DTAP 2001-05-22 00:00:00 Completed [facility] IPV 2001-05-22 00:00:00 Completed [facility] Heamophilus Influenza B 2001-05-22 00:00:00 Completed [facility] DTAP 2001-05-22 00:00:00 Completed [facility] IPV 2001-05-22 00:00:00 Completed [facility] Heamophilus Influenza B 2001-05-22 00:00:00 Completed [facility] DTAP 2001-05-22 00:00:00 Completed [facility] IPV 2001-05-22 00:00:00 Completed [facility] IPV 2001-05-22 00:00:00 Completed [facility] Heamophilus Influenza B 2001-05-22 00:00:00 Completed [facility] DTAP 2001-05-22 00:00:00 Completed [facility] IPV 2001-05-22 00:00:00 Completed [facility] Heamophilus Influenza B 2001-05-22 00:00:00 Completed [facility] Heamophilus Influenza B 2001-05-22 00:00:00 Completed [facility] DTAP 2001-05-22 00:00:00 Completed [facility] IPV 2001-05-22 00:00:00 Completed [facility] Heamophilus Influenza B 2001-05-22 00:00:00 Completed [facility] DTAP 2001-05-22 00:00:00 Completed [facility] IPV 2001-05-22 00:00:00 Completed [facility] Heamophilus Influenza B 2001-05-22 00:00:00 Completed [facility] DTAP 2001-05-22 00:00:00 Completed [facility] IPV 2001-05-22 00:00:00 Completed [facility] Heamophilus Influenza B 2001-05-22 00:00:00 Completed [facility] DTAP 2001-05-22 00:00:00 Completed [facility] IPV 2001-05-22 00:00:00 Completed [facility] Heamophilus Influenza B 2001-05-22 00:00:00 Completed [facility] DTAP 2001-05-22 00:00:00 Completed [facility] DTAP 2001-05-22 00:00:00 Completed [facility] IPV 2001-05-22 00:00:00 Completed [facility] Heamophilus Influenza B 2001-05-22 00:00:00 Completed [facility] DTAP 2001-05-22 00:00:00 Completed [facility] IPV 2001-05-22 00:00:00 Completed [facility] IPV 2001-05-22 00:00:00 Completed [facility] Heamophilus Influenza B 2001-05-22 00:00:00 Completed [facility] DTAP 2001-05-22 00:00:00 Completed [facility] IPV 2001-05-22 00:00:00 Completed [facility] Heamophilus Influenza B 2001-05-22 00:00:00 Completed [facility] DTAP 2001-05-22 00:00:00 Completed [facility] IPV 2001-05-22 00:00:00 Completed [facility] Heamophilus Influenza B 2001-05-22 00:00:00 Completed [facility] Heamophilus Influenza B 2001-05-22 00:00:00 Completed [facility] DTAP 2001-05-22 00:00:00 Completed [facility] IPV 2001-05-22 00:00:00 Completed [facility] Heamophilus Influenza B 2001-05-22 00:00:00 Completed [facility] DTAP 2001-05-22 00:00:00 Completed [facility] IPV 2001-05-22 00:00:00 Completed [facility] Heamophilus Influenza B 2001-05-22 00:00:00 Completed [facility] DTAP 2001-05-22 00:00:00 Completed [facility] IPV 2001-05-22 00:00:00 Completed [facility] Heamophilus Influenza B 2001-05-22 00:00:00 Completed [facility] DTAP 2001-05-22 00:00:00 Completed [facility] DTAP 2001-05-22 00:00:00 Completed [facility] IPV 2001-05-22 00:00:00 Completed [facility] Heamophilus Influenza B 2001-05-22 00:00:00 Completed [facility] DTAP 2001-05-22 00:00:00 Completed [facility] IPV 2001-05-22 00:00:00 Completed [facility] Heamophilus Influenza B 2001-05-22 00:00:00 Completed [facility] IPV 2001-05-22 00:00:00 Completed [facility] Heamophilus Influenza B 2001-05-22 00:00:00 Completed [facility] DTAP 2001-05-22 00:00:00 Completed [facility] IPV 2001-05-22 00:00:00 Completed [facility] Heamophilus Influenza B 2001-05-22 00:00:00 Completed [facility] DTAP 2001-05-22 00:00:00 Completed [facility] IPV 2001-05-22 00:00:00 Completed [facility] Heamophilus Influenza B 2001-05-22 00:00:00 Completed [facility] DTAP 2001-05-22 00:00:00 Completed [facility] IPV 2001-05-22 00:00:00 Completed [facility] Heamophilus Influenza B 2001-05-22 00:00:00 Completed [facility] DTAP 2001-05-22 00:00:00 Completed [facility] IPV 2001-05-22 00:00:00 Completed [facility] Heamophilus Influenza B 2001-05-22 00:00:00 Completed [facility] DTAP 2001-05-22 00:00:00 Completed [facility] IPV 2001-05-22 00:00:00 Completed [facility] Heamophilus Influenza B 2001-05-22 00:00:00 Completed [facility] DTAP 2001-05-22 00:00:00 Completed [facility] IPV 2001-05-22 00:00:00 Completed [facility] Heamophilus Influenza B 2001-05-22 00:00:00 Completed [facility] DTAP 2001-05-22 00:00:00 Completed [facility] IPV 2001-05-22 00:00:00 Completed [facility] Heamophilus Influenza B 2001-05-22 00:00:00 Completed [facility] DTAP 2001-05-22 00:00:00 Completed [facility] IPV 2001-05-22 00:00:00 Completed [facility] Heamophilus Influenza B 2001-05-22 00:00:00 Completed [facility] DTAP 2001-05-22 00:00:00 Completed [facility] DTAP 2001-05-22 00:00:00 Completed [facility] IPV 2001-05-22 00:00:00 Completed [facility] Heamophilus Influenza B 2001-05-22 00:00:00 Completed [facility] DTAP 2001-05-22 00:00:00 Completed [facility] IPV 2001-05-22 00:00:[facility] [facility] Influenza B 2001-05-22 00:00:00 Completed [facility] DTAP 2001-05-22 00:00:00 Completed [facility] IPV 2001-05-22 00:00:00 Completed [facility] IPV 2001-05-22 00:00:00 Completed [facility] Heamophilus Influenza B 2001-05-22 00:00:00 Completed [facility] DTAP 2001-05-22 00:00:00 Completed [facility] IPV 2001-05-22 00:00:00 Completed [facility] Heamophilus Influenza B 2001-05-22 00:00:00 Completed [facility] DTAP 2001-05-22 00:00:00 Completed [facility] IPV 2001-05-22 00:00:00 Completed [facility] Heamophilus Influenza B 2001-05-22 00:00:00 Completed [facility] Heamophilus Influenza B 2001-05-22 00:00:00 Completed [facility] DTAP 2001-05-22 00:00:00 Completed [facility] MMR 2000-10-08 00:00:00 Completed [facility] Varicella (varivax)(chicken pox) 2000-10-08 00:00:00 Completed [facility] MMR 2000-10-08 00:00:00 Completed [facility] Varicella (varivax)(chicken pox) 2000-10-08 00:00:00 Completed [facility] MMR 2000-10-08 00:00:00 Completed [facility] Varicella (varivax)(chicken pox) 2000-10-08 00:00:00 Completed [facility] 2000-10-08 00:00:00 Completed [facility] Varicella (varivax)(chicken pox) 2000-10-08 00:00:00 Completed [facility] 2000-10-08 00:00:00 Completed [facility] Varicella (varivax)(chicken pox) 2000-10-08 00:00:00 Completed [facility] 2000-10-08 00:00:00 Completed [facility] Varicella (varivax)(chicken pox) 2000-10-08 00:00:00 Completed [facility] 2000-10-08 00:00:00 Completed [facility] Varicella (varivax)(chicken pox) 2000-10-08 00:00:00 Completed [facility] 2000-10-08 00:00:00 Completed [facility] Varicella (varivax)(chicken pox) 2000-10-08 00:00:00 Completed [facility] 2000-10-08 00:00:00 Completed [facility] Varicella (varivax)(chicken pox) 2000-10-08 00:00:00 Completed [facility] 2000-10-08 00:00:00 Completed [facility] Varicella (varivax)(chicken pox) 2000-10-08 00:00:00 Completed [facility] 2000-10-08 00:00:00 Completed [facility] Varicella (varivax)(chicken pox) 2000-10-08 00:00:00 Completed [facility] 2000-10-08 00:00:00 Completed [facility] Varicella (varivax)(chicken pox) 2000-10-08 00:00:00 Completed [facility] 2000-10-08 00:00:00 Completed [facility] Varicella (varivax)(chicken pox) 2000-10-08 00:00:00 Completed [facility] 2000-10-08 00:00:00 Completed [facility] Varicella (varivax)(chicken pox) 2000-10-08 00:00:00 Completed [facility] 2000-10-08 00:00:00 Completed [facility] Varicella (varivax)(chicken pox) 2000-10-08 00:00:00 Completed [facility] 2000-10-08 00:00:00 Completed [facility] Varicella (varivax)(chicken pox) 2000-10-08 00:00:00 Completed [facility] 2000-10-08 00:00:00 Completed [facility] Varicella (varivax)(chicken pox) 2000-10-08 00:00:00 Completed [facility] 2000-10-08 00:00:00 Completed [facility] Varicella (varivax)(chicken pox) 2000-10-08 00:00:00 Completed [facility] 2000-10-08 00:00:00 Completed [facility] Varicella (varivax)(chicken pox) 2000-10-08 00:00:00 Completed [facility] 2000-10-08 00:00:00 Completed [facility] Varicella (varivax)(chicken pox) 2000-10-08 00:00:00 Completed [facility] 2000-10-08 00:00:00 Completed [facility] Varicella (varivax)(chicken pox) 2000-10-08 00:00:00 Completed [facility] 2000-10-08 00:00:00 Completed [facility] Varicella (varivax)(chicken pox) 2000-10-08 00:00:00 Completed [facility] 2000-10-08 00:00:00 Completed [facility] Varicella (varivax)(chicken pox) 2000-10-08 00:00:00 Completed [facility] 2000-10-08 00:00:00 Completed [facility] Varicella (varivax)(chicken pox) 2000-10-08 00:00:00 Completed [facility] 2000-10-08 00:00:00 Completed [facility] Varicella (varivax)(chicken pox) 2000-10-08 00:00:00 Completed [facility] 2000-10-08 00:00:00 Completed [facility] Varicella (varivax)(chicken pox) 2000-10-08 00:00:00 Completed [facility] 2000-10-08 00:00:00 Completed [facility] Varicella (varivax)(chicken pox) 2000-10-08 00:00:00 Completed [facility] 2000-10-08 00:00:00 Completed [facility] Varicella (varivax)(chicken pox) 2000-10-08 00:00:00 Completed [facility] 2000-10-08 00:00:00 Completed [facility] Varicella (varivax)(chicken pox) 2000-10-08 00:00:00 Completed [facility] 2000-10-08 00:00:00 Completed [facility] Varicella (varivax)(chicken pox) 2000-10-08 00:00:00 Completed [facility] 2000-10-08 00:00:00 Completed [facility] Varicella (varivax)(chicken pox) 2000-10-08 00:00:00 Completed [facility] 2000-10-08 00:00:00 Completed [facility] Varicella (varivax)(chicken pox) 2000-10-08 00:00:00 Completed [facility] 2000-10-08 00:00:00 Completed [facility] Varicella (varivax)(chicken pox) 2000-10-08 00:00:00 Completed [facility] 2000-10-08 00:00:00 Completed [facility] Varicella (varivax)(chicken pox) 2000-10-08 00:00:00 Completed [facility] 2000-10-08 00:00:00 Completed [facility] Varicella (varivax)(chicken pox) 2000-10-08 00:00:00 Completed [facility] 2000-10-08 00:00:00 Completed [facility] Varicella (varivax)(chicken pox) 2000-10-08 00:00:00 Completed [facility] 2000-10-08 00:00:00 Completed [facility] Varicella (varivax)(chicken pox) 2000-10-08 00:00:00 Completed [facility] 2000-10-08 00:00:00 Completed [facility] Varicella (varivax)(chicken pox) 2000-10-08 00:00:00 Completed [facility] MMR 2000-10-08 00:00:00 Completed [facility] MMR 2000-10-08 00:00:00 Completed [facility] Varicella (varivax)(chicken pox) 2000-10-08 00:00:00 Completed [facility] Varicella (varivax)(chicken pox) 2000-10-08 00:00:00 Completed [facility] MMR 2000-10-08 00:00:00 Completed [facility] Varicella (varivax)(chicken pox) 2000-10-08 00:00:00 Completed [facility] Heamophilus Influenza B 2000-03-14 00:00:00 Completed [facility] DTAP 2000-03-14 00:00:00 Completed [facility] Hep B, Adol or Pedi Dosage 2000-03-14 00:00:00 Completed [facility] Heamophilus Influenza B 2000-03-14 00:00:00 Completed [facility] DTAP 2000-03-14 00:00:00 Completed [facility] Hep B, Adol or Pedi Dosage 2000-03-14 00:00:00 Completed [facility] Heamophilus Influenza B 2000-03-14 00:00:00 Completed [facility] DTAP 2000-03-14 00:00:00 Completed [facility] Hep B, Adol or Pedi Dosage 2000-03-14 00:00:00 Completed [facility] Heamophilus Influenza B 2000-03-14 00:00:00 Completed [facility] DTAP 2000-03-14 00:00:00 Completed [facility] Hep B, Adol or Pedi Dosage 2000-03-14 00:00:00 Completed [facility] Heamophilus Influenza B 2000-03-14 00:00:00 Completed [facility] DTAP 2000-03-14 00:00:00 Completed [facility] Hep B, Adol or Pedi Dosage 2000-03-14 00:00:00 Completed [facility] Heamophilus Influenza B 2000-03-14 00:00:00 Completed [facility] DTAP 2000-03-14 00:00:00 Completed [facility] Hep B, Adol or Pedi Dosage 2000-03-14 00:00:00 Completed [facility] Heamophilus Influenza B 2000-03-14 00:00:00 Completed [facility] DTAP 2000-03-14 00:00:00 Completed [facility] DTAP 2000-03-14 00:00:00 Completed [facility] Hep B, Adol or Pedi Dosage 2000-03-14 00:00:00 Completed [facility] Heamophilus Influenza B 2000-03-14 00:00:00 Completed [facility] DTAP 2000-03-14 00:00:00 Completed [facility] Hep B, Adol or Pedi Dosage 2000-03-14 00:00:00 Completed [facility] Hep B, Adol or Pedi Dosage 2000-03-14 00:00:00 Completed [facility] Heamophilus Influenza B 2000-03-14 00:00:00 Completed [facility] DTAP 2000-03-14 00:00:00 Completed [facility] Hep B, Adol or Pedi Dosage 2000-03-14 00:00:00 Completed [facility] Heamophilus Influenza B 2000-03-14 00:00:00 Completed [facility] DTAP 2000-03-14 00:00:00 Completed [facility] Hep B, Adol or Pedi Dosage 2000-03-14 00:00:00 Completed [facility] Heamophilus Influenza B 2000-03-14 00:00:00 Completed [facility] Heamophilus Influenza B 2000-03-14 00:00:00 Completed [facility] DTAP 2000-03-14 00:00:00 Completed [facility] Hep B, Adol or Pedi Dosage 2000-03-14 00:00:00 Completed [facility] Heamophilus Influenza B 2000-03-14 00:00:00 Completed [facility] DTAP 2000-03-14 00:00:00 Completed [facility] Hep B, Adol or Pedi Dosage 2000-03-14 00:00:00 Completed [facility] Heamophilus Influenza B 2000-03-14 00:00:00 Completed [facility] DTAP 2000-03-14 00:00:00 Completed [facility] Hep B, Adol or Pedi Dosage 2000-03-14 00:00:00 Completed [facility] Heamophilus Influenza B 2000-03-14 00:00:00 Completed [facility] DTAP 2000-03-14 00:00:00 Completed [facility] Hep B, Adol or Pedi Dosage 2000-03-14 00:00:00 Completed [facility] DTAP 2000-03-14 00:00:00 Completed [facility] Heamophilus Influenza B 2000-03-14 00:00:00 Completed [facility] DTAP 2000-03-14 00:00:00 Completed [facility] Hep B, Adol or Pedi Dosage 2000-03-14 00:00:00 Completed [facility] Heamophilus Influenza B 2000-03-14 00:00:00 Completed [facility] Hep B, Adol or Pedi Dosage 2000-03-14 00:00:00 Completed [facility] DTAP 2000-03-14 00:00:00 Completed [facility] Hep B, Adol or Pedi Dosage 2000-03-14 00:00:00 Completed [facility] Heamophilus Influenza B 2000-03-14 00:00:00 Completed [facility] DTAP 2000-03-14 00:00:00 Completed [facility] Hep B, Adol or Pedi Dosage 2000-03-14 00:00:00 Completed [facility] Heamophilus Influenza B 2000-03-14 00:00:00 Completed [facility] DTAP 2000-03-14 00:00:00 Completed [facility] Hep B, Adol or Pedi Dosage 2000-03-14 00:00:00 Completed [facility] Heamophilus Influenza B 2000-03-14 00:00:00 Completed [facility] Heamophilus Influenza B 2000-03-14 00:00:00 Completed [facility] DTAP 2000-03-14 00:00:00 Completed [facility] Hep B, Adol or Pedi Dosage 2000-03-14 00:00:00 Completed [facility] Heamophilus Influenza B 2000-03-14 00:00:00 Completed [facility] DTAP 2000-03-14 00:00:00 Completed [facility] Hep B, Adol or Pedi Dosage 2000-03-14 00:00:00 Completed [facility] Heamophilus Influenza B 2000-03-14 00:00:00 Completed [facility] DTAP 2000-03-14 00:00:00 Completed [facility] Hep B, Adol or Pedi Dosage 2000-03-14 00:00:00 Completed [facility] Heamophilus Influenza B 2000-03-14 00:00:00 Completed [facility] DTAP 2000-03-14 00:00:00 Completed [facility] DTAP 2000-03-14 00:00:00 Completed [facility] Hep B, Adol or Pedi Dosage 2000-03-14 00:00:00 Completed [facility] Heamophilus Influenza B 2000-03-14 00:00:00 Completed [facility] Hep B, Adol or Pedi Dosage 2000-03-14 00:00:00 Completed [facility] DTAP 2000-03-14 00:00:00 Completed [facility] Hep B, Adol or Pedi Dosage 2000-03-14 00:00:00 Completed [facility] Heamophilus Influenza B 2000-03-14 00:00:00 Completed [facility] Heamophilus Influenza B 2000-03-14 00:00:00 Completed [facility] DTAP 2000-03-14 00:00:00 Completed [facility] Hep B, Adol or Pedi Dosage 2000-03-14 00:00:00 Completed [facility] Heamophilus Influenza B 2000-03-14 00:00:00 Completed [facility] DTAP 2000-03-14 00:00:00 Completed [facility] Hep B, Adol or Pedi Dosage 2000-03-14 00:00:00 Completed [facility] Heamophilus Influenza B 2000-03-14 00:00:00 Completed [facility] DTAP 2000-03-14 00:00:00 Completed [facility] Hep B, Adol or Pedi Dosage 2000-03-14 00:00:00 Completed [facility] Heamophilus Influenza B 2000-03-14 00:00:00 Completed [facility] DTAP 2000-03-14 00:00:00 Completed [facility] Hep B, Adol or Pedi Dosage 2000-03-14 00:00:00 Completed [facility] Heamophilus Influenza B 2000-03-14 00:00:00 Completed [facility] DTAP 2000-03-14 00:00:00 Completed [facility] Hep B, Adol or Pedi Dosage 2000-03-14 00:00:00 Completed [facility] Heamophilus Influenza B 2000-03-14 00:00:00 Completed [facility] DTAP 2000-03-14 00:00:00 Completed [facility] Hep B, Adol or Pedi Dosage 2000-03-14 00:00:00 Completed [facility] Heamophilus Influenza B 2000-03-14 00:00:00 Completed [facility] DTAP 2000-03-14 00:00:00 Completed [facility] Hep B, Adol or Pedi Dosage 2000-03-14 00:00:00 Completed [facility] Heamophilus Influenza B 2000-03-14 00:00:00 Completed [facility] DTAP 2000-03-14 00:00:00 Completed [facility] Hep B, Adol or Pedi Dosage 2000-03-14 00:00:00 Completed [facility] Heamophilus Influenza B 2000-03-14 00:00:00 Completed [facility] DTAP 2000-03-14 00:00:00 Completed [facility] DTAP 2000-03-14 00:00:00 Completed [facility] Hep B, Adol or Pedi Dosage 2000-03-14 00:00:00 Completed [facility] Heamophilus Influenza B 2000-03-14 00:00:00 Completed [facility] Hep B, Adol or Pedi Dosage 2000-03-14 00:00:00 Completed [facility] DTAP 2000-03-14 00:00:00 Completed [facility] Hep B, Adol or Pedi Dosage 2000-03-14 00:00:00 Completed [facility] Heamophilus Influenza B 2000-03-14 00:00:00 Completed [facility] DTAP 2000-03-14 00:00:00 Completed [facility] Hep B, Adol or Pedi Dosage 2000-03-14 00:00:00 Completed [facility] Heamophilus Influenza B 2000-03-14 00:00:00 Completed [facility] DTAP 2000-03-14 00:00:00 Completed [facility] Hep B, Adol or Pedi Dosage 2000-03-14 00:00:00 Completed [facility] Heamophilus Influenza B 2000-03-14 00:00:00 Completed [facility] DTAP 2000-03-14 00:00:00 Completed [facility] Hep B, Adol or Pedi Dosage 2000-03-14 00:00:00 Completed [facility] Heamophilus Influenza B 2000-03-14 00:00:00 Completed [facility] Heamophilus Influenza B 2000-03-14 00:00:00 Completed [facility] DTAP 2000-03-14 00:00:00 Completed [facility] Hep B, Adol or Pedi Dosage 2000-03-14 00:00:00 Completed [facility] IPV 2000-01-11 00:00:00 Completed [facility] Heamophilus Influenza B 2000-01-11 00:00:00 Completed [facility] DTAP 2000-01-11 00:00:00 Completed [facility] IPV 2000-01-11 00:00:00 Completed [facility] Heamophilus Influenza B 2000-01-11 00:00:00 Completed [facility] DTAP 2000-01-11 00:00:00 Completed [facility] IPV 2000-01-11 00:00:00 Completed [facility] Heamophilus Influenza B 2000-01-11 00:00:00 Completed [facility] DTAP 2000-01-11 00:00:00 Completed [facility] IPV 2000-01-11 00:00:00 Completed [facility] Heamophilus Influenza B 2000-01-11 00:00:00 Completed [facility] DTAP 2000-01-11 00:00:00 Completed [facility] IPV 2000-01-11 00:00:00 Completed [facility] Heamophilus Influenza B 2000-01-11 00:00:00 Completed [facility] DTAP 2000-01-11 00:00:00 Completed [facility] IPV 2000-01-11 00:00:00 Completed [facility] Heamophilus Influenza B 2000-01-11 00:00:00 Completed [facility] DTAP 2000-01-11 00:00:00 Completed [facility] IPV 2000-01-11 00:00:00 Completed [facility] Heamophilus Influenza B 2000-01-11 00:00:00 Completed [facility] DTAP 2000-01-11 00:00:00 Completed [facility] DTAP 2000-01-11 00:00:00 Completed [facility] IPV 2000-01-11 00:00:00 Completed [facility] Heamophilus Influenza B 2000-01-11 00:00:00 Completed [facility] DTAP 2000-01-11 00:00:00 Completed [facility] IPV 2000-01-11 00:00:00 Completed [facility] Heamophilus Influenza B 2000-01-11 00:00:00 Completed [facility] IPV 2000-01-11 00:00:00 Completed [facility] DTAP 2000-01-11 00:00:00 Completed [facility] IPV 2000-01-11 00:00:00 Completed [facility] Heamophilus Influenza B 2000-01-11 00:00:00 Completed [facility] DTAP 2000-01-11 00:00:00 Completed [facility] Heamophilus Influenza B 2000-01-11 00:00:00 Completed [facility] IPV 2000-01-11 00:00:00 Completed [facility] Heamophilus Influenza B 2000-01-11 00:00:00 Completed [facility] DTAP 2000-01-11 00:00:00 Completed [facility] IPV 2000-01-11 00:00:00 Completed [facility] Heamophilus Influenza B 2000-01-11 00:00:00 Completed [facility] DTAP 2000-01-11 00:00:00 Completed [facility] IPV 2000-01-11 00:00:00 Completed [facility] Heamophilus Influenza B 2000-01-11 00:00:00 Completed [facility] DTAP 2000-01-11 00:00:00 Completed [facility] IPV 2000-01-11 00:00:00 Completed [facility] Heamophilus Influenza B 2000-01-11 00:00:00 Completed [facility] DTAP 2000-01-11 00:00:00 Completed [facility] IPV 2000-01-11 00:00:00 Completed [facility] DTAP 2000-01-11 00:00:00 Completed [facility] Heamophilus Influenza B 2000-01-11 00:00:00 Completed [facility] DTAP 2000-01-11 00:00:00 Completed [facility] IPV 2000-01-11 00:00:00 Completed [facility] Heamophilus Influenza B 2000-01-11 00:00:00 Completed [facility] DTAP 2000-01-11 00:00:00 Completed [facility] IPV 2000-01-11 00:00:00 Completed [facility] IPV 2000-01-11 00:00:00 Completed [facility] Heamophilus Influenza B 2000-01-11 00:00:00 Completed [facility] DTAP 2000-01-11 00:00:00 Completed [facility] IPV 2000-01-11 00:00:00 Completed [facility] Heamophilus Influenza B 2000-01-11 00:00:00 Completed [facility] DTAP 2000-01-11 00:00:00 Completed [facility] IPV 2000-01-11 00:00:00 Completed [facility] Heamophilus Influenza B 2000-01-11 00:00:00 Completed [facility] Heamophilus Influenza B 2000-01-11 00:00:00 Completed [facility] DTAP 2000-01-11 00:00:00 Completed [facility] IPV 2000-01-11 00:00:00 Completed [facility] Heamophilus Influenza B 2000-01-11 00:00:00 Completed [facility] DTAP 2000-01-11 00:00:00 Completed [facility] IPV 2000-01-11 00:00:00 Completed [facility] Heamophilus Influenza B 2000-01-11 00:00:00 Completed [facility] DTAP 2000-01-11 00:00:00 Completed [facility] IPV 2000-01-11 00:00:00 Completed [facility] Heamophilus Influenza B 2000-01-11 00:00:00 Completed [facility] DTAP 2000-01-11 00:00:00 Completed [facility] DTAP 2000-01-11 00:00:00 Completed [facility] IPV 2000-01-11 00:00:00 Completed [facility] Heamophilus Influenza B 2000-01-11 00:00:00 Completed [facility] DTAP 2000-01-11 00:00:00 Completed [facility] IPV 2000-01-11 00:00:00 Completed [facility] Heamophilus Influenza B 2000-01-11 00:00:00 Completed [facility] IPV 2000-01-11 00:00:00 Completed [facility] Heamophilus Influenza B 2000-01-11 00:00:00 Completed [facility] DTAP 2000-01-11 00:00:00 Completed [facility] IPV 2000-01-11 00:00:00 Completed [facility] Heamophilus Influenza B 2000-01-11 00:00:00 Completed [facility] DTAP 2000-01-11 00:00:00 Completed [facility] IPV 2000-01-11 00:00:00 Completed [facility] Heamophilus Influenza B 2000-01-11 00:00:00 Completed [facility] DTAP 2000-01-11 00:00:00 Completed [facility] IPV 2000-01-11 00:00:00 Completed [facility] Heamophilus Influenza B 2000-01-11 00:00:00 Completed [facility] DTAP 2000-01-11 00:00:00 Completed [facility] IPV 2000-01-11 00:00:00 Completed [facility] Heamophilus Influenza B 2000-01-11 00:00:00 Completed [facility] DTAP 2000-01-11 00:00:00 Completed [facility] IPV 2000-01-11 00:00:00 Completed [facility] Heamophilus Influenza B 2000-01-11 00:00:00 Completed [facility] DTAP 2000-01-11 00:00:00 Completed [facility] IPV 2000-01-11 00:00:00 Completed [facility] Heamophilus Influenza B 2000-01-11 00:00:00 Completed [facility] DTAP 2000-01-11 00:00:00 Completed [facility] IPV 2000-01-11 00:00:00 Completed [facility] Heamophilus Influenza B 2000-01-11 00:00:00 Completed [facility] DTAP 2000-01-11 00:00:00 Completed [facility] IPV 2000-01-11 00:00:00 Completed [facility] Heamophilus Influenza B 2000-01-11 00:00:00 Completed [facility] DTAP 2000-01-11 00:00:00 Completed [facility] DTAP 2000-01-11 00:00:00 Completed [facility] IPV 2000-01-11 00:00:00 Completed [facility] Heamophilus Influenza B 2000-01-11 00:00:00 Completed [facility] DTAP 2000-01-11 00:00:00 Completed [facility] IPV 2000-01-11 00:00:00 Completed [facility] Heamophilus Influenza B 2000-01-11 00:00:00 Completed [facility] DTAP 2000-01-11 00:00:00 Completed [facility] IPV 2000-01-11 00:00:00 Completed [facility] IPV 2000-01-11 00:00:00 Completed [facility] [facility] 2000-01-11 00:00:00 Completed [facility] DTAP 2000-01-11 00:00:00 Completed [facility] IPV 2000-01-11 00:00:00 Completed [facility] [employer] B 2000-01-11 00:00:00 Completed [facility] DTAP 2000-01-11 00:00:00 Completed [facility] IPV 2000-01-11 00:00:00 Completed [facility] B 2000-01-11 00:00:00 Completed [facility] B 2000-01-11 00:00:00 Completed [facility] DTAP 2000-01-11 00:00:00 Completed [facility] IPV 1999 00:00:00 Completed [facility] B 1999 00:00:00 Completed [facility] DTAP 1999 00:00:00 Completed [facility] Hep B, Adol or Pedi Dosage 1999 00:00:00 Completed [facility] IPV 1999 00:00:00 Completed [facility] [employer] B 1999 00:00:00 Completed [facility] DTAP 1999 00:00:00 Completed [facility] Hep B, Adol or Pedi Dosage 1999 00:00:00 Completed [facility] IPV 1999 00:00:00 Completed [facility] [employer] B 1999 00:00:00 Completed [facility] DTAP 1999 00:00:00 Completed [facility] Hep B, Adol or Pedi Dosage 1999 00:00:00 Completed [facility] IPV 1999 00:00:00 Completed [facility] B 1999 00:00:00 Completed [facility] DTAP 1999 00:00:00 Completed [facility] Hep B, Adol or Pedi Dosage 1999 00:00:00 Completed [facility] IPV 1999 00:00:00 Completed [facility] B 1999 00:00:00 Completed [facility] DTAP 1999 00:00:00 Completed [facility] Hep B, Adol or Pedi Dosage 1999 00:00:00 Completed [facility] IPV 1999 00:00:00 Completed [facility] B 1999 00:00:00 Completed [facility] DTAP 1999 00:00:00 Completed [facility] Hep B, Adol or Pedi Dosage 1999 00:00:00 Completed [facility] IPV 1999 00:00:00 Completed [facility] DTAP 1999 00:00:00 Completed [facility] B 1999 00:00:00 Completed [facility] DTAP 1999 00:00:00 Completed [facility] Hep B, Adol or Pedi Dosage 1999 00:00:00 Completed [facility] IPV 1999 00:00:00 Completed [facility] [employer] B 1999 00:00:00 Completed [facility] Hep B, Adol or Pedi Dosage 1999 00:00:00 Completed [facility] DTAP 1999 00:00:00 Completed [facility] Hep B, Adol or Pedi Dosage 1999 00:00:00 Completed [facility] IPV 1999 00:00:00 Completed [facility] B 1999 00:00:00 Completed [facility] IPV 1999 00:00:00 Completed [facility] DTAP 1999 00:00:00 Completed [facility] Hep B, Adol or Pedi Dosage 1999 00:00:00 Completed [facility] IPV 1999 00:00:00 Completed [facility] B 1999 00:00:00 Completed [facility] DTAP 1999 00:00:00 Completed [facility] B 1999 00:00:00 Completed [facility] Hep B, Adol or Pedi Dosage 1999 00:00:00 Completed [facility] IPV 1999 00:00:00 Completed [facility] B 1999 00:00:00 Completed [facility] DTAP 1999 00:00:00 Completed [facility] Hep B, Adol or Pedi Dosage 1999 00:00:00 Completed [facility] IPV 1999 00:00:00 Completed [facility] B 1999 00:00:00 Completed [facility] DTAP 1999 00:00:00 Completed [facility] Hep B, Adol or Pedi Dosage 1999 00:00:00 Completed [facility] IPV 1999 00:00:00 Completed [facility] B 1999 00:00:00 Completed [facility] DTAP 1999 00:00:00 Completed [facility] Hep B, Adol or Pedi Dosage 1999 00:00:00 Completed [facility] IPV 1999 00:00:00 Completed [facility] B 1999 00:00:00 Completed [facility] DTAP 1999 00:00:00 Completed [facility] DTAP 1999 00:00:00 Completed [facility] Hep B, Adol or Pedi Dosage 1999 00:00:00 Completed [facility] IPV 1999 00:00:00 Completed [facility] B 1999 00:00:00 Completed [facility] DTAP 1999 00:00:00 Completed [facility] Hep B, Adol or Pedi Dosage 1999 00:00:00 Completed [facility] IPV 1999 00:00:00 Completed [facility]enza B 1999 00:00:00 Completed [facility] Hep B, Adol or Pedi Dosage 1999 00:00:00 Completed [facility] IPV 1999 00:00:00 Completed [facility] DTAP 1999 00:00:00 Completed [facility] Hep B, Adol or Pedi Dosage 1999 00:00:00 Completed [facility] IPV 1999 00:00:00 Completed [facility] B 1999 00:00:00 Completed [facility] DTAP 1999 00:00:00 Completed [facility] Hep B, Adol or Pedi Dosage 1999 00:00:00 Completed [facility] IPV 1999 00:00:00 Completed [facility] B 1999 00:00:00 Completed [facility] DTAP 1999 00:00:00 Completed [facility] Hep B, Adol or Pedi Dosage 1999 00:00:00 Completed [facility] IPV 1999 00:00:00 Completed [facility] B 1999 00:00:00 Completed [facility] B 1999 00:00:00 Completed [facility] DTAP 1999 00:00:00 Completed [facility] Hep B, Adol or Pedi Dosage 1999 00:00:00 Completed [facility] IPV 1999 00:00:00 Completed [facility] B 1999 00:00:00 Completed [facility] DTAP 1999 00:00:00 Completed [facility] Hep B, Adol or Pedi Dosage 1999 00:00:00 Completed [facility] IPV 1999 00:00:00 Completed [facility] B 1999 00:00:00 Completed [facility] DTAP 1999 00:00:00 Completed [facility] Hep B, Adol or Pedi Dosage 1999 00:00:00 Completed [facility] IPV 1999 00:00:00 Completed [facility] DTAP 1999 00:00:00 Completed [facility] [employer] B 1999 00:00:00 Completed [facility] DTAP 1999 00:00:00 Completed [facility] Hep B, Adol or Pedi Dosage 1999 00:00:00 Completed [facility] IPV 1999 00:00:00 Completed [facility] B 1999 00:00:00 Completed [facility] Hep B, Adol or Pedi Dosage 1999 00:00:00 Completed [facility] DTAP 1999 00:00:00 Completed [facility] Hep B, Adol or Pedi Dosage 1999 00:00:00 Completed [facility] IPV 1999 00:00:00 Completed [facility] IPV 1999 00:00:00 Completed [facility]enza B 1999 00:00:00 Completed [facility] B 1999 00:00:00 Completed [facility] DTAP 1999 00:00:00 Completed [facility] Hep B, Adol or Pedi Dosage 1999 00:00:00 Completed [facility] IPV 1999 00:00:00 Completed [facility] B 1999 00:00:00 Completed [facility] DTAP 1999 00:00:00 Completed [facility] Hep B, Adol or Pedi Dosage 1999 00:00:00 Completed [facility] IPV 1999 00:00:00 Completed [facility] B 1999 00:00:00 Completed [facility] DTAP 1999 00:00:00 Completed [facility] Hep B, Adol or Pedi Dosage 1999 00:00:00 Completed [facility] IPV 1999 00:00:00 Completed [facility] B 1999 00:00:00 Completed [facility] DTAP 1999 00:00:00 Completed [facility] Hep B, Adol or Pedi Dosage 1999 00:00:00 Completed [facility] IPV 1999 00:00:00 Completed [facility] B 1999 00:00:00 Completed [facility] DTAP 1999 00:00:00 Completed [facility] Hep B, Adol or Pedi Dosage 1999 00:00:00 Completed [facility] IPV 1999 00:00:00 Completed [facility] B 1999 00:00:00 Completed [facility] DTAP 1999 00:00:00 Completed [facility] Hep B, Adol or Pedi Dosage 1999 00:00:00 Completed [facility] IPV 1999 00:00:00 Completed [facility] B 1999 00:00:00 Completed [facility] DTAP 1999 00:00:00 Completed [facility] Hep B, Adol or Pedi Dosage 1999 00:00:00 Completed [facility] IPV 1999 00:00:00 Completed [facility]enza B 1999 00:00:00 Completed [facility] DTAP 1999 00:00:00 Completed [facility] Hep B, Adol or Pedi Dosage 1999 00:00:00 Completed [facility] IPV 1999 00:00:00 Completed [facility] Influenza B 1999 00:00:00 Completed [facility] DTAP 1999 00:00:00 Completed [facility] DTAP 1999 00:00:00 Completed [facility] Hep B, Adol or Pedi Dosage 1999 00:00:00 Completed [facility] IPV 1999 00:00:00 Completed [facility] B 1999 00:00:00 Completed [facility] Hep B, Adol or Pedi Dosage 1999 00:00:00 Completed [facility] DTAP 1999 00:00:00 Completed [facility] Hep B, Adol or Pedi Dosage 1999 00:00:00 Completed [facility] IPV 1999 00:00:00 Completed [facility] Influenza B 1999 00:00:00 Completed [facility] DTAP 1999 00:00:00 Completed [facility] IPV 1999 00:00:00 Completed [facility] Hep B, Adol or Pedi Dosage 1999 00:00:00 Completed [facility] IPV 1999 00:00:00 Completed [facility] Influenza B 1999 00:00:00 Completed [facility] DTAP 1999 00:00:00 Completed [facility] Hep B, Adol or Pedi Dosage 1999 00:00:00 Completed [facility] IPV 1999 00:00:00 Completed [facility] Influenza B 1999 00:00:00 Completed [facility] DTAP 1999 00:00:00 Completed [facility] Hep B, Adol or Pedi Dosage 1999 00:00:00 Completed [facility] IPV 1999 00:00:00 Completed [facility] Influenza B 1999 00:00:00 Completed [facility] Influenza B 1999 00:00:00 Completed [facility] DTAP 1999 00:00:00 Completed [facility] Hep B, Adol or Pedi Dosage 1999 00:00:00 Completed [facility] Hep B, Adol or Pedi Dosage 1999 00:00:00 Completed [facility] Hep B, Adol or Pedi Dosage 1999 00:00:00 Completed [facility] Hep B, Adol or Pedi Dosage 1999 00:00:00 Completed [facility] Hep B, Adol or Pedi Dosage 1999 00:00:00 Completed [facility] Hep B, Adol or Pedi Dosage 1999 00:00:00 Completed [facility] Hep B, Adol or Pedi Dosage 1999 00:00:00 Completed [facility] Hep B, Adol or Pedi Dosage 1999 00:00:00 Completed [facility] Hep B, Adol or Pedi Dosage 1999 00:00:00 Completed [facility] Hep B, Adol or Pedi Dosage 1999 00:00:00 Completed [facility] Hep B, Adol or Pedi Dosage 1999 00:00:00 Completed [facility] Hep B, Adol or Pedi Dosage 1999 00:00:00 Completed [facility] Hep B, Adol or Pedi Dosage 1999 00:00:00 Completed [facility] Hep B, Adol or Pedi Dosage 1999 00:00:00 Completed [facility] Hep B, Adol or Pedi Dosage 1999 00:00:00 Completed [facility] Hep B, Adol or Pedi Dosage 1999 00:00:00 Completed [facility] Hep B, Adol or Pedi Dosage 1999 00:00:00 Completed [facility] Hep B, Adol or Pedi Dosage 1999 00:00:00 Completed [facility] Hep B, Adol or Pedi Dosage 1999 00:00:00 Completed [facility] Hep B, Adol or Pedi Dosage 1999 00:00:00 Completed [facility] Hep B, Adol or Pedi Dosage 1999 00:00:00 Completed [facility] Hep B, Adol or Pedi Dosage 1999 00:00:00 Completed [facility] Hep B, Adol or Pedi Dosage 1999 00:00:00 Completed [facility] Hep B, Adol or Pedi Dosage 1999 00:00:00 Completed [facility] Hep B, Adol or Pedi Dosage 1999 00:00:00 Completed [facility] Hep B, Adol or Pedi Dosage 1999 00:00:00 Completed [facility] Hep B, Adol or Pedi Dosage 1999 00:00:00 Completed [facility] Hep B, Adol or Pedi Dosage 1999 00:00:00 Completed [facility] Hep B, Adol or Pedi Dosage 1999 00:00:00 Completed [facility] Hep B, Adol or Pedi Dosage 1999 00:00:00 Completed [facility] Hep B, Adol or Pedi Dosage 1999 00:00:00 Completed [facility] Hep B, Adol or Pedi Dosage 1999 00:00:00 Completed [facility] Hep B, Adol or Pedi Dosage 1999 00:00:00 Completed [facility] Hep B, Adol or Pedi Dosage 1999 00:00:00 Completed [facility] Hep B, Adol or Pedi Dosage 1999 00:00:00 Completed [facility] Hep B, Adol or Pedi Dosage 1999 00:00:00 Completed [facility] Hep B, Adol or Pedi Dosage 1999 00:00:00 Completed [facility] Hep B, Adol or Pedi Dosage 1999 00:00:00 Completed [facility] Hep B, Adol or Pedi Dosage 1999 00:00:00 Completed [facility] Hep B, Adol or Pedi Dosage 1999 00:00:00 Completed [facility] Hep B, Adol or Pedi Dosage 1999 00:00:00 Completed [facility] Hep B, Adol or Pedi Dosage 1999 00:00:00 Completed [facility] Vital Signs Vital Name Observation Time Observation Value Comments S ource Systolic blood pressure 2023-06-05 20:41:00 108 mm[Hg] [facility] Diastolic blood pressure 2023-06-05 20:41:00 75 mm[Hg] [facility] Heart rate 2023-06-05 20:41:00 84 /min [facility] Body temperature 2023-06-05 20:41:00 36.83 Charito [facility] Body weight 2023-06-05 20:41:00 96.798 kg [facility] BMI 2023-06-05 20:41:00 37.80 kg/m2 [facility] Systolic blood pressure 2023-05-22 19:45:00 118 mm[Hg] [facility] Diastolic blood pressure 2023-05-22 19:45:00 82 mm[Hg] [facility] Heart rate 2023-05-22 19:45:00 73 /min [facility] Respiratory rate 2023-05-22 19:45:00 18 /min [facility] Body height 2023-05-22 19:45:00 160 cm [facility] Body weight 2023-05-22 19:45:00 93.441 kg [facility] BMI 2023-05-22 19:45:00 36.49 kg/m2 [facility] Systolic blood pressure 2023-05-22 16:48:00 117 mm[Hg] [facility] Diastolic blood pressure 2023-05-22 16:48:00 69 mm[Hg] [facility] Respiratory rate 2023-05-22 16:48:00 15 /min [facility] Oxygen saturation in Arterial blood by Pulse oximetry 2023-05-22 16:48:00 100 /min [facility] Heart rate 2023-05-22 16:01:00 86 /min [facility] Body temperature 2023-05-22 16:01:00 36.33 Charito [facility] Systolic blood pressure 2023-05-22 16:48:00 117 mm[Hg] [facility] Diastolic blood pressure 2023-05-22 16:48:00 69 mm[Hg] [facility] Respiratory rate 2023-05-22 16:48:00 15 /min [facility] Oxygen saturation in Arterial blood by Pulse oximetry 2023-05-22 16:48:00 100 /min [facility] Heart rate 2023-05-22 16:01:00 86 /min [facility] Body temperature 2023-05-22 16:01:00 36.33 Charito [facility] Systolic blood pressure 2023-05-17 19:37:00 109 mm[Hg] [facility] Diastolic blood pressure 2023-05-17 19:37:00 76 mm[Hg] [facility] Heart rate 2023-05-17 19:37:00 85 /min [facility] Body temperature 2023-05-17 19:37:00 36.72 Charito [facility] Body height 2023-05-17 19:37:00 160 cm [facility] Body weight 2023-05-17 19:37:00 93.713 kg [facility] BMI 2023-05-17 19:37:00 36.60 kg/m2 [facility] Systolic blood pressure 2023-05-08 21:12:00 108 mm[Hg] [facility] Diastolic blood pressure 2023-05-08 21:12:00 76 mm[Hg] [facility] Heart rate 2023-05-08 21:12:00 76 /min [facility] Body temperature 2023-05-08 21:12:00 36.83 Charito [facility] Body height 2023-05-08 21:12:00 160 cm [facility] Body weight 2023-05-08 21:12:00 91.173 kg [facility] BMI 2023-05-08 21:12:00 35.61 kg/m2 [facility] Systolic blood pressure 2023-04-18 22:00:00 118 mm[Hg] [facility] Diastolic blood pressure 2023-04-18 22:00:00 71 mm[Hg] [facility] Heart rate 2023-04-18 22:00:00 91 /min [facility] Respiratory rate 2023-04-18 22:00:00 18 /min [facility] Oxygen saturation in Arterial blood by Pulse oximetry 2023-04-18 22:00:00 96 /min [facility] Body temperature 2023-04-18 20:00:00 37.78 Charito [facility] Body height 2023-04-18 19:18:00 160 cm [facility] Body weight 2023-04-18 19:18:00 97.977 kg [facility] BMI 2023-04-18 19:18:00 38.26 kg/m2 [facility] Body temperature 2023-04-18 17:22:21 37.39 Charito [facility] Systolic blood pressure 2023-04-18 17:00:00 114 mm[Hg] [facility] Diastolic blood pressure 2023-04-18 17:00:00 75 mm[Hg] [facility] Heart rate 2023-04-18 17:00:00 77 /min [facility] Respiratory rate 2023-04-18 17:00:00 16 /min [facility] Oxygen saturation in Arterial blood by Pulse oximetry 2023-04-18 17:00:00 95 /min [facility] Body weight 2023-04-18 12:15:00 97.977 kg [facility] BMI 2023-04-18 12:15:00 38.26 kg/m2 [facility] Systolic blood pressure 2023-04-09 17:45:00 111 mm[Hg] [facility] Diastolic blood pressure 2023-04-09 17:45:00 76 mm[Hg] [facility] Heart rate 2023-04-09 17:45:00 65 /min [facility] Body temperature 2023-04-09 17:45:00 36.5 Charito [facility] Respiratory rate 2023-04-09 17:45:00 18 /min [facility] Oxygen saturation in Arterial blood by Pulse oximetry 2023-04-09 17:45:00 100 /min [facility] Body height 2023-04-08 03:51:00 160 cm [facility] Body weight 2023-04-08 03:51:00 99.791 kg [facility] BMI 2023-04-08 03:51:00 38.97 kg/m2 [facility] Systolic blood pressure 2023-04-04 21:03:00 114 mm[Hg] [facility] Diastolic blood pressure 2023-04-04 21:03:00 74 mm[Hg] [facility] Heart rate 2023-04-04 21:03:00 86 /min [facility] Body temperature 2023-04-04 21:03:00 36.67 Charito [facility] Body height 2023-04-04 21:03:00 162.6 cm [facility] Body weight 2023-04-04 21:03:00 100.154 kg [facility] BMI 2023-04-04 21:03:00 37.90 kg/m2 [facility] Systolic blood pressure 2023-03-26 15:13:00 111 mm[Hg] [facility] Diastolic blood pressure 2023-03-26 15:13:00 79 mm[Hg] [facility] Heart rate 2023-03-26 15:13:00 76 /min [facility] Body temperature 2023-03-26 15:13:00 36.67 Charito [facility] Respiratory rate 2023-03-26 15:13:00 18 /min [facility] Body height 2023-03-26 15:13:00 162.6 cm [facility] Body weight 2023-03-26 15:13:00 100.064 kg [facility] BMI 2023-03-26 15:13:00 37.87 kg/m2 [facility] Oxygen saturation in Arterial blood by Pulse oximetry 2023-03-26 15:13:00 98 /min [facility] Systolic blood pressure 2023-03-08 15:23:00 98 mm[Hg] [facility] Diastolic blood pressure 2023-03-08 15:23:00 68 mm[Hg] [facility] Heart rate 2023-03-08 15:23:00 78 /min [facility] Body temperature 2023-03-08 15:23:00 36.72 Charito [facility] Respiratory rate 2023-03-08 15:23:00 18 /min [facility] Body height 2023-03-08 15:23:00 162.6 cm [facility] Body weight 2023-03-08 15:23:00 99.882 kg [facility] BMI 2023-03-08 15:23:00 37.80 kg/m2 [facility] Oxygen saturation in Arterial blood by Pulse oximetry 2023-03-08 15:23:00 99 /min [facility] Systolic blood pressure 2023-02-22 16:13:00 106 mm[Hg] [facility] Diastolic blood pressure 2023-02-22 16:13:00 72 mm[Hg] [facility] Heart rate 2023-02-22 16:13:00 85 /min [facility] Respiratory rate 2023-02-22 16:13:00 18 /min [facility] Body height 2023-02-22 16:13:00 162.6 cm [facility] Body weight 2023-02-22 16:13:00 100.699 kg [facility] BMI 2023-02-22 16:13:00 38.11 kg/m2 [facility] Heart rate 2023-02-16 21:30:00 79 /min [facility] Oxygen saturation in Arterial blood by Pulse oximetry 2023-02-16 21:30:00 100 /min [facility] Systolic blood pressure 2023-02-16 19:00:00 95 mm[Hg] lying left lateral [facility] Diastolic blood pressure 2023-02-16 19:00:00 53 mm[Hg] lying left lateral [facility] Body temperature 2023-02-16 19:00:00 36.72 Charito [facility] Respiratory rate 2023-02-16 19:00:00 18 /min [facility] Body height 2023-02-16 19:00:00 162.6 cm [facility] Body weight 2023-02-16 18:13:00 98.93 kg [facility] BMI 2023-02-16 18:13:00 37.44 kg/m2 [facility] Systolic blood pressure 2023-02-09 16:32:00 103 mm[Hg] [facility] Diastolic blood pressure 2023-02-09 16:32:00 67 mm[Hg] [facility] Heart rate 2023-02-09 16:32:00 87 /min [facility] Body temperature 2023-02-09 16:32:00 36.72 Charito [facility] Respiratory rate 2023-02-09 16:32:00 18 /min [facility] Body height 2023-02-09 16:32:00 162.6 cm [facility] Body weight 2023-02-09 16:32:00 99.066 kg [facility] BMI 2023-02-09 16:32:00 37.49 kg/m2 [facility] Oxygen saturation in Arterial blood by Pulse oximetry 2023-02-09 16:32:00 99 /min [facility] Systolic blood pressure 2023-01-18 19:52:00 106 mm[Hg] [facility] Diastolic blood pressure 2023-01-18 19:52:00 70 mm[Hg] [facility] Heart rate 2023-01-18 19:52:00 84 /min [facility] Body temperature 2023-01-18 19:52:00 37.06 Charito [facility] Body height 2023-01-18 19:52:00 160 cm [facility] Body weight 2023-01-18 19:52:00 99.066 kg [facility] BMI 2023-01-18 19:52:00 38.69 kg/m2 [facility] Systolic blood pressure 2022-12-20 21:11:00 108 mm[Hg] [facility] Diastolic blood pressure 2022-12-20 21:11:00 72 mm[Hg] [facility] Heart rate 2022-12-20 21:11:00 80 /min [facility] Body temperature 2022-12-20 21:11:00 37 Charito [facility] Body height 2022-12-20 21:11:00 160 cm [facility] Body weight 2022-12-20 21:11:00 98.158 kg [facility] BMI 2022-12-20 21:11:00 38.33 kg/m2 [facility] Systolic blood pressure 2022-11-22 22:20:00 112 mm[Hg] [facility] Diastolic blood pressure 2022-11-22 22:20:00 72 mm[Hg] [facility] Heart rate 2022-11-22 22:20:00 88 /min [facility] Body temperature 2022-11-22 22:20:00 36.67 Charito [facility] Respiratory rate 2022-11-22 22:20:00 18 /min [facility] Body height 2022-11-22 22:20:00 160 cm [facility] Body weight 2022-11-22 22:20:00 94.983 kg [facility] BMI 2022-11-22 22:20:00 37.09 kg/m2 [facility] Systolic blood pressure 2022-10-25 20:22:00 106 mm[Hg] [facility] Diastolic blood pressure 2022-10-25 20:22:00 74 mm[Hg] [facility] Heart rate 2022-10-25 20:22:00 114 /min [facility] Body temperature 2022-10-25 20:22:00 36.94 Charito [facility] Body height 2022-10-25 20:22:00 160 cm [facility] Body weight 2022-10-25 20:22:00 93.804 kg [facility] BMI 2022-10-25 20:22:00 36.63 kg/m2 [facility] Procedures Procedure Date / Time Performed Performing Clinician Source MEDICAL RELEASE/CLEARANCE FORMS 2023-06-05 05:01:00 Doctor Unassigned, [place] [facility] MEDICAL RELEASE/CLEARANCE FORMS 2023-05-25 05:01:00 Doctor Unassigned, [place] [facility] LAPAROSCOPIC SALPINGECTOMY 2023-05-22 14:57:00 Frederick Stephenson [facility] POCT TEST 2023-05-22 14:42:00 Salomón Yu [facility] POCT TEST 2023-05-22 14:42:00 Salomón Yu [facility] BASIC METABOLIC PANEL (NA, K, CL, CO2, GLUCOSE, BUN, CREATININE, CA) 2023-05-22 14:28:00 Frederick Stephenson [facility] TOTAL BETA HCG ASSAY 2023-05-22 14:28:00 Frederick Stephenson [facility] CBC WITH DIFF 2023-05-22 14:28:00 Frederick Stephenson [facility] GLYCOSYLATED HEMOGLOBIN (A1C) 2023-05-22 14:28:00 Frederick Stephenson [facility] HB ABO GROUPING 2023-05-22 14:28:00 Stephenson, [facility] BASIC METABOLIC PANEL (NA, K, CL, CO2, GLUCOSE, BUN, CREATININE, CA) 2023-05-22 14:28:00 Sachin [facility] TOTAL BETA HCG ASSAY 2023-05-22 14:28:00 Sachin [facility] CBC WITH DIFF 2023-05-22 14:28:00 Frederick Stephen[facility] GLYCOSYLATED HEMOGLOBIN (A1C) 2023-05-22 14:28:00 Sachin [facility] HB ABO GROUPING 2023-05-22 14:28:00 Sachin [facility] STERILIZATION CONSENT FORM 2023-05-22 05:01:00 Doctor Unassigned, [place] [facility] DSU PRE-OP 2023-05-17 05:01:00 Doctor Unass igned, [place] [facility] XR CHEST 1 VW 2023-04-18 22:14:58 Estela Santiago [facility] C-REACTIVE PROTEIN 2023-04-18 20:54:00 Carolina Santiago [facility] SEDIMENTATION RATE 2023-04-18 20:54:00 Carolina Santiago [facility] RAPID STREP SCREEN FOR GROUP A 2023-04-18 20:54:00 Estela Santiago [facility] RAPID INFLUENZA A/B 2023-04-18 20:54:00 Mina Santiago [facility] MR LUMBAR SPINE W WO CONTRAST 2023-04-18 15:53:25 Turner Saini [facility] US PELVIS COMPLETE WITH TRANSVAGINAL 2023-04-18 14:21:26 Singer Turner [facility] COVID-19 (ID NOW RAPID TESTING) 2023-04-18 13:24:00 Singer Turner [facility] BLOOD CULTURE SCREEN 2023-04-18 13:11:00 Omid Saini [facility] CT ABDOMEN PELVIS W CONTRAST 2023-04-18 13:09:00 Turner Saini [facility] LIPASE 2023-04-18 12:52:00 Turner Saini [facility] COMP. METABOLIC PANEL (80505) 2023-04-18 12:52:00 Turner Saini [facility] CBC WITH DIFF 2023-04-18 12:52:00 Turner Saini [facility] URINALYSIS 2023-04-18 12:52:00 [facility] CONSENT/REFUSAL FOR DIAGNOSIS AND TREATMENT 2023-04-18 12:00:00 Doctor Unassigned, [place] [facility] CBC WITH DIFF 2023-04-09 09:19:00 Adum, Millicent Oh [facility] CENTRAL NEURAXIAL BLOCK 2023-04-08 11:05:00 Tushar Mullen [facility] CBC WITH DIFF 2023-04-08 02:35:00 Adum, Millicent Oh [facility] HEPATITIS B SURFACE ANTIGEN 2023-04-08 02:35:00 Adum, Millicent Bush [facility] HB ABO GROUPING 2023-04-08 02:35:00 Adum, Millicent Hoover [facility] RHO (D) IMMUNE GLOBULIN 2023-04-08 02:35:00 Adum, Camryn Bush [facility] ADC OR LAURENT ONLY - RPR 2023-04-08 02:35:00 Adum, Millicent Bush [facility] HIV 1/2 AG-AB WITH REFLEX 2023-04-08 02:35:00 Adum, Millicent Bush [facility] ADC ONLY - FERN TEST 2023-04-08 00:28:00 Adum, Millicent Bush [facility] ASSIGNMENT OF BENEFITS 2023-04-07 23:11:49 Docto r Unassigned, [place] [facility] CONSENT/REFUSAL FOR DIAGNOSIS AND TREATMENT 2023-04-07 23:11:22 Doctor Unassigned, [place] [facility] DISABILITY/FMLA 2023-04-06 05:01:00 Doctor Unass igned, [place] [facility] POCT URINALYSIS W/O SPECIFIC GRAVITY 2023-04-04 00:00:00 Frederick Stephenson [facility] >14 WEEKS US LIMITED 2023-03-26 16:24:58 Frederick Stephenson [facility] DSU PRE-OP 2023-03-26 05:01:00 Doctor Unass igned, [place] [facility] POCT URINALYSIS W/O SPECIFIC GRAVITY 2023-03-26 00:00:00 Frederick Stephenson [facility] POCT URINALYSIS W/O SPECIFIC GRAVITY 2023-03-08 00:00:00 Frederick Stephenson [facility] POCT URINALYSIS W/O SPECIFIC GRAVITY 2023-02-22 00:00:00 Pat Arana [facility] AMYLASE 2023-02-16 20:03:00 Adum, Millicent Bush [facility] LIPASE 2023-02-16 20:03:00 Adum, iMllicent Bush [facility] COMP. METABOLIC PANEL (03974) 2023-02-16 20:03:00 Adum, Millicent Bush [facility] CBC WITH DIFF 2023-02-16 20:03:00 Adum, Millicent Bush [facility] CONSENT/REFUSAL FOR DIAGNOSIS AND TREATMENT 2023-02-16 18:08:35 Doctor Unassigned, [place] [facility] TDAP VACCINE, >11 YRS, IM 2023-02-09 16:39:30 Jeferson Krzysztof [facility] STERILIZATION CONSENT FORM 2023-02-09 05:01:00 Doctor Unassigned, [place] [facility] POCT URINALYSIS W/O SPECIFIC GRAVITY 2023-02-09 00:00:00 Krzysztof Martinez [facility] CBC WITH DIFF 2023-01-18 19:31:00 Frederick Stephenson [facility] POCT URINALYSIS W/O SPECIFIC GRAVITY 2023-01-18 00:00:00 Frederick Stephenson [facility] POCT URINALYSIS W/O SPECIFIC GRAVITY 2022-12-20 00:00:00 Frederick Stephenson [facility] PATIENT FINANCIAL POLICY 2022-11-22 22:13:04 Doctor Unassigned, [place] [facility] POCT URINALYSIS W/O SPECIFIC GRAVITY 2022-11-22 00:00:00 Krzysztof Martinez [facility] ASSIGNMENT OF BENEFITS 2022-11-03 17:24:49 Docto r Unassigned, [place] [facility] ASSIGNMENT OF BENEFITS 2022-10-25 20:03:41 Docto r Unassigned, [place] [facility] POCT TEST 2022-10-25 00:00:00 Frederick Stephenson [facility] POCT URINALYSIS W/O SPECIFIC GRAVITY 2022-10-25 00:00:00 Frederick Stephenson [facility] Encounters Start Date/Time End Date/Time Encounter Type Admission Type Attending [facility] Facility Care Department Encounter ID Source 2023-04-18 12:44:15 Emergency X [facility] SNS [id number] [facility] 2023-02-16 18:20:20 Outpatient P [facility] CHANDAN [id number] [facility] 2021-07-14 11:52:51 Outpatient [facility] [id number] [facility] 2021-07-14 11:26:27 Outpatient [facility] [id number] [facility] 2021-07-14 11:25:45 Outpatient P [facility] [id number] [facility] 2023-12-06 08:00:00 2023-12-06 08:00:00 Outpatient R FREDERICK STEPHENSON [facility] [id number] [facility] 2023-07-04 09:30:00 2023-07-04 09:30:00 Outpatient R FREDERICK STEPHENSON [facility] [id number] [facility] 2023-06-05 15:30:00 2023-06-05 16:11:30 Outpatient R FREDERICK STEPHENSON [facility] [id number] [facility] 2023-06-05 15:30:00 2023-06-05 16:11:30 Office Visit Frederick Stephenson [facility] 1.2.840.114 350.1.13.10 4.2.7.2.686 [id number] 134 [id number] [facility] 2023-06-05 00:00:00 2023-06-05 00:00:00 Orders Only Doctor Unassigned, [place] [facility] 1.2.840.114 350.1.13.10 4.2.7.2.686 [id number] [id number] [facility] 2023-05-28 00:00:00 2023-05-28 00:00:00 Telephone Frederick Stephenson [facility] 1.2.840.114 350.1.13.10 4.2.7.2.686 [id number] [facility] 2023-05-25 00:00:00 2023-05-25 00:00:00 Telephone Frederick Stephenson Terrence [facility] 1.2.840.114 350.1.13.10 4.2.7.2.686 [id number] 134 [id number] [facility] 2023-05-25 00:00:00 2023-05-25 00:00:00 Patient Secure Msg StephensonFrederick [facility] 1.2.840.114 350.1.13.10 4.2.7.2.686 [id number] 134 [id number] [facility] 2023-05-25 00:00:00 2023-05-25 00:00:00 Orders Only Doctor Unassigned, [place] [facility] 1.2.840.114 350.1.13.10 4.2.7.2.686 [id number] [id number] [facility] 2023-05-22 14:30:00 2023-05-22 14:54:08 Outpatient R FREDERICK STEPHENSON [facility] [id number] [facility] 2023-05-22 14:30:00 2023-05-22 14:54:08 Office Visit Frederick Stephenson [facility] 1.2.840.114 350.1.13.10 4.2.7.2.686 [id number] [facility] 2023-05-22 11:15:00 2023-05-22 13:46:00 Surgery Frederick Stephenson [facility] 1.2840.114 350.1.13.10 4.2.7.2.686 [id number] [facility] 2023-05-22 09:26:00 2023-05-22 11:58:00 Outpatient R FREDERICK STEPHENSON [facility] SUPERVISOR WET POUR [id number] [facility] 2023-05-22 09:26:00 2023-05-22 11:58:00 Hospital Encounter Frederick Stephenson [facility] 1.2840.114 350.1.13.10 4.2.7.2.686 [id number] [facility] 2023-05-22 00:00:00 2023-05-22 00:00:00 Telephone Frederick Stephenson [facility] PROFESSIO NAL BUILDING 1.2840.114 350.1.13.10 4.2.7.2.686 [id number] 134 [id number] [facility] 2023-05-22 00:00:00 2023-05-22 00:00:00 Orders Only Doctor Unassigned, [place] [facility] 1.2840.114 350.1.13.10 4.2.7.2.686 [id number] [facility] 2023-05-17 15:45:00 2023-05-17 15:45:00 Outpatient R FREDERICK STEPHENSON [facility] [id number] [facility] 2023-05-17 14:30:00 2023-05-17 14:47:35 Office Visit Frederick Stephenson [facility] PROFESSIO NAL BUILDING 1.2840.114 350.1.13.10 4.2.7.2.686 [id number] 134 [id number] [facility] 2023-05-17 00:00:00 2023-05-17 00:00:00 Orders Only Doctor Unassigned, [place] [facility] 1.2.840.114 350.1.13.10 4.2.7.2.686 [id number] [facility] 2023-05-08 16:00:00 2023-05-08 16:40:51 Outpatient R FREDERICK STEPHENSON [facility] [id number] [facility] 2023-05-08 16:00:00 2023-05-08 16:40:51 Routine Visit Frederick Stephenson [facility] NAL BUILDING 1.2.840.114 350.1.13.10 4.2.7.2.686 [id number] 134 [id number] [facility] 2023-05-08 00:00:00 2023-05-08 00:00:00 Prep For Surgery [facility] Stephen[facility] 1.2.840.114 350.1.13.10 4.2.7.2.686 [id number] 134 [id number] [facility] 2023-04-18 14:33:00 2023-04-18 17:27:00 Emergency Timothy Jimenez Melanie [facility] 1.2.840.114 350.1.13.10 4.2.7.2.686 [id number] [facility] 2023-04-18 07:17:00 2023-04-18 13:17:00 Emergency X TURNER SAINI [facility] ERT [id number] [facility] 2023-04-18 07:17:00 2023-04-18 13:17:00 Emergency X ESTELA SANTIAGO MELANIE [facility] ERT [id number] [facility] 2023-04-18 07:17:00 2023-04-18 13:17:00 Emergency Turner Saini [facility] 1.2.840.114 350.1.13.10 4.2.7.2.686 [id number] [facility] 2023-04-11 13:15:00 2023-04-11 13:15:00 Outpatient R MILLICENT MAYORGA [facility] [id number] [facility] 2023-04-07 18:23:00 2023-04-09 16:15:00 Inpatient X [facility]UKESH [facility] [id number] [facility] 2023-04-07 18:23:00 2023-04-09 16:15:00 Hospital Encounter Chitra Pride Mukesh, Keisha [facility] 1.2.840.114 350.1.13.10 4.2.7.2.686 [id number] [facility] 2023-04-08 06:05:00 2023-04-08 12:37:00 Anesthesia Event Tushar Mullen [facility] 1.2.840.114 350.1.13.10 4.2.7.2.686 [id number] [facility] 2023-04-07 22:25:09 2023-04-07 22:25:09 Anesthesia Event Tushar Mullen [facility] 1.2.840.114 350.1.13.10 4.2.7.2.686 [id number] [id number] [facility] 2023-04-07 00:00:00 2023-04-07 00:00:00 Nurse Triage Mey Prater [facility] 1.2.840.114 350.1.13.10 4.2.7.2.686 [id number] [facility] 2023-04-06 00:00:00 2023-04-06 00:00:00 Orders Only Doctor Unassigned, [place] [facility] 1.2.840.114 350.1.13.10 4.2.7.2.686 [id number] [facility] 2023-04-04 15:45:00 2023-04-04 16:38:53 Outpatient [facility] [id number] [facility] 2023-04-04 15:45:00 2023-04-04 16:00:00 Routine Visit Frederick Stephen[facility] 1.2.840.114 350.1.13.10 4.2.7.2.686 [id number] 134 [id number] [facility] 2023-04-04 00:00:00 2023-04-04 00:00:00 [facility] 1.2.840.114 350.1.13.10 4.2.7.2.686 [id number] 134 [id number] [facility] 2023-03-30 09:45:00 2023-03-30 11:24:45 Outpatient R FREDERICK STEPHENSON [facility] [id number] [facility] 2023-03-30 09:45:00 2023-03-30 10:00:00 Washing Machine Repairer Visit 2, Adc Lab Frederick Stephenson [facility] 1.2.840.114 350.1.13.10 4.2.7.2.686 [id number] [facility] [id number] [facility] 2023-03-27 10:00:00 2023-03-27 10:00:00 Outpatient R [facility] [id number] [facility] 2023-03-26 09:45:00 2023-03-26 11:09:31 Outpatient R FREDERICK STEPHENSON [facility] [id number] [facility] 2023-03-26 09:45:00 2023-03-26 11:09:31 Routine Visit Frederick Stephenson [facility] PROFESSIO NAL BUILDING 1.840.114 350.1.13.10 4.2.7.2.686 [id number] 134 [id number] [facility] 2023-03-26 00:00:00 2023-03-26 00:00:00 Orders Only Doctor Unassigned, [place] [facility] 1.0.114 350.1.13.10 4.2.7.2.686 [id number] [facility] 2023-03-08 10:30:00 2023-03-08 10:43:35 Outpatient R FREDERICK STEPHENSON [facility] [id number] [facility] 2023-03-08 10:30:00 2023-03-08 10:43:35 Routine Visit Frederick Stephenson [facility] PROFESSIO NAL BUILDING 1.840.114 350.1.13.10 4.2.7.2.686 [id number] 134 [id number] [facility] 2023-02-22 11:15:00 2023-02-22 11:27:45 Outpatient R PAT ARANA CHERYAL [facility] [id number] [facility] 2023-02-22 11:15:00 2023-02-22 11:27:45 Routine Visit Pat Arana [facility] 1..114 350.1.13.10 4.2.7.2.686 [id number] [facility] 2023-02-16 13:19:00 2023-02-16 17:47:00 Outpatient P MILLICENT MAYORGA [facility] CHANDAN [id number] [facility] 2023-02-16 13:19:00 2023-02-16 17:47:00 Hospital Encounter Millicent Mayorga [facility] 1.0.114 350.1.13.10 4.2.7.2.686 [id number] [facility] 2023-02-16 00:00:00 2023-02-16 00:00:00 Telephone [facility] Stephen[facility] 1.284.114 350.1.13.10 4.2.7.2.686 [id number] 134 [id number] [facility] 2023-02-09 11:30:00 2023-02-09 11:48:24 Outpatient R KRZYSZTOF MARTINEZ [facility] [id number] [facility] 2023-02-09 11:30:00 2023-02-09 11:48:24 Routine Visit Krzysztof Martinez [facility] 1..114 350.1.13.10 4.2.7.2.686 [id number] 134 [id number] [facility] 2023-02-09 00:00:00 2023-02-09 00:00:00 Orders Only Doctor Unassigned, [place] [facility] 1..114 350.1.13.10 4.2.7.2.686 [id number] [facility] 2023-01-18 15:15:00 2023-01-18 15:15:00 Routine Visit Frederick Stephenson [facility] 1.84.114 350.1.13.10 4.2.7.2.686 [id number] 134 [id number] [facility] 2023-01-18 15:15:00 2023-01-18 15:07:06 Outpatient R SACHINKEISHAEN [facility] [id number] [facility] 2023-01-18 14:00:00 2023-01-18 14:15:00 Washing Machine Repairer Visit Pob, Adc Lab Main Frederick Stephenson [facility] 1.84.114 350.1.13.10 4.2.7.2.686 [id number] [facility] 2023-01-18 00:00:00 2023-01-18 00:00:00 Case Management Frederick Stephenson [facility] 1.2.840.114 350.1.13.10 4.2.7.2.686 [id number] 134 [id number] [facility] 2022-12-20 16:00:00 2022-12-20 16:22:08 Outpatient R FREDERICK STEPHENSON [facility] [id number] [facility] 2022-12-20 16:00:00 2022-12-20 16:22:08 Routine Visit Frederick Stephenson [facility] 1.2.840.114 350.1.13.10 4.2.7.2.686 [id number] 134 [id number] [facility] 2022-12-12 09:00:00 2022-12-12 10:00:00 Washing Machine Repairer Visit Ultrasound, Adc Mfm Ovi Campos Melyssauvphill [facility] 1.2.840.114 350.1.13.10 4.2.7.2.686 [id number] 134 [id number] [facility] 2022-12-12 09:00:00 2022-12-12 09:00:00 Outpatient P OVI CAMPOS [facility] [id number] [facility] 2022-11-22 16:30:00 2022-11-22 16:34:26 Outpatient R LUISPIERRE [facility] [id number] [facility] 2022-11-22 16:30:00 2022-11-22 16:34:26 Routine Visit Jeferson Krzysztof [facility] 1.2.840.114 350.1.13.10 4.2.7.2.686 [id number] 134 [id number] [facility] 2022-11-22 00:00:00 2022-11-22 00:00:00 Orders Only Doctor Unassigned, [place] [facility] 1.2840.114 350.1.13.10 4.2.7.2.686 [id number] [facility] 2022-11-06 14:00:00 2022-11-06 14:00:00 Outpatient R SACHIN [facility] [id number] [facility] 2022-11-03 10:00:00 2022-11-03 13:12:26 Outpatient R SACHIN [facility] [id number] [facility] 2022-11-03 10:00:00 2022-11-03 10:15:00 Washing Machine Repairer Visit 2, [facility] 1.2.840.114 350.1.13.10 4.2.7.2.686 [id number] [facility] 2022-11-03 00:00:00 2022-11-03 00:00:00 Orders Only Doctor Unassigned, [place] [facility] 1.2840.114 350.1.13.10 4.2.7.2.686 [id number] [facility] 2022-10-25 14:00:00 2022-10-25 15:52:28 Initial Visit Frederick Stephenson [facility] 1.2840.114 350.1.13.10 4.2.7.2.686 [id number] 134 [id number] [facility] 2022-10-25 14:00:00 2022-10-25 15:52:28 Outpatient R SACHIN [facility] [id number] [facility] 2022-10-25 00:00:00 2022-10-25 00:00:00 Orders Only Doctor Unassigned, [place] [facility] 1.2840.114 350.1.13.10 4.2.7.2.686 [id number] [facility] 2020-06-14 09:00:00 2020-06-14 09:00:00 Outpatient R KRZYSZTOF MARTINEZ [facility] [id number] [facility] 2019-12-11 11:30:00 2019-12-11 11:30:00 Outpatient Uma MARTINEZ [facility] [id number] [facility] 2019-12-11 08:15:31 2019-12-11 10:52:35 Telemedici ne Visit Jeferson [facility] 1.2.840.114 350.1.13.10 [id number] 2019-11-13 09:45:00 2019-11-13 09:45:00 Outpatient FREDERICK ABDALLA [facility] [id number] [facility] 2018-08-26 10:30:00 2018-08-26 10:30:[address] [facility] [id number] [facility] Results Test Description Test Time Test Comments Results Resul t Comments Source TOTAL BETA HCG ASSAY 2023-05-22 16:24:57 BETA HCG<2.39Non-preg nant female and male patients: <5 mIU/mL05/22/2023 11:24 AM [facility] Gestational Age ?Range (mIU/mL) 1-10 ?Weeks ?[id number] Weeks ?[id number]- 22 Weeks ?[id number] 0 Weeks ?[id number] Biotin has been reported to cause a negative bias, interpret results relative to patient's use of biotin. [facility] TOTAL BETA HCG ASSAY 2023-05-22 16:24:57 BETA HCG<2.39Non-preg nant female and male patients: <5 mIU/mL05/22/2023 11:24 AM [facility] Gestational Age ?Range (mIU/mL) 1-10 ?Weeks ?[id number] Weeks ?42680-62960224- 22 Weeks ?[id number] 0 Weeks ?[phone] Biotin has been reported to cause a negative bias, interpret results relative to patient's use of biotin. [facility] (NA, K, CL, CO2, GLUCOSE, BUN, CREATININE, CA)2023-05-22 16:06:31* Test Item Value Reference Range Interpretation Comme nts NA (test code = 7109650641) 140 mmol/L 135-145 K (test code = 9347169159) 4.0 mmol/L 3.5-5.0 CL (test code = 5420014642) 103 mmol/L 98-108 CO2 TOTAL (test code = 1616433673) 29 mmol/L 23-31 AGAP (test code = 6196403385) 8 2-16 BUN (test code = 2571851387) 16 mg/dL 7-23 GLUCOSE (test code = 4507733920) 83 mg/dL 70-110 CREATININE (test code = 7557123590) 0.62 mg/dL 0.50-1.04 CALCIUM (test code = 8388026140) 9.5 mg/dL 8.6-10.6 eGFR (test code = 9075788651) 119.3 mL/min/1.73m2 ALANNAH (test code = ALANNAH) [...] or urine or abnormalities in imaging tests). [facility]23-05-22 15:34:43* Test Item Value Reference Range Interpretation Comme nts HGB A1C (test code = 4548-4) 5.1 % 4.0-5.7 ALANNAH (test code = ALANNAH) Reference RangesNormal: <5.7%Prediabetes: 5.7 - 6.4%Diabetes: > 6.5% Lab Interpretation (test code = 81186-5) Normal [facility]A1C)2023-05-22 15:34:43* Test Item Value Reference Range Interpretation Comme nts HGB A1C (test code = 4548-4) 5.1 % 4.0-5.7 ALANNAH (test code = ALANNAH) Reference RangesNormal: <5.7%Prediabetes: 5.7 - 6.4%Diabetes: > 6.5% Lab Interpretation (test code = 74249-7) Normal [facility] WITH [id number] 14:50:42* Test Item Value Reference Range Interpretation Comme nts WBC (test code = 6690-2) 7.45 See_Comment [Automated [employer] ge] The system which generated this result [...] g/dL 31.6-35.1 L RDW-SD (test code = 27417-4) 49.1 fL 39.0-49.9 RDW-CV (test code = 788-0) 18.0 % 12.0-15.5 H PLT (test code = 777-3) 290 See_Comment [Automated messa ge] The system which generated this result transmitted reference range: 166 - 358 10*3/?L. The reference range was not used to interpret this result as normal/abnormal. MPV (test code = 09425-9) 9.0 fL 9.5-12.9 L NRBC/100 WBC (test code = 9633274937) 0.0 See_Comment [Automated appsFreedom ssage] The system which generated this result transmitted reference range: 0.0 - 10.0 /100 WBCs. The reference range was not used to interpret this result as normal/abnormal. NRBC x10^3 (test code = 5113248400) See_Comment [Automated messa ge] The system which generated this result transmitted reference range: 10*3/?L. The reference range was not used to interpret this result as normal/abnormal. GRAN MAT (NEUT) % (test code = 770-8) 42.6 % IMM GRAN % (test code = 5498137128) 0.40 % LYMPH % (test code = 736-9) 48.7 % MONO % (test code = 5905-5) 6.2 % EOS % (test code = 713-8) 1.6 % BASO % (test code = 706-2) 0.5 % GRAN MAT x10^3(ANC) (test code = 6937082657) 3.17 10*3/uL 1.88-7.09 IMM GRAN x10^3 (test code = 5795941421) 0.03 10*3/uL 0.00-0.06 LYMPH x10^3 (test code = 731-0) 3.63 10*3/uL 1.32-3.29 H MONO x10^3 (test code = 742-7) 0.46 10*3/uL 0.33-0.92 EOS x10^3 (test code = 711-2) 0.12 10*3/uL 0.03-0.39 BASO x10^3 (test code = 704-7) 0.04 10*3/uL 0.01-0.07 Lab Interpretation (test code = 90872-9) Abnormal [facility] WITH [id number] 14:50:42* Test Item Value Reference Range Interpretation Comme nts WBC (test code = 6690-2) 7.45 See_Comment [Autom[employer] ge] The system which generated this result transmitted reference range: 4.30 - 11.10 10*3/?L. The reference range was not used to interpret this result as normal/abnormal. RBC (test code = 789-8) 5.01 See_Comment [Automated [employer] ge] The system which generated this result [...] g/dL 31.6-35.1 L RDW-SD (test code = 83072-8) 49.1 fL 39.0-49.9 RDW-CV (test code = 788-0) 18.0 % 12.0-15.5 H PLT (test code = 777-3) 290 See_Comment [Automated messa ge] The system which generated this result transmitted reference range: 166 - 358 10*3/?L. The reference range was not used to interpret this result as normal/abnormal. MPV (test code = 06969-5) 9.0 fL 9.5-12.9 L NRBC/100 WBC (test code = 0742613097) 0.0 See_Comment [Automated apps[employer] ssage] The system which generated this result transmitted reference range: 0.0 - 10.0 /100 WBCs. The reference range was not used to interpret this result as normal/abnormal. NRBC x10^3 (test code = 4609078344) See_Comment [Automated messa ge] The system which generated this result transmitted reference range: 10*3/?L. The reference range was not used to interpret this result as normal/abnormal. GRAN MAT (NEUT) % (test code = 770-8) 42.6 % IMM GRAN % (test code = 2808371060) 0.40 % LYMPH % (test code = 736-9) 48.7 % MONO % (test code = 5905-5) 6.2 % EOS % (test code = 713-8) 1.6 % BASO % (test code = 706-2) 0.5 % GRAN MAT x10^3(ANC) (test code = 8424403998) 3.17 10*3/uL 1.88-7.09 IMM GRAN x10^3 (test code = 0832718183) 0.03 10*3/uL 0.00-0.06 LYMPH x10^3 (test code = 731-0) 3.63 10*3/uL 1.32-3.29 H MONO x10^3 (test code = 742-7) 0.46 10*3/uL 0.33-0.92 EOS x10^3 (test code = 711-2) 0.12 10*3/uL 0.03-0.39 BASO x10^3 (test code = 704-7) 0.04 10*3/uL 0.01-0.07 Lab Interpretation (test code = 25606-6) [facility] -2023-[facility]-22 14:45:00* Test Item Value Reference Range Interpretation Comme nts ABO & RH (test code = 20) O Positive IAT (test code = 1185) Negative [facility] -2023-05-22 14:45:00* Test Item Value Reference Range Interpretation Comme nts ABO & RH (test code = 20) O Positive IAT (test code = 1185) Negative [facility]PO[facility] [id number] 14:43:00* Test Item Value Reference Range Interpretation Comme nts POCT PREG (test code = 1605) Negative On board controls acceptable with C Line (test code = 3574) Yes POCT PREG LOT # (test code = 3575) [id number] POCT PREG TEST DATE ( test code = 3576) 2024 [facility] [id number] 14:43:00* Test Item Value Reference Range Interpretation Comme nts POCT PREG (test code = 1605) Negative On board controls acceptable with C Line (test code = 3574) Yes POCT PREG LOT # (test code = 3575) [id number] POCT PREG TEST DATE ( test code = 3576) 2024 [facility] HospitalSEDIMENTATION [id number] 21:33:02* Test Item Value Reference Range Interpretation Comme nts ESR (test code = 96277-1) 22 See_Comment H [Automated messa ge] The system which generated this result transmitted reference range: 0 - 20 mm/HR. The reference range was not used to interpret this result as normal/abnormal. Lab Interpretation (test code = 08467-6) Abnormal [facility] HospitalC-REACTIVE [id number] 21:24:14* Test Item Value Reference Range Interpretation Comme nts CRP (test code = 0748879650) 6.1 mg/dL <=1.0 H Lab Interpretation (test cod e = 58001-1) Abnormal [facility] Hospital[facility] METABOLIC PANEL (23927)2023-04-18 13:27:41* Test Item Value Reference Range Interpretation Comme nts NA (test code = 2608423967) 140 mmol/L 135-145 K (test code = 9291406212) 3.8 mmol/L 3.5-5.0 CL (test code = 3689087354) 103 mmol/L 98-108 CO2 TOTAL (test code = 8761977092) 30 mmol/L 23-31 AGAP (test code = 6632899377) 7 2-16 BUN (test code = 7075137348) 11 mg/dL 7-23 GLUCOSE (test code = 2905688647) 97 mg/dL 70-110 CREATININE (test code = 0169345491) 0.63 mg/dL 0.50-1.04 TOTAL BILI (test code = 7669666282) 0.4 mg/dL 0.1-1.1 CALCIUM (test code = 0014919739) 8.9 mg/dL 8.6-10.6 T PROTEIN (test code = 3100573713) 7.1 g/dL 6.3-8.2 ALBUMIN (test code = 1414315132) 3.8 g/dL 3.5-5.0 ALK PHOS (test code = 5679659208) 109 U/L 34-122 ALTv (test code = 1742-6) 18 U/L 5-35 AST(SGOT) (test code = 0188173948) 18 U/L 13-40 eGFR (test code = 2525471644) 117.1 mL/min/1.73m2 ALANNAH (test code = ALANNAH) [...] or urine or abnormalities in imaging tests). [facility]IPASE20[facility] 13:26:56* Test Item Value Reference Range Interpretation Comme nts LIPASE (test code = 5279613317) 50 U/L 0-220 Lab Interpretation (test cod e = 32667-8) Normal [facility] WITH [id number] 13:15:39* Test Item Value Reference Range Interpretation Comme nts WBC (test code = 6690-2) 11.17 See_Comment H [[employer]] The system which generated this result transmitted reference range: 4.30 - 11.10 10*3/?L. The reference range was not used to interpret this result as normal/abnormal. RBC (test code = 789-8) 4.49 See_Comment [[employer]] The system which generated this result transmitted [...] 31.6 g/dL 31.6-35.1 RDW-SD (test code = 17694-3) 41.2 fL 39.0-49.9 RDW-CV (test code = 788-0) 14.8 % 12.0-15.5 PLT (test code = 777-3) 344 See_Comment [[employer]] The system which generated this result transmitted reference range: 166 - 358 10*3/?L. The reference range was not used to interpret this result as normal/abnormal. MPV (test code = 90016-6) 8.9 fL 9.5-12.9 L NRBC/100 WBC (test code = 6303930731) 0.0 See_Comment [Automated me ssage] The system which generated this result transmitted reference range: 0.0 - 10.0 /100 WBCs. The reference range was not used to interpret this result as normal/abnormal. NRBC x10^3 (test code = 3688571860) See_Comment [Automated messa ge] The system which generated this result transmitted reference range: 10*3/?L. The reference range was not used to interpret this result as normal/abnormal. GRAN MAT (NEUT) % (test code = 770-8) 77.3 % IMM GRAN % (test code = 4024627964) 0.40 % LYMPH % (test code = 736-9) 18.1 % MONO % (test code = 5905-5) 3.8 % EOS % (test code = 713-8) 0.1 % BASO % (test code = 706-2) 0.3 % GRAN MAT x10^3(ANC) (test code = 1782834265) 8.64 10*3/uL 1.88-7.09 H IMM GRAN x10^3 (test code = 8663854126) 0.05 10*3/uL 0.00-0.06 LYMPH x10^3 (test code = 731-0) 2.02 10*3/uL 1.32-3.29 MONO x10^3 (test code = 742-7) 0.42 10*3/uL 0.33-0.92 EOS x10^3 (test code = 711-2) 0.03-0.39 L BASO x10^3 (test code = 704-7) 0.03 10*3/uL 0.01-0.07 Lab Interpretation (test code = 07066-3) Abnormal [facility] with [id number] 09:44:42* Test Item Value Reference Range Interpretation Comme nts WBC (test code = 6690-2) 11.41 See_Comment H [Automated messa ge] The system which generated this result transmitted reference range: 4.30 - 11.10 10*3/?L. The reference range was not used to interpret this result as normal/abnormal. RBC (test code = 789-8) 3.63 See_Comment L [Autom[employer] ge] The system which generated this result [...] g/dL 31.6-35.1 L RDW-SD (test code = 18889-1) 41.4 fL 39.0-49.9 RDW-CV (test code = 788-0) 14.7 % 12.0-15.5 PLT (test code = 777-3) 202 See_Comment [[employer]] The system which generated this result transmitted reference range: 166 - 358 10*3/?L. The reference range was not used to interpret this result as normal/abnormal. MPV (test code = 87911-2) 9.4 fL 9.5-12.9 L NRBC/100 WBC (test code = 2320930130) 0.0 See_Comment [Automated [employer] ssage] The system which generated this result transmitted reference range: 0.0 - 10.0 /100 WBCs. The reference range was not used to interpret this result as normal/abnormal. NRBC x10^3 (test code = 9777771801) See_Comment [Autom[employer]] The system which generated this result transmitted reference range: 10*3/?L. The reference range was not used to interpret this result as normal/abnormal. GRAN MAT (NEUT) % (test code = 770-8) 63.6 % IMM GRAN % (test code = 8743436580) 0.40 % LYMPH % (test code = 736-9) 29.4 % MONO % (test code = 5905-5) 5.8 % EOS % (test code = 713-8) 0.6 % BASO % (test code = 706-2) 0.2 % GRAN MAT x10^3(ANC) (test code = 7312149201) 7.26 10*3/uL 1.88-7.09 H IMM GRAN x10^3 (test code = 2751884153) 0.05 10*3/uL 0.00-0.06 LYMPH x10^3 (test code = 731-0) 3.35 10*3/uL 1.32-3.29 H MONO x10^3 (test code = 742-7) 0.66 10*3/uL 0.33-0.92 EOS x10^3 (test code = 711-2) 0.07 10*3/uL 0.03-0.39 BASO x10^3 (test code = 704-7) 0.01-0.07 Lab Interpretation (test code = 11965-4) Abnormal [facility] OR LAURENT ONLY - [id number] 05:58:44* Test Item Value Reference Range Interpretation Comme nts RPR (Qualitative) (test code = 66703-5) Nonreactive Nonreactive Lab Interpretation (test cod e = 72656-0) Normal [facility] Hospital[facility] (D) IMMUNE [id number] 16:59:59* Test Item Value Reference Range Interpretation Comme nts RHIG CANDIDATE? (test code = 5188) No- see comment Patient is not a candidate for RhIg- Patient is Rh Positive.Performed at [facility] Laboratory Services - [facility] Blood [address] [place] [id number] Free: [phone] No. [id number] [facility] HospitalHepatitis B Surface Aiiqxkc7502-98-85 06:23:10 * Test Item Value Reference Range Interpretation Comme nts HBsAg Semi-Quantitative (manolo t code = 5195-3) 0.09 Negative [facility] HospitalHIV 1/2 AG-AB WITH [id number] 04:55:26* Test Item Value Reference Range Interpretation Comme nts HIV Semi-quantitative (test code = 60366-1) 0.27 Negative ALANNAH (test code = ALANNAH) Non-reactive for HIV-1 antigen and HIV-1/HIV-2 antibodies. ?No laboratory evidence of HIV infection. ?Repeat in 2-4 weeks if acute HIV infection is suspected. [facility] with Cqnaduwwpawy3612-52-53 03:00:42* Test Item Value Reference Range Interpretation Comme nts WBC (test code = 6690-2) 10.65 See_Comment [Automated messa ge] The system which generated this result transmitted reference range: 4.30 - 11.10 10*3/?L. The reference range was not used to interpret this result as normal/abnormal. RBC (test code = 789-8) 3.92 See_Comment L [Automated messa ge] The system [...] g/dL 31.6-35.1 L RDW-SD (test code = 19045-7) 41.0 fL 39.0-49.9 RDW-CV (test code = 788-0) 14.6 % 12.0-15.5 PLT (test code = 777-3) 234 See_Comment [Automated messa ge] The system which generated this result transmitted reference range: 166 - 358 10*3/?L. The reference range was not used to interpret this result as normal/abnormal. MPV (test code = 53952-3) 9.4 fL 9.5-12.9 L NRBC/100 WBC (test code = 9391417013) 0.0 See_Comment [Automated [employer] ssage] The system which generated this result transmitted reference range: 0.0 - 10.0 /100 WBCs. The reference range was not used to interpret this result as normal/abnormal. NRBC x10^3 (test code = 2646158253) See_Comment [Automated messa ge] The system which generated this result transmitted reference range: 10*3/?L. The reference range was not used to interpret this result as normal/abnormal. GRAN MAT (NEUT) % (test code = 770-8) 59.1 % IMM GRAN % (test code = 0571158363) 0.60 % LYMPH % (test code = 736-9) 34.1 % MONO % (test code = 5905-5) 5.2 % EOS % (test code = 713-8) 0.7 % BASO % (test code = 706-2) 0.3 % GRAN MAT x10^3(ANC) (test code = 6112549829) 6.31 10*3/uL 1.88-7.09 IMM GRAN x10^3 (test code = 9253463336) 0.06 10*3/uL 0.00-0.06 LYMPH x10^3 (test code = 731-0) 3.63 10*3/uL 1.32-3.29 H MONO x10^3 (test code = 742-7) 0.55 10*3/uL 0.33-0.92 EOS x10^3 (test code = 711-2) 0.07 10*3/uL 0.03-0.39 BASO x10^3 (test code = 704-7) 0.03 10*3/uL 0.01-0.07 Lab Interpretation (test code = 78744-8) [facility]normal [facility] - ONCE Evftnqq2009-23-05 02:54:00* Test Item Value Reference Range Interpretation Comme nts ABO & RH (test code = 20) O Positive IAT (test code = 1185) Negative [facility] W/O SPECIFIC [id number] 21:01:00* Test Item Value Reference Range Interpretation [...] = 3257) n/a Negative - Negati ve [facility] URINALYSIS W/O SPECIFIC [id number] 15:13:00* Test Item Value Reference Range Interpretation [...] = 3257) n/a Negative - Negati ve [facility] URINALYSIS W/O SPECIFIC [id number] 15:13:00* Test Item Value Reference Range Interpretation [...] = 3257) n/a Negative - Negati ve [facility] URINALYSIS W/O SPECIFIC [id number] 15:21:00* Test Item Value Reference Range Interpretation [...] = 3257) n/a Negative - Negati ve [facility] URINALYSIS W/O SPECIFIC [id number] 16:14:00* Test Item Value Reference Range Interpretation [...] = 3257) N/A Negative - Negati ve [facility] URINALYSIS W/O SPECIFIC [id number] 16:28:00* Test Item Value Reference Range Interpretation [...] = 3257) n/a Negative - Negati ve [facility] URINALYSIS W/O SPECIFIC [id number] 16:28:00* Test Item Value Reference Range Interpretation [...] n/a Negative - Negati ve [facility] WITH [id number] 20:18:13* Test Item Value Reference Range Interpretation [...] 31.7 g/dL 31.6-35.1 RDW-SD (test code = 05804-7) 41.3 fL 39.0-49.9 RDW-CV (test code = 788-0) 12.9 % 12.0-15.5 PLT (test code = 777-3) 235 See_Comment [Automated messa ge] The system which generated this result transmitted reference range: 166 - 358 10*3/?L. The reference range was not used to interpret this result as normal/abnormal. MPV (test code = 13705-9) 9.6 fL 9.5-12.9 NRBC/100 WBC (test code = 1429115371) 0.0 See_Comment [Automated me ssage] The system which generated this result transmitted reference range: 0.0 - 10.0 /100 WBCs. The reference range was not used to interpret this result as normal/abnormal. NRBC x10^3 (test code = 1658949210) See_Comment [Automated messa ge] The system which generated this result transmitted reference range: 10*3/?L. The reference range was not used to interpret this result as normal/abnormal. GRAN MAT (NEUT) % (test code = 770-8) 72.6 % IMM GRAN % (test code = 2635365800) 0.70 % LYMPH % (test code = 736-9) 21.2 % MONO % (test code = 5905-5) 4.7 % EOS % (test code = 713-8) 0.4 % BASO % (test code = 706-2) 0.4 % GRAN MAT x10^3(ANC) (test code = 3591166629) 6.79 10*3/uL 1.88-7.09 IMM GRAN x10^3 (test code = 3100935020) 0.07 10*3/uL 0.00-0.06 H LYMPH x10^3 (test code = 731-0) 1.99 10*3/uL 1.32-3.29 MONO x10^3 (test code = 742-7) 0.44 10*3/uL 0.33-0.92 EOS x10^3 (test code = 711-2) 0.04 10*3/uL 0.03-0.39 BASO x10^3 (test code = 704-7) 0.04 10*3/uL 0.01-0.07 Lab Interpretation (test code = 72171-0) Abnormal [facility] URINALYSIS W/O SPECIFIC [id number] 19:51:00* Test Item Value Reference Range Interpretation [...] = 3257) n/a Negative - Negati ve [facility] URINALYSIS W/O SPECIFIC [id number] 21:09:00* Test Item Value Reference Range Interpretation [...] = 3257) n/a Negative - Negati ve [facility] URINALYSIS W/O SPECIFIC [id number] 22:34:00* Test Item Value Reference Range Interpretation [...] = 3257) n/a Negative - Negati ve [facility] [id number] 20:36:00* Test Item Value Reference Range Interpretation Comme nts POCT PREG (test code = 1605) Positive On board controls acceptable with C Line (test code = 3574) Yes POCT PREG LOT # (test code = 3575) POCT PREG TEST DATE ( test code = 3576) [facility] URINALYSIS W/O SPECIFIC [id number] 20:35:00* Test Item Value Reference Range Interpretation [...] = 3257) 250 Negative - Negati ve [facility]/NG, NAAT, [id number] 09:12:04* Test Item Value Reference Range Interpretation Comme nts GONORRHEA, NAAT (test code = 06060) NEGATIVE NEGATIVE IMPORTANT NO EDER: SEE ANNOUNCEMENT AT [email or web address] [email or web address] TechnologiesKit Note: Assay methodology is nucleic acid amplification by well driller helper mediated amplification (TMA) utilizing the Aptima Combo 2 Assay. CHLAMYDIA, NAAT (test code = 41805) NEGATIVE NEGATIVE IMPORTANT NO EDER: SEE ANNOUNCEMENT AT [email or web address] ElectrikussUrineKit Note: Assay methodology is nucleic acid amplification by well driller helper mediated amplification (TMA) utilizing the Aptima Combo 2 Assay. [id number] 06:13:09* Test Item Value Reference Range Interpretation Comme nts RPR RESULT (test code = 3501) NON-REACTIVE NON-REACTIVE RPR TITER (test code = 3500) NOT INDIC. TITER NOT INDIC. UNLESS OTHERWISE INDICATED, ALL TESTING PERFORMED [facility] [address] [place] [address] PASSENGER RELATIONS REPRESENTATIVE: SANJUANITA PRICE M.D. CLIA NUMBER [id number] [place]. [id number] HIV 1/2 4TH GEN, RFLX [id number] 05:33:05* Test Item Value Reference Range Interpretation Comme nts HIV 1/2 4TH GEN, RFLX CONF ( test code = 3514) NON-REACTIVE NON-REACTIVE HEPATITIS PANEL, [id number] 05:33:05* Test Item Value Reference Range Interpretation Comme nts HEPATITIS A IgM (test code = 65586) NON-REACTIVE NON-REACTIVE HEPATITIS B CORE IgM (test code = 4644) NON-REACTIVE NON-REACTIVE HEPATITIS B SURF AG (test code = 2739) NON-REACTIVE NON-REACTIVE HEPATITIS C ANTIBODY (test code = 4675) NON-REACTIVE NON-REACTIVE INTERPRETATION HEPATITIS A: (test code = 2552) (NOTE) Hepatitis A serology shows no evidence of acute hepatitis A. INTERPRETATION HEPATITIS B: (test code = 03342) (NOTE) Hepatitis B serology shows no evidence of acute hepatitis B andno indication of exposure to hepatitis B virus in the previous idalia eight months. INTERPRETATION HEPATITIS C: (test code = 15143) (NOTE) Hepatitis C serology shows no evidence of exposure to hepatitisC virus at this time. It can take up to 12 months after exposure tothe hepatitis C virus for antibodies to become detectable in the blood in certain patients. 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 HISTORY OF PRESENT ILLNESS: Emma Bah is a 22 year old with recent uncomplicated vaginal delivery on 04/08/23 who presents to ED with c/o fever and back pain and headache. She initially presented to [place] ED where there were concerns for epidural [...] and it was 102F. She presented to [place] and had concern for possible epidural abscess and was transferred to [facility]. Says GARCIA better but still having some [...] domestic or physical violence within the home Christianity Preference; Yarsanism Cat outside / no litter box Social History Substance and Sexual Activity Sexual Activity Yes Partners: Male control/protection: None Patient Active Problem List Diagnosis Obesity (BMI 30-39.9) High-risk in third trimester Liveborn infant, of ryan , born in hospital by [...] uterus. No evidence of adnexal masses. ASSESSMENT/PLAN: Emma is a 22yo s/p uncomplicated on 04/08/23 [...] Tiffanie Lamb MD OG-OBSTETRICS & GYNECOLOGY STAFF [facility] - Health History and Physical Notes Date/Time [...] Complaint Patient presents with Pre-Op Exam HPI: Emma Bah is a 22 year old female [...] domestic or physical violence within the home Christianity Preference; Yarsanism Cat outside / no litter box Review [...] wks for post-op visit Frederick Stephenson MD [facility] 2023-04-08 10:49:28 Formatting of this n ote is different from the original. TRIAGE HISTORY & PHYSICAL IDENTIFYING DATA Emma Bah is 22 year old, /White, 38w4d, female with ERIKA 04/18/2023, by Last Menstrual Period. : 2000 Primary Care Physician: PATIENT DOES NOT HAVE A PCP CHIEF COMPLAINT Leakage of fluid HISTORY OF PRESENT ILLNESS Emma Bah is a 22 year old female, [...] at 04/08/23 0612 1,000 mL at 04/08/23 0612 lactated ringers IV infusion 500 mL 500 [...] mL/hr at 04/08/23 06 10 mL/hr at 04/08/23619 lidocaine-epinephrine (XYLOCAINE W/EPINEPHRINE) 1.5 %-1:200,000 injection Epidural ONCE INTRA PROCEDURE 4 mL at 04/08/23 06 PIB FENTanyl 2 mcg/mL + bupivacaine 0.1% [...] 38 weeks gestation of ASSESSMENT AND PLAN Emma Bah is a 22 year old at 38w4d who undergoing IOL for RPM at term GBS neg CAT 1 Fully dilated- start pushing and anticipate vaginal delivery Millicent Mayorga MD [facility] Procedure Notes Date/Time Note Provider Source [...] condition and taken to recovery room Narrative: Emma Bah is a 22 year old female [...] condition. Frederick Stephenson MD 05/22/2023 10:59 AM [facility] 2023-04-08 06:31:51 Associated Order(s): Central Neuraxial Block Central Neuraxial Block Date/Time: 04/08/2023 6:05 AM Performed by: Tushar Mullen MD Authorized by: Tushar Mullen MD Patient Location: OB ([facility] Labor Room 2309) End Time: 04/08/2023 6:32 [...] FELICITA saline Guidance with: landmark technique} Epidural/Spinal [place] and/or Catheter: Epidural/Spinal Kit: BBun Needle Type: Tuohy Needle Gauge: 17 G [...] as noted and infusing at 10 ml/hr. T [facility] Progress Notes Date/Time Note Provider Source 2023-04-04 15:45:00 Formatting of this n ote might be different from the original. Age: [age] year old GA: 38w0d - GBS neg on 03/26/23 - Irregular contractions: SVE /high. Labor precautions given. -Tentatively plan for induction at 39 weeks on 04/13/2023 unless clinically indicated otherwise -Daily kick counts -Follow-up in 1 week for visit T [facility] Notes Date/Time Note Provider Source 2023-06-05 16:05:51 Formatting of this n ote might be different from the original. Return to work form completed and given to patient per request. Bruce Mendez RN 06/05/2023 4:06 PM Bruce Mendez RN [facility] 2023-05-28 16:26:48 Formatting of this n ote might be different from the original. Name and verified. Pt advised that unfortunately we can remove the restrictions at the time. Pt verbalized understanding. Will wait until post op visit. NENA CURRAN RN 05/28/2023 4:27 PM Nena Curran RN [facility] 2023-05-28 14:22:32 Formatting of this n ote might be different from the original. Patient called asking to speak to nurse regarding work excuse. She is asking if restrictions could be removed for work reason, please advise Dafne Whitaker [facility] 2023-05-25 14:50:19 Formatting of this n ote might be different from the original. Return to work forms complete and [facility] Bruce Mendez RN 05/25/2023 3:08 PM Bruce Mendez RN [facility] 2023-05-25 13:14:31 Formatting of this n ote might be different from the original. Spoke with patient. Patient advised she cannot soak in a bathtub but she is clear to take a shower. Patient advised she cannot get in a swimming pool or hot tub. Patient advised the bandage can be removed and to keep incision sites clean and dry. Dr. Stephenson cleared patient to return to work with lifting restrictions. Patient cannot lift greater than 10 pounds. Patient notified. Patient will send form to complete for return to work. Brcue Mendez RN 05/25/2023 1:29 PM Bruce Mendez RN [facility] 2023-05-25 11:24:44 Formatting of this n ote might be different from the original. Pt calling to speak with a nurse about her bandage care. He wants to know if she can take a bath and if she still needs to keep them covered. Also wants to know when she can return to work. Cb Plasencia [facility] 2023-05-22 14:22:35 Formatting of this n ote might be different from the original. Spoke with patient. Patient states she has started bleeding from incision on belly button. Patient states it soaked through her bandage. Dr. Stephenson notified. Dr. Stephenson advised clinic to be seen in clinic. Patient in parking lot currently. Patient states she will come inside to be seen. Bruce Mendez RN 05/22/2023 2:42 PM Bruce Mendez RN [facility] 2023-05-22 14:17:15 Formatting of this n ote might be different from the original. Pt had surgery this morning with dr stephenson and she said the dr told her to call the clinic if having major bleeding. Pt is having bleeding so she is reaching out to the clinic for her next steps Cb Plasencia [facility] 2023-05-10 12:36:15 Formatting of this n ote might be different from the original. Images from the original note were not included. Your procedure is at [facility] on 05/22/23. The address is [address] [place] [address], [id number]. [facility]] nursing staff will call you the workday before your procedure to let you know what time to arrive.On the day of your procedure, please go inside that door and check in at the desk. Please note: You may not travel home alone and that includes in a taxi or by bus. We must speak to your Responsible Adult (who will be picking you up) the morning of your procedure, before the start of your procedure. This person must be an adult over the age of 18 years of age. Do not eat any solid food after midnight the night before surgery. You may have sips of clear liquids such as water, gatorade, and sprite up until two hours before your scheduled procedure. You may take your medications with a sip of water as directed by physician. Anticoagulants will be per physician guidance. Medication Note(s)/Instructions:n/a Pending screening, we may test for COVID. If a patient tests positive, their cases are cancelled and/or rescheduled. COVID SCREENING NOTE: Denies COVID symptoms, no testing required. Additional requests, questions, concerns: Discussed post-op care-ambulation, splinting. Patient verbalized understanding of pre-op instructions and voiced no further questions at this time. Naina Hendricks RN [facility] 2023-04-18 14:34:58 Formatting of this n ote might be different from the original. Emma Bah is a 22 year old female who presents to the ED by [facility] [id number] as a ED-to-ED transfer for a neurological evaluation. Per initial report from [facility], pt had a suspected epidural abscess following abdominal CT requiring neuro consult and US showed no retained products. On results, the radiologist's report shows no evidence of epidural abscess on CT but shows evidence of possible retained placental products on US exam. Pt states she delivered her second child vaginally on the L2 and she has been having a GARCIA for the past 7 days and a fever that started this AM, as well as back pain. Pt also endorses light bleeding. 1000 mg Tylenol given [employer]IL [employer]RI[employer] SUPER[employer] at [facility] at 1000. GCS 15, NAD, breathing even and unlabored on RA. Tess Rodrigues RN [facility] 2023-04-18 14:16:34 Formatting of this n ote might be different from the original. Emma Bah is a 22 year old female who presents as txfer from [facility] post 04/08/23 for GARCIA, intermittent fever and back pain potential spinal epidural and retained products of conception. NAD. GCS 15. PMH: denied Chrissy Greenfield RN [facility] 2023-04-18 13:15:53 Formatting of this n ote might be different from the original. Report given to [facility] at this time. Patient transported in stable condition with VSS to [facility] Emergency Department. Kortney Quintana RN [facility] 2023-04-18 12:51:38 Formatting of this n ote might be different from the original. Report called at this time to Vicki at [facility]. Updated on patient's medical history, history of present condition and plan of care. T [facility] 2023-04-18 12:48:06 Formatting of this n ote might be different from the original. Contacted [facility] for patient transport to [facility]. ETA 15 minutes T [facility] 2023-04-18 07:55:10 Formatting of this n ote might be different from the original. Patient to CT T [facility] 2023-04-18 07:13:41 Formatting of this n ote might be different from the original. Patient reports she had a vaginal delivery on 04/08/[address] [facility] and 2 days later she developed a headache that wouldn't go away. This morning she woke up with a fever of 101.3 f and took tylenol at 0330. Patient read dc paper work and came in because she was told to come in if she starts running fever. T Derrick Whittington RN [facility] 2023-04-09 14:22:36 Formatting of this n ote might be different from the original. Problem: Breast-feeding - Ineffective Goal: Effective breast-feeding 04/09/2023 1422 by Elin Hernandez RN Outcome: Adequate for discharge 04/09/2023 1419 by Elin Hernandez, SOFIA Outcome: Adequate for discharge 04/09/2023 0757 by Elin Hernandez, SOFIA Outcome: Progressing as expected Problem: Falls, Risk of Goal: Absence of falls 04/09/2023 1422 by Elin Hernandez RN Outcome: Adequate for discharge 04/09/2023 1419 by Elin Hernandez, SOFIA Outcome: Adequate for discharge 04/09/2023 0757 by Elin Hernandez, SOFIA Outcome: Progressing as expected Problem: Discharge Planning - Goal: Adequate for discharge 04/09/2023 1422 by FleElin duckworth RN Outcome: Adequate for discharge 04/09/2023 1419 by Elin Hernandez RN Outcome: Adequate for discharge 04/09/2023 0757 by Elin Hernandez RN Outcome: Progressing as expected Goal: Mood stable 04/09/2023 1422 by Elin Hernandez RN Outcome: Adequate for discharge 04/09/2023 1419 by Elin Hernandez RN Outcome: Adequate for discharge 04/09/2023 0757 by Elin Hernandez RN Outcome: Progressing as expected Problem: Complications of hemorrhage (risk or actual) Goal: Absence of active bleeding 04/09/2023 1422 by Elin Hernandez RN Outcome: Adequate for discharge 04/09/2023 141 by Elin Hernandez RN Outcome: Adequate for discharge 04/09/2023 075 by Elin Hernandez RN Outcome: Progressing as expected Goal: Absence of complications 04/09/2023 1422 by Elin Hernandez RN Outcome: Adequate for discharge 04/09/2023 1419 by Elin Hernandez RN Outcome: Adequate for discharge 04/09/2023 075 by Elin Hernandez RN Outcome: Progressing as expected Elin Hernandez RN [facility] 2023-04-09 14:19:53 Formatting of this n ote might be different from the original. Problem: Breast-feeding - Ineffective Goal: Effective breast-feeding 04/09/2023 1419 by Elin Hernandez RN Outcome: Adequate for discharge 04/09/2023 0757 by Elin Hernanedz RN Outcome: Progressing as expected Problem: Falls, Risk of Goal: Absence of falls 04/09/2023 141 by Elin Hernandez RN Outcome: Adequate for discharge 04/09/2023 075 by Elin Hernandez RN Outcome: Progressing as expected Problem: Discharge Planning - Goal: Adequate for discharge 04/09/2023 1419 by Elin Hernandez RN Outcome: Adequate for discharge 04/09/2023 0757 by Elin Hernandez RN Outcome: Progressing as expected Goal: Mood stable 04/09/2023 1419 by Elin Hernandez RN Outcome: Adequate for discharge 04/09/2023 0757 by Elin Hernandez RN Outcome: Progressing as expected Problem: Complications of hemorrhage (risk or actual) Goal: Absence of active bleeding 04/09/2023 1419 by Elin Hernandez RN Outcome: Adequate for discharge 04/09/2023 0757 by Elin Hernandez RN Outcome: Progressing as expected Goal: Absence of complications 04/09/2023 1419 by Elin Hernandez RN Outcome: Adequate for discharge 04/09/2023 0757 by Elin Hernandez RN Outcome: Progressing as expected [facility] 2023-04-09 14:12:47 Summary: initial con sult This note was copied from a baby's chart. Evaluation Situation Initial visit Background Baby girl is 1 day old, born weighing 3150g. Gestational Age: 38w4d at FEEDING STATUS MATERNAL STATUS Pumping Assessment, Recommendations, Education Assisted mom with positioning and asymmetrical latch technique in the football hold. Initially the baby was latched shallow, but after giving more neck and back support she was able to achieve a deeper latch. The baby suckled in coordinated bursts with audible swallows. Encouraged mom to stimulate the baby to keep the baby engaged in feeding and actively sucking while at the breast. Mom denied nipple I discussed with mom the stages of milk production and when she can expect to see or feel an increase in her breast milk. I discussed with mom the importance of achieving a deep latch to help transfer more milk and to help prevent nipple damage. Mom instructed on how to contact Button Maker And Installer for assistance with feedings or to answer questions while in the hospital. Mom also given Warm Line and Breast Milk Bistro information for help once discharged home. Verbalized understanding. Assessment (most recent) Assessment - 04/09/23 1111 General Information Visit Initial Mom's age (years) 22 years Gestational age 38 weeks 2 Parity 2 Living Children 2 Feeding plan Breast plans As long as possible Breast Pump Needs Delivery method Oral Assessment Oral assessment New assessment Date of 04/08/23 Time of 1112 Infant location Mother Baby Unit Chin Normal Palate assessment Normal Tongue assessment Normal Breast Assessment Breast Assessment Initial Symmetry Symmetrical Size XL (F+) Shape Rounded;Globular Nipple & Areola Assessment Left Areola Pliable Right Areola Pliable Left Nipple Colostrum visible;Intact;Edematous;Ever maritza Right Nipple Colostrum visible;Intact;Everted Literature Resources Resources Understanding Mother and Baby Care Education Infant hunger cues;On-demand feeds at least 8 or more over 24 hours;Diaper counts/color;Hand expression;Delay of pacifier/artificial nipples up to 4 weeks;Benefits of skin to skin contact;Waking techniques;Signs of an effective latch; stomach size;Calming techniques;2nd day/growth spurt cluster feeds;Position changes;Breaking seal;Labeling of expressed breastmilk;Burping;Benefits of breast massage and hand expression Handouts given [place] Button Maker [employer] Installer Observation Assist with latch Position left side Football;Infant latched effectively;Suckled in coordinated bursts;Audible swallows Interventions Motherlove nipple cream;Placed skin to skin Mother demonstrated teach back of Positioning and latching infant at breast Follow up Mom will call staff;Follow up in hospital Recommended Feeding Plan Recommended feeding plan On-demand , 8-12 times in 24 hours not to exceed 6 hours between feeds;Offer both breasts prior to formula supplementation;Mother choosing to supplement with formula after breastfeeds;Frequent [id number] time with parents BLAINE Kiran, RN, IBCLC Lana Leach RN [facility] 2023-04-09 07:57:34 Formatting of this n ote might be different from the original. Problem: Breast-feeding - Ineffective Goal: Effective breast-feeding Outcome: Progressing as expected Problem: Falls, Risk of Goal: Absence of falls Outcome: Progressing as expected Problem: Discharge Planning - Goal: Adequate for discharge Outcome: Progressing as expected Goal: Mood stable Outcome: Progressing as expected Problem: Complications of hemorrhage (risk or actual) Goal: Absence of active bleeding Outcome: Progressing as expected Goal: Absence of complications Outcome: Progressing as expected [facility] 2023-04-08 20:39:38 Formatting of this n ote might be different from the original. Problem: Breast-feeding - Ineffective Goal: Effective breast-feeding Outcome: Progressing as expected Problem: Falls, Risk of Goal: Absence of falls Outcome: Progressing as expected Problem: Discharge Planning - Goal: Adequate for discharge Outcome: Progressing as expected Goal: Mood stable Outcome: Progressing as expected Problem: Complications of hemorrhage (risk or actual) Goal: Absence of active bleeding Outcome: Progressing as expected Goal: Absence of complications Outcome: Progressing as expected Kika Trejo RN [facility] 2023-04-08 12:45:52 Formatting of this n ote is different from the original. Patient: Emma Bah Procedure Summary Date: 04/08/23 Room / Location: Anesthesia Start: 604 Anesthesia Stop: 1236 Procedure: CENTRAL NEURAXIAL BLOCK Diagnosis: Scheduled Providers: Responsible Provider: Tushar Mullen MD Anesthesia Type: Epidural ASA Status: 2 Anesthesia Type: Epidural Last vitals BP Temp Pulse Resp SpO2 There were no known notable events for this encounter. Anesthesia Post Evaluation Comments: Anesthesia ALENA Post Operative Faculty Note Date of service: 04/08/2023 Patient is s/p labor epidural placement and removal. Patient examined, patient awake. Patient participation in post anesthesia evaluation: Block not fully resolved, as expected. Patient participated otherwise. Patient advised about fall precautions. Vital Signs: BP 107/86 | Pulse 102 | Temp 37.2 ?C (99 ?F) (Temporal Artery) | Resp 16 | Ht 1.6 m (5' 3") | Wt 99.8 kg (220 lb) | LMP 07/12/2022 | SpO2 99% | BMI 38.97 kg/m? Pain: Scale used: 0 - 10 Ratin Nausea and vomiting: Not present. Post operative/post procedure hydration status: Euvolemic. Post-operative course: Block resolving appropriately, and patient advised about fall precautions as noted above. Complications: No apparent complications Tushar Mullen MD 04/08/2023 12:46 [facility] 2023-04-08 11:24:23 Formatting of this n ote might be different from the original. DELIVERY BY SPONTANEOUS VAGINAL DELIVERY Delivery Date: 04/08/2023 Delivery Time: 11.13 hours Delivery Summary Surgeon: MILLICENT MAYORGA M.D. Pre-Delivery Diagnosis: Intrauterine at 38 weeks 4days IOL for SROM at term Post-Delivery Diagnosis: Same Procedure: Normal, spontaneous vaginal delivery () Complications: None Antibiotics: None Anesthesia: Epidural/Local EBL: 300ml Findings: Female infant, Weight 3150 grams. Apgars 9 and 9. Normal appearing placenta with 3 vessel cord. Intact perinuem Procedure Details: Spontaneous vaginal delivery of a live female delivered in PIO position over intact perineum, clear fluid. Anterior and posterior shoulders delivered without difficulties, followed by rest of the . Baby was delivered unto the maternal abdomen in the presence of the attendant nursery nurse. was vigrous and cried spontaneously at . Delayed cord clamping was observed, then the cord was double clamped and cut. With delivery of the infant, oxytocin infusion was commenced for active management of 3rd stage of labor. Placenta delivered spontaneous by controlled cord traction, appeared complete and intact. The cervix, vaginal hollis and perineum were inspected, which revealed no lacerations. Uterine massage was performed and the uterus was well contracted post-delivery. All counts were correct at the conclusion of the case including sponge and needle counts. Patient tolerated procedure well. Patient and baby in LDR stable, bonding Millicent Mayorga M.D. [facility] 2023-04-08 07:04:29 Formatting of this n ote might be different from the original. Problem: Falls, Risk of Goal: Absence of falls Outcome: Progressing as expected Problem: Intrapartum process (including labor pain) Goal: Absence of or reduction of complications of labor Outcome: Progressing as expected Goal: Able to cope with pain Outcome: Progressing as expected Goal: Adequate to move to next level of care Outcome: Progressing as expected Goal: Reduction in pain sensation Outcome: Progressing as expected Problem: Discharge Planning - Goal: Adequate for discharge Outcome: Progressing as expected Goal: Mood stable Outcome: Progressing as expected Problem: Complications of hemorrhage (risk or actual) Goal: Absence of active bleeding Outcome: Progressing as expected Goal: Absence of complications Outcome: Progressing as expected Deepa Wood RN [facility] 2023-04-08 06:22:03 Formatting of this n ote is different from the original. Name/ MRN / Age / Gender: Emma Bah, [id number] 19 year old female BMI: Estimated body mass index is 38.97 kg/m? as calculated from the following: Height as of 04/07/23: 1.6 m (5' 3"). Weight as of 04/07/23: 99.8 kg (220 lb). Allergies: Pcn [penicillins] Last Vitals: BP Readings from Last 1 Encounters: 04/08/23 130/75 Pulse Readings from Last 1 Encounters: 04/08/23 97 SpO2 Readings from Last 1 Encounters: 04/08/23 100% Anesthesia Preop Eval (physical exam) Copied forward and updated from: 11/2019 Anesthesia Preop: Chart Review and [id number] [facility] Communication: 22 y/o @ 38w3d, ruptured and jennifer. No interval health changes from 2019. NPO Status Verified Clear Liquids: > 2 Hours PONV Risk Factors: female and non-smoker PONV Risk Score: 2 Anesthesia History (-) Hx of anesthetic complications (-) Hx of PONV (-) Fam hx of anesthetic complications (-) Hx of awareness during surgery (-) Hx of malignant hyperthermia (-) Hx of difficult airway Previous Anesthetics/Airways Additional Comments: ALENA 2019, 7cm FELICITA T&A, no comps Cardiovascular Negative Cardiac ROS Pulmonary Negative Pulmonary ROS Neuro/Musculoskeletal Negative Neuro/Musculosketal ROS (+) Obesity (BMI=37.7 ) GI/Hepatic (+) GERD (mild now) Hematology Negative Hematology ROS Comments: 04/07/23 21:35 WBC x10^3: 10.65 HGB: 9.6 (L) PLT x10^3: 234 (+) Patient accepts blood transfusion (O+, neg. 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 Hold on DOS. Phentermine: Alert [facility] anesthesiologist SGLT2 Inhibitors: "gliflozins" to be held for 3 days prior to elective surgeries MAC Cases: Continue taking KRISTIN inhibitors and ARBs ASA Classification ASA: 2 Current Medications: No outpatient medications have been marked as taking for the 04/08/23 encounter (Anesthesia Event) with Tushar Mullen MD. Previous Surgeries: Past Surgical History: Procedure Laterality Date INSERT CERVICAL DILATOR 11/18/2019 TONSILLECTOMY @ age 6 Anesthesia Physical Exam General no apparent distress and alert and oriented x 3 Neuro/Psych neurological Nonfocal Dental no notable dental hx Abdominal GI exam normal (+) obesity, abdomen soft, benign and gravid Airway Mallampati score:II TM distance:> 5 cm Neck ROM: full Mouth opening:normal (+) Normal facies Extremity Normal extremity Pulmonary pulmonary exam normal and bilateral clear to auscultation Other Cardiovascular cardiovascular exam normalRhythm:Regular Rate: Normal Anesthesia Plan ASA Status: 2 Plan discussed during pre-op evaluation: General, Epidural, Spinal and CSE Anesthetic plan on DOS: Epidural Anesthesia plan discussed with: patient or logistics service representative Post-Operative Analgesia: routine analgesia & antiemetics Recovery Plan: LDR Additional comments: [facility] 2023-04-07 23:09:03 Formatting of this n ote might be different from the original. Problem: Breast-feeding - Ineffective Goal: Effective breast-feeding 04/07/20232307 by Melinda Bansal RN Outcome: Progressing as expected 04/07/20232304 by Melinda Bansal RN Outcome: Progressing as expected Problem: Falls, Risk of Goal: Absence of falls 04/07/20232307 by Melinda Bansal RN Outcome: Progressing as expected 04/07/20232304 by Melinda Bansal RN Outcome: Progressing as expected Problem: Intrapartum process (including labor pain) Goal: Absence of or reduction of complications of labor 04/07/20232307 by Melinda Bansal RN Outcome: Progressing as expected 04/07/20232304 by Melinda Bansal RN Outcome: Progressing as expected Goal: Able to cope with pain 04/07/20232307 by Melinda Bansal RN Outcome: Progressing as expected 04/07/20232304 by Melinda Bansal RN Outcome: Progressing as expected Goal: Adequate to move to next level of care 04/07/20232307 by Melinda Bansal RN Outcome: Progressing as expected 04/07/20232304 by Melinda Bansal RN Outcome: Progressing as expected Goal: Reduction in pain sensation 04/07/20232307 by Melinda Bansal RN Outcome: Progressing as expected 04/07/20232304 by Melinda Bansal RN Outcome: Progressing as expected Problem: Discharge Planning - Goal: Adequate for discharge 04/07/20232307 by Melinda Bansal RN Outcome: Progressing as expected 04/07/20232304 by Melinda Bansal RN Outcome: Progressing as expected Goal: Mood stable 04/07/20232307 by Melinda Bansal RN Outcome: Progressing as expected 04/07/20232304 by Melinda Bansal RN Outcome: Progressing as expected Problem: Complications of hemorrhage (risk or actual) Goal: Absence of active bleeding Outcome: Progressing as expected Goal: Absence of complications Outcome: Progressing as expected Melinda Bansal RN [facility] 2023-04-07 22:00:09 Formatting of this n ote is different from the original. Name/ MRN / Age / Gender: Emma Wright Bah, [id number] 19 year old female BMI: Estimated body mass index is 37.74 kg/m? as calculated from the following: Height as of an earlier encounter on 04/07/23: 1.626 m (5' 4.02"). Weight as of an earlier encounter on 04/07/23: 99.8 kg (220 lb). Allergies: Pcn [penicillins] Last Vitals: BP Readings from Last 1 Encounters: 04/07/23 110/65 Pulse Readings from Last 1 Encounters: 04/07/23 81 SpO2 Readings from Last 1 Encounters: 04/07/23 98% Anesthesia Preop Eval (physical exam) Copied forward and updated from: 11/2019 Anesthesia Preop: Chart Review and [id number] [facility] Communication: 22 y/o @ 38w3d, ruptured and jennifer. No interval health changes from 2019. NPO Status Verified Clear Liquids: > 2 Hours PONV Risk Factors: female and non-smoker PONV Risk Score: 2 Anesthesia History (-) Hx of anesthetic complications (-) Hx of PONV (-) Fam hx of anesthetic complications (-) Hx of awareness during surgery (-) Hx of malignant hyperthermia (-) Hx of difficult airway Previous Anesthetics/Airways Additional Comments: ALENA 2019, 7cm FELICITA T&A, no comps Cardiovascular Negative Cardiac ROS Pulmonary Negative Pulmonary ROS Neuro/Musculoskeletal Negative Neuro/Musculosketal ROS (+) Obesity (BMI=37.7 ) GI/Hepatic (+) GERD (mild now) Hematology Negative Hematology ROS Comments: 04/07/23 21:35 WBC x10^3: 10.65 HGB: 9.6 (L) PLT x10^3: 234 (+) Patient accepts blood transfusion (O+, neg. 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 Hold on DOS. Phentermine: Alert [facility] anesthesiologist SGLT2 Inhibitors: "gliflozins" to be held for 3 days prior to elective surgeries MAC Cases: Continue taking KRISTIN inhibitors and ARBs ASA Classification ASA: 2 Current Medications: No outpatient medications have been marked as taking for the 04/07/23 encounter (Anesthesia Event) with Tushar Mullen MD. Previous Surgeries: Past Surgical History: Procedure Laterality Date INSERT CERVICAL DILATOR 11/18/2019 TONSILLECTOMY @ age 6 Anesthesia Physical Exam General no apparent distress and alert and oriented x 3 Neuro/Psych neurological Nonfocal Dental no notable dental hx Abdominal GI exam normal (+) obesity, abdomen soft, benign and gravid Airway Mallampati score:II TM distance:> 5 cm Neck ROM: full Mouth opening:normal (+) Normal facies Extremity Normal extremity Pulmonary pulmonary exam normal and bilateral clear to auscultation Other Cardiovascular cardiovascular exam normalRhythm:Regular Rate: Normal Anesthesia Plan ASA Status: 2 Plan discussed during pre-op evaluation: General, Epidural, Spinal and CSE Anesthesia plan discussed with: patient or logistics service representative Post-Operative Analgesia: routine analgesia & antiemetics Recovery Plan: LDR Additional comments: [facility] 2023-04-07 18:23:05 Formatting of this n ote might be different from the original. Report given to Jessica BLACK. [facility] 2023-04-07 18:18:29 Formatting of this n ote might be different from the original. Patient states: "I'm 38 weeks . I'm suppose to be induced next week. They stripped my membranes on Sunday. I lost my mucus plug on . Today I got up at 11 and I felt like I peed on myself but then later it happened again, and again. I have not felt her move in the last hour" G 2 P 1 A 0 OB: Stephenson . Tiffanie Ford RN [facility] 2023-04-07 15:45:00 Formatting of this n ote might be different from the original. Regarding: leaking clear liquid since 11am more often now every 20-30min //advice ----- Message from Pedro Carrasquillo sent at 04/07/2023 3:45 PM CDT ----- Emma Bah is a 22 year old female Mey Prater RN [facility] 2023-04-07 15:45:00 Formatting of this n ote might be different from the original. Regarding: leaking clear liquid since 11am more often now every 20-30min //advice ----- Message from Pedro Carrasquillo sent at 04/07/2023 3:48 PM CDT ----- Emma Bah is a 22 year old female 38 weeks [facility] 2023-04-07 15:45:00 Formatting of this n ote might be different from the original. Triage Assessment Last Clinic Visit: 04/04/23, routine visit, dx high risk , 38 weeks gestation of , irregular uterine contractions Primary Symptom: "felt like I peed myself", leaking clear fluids on and off, decreased movement Onset / Duration: today fluids 04/07/23 1115 ongoing, decreased FM noted about 20 min ago ongoing Location / Description: abd/pelvic, vagina Pain / Severity: 0/10 Associated Symptoms: felt a one-time "minor" cramp this afternoon, reports noting mucus plug came out 04/05/23 Fever / Method: did not check temp, denies feeling feverish Hydration: Snapple x 16oz., last void about one hour ago Treatment so far: monitor leaking fluids - laid down x 15-20 min to see if fluid would leak out Effect on ADL's: significant change Gestational Weeks: [id number] Rupture Membranes: possible, c/o fluid coming out Bleeding / Spotting / Pads per hour: is not wearing a peripad, denies bleeding Movement: "not so active", last felt +FM at 1500, has not done kick count Para / : [id number] EDC: 04/18/23 Pre-existing condition / Immunocompromised: previous vaginal delivery x 1, high risk [facility] Reason for Disposition Leakage of fluid from vagina Leakage of fluid from vagina Baby moving less today (e.g., kick count < 5 in 1 hour or < 10 in 2 hours) Protocols used: - Decreased Mrisqora-[id number]-DM, - Rupture of Uavyzeniw-AFAUJ-UC Assessment and triage done, disposition to go to &D now. Advised on-call MD will be notified. Callback warnings given. Pt voiced understanding and agreement with plan of care, states will be taken to [facility] L&D. [id number] Mayorga, reviewed HPI and triage disposition to L&D, Dr. Mayorga agreed with plan. [facility] 2023-04-04 08:46:41 Formatting of this n ote might be different from the original. Appointment rescheduled same time and date as original. Patient notified. Bruce Mendez RN 04/04/2023 8:47 AM Bruce Mendez RN [facility] 2023-04-04 08:36:45 Formatting of this n ote might be different from the original. Patient appointment was canceled on My Chart by mistake. She is wanting to know if she can get worked in for her last appointment before delivery. Deepa Gilliam [facility]
[2025-06-29 08:53] LABS: Influenza A Ag Negative; Influenza B Ag Negative; SARS-CoV-2 Antigen Rapid Res Negative (Negative)
--- NOTE | 2025-06-29 08:57 | EDPHYS ---
Physician Documentation [facility] Name: Emma Bah Age: 24 yrs Sex: Female : 2000 Arrival Date: 06/29/2025 Time: 07:17 Bed 14 Private MD: ED Physician Jay Patrick HPI: 06/29 07:35 This 24 yrs old Female presents to ER via Ambulatory with complaints of Sore rn Throat. 07:35 Patient reports sore throat for 2 days. Reports mild cough but feels like it is coming rn from the throat not lungs. No shortness of breath. No fever or chills. States her kids are sick with similar illness and they started before her.. 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 - Infectious Disease History:: Denies. - Social history:: Smoking status: Patient denies any tobacco usage or history of. - Family history:: not pertinent. - Hospitalizations: : No recent hospitalization is reported. ROS: 07:35 Constitutional: Negative for fever, chills, and weight loss, ENT: Positive for sore rn throat Cardiovascular: Negative for chest pain, palpitations, and edema, Respiratory: Negative for shortness of breath, cough, wheezing, and pleuritic chest pain, Skin: Negative for injury, rash, and discoloration, Exam: 07:35 Constitutional: This is a well developed, well nourished patient who is awake, alert, rn and in no acute distress. ENT: Mild pharyngeal erythema, no exudate, no stridor, no masses, uvula midline Neck: Nontender cervical lymphadenopathy. Cardiovascular: Regular rate and rhythm. No pulse deficits. Respiratory: Speaking full sentences, unlabored. Vital Signs: 07:31 BP 131 / 98; Pulse 71; Resp 16; Temp 98.7; Pulse Ox 99% on R/A; Weight 90.72 kg; Height hb 5 ft. 4 in. ; Pain 4/10; 08:00 BP 125 / 95; Pulse 76; Resp 16; Pulse Ox 100% ; [facility] 09:00 BP 132 / 92; Pulse 71; Resp 16; Temp 98.2; Pulse Ox 98% ; [facility] 07:31 Body Mass Index 34.33 (90.72 kg, 162.56 cm) hb 07:31 Pain Scale: Adult hb MDM: 07:20 Medical Screening Exam initiated rn 08:56 Differential diagnosis: group A strep tonsillitis, laryngitis, pharyngitis, upper rn respiratory infection, viral syndrome. Data reviewed: vital signs, nurses notes, lab test result(s), and as a result, I will discharge patient. Counseling: I had a detailed discussion with the patient and/or guardian regarding the historical points, exam findings, and any diagnostic results supporting the discharge/admit diagnosis, lab results, the need for outpatient follow up, to return to the emergency department if symptoms worsen or persist or if there are any questions or concerns that arise at home. Special discussion: I discussed with the patient/guardian in detail that at this point there is no indication for admission to the hospital. It is understood, however, that if the symptoms persist or worsen the patient needs to return immediately for re-evaluation. 06/29 07:34 Order name: COVID-19 Ag + Flu A+B Ag; Complete Time: 08:54 rn 06/29 07:34 Order name: Group A Streptococcus Rapid; Complete Time: 08:54 rn Administered Medications: No medications were administered Disposition Summary: 06/29/25 08:56 Discharge Ordered Notes: Location: Home rn Problem: new rn Symptoms: have improved rn Condition: Stable rn Diagnosis - Streptococcal pharyngitis rn Followup: rn - With: Private Physician - When: As needed - Reason: Recheck today's complaints, Re-evaluation by your physician Discharge Instructions: - Discharge Summary Sheet rn - Strep Throat, Adult rn Forms: - Medication Reconciliation Form rn - Antibiotic nurse prn - Prescription Opioid Use rn - Patient Portal Instructions rn - Leadership Thank You Letter rn - Work release form [facility] Prescriptions: - Zithromax Z-Robert 250 mg Oral Tablet - take 1 tablet ORAL route as directed for 5 days Day 1 - take two (2) tablets rn one time. Day 2, 3, 4 , 5 take one (1) tablet once daily.; 6 tablet; Refills: 0, Product Selection Permitted Signatures: Dispatcher [employer] EDJay Reid, MD MD rn Angle Ye, SOFIA RN hb
--- NOTE | 2025-06-29 08:57 | ER ---
Nurse's Notes [facility] Name: Emma Bah Age: 24 yrs Sex: Female : 2000 Arrival Date: 06/29/2025 Time: 07:17 Bed 14 Private MD: Diagnosis: Streptococcal pharyngitis Presentation: 06/29 07:31 Chief complaint: Sore throat x 2 days. Coronavirus screen: At this time, the client hb does not indicate any symptoms associated with coronavirus-19. Ebola Screen: No symptoms or risks identified at this time. Initial Sepsis Screen: Does the patient meet any 2 criteria? No. Patient's initial sepsis screen is negative. Does the patient have a suspected source of infection? No. Patient's initial sepsis screen is negative. Risk Assessment: Do you want to hurt yourself or someone else? Patient reports no desire to harm self or others. Onset of symptoms was June 27, 2025. 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 - Infectious Disease History:: Denies. - Social history:: Smoking status: Patient denies any tobacco usage or history of. - Family history:: not pertinent. - Hospitalizations: : No recent hospitalization is reported. Screenin:56 [facility] ED Fall Risk Assessment (Adult) History of falling in the last 3 months, hh1 including since admission No falls in past 3 months (0 pts) Confusion or Disorientation No (0 pts) Intoxicated or Sedated No (0 pts) Impaired Gait No (0 pts) Mobility Assist Device Used No (0 pt) Altered Elimination No (0 pt) Score/Fall Risk Level 0 - 2 = Low Risk Oriented to surroundings, Maintained a safe environment, Educated pt \T\ family on fall prevention, incl call for assistance when getting out of bed, Assessed \T\ reinforced patient's understanding of fall precautions, Hourly rounding (assess needs \T\ fall precautionary measures) done, Used ambulatory aids as needed (educated on \T\ assisted with). Abuse screen: Denies threats or abuse. Denies injuries from another. Nutritional screening: No deficits noted. Tuberculosis screening: No symptoms or risk factors identified. Assessment: 07:56 General: Appears in no apparent distress. comfortable, Behavior is calm, cooperative, hh1 appropriate for age. Pain: Complains of pain in neck Pain began 1 day ago. Neuro: No deficits noted. Cardiovascular: No deficits noted. Respiratory: Reports cough that is dry, sore throat Airway is patent Respiratory effort is even, unlabored, relaxed, Breath sounds are clear bilaterally. EENT: Throat is reddened. Vital Signs: 07:31 BP 131 / 98; Pulse 71; Resp 16; Temp 98.7; Pulse Ox 99% on R/A; Weight 90.72 kg; Height hb 5 ft. 4 in. ; Pain 4/10; 08:00 BP 125 / 95; Pulse 76; Resp 16; Pulse Ox 100% ; hh1 09:00 BP 132 / 92; Pulse 71; Resp 16; Temp 98.2; Pulse Ox 98% ; hh1 07:31 Body Mass Index 34.33 (90.72 kg, 162.56 cm) hb 07:31 Pain Scale: Adult hb ED Course: 07:20 Patient arrived in ED. im 07:20 Jay Patrick MD is Attending Physician. rn 07:32 Triage completed. hb 07:32 Arm band placed on. hb 07:51 Angle Romo, RN is Primary Nurse. hh1 07:54 Group A Streptococcus Rapid Sent. hh1 07:54 COVID-19 Ag + Flu A+B Ag Sent. 1 07:56 Patient has correct armband on for positive identification. Bed in low position. Call [facility] light in reach. 09:13 Provided Education on: Plan of care/discharge instructions. 1 09:13 No provider procedures requiring assistance completed. Patient did not have IV access [facility] during this emergency room visit. Administered Medications: No medications were administered Medication: 07:56 VIS not applicable for this client. [facility] Outcome: 08:56 Discharge ordered by . rn 09:13 Discharged to home ambulatory, [facility] 09:13 Condition: good 09:13 Discharge instructions given to patient, Instructed on discharge instructions, follow up and referral plans. medication usage, Demonstrated understanding of instructions, follow-up care, medications, Prescriptions given X 09:14 Patient left the ED. 1 Signatures: Jay Patrick MD MD rn Baxter, Heather, RN RN Kate Cuevas Heather, RN RN hh1
[2025-06-29 10:18] VITALS: BP 132/92; TEMP 98.2; O2SAT 98
== END 2025-06-29 09:14 | disposition home or self-care (01) ==
LOC: ER 07:17
DX: J02.0 Streptococcal pharyngitis (principal); Z88.0 Allergy status to penicillin; Z11.52 Encounter for screening for COVID-19
CPT/HCPCS: 36415; 87428; 99283